=== PATIENT | female | born 1945 | race Caucasian/White ===

== ENCOUNTER 2024-01-05 13:30 | Outpatient (AMB) | payer MEDICARE, SELFPAY ==
--- NOTE | 2024-01-05 13:37 | MHC.PC.OV ---
Vital Signs 01/05/24 13:38 Height 5 ft 4 in Weight 158 lb BMI 27.1 BP 148/78 H Blood Pressure Location Lt brachial Position Sitting Pulse 78 Pulse Source Pulse Oximeter Pulse Oximetry (%) 97 Oxygen Delivery Method Room Air Intake Visit Reasons: [facility] - [facility] Allergies erythromycin base [ERYTHROMYCIN BASE] Allergy (Intermediate, Verified 01/05/24 13:44) HIVES flurbiprofen [From ANSAID] Allergy (Intermediate, Verified 01/05/24 13:44) HIVES azithromycin [AZITHROMYCIN] Allergy (Mild, Verified 01/05/24 13:44) RASHES NSAIDS (Non-Steroidal Anti-Inflamma [NSAIDS (NON-STEROIDAL ANTI-INFLAMMA] Allergy (Mild, Verified 01/05/24 13:44) RASHES ciprofloxacin [Cipro] Allergy (Unknown, Verified 01/05/24 13:44) Upset Stomach nitrofurantoin Allergy (Unknown, Verified 01/05/24 13:44) upset stomach Erythromycin Allergy (Unknown, Uncoded 01/05/24 13:44) Hives Sulfas Allergy (Unknown, Uncoded 01/05/24 13:44) Hives Medication List - Last Reconciled 01/05/24 by Jose Roberto Leggett MD acetaminophen (Tylenol) 975 mg PO Q6H PRN apixaban (Eliquis) 5 mg PO BID aspirin (Adult Aspirin Regimen) 81 mg PO DAILY atorvastatin 40 mg PO DAILY cholecalciferol (vitamin D3) 50 mcg PO DAILY dapagliflozin propanediol (Farxiga) 10 mg PO DAILY docusate sodium (Colace) 100 mg PO DAILY levothyroxine 100 mcg PO DAILY metoprolol tartrate 12.5 mg PO BID torsemide 20 mg PO DAILY valsartan 40 mg PO DAILY Tobacco use date assessed: 01/05/24 Fall risk assessment: No Falls in past year Last assessed Fall Risk: 01/05/24 Dental Screening Dental Screen Date: 01/05/24 Did you have a dental visit in the last 12 months?: No Did you have a dental problem in the last 6 months where you did not have access to dental care?: No Was dental information given to patient?: No HPI [facility] - [facility] HPI Details 78-year-old overweight female with a multiple medical problems. She has diabetes mellitus crest coronary artery disease , paroxysmal atrial fibrillation hypothyroidism hypercholesterolemia hypertension history of renal artery stenosis polymyositis with scleroderma coming in for the 1st time. Review of the notes has had coronary artery bypass graft in November 04 2023 was seen by the records management specialist in December 2023 having a sternal wound dehiscence with Pseudomonas growing. Wound care as well as IV antibiotics given was given Zosyn patient started on metoprolol 12.5 mg twice a day and follows up for wound VAC change. Prescribe nystatin for under breast. November [address] Medina from Cardiology [facility] Surgical History (Updated 01/05/24 @ 14:41 by Jose Roberto Leggett MD) Hx of tonsillectomy History of lumbar fusion History of appendectomy Hx of total knee arthroplasty Hx of CABG S/P JUDI-BSO (total abdominal hysterectomy and bilateral salpingo-oophorectomy) Family History (Updated 01/05/24 @ 13:52 by Katherin Lopez CMA) Mother Heart attack Father Heart attack Brother No problems noted. Son No problems noted. Son No problems noted. Social History (Updated 01/05/24 @ 14:42 by Jose Roberto Leggett MD) Housing: House Alcohol intake: never Patient Tobacco Use Status: Never used Tobacco Tobacco use type: Cigarette e-Cigarette/Vaping Use: Never Used Second Hand Smoke Exposure: No Current occupational status: retired Current occupational exposures/hazards: No Cognitive needs: No Hearing needs: Yes Vision needs: Yes Questionnaire PHQ-9 Over the last 2 weeks, how often have you been bothered by any of the following problems? 1. Little interest or pleasure in doing things: not at all 2. Feeling down, depressed, or hopeless: not at all 3. Trouble falling or staying asleep, or sleeping too much: not at all 4. Feeling tired or having little energy: not at all 5. Poor appetite or overeating: not at all 6. Feeling bad about yourself - or that you are a failure or have let yourself or your family down: not at all 7. Trouble concentrating on things, such as reading the newspaper or watching television: not at all 8. Moving or speaking so slowly that other people could have noticed. Or the opposite - being so fidgety or restless that you have been moving around a lot more than usual: not at all 9. Thoughts that you would be better off or of hurting yourself in some way: not at all Total score: 0 Depression Screening Interpretation: Negative Depression Screening Done: Yes Source: Developed by Drs. Yogi Martins, Migue Youssef and colleagues, with an educational yenny from [employer]. Thrive Questionnaire Date Thrive assessed: 01/05/24 I am a: Patient What is your living situation today?: I have a steady place to live Within the past 12 months, did the food you bought not last and you didn't have the money to get more?: Never true Within the past 12 months, did you worry whether your food would run out before you got money to buy more?: Never true Do you have trouble paying for medicines?: No Do you have trouble getting transportation to medical appointments?: No Do you have trouble paying your heating and electricity bill?: No Do you have trouble taking care of your child, family member or friend?: No Do you have trouble with day-to-day activities such as bathing, preparing meals, shopping, managing finances, etc.?: No Are you currently unemployed and looking for a job?: No Are you interested in more education?: No Currently or been in a relationship where the following occur: no concerns reported THRIVE Score: 0 AUDIT C Alcohol Use Questionnaire (AUDIT-C) 1. How often do you have a drink containing alcohol?: Never 3. How often do you have six or more drinks on one occasion?: Never Total Score: 0 HARRY-7 AMB Questionnaire HARRY-7 Date HARRY - 7 assessed: 01/05/24 Feeling nervous, anxious, or on edge: 1 = Several days Not being able to stop or control worryin = Several days Worrying too much about different things: 1 = Several days Trouble relaxin = Not at all Being so restless that it is hard to sit still: 0 = Not at all Becoming easily annoyed or irritable: 0 = Not at all Feeling afraid as if something awful might happen: 0 = Not at all Total HARRY-7 score (0-4 normal; 5-9 mild; 10-14 moderate; 15-21 severe): 3 Source: Developed by Sahra Orta Kurt Kroenke and colleagues, with an educational yenny from [employer]. Physical exam (Primary Care) Vital Signs: Last Vital Signs Pulse 78 01/05/24 13:38 BP 148/78 H 01/05/24 13:38 Pulse Ox 97 01/05/24 13:38 Oxygen Delivery Method Room Air 01/05/24 13:38 BMI result Body Mass Index 27.1 Tobacco/Smoking Status: Tobacco use Status Tobacco use date assessed 01/05/24 01/05/24 13:53 Patient Tobacco Use Status Never used Tobacco 01/05/24 13:53 Tobacco use type Cigarette 01/05/24 13:53 e-Cigarette/Vaping Use Never Used 01/05/24 13:53 PHQ-9: PHQ-9 Score PHQ-9: Total score 0 01/05/24 14:23 Depression Screening Interpretation: Negative Thrive Assessment: Date of Thrive Assessment Date Thrive assessed 01/05/24 01/05/24 13:53 Currently or been in a relationship where the following occur: no concerns reported Const General: alert; No acute distress Eyes Conjunctivae: conjunctivae normal Chest Chest/axillae images: 1. Wound VAC on wound dehiscence on the chest post CABG with slightly red bloody fluid coming out 2. 3. 4. Resp Auscultation: clear to auscultation bilaterally Cardio Rate: regular rate Rhythm: regular rhythm GI Inspection: Yes normal to inspection Extrem General: Yes normal to inspection and No edema Results AMB Hemoglobin A1c AMB Hemoglobin A1c 4.9 % Last Edit by Katherin Lopez CMA on 01/05/24 14:24 Results Reviewed Results Reviewed: Laboratory Last Values Hgb A1c (Clinic) 4.9 % (4.0-6.0) 01/05/24 13:53 Assessment and Plan Assessment & Plan (1) CAD (coronary artery disease): Comment: CABG x4 11/04/2023(Shabazz to LAD, SVG to PDA, SVG to OM, SVG to diag) Code(s): I25.10 - Atherosclerotic heart disease of [place] coronary artery without angina pectoris Plan: Control the cholesterol, weight, blood pressure, diabetes presently on anticoagulation for atrial fibrillation and aspirin (2) Superficial dehiscence of operation wound: Comment: December 2023 Code(s): T81.31XA - Disruption of external operation (surgical) wound, not elsewhere classified, initial encounter Plan: With a wound VAC and follows up with cardiac surgeon for wound VAC change (3) CREST (calcinosis, Raynaud's phenomenon, esophageal dysfunction, sclerodactyly, telangiectasia): Code(s): M34.1 - CR(E)ST syndrome Plan: Stable presently (4) Type 2 diabetes mellitus with hyperglycemia: Code(s): E11.65 - Type 2 diabetes mellitus with hyperglycemia Plan: Decrease the amount of carbohydrate intake, pasta, bread, rice and potatoes are all sugar and that is aside from all the sweet stuff, remember that fruits are good but they are Sweet also. Hemoglobin A1c goal of less than 7.0 presently on insulin Farxiga (5) Hypertension: Code(s): I10 - Essential (primary) hypertension Plan: Continue with blood pressure medication. Decrease salt intake and exercise presently on valsartan 40 mg once a day metoprolol 12.5 mg twice a day (6) Renal artery stenosis: Code(s): I70.1 - Atherosclerosis of renal artery Plan: Patient follows up with Nephrology continue to control blood pressure. Referral to Nephrology done (7) Paroxysmal atrial fibrillation: Code(s): I48.0 - Paroxysmal atrial fibrillation Plan: Continue with anticoagulation (8) Hypercholesterolemia: Code(s): E78.00 - Pure hypercholesterolemia, unspecified Plan: Avoid fried foods, chicken skin, eggs, butter margarine, pastries and meat. Be it pork or beef they have a lot of cholesterol LDL goal of less than 70 and triglyceride of less than 150. Patient on atorvastatin 40 mg once a day. Blood work requested (9) Hypothyroid: Code(s): E03.9 - Hypothyroidism, unspecified Plan: Continue with thyroid medication blood work requested. Orders: Orders AMB Hemoglobin A1c Today Z13.9 - Encounter for screening, unspecified Comprehensive Met. Panel Today E11.65 - Type 2 diabetes mellitus with hyperglycemia Lipid Panel Today E11.65 - Type 2 diabetes mellitus with hyperglycemia, E78.00 - Pure hypercholesterolemia, unspecified Microalbumin, Random (w Creat) Today E11.65 - Type 2 diabetes mellitus with hyperglycemia Creatinine Urine Today E11.65 - Type 2 diabetes mellitus with hyperglycemia Ferritin Today E11.65 - Type 2 diabetes mellitus with hyperglycemia Hemoglobin A1c Today E11.65 - Type 2 diabetes mellitus with hyperglycemia Erythrocyte Sedimentation Rate Today E11.65 - Type 2 diabetes mellitus with hyperglycemia Magnesium Today E11.65 - Type 2 diabetes mellitus with hyperglycemia Complete Blood Count Auto Diff Today E11.65 - Type 2 diabetes mellitus with hyperglycemia Free T4 (Free Thyroxine) Today E11.65 - Type 2 diabetes mellitus with hyperglycemia Thyroid Stimulating Hormone Today E11.65 - Type 2 diabetes mellitus with hyperglycemia Reticulocyte Count Today E11.65 - Type 2 diabetes mellitus with hyperglycemia IRON PROFILE Today E11.65 - Type 2 diabetes mellitus with hyperglycemia Vitamin B12 and Folate Today E11.65 - Type 2 diabetes mellitus with hyperglycemia Vitamin D 25-OH Total Today E11.65 - Type 2 diabetes mellitus with hyperglycemia C Reactive Protein Today E11.65 - Type 2 diabetes mellitus with hyperglycemia Phosphorus Today E11.65 - Type 2 diabetes mellitus with hyperglycemia Referrals Nephrology Referral I70.1 - Atherosclerosis of renal artery Coding Level of Care Code Est Pt Level 4 (93333) Diagnoses CAD (coronary artery disease) I25.10 Superficial dehiscence of operation wound T81.31XA CREST (calcinosis, Raynaud's phenomenon, esophageal dysfunction, sclerodactyly, telangiectasia) M34.1 Type 2 diabetes mellitus with hyperglycemia E11.65 Hypertension I10 Renal artery stenosis I70.1 Paroxysmal atrial fibrillation I48.0 Hypercholesterolemia E78.00 Hypothyroid E03.9
[2024-01-05 13:38] VITALS: BP 148/78; PULSE 78; O2SAT 97; BMI 27.1
== END 2024-01-05 15:00 | disposition home or self-care (01) ==
PROVIDERS: PCP Internal Medicine; Visit Provider Internal Medicine
DX: E11.65 Type 2 diabetes mellitus with hyperglycemia (principal); M34.1 CR(E)ST syndrome; I70.1 Atherosclerosis of renal artery; I48.0 Paroxysmal atrial fibrillation; I25.10 Atherosclerotic heart disease of native coronary artery without angina pectoris; T81.31XA Disruption of external operation (surgical) wound, not elsewhere classified, initial encounter; I10 Essential (primary) hypertension; E78.00 Pure hypercholesterolemia, unspecified; E03.9 Hypothyroidism, unspecified
CPT/HCPCS: 83036; 99214

== ENCOUNTER 2024-01-12 15:19 | Outpatient (AMB) | payer MEDICARE, SELFPAY ==
--- NOTE | 2024-01-12 15:29 | HO.NEPHOV ---
HPI HPI Comments History of Present Illness Details I would the privilege of seeing Perlita in consultation for her recent ARMAAN on a backdrop of CKD, hypertension and crest syndrome. She has long history of coronary artery disease needing PCI 15 years ago but recently she underwent coronary artery bypass grafting following which she had sternal wound issues and underwent further surgery. She was thought to have atherosclerotic renovascular disease causing CKD. She denies any shortness of breath, paroxysmal nocturnal dyspnea, orthopnea or worsening pedal edema. She has been tolerating angiotensin receptor marichuy. Her serum creatinine had been fluctuating between 1.3-1.4 at baseline. She does not have any hematuria, dysuria, frequency, orthostatic symptoms. [facility] Surgical History Hx of tonsillectomy History of lumbar fusion History of appendectomy Hx of total knee arthroplasty Hx of CABG S/P JUDI-BSO (total abdominal hysterectomy and bilateral salpingo-oophorectomy) Family History Mother Heart attack Father Heart attack Brother No problems noted. Son No problems noted. Son No problems noted. Social History Housing: House Alcohol intake: never Patient Tobacco Use Status: Never used Tobacco Tobacco use type: Cigarette e-Cigarette/Vaping Use: Never Used Second Hand Smoke Exposure: No Current occupational status: retired Current occupational exposures/hazards: No Cognitive needs: No Hearing needs: Yes Vision needs: Yes Vital Signs 01/12/24 15:31 Height 5 ft 4 in Weight 157 lb 2 oz BMI 27.0 BP 140/90 H Blood Pressure Location Rt brachial Position Sitting Pulse 103 H Pulse Source Pulse Oximeter Pulse Oximetry (%) 97 Oxygen Delivery Method Room Air Physical Exam Vital Signs: Last Vital Signs Pulse 103 H 01/12/24 15:31 BP 140/90 H 01/12/24 15:31 Pulse Ox 97 01/12/24 15:31 Oxygen Delivery Method Room Air 01/12/24 15:31 BMI result Body Mass Index 27.0 Const General: comfortable and no acute distress Orientation/consciousness: patient oriented x3 HEENT Head: Yes normocephalic Mouth: Normal oral and palatal mucosa present Eyes EOM: EOMs intact bilaterally Neck Neck: Yes supple Resp Auscultation: clear to auscultation bilaterally Cardio Jugular venous distension: no JVD Rate: regular rate GI Palpation (GI): Soft to palpation Auscultation: normal bowel sounds General: Yes no CVA tenderness Back/Spine/Pelvis Back: no CVA tenderness Skin General skin exam: no rashes or lesions noted Neuro General: patient oriented x3 and moves all extremities Extrem General: Yes no pedal edema Assessment & Plan Assessment & Plan (1) CKD (chronic kidney disease) stage 3, GFR 30-59 ml/min: Code(s): N18.30 - Chronic kidney disease, stage 3 unspecified Qualifiers: Chronic kidney disease stage 3 subtype: stage 3a (GFR 45-59) Qualified Code(s): N18.31 - Chronic kidney disease, stage 3a (2) Renal artery stenosis: Code(s): I70.1 - Atherosclerosis of renal artery (3) Hypertension: Code(s): I10 - Essential (primary) hypertension Qualifiers: Hypertension type: renovascular hypertension Qualified Code(s): I15.0 - Renovascular hypertension Plan Perlita has history of vascular disease including coronary artery disease needing CABG as well as renovascular disease. She is tolerating current dose of ARB and blood pressure has been at goal. She avoids nonsteroidal anti-inflammatories and her volume status is optimal. She has not known to have any significant proteinuria. She has not had a follow-up ultrasound of her renal artery which I plan to do it with time. She is on statins. Her renal functions are close to baseline now. She maintains good hydration. She is tolerating current dosage of diuretics. More than 50% of time spent discussing about renovascular disease, CKD, follow-up and management strategies. I answered all questions. Follow-up blood work ordered. Follow-up appointment given. Orders: Orders Creatinine 01/12/24 N18.30 - Chronic kidney disease, stage 3 unspecified Blood Urea Nitrogen 01/12/24 N18.30 - Chronic kidney disease, stage 3 unspecified Electrolytes 01/12/24 N18.30 - Chronic kidney disease, stage 3 unspecified Coding Level of Care Code New Pt Level 4 (29249) Diagnoses Stage 3a chronic kidney disease N18.31 Chronic kidney disease stage 3 subtype: stage 3a (GFR 45-59) Renal artery stenosis I70.1 Renovascular hypertension I15.0 Hypertension type: renovascular hypertension Results Reviewed Nephrology Results: Hgb 12.4 g/dL (12.0-16.0) 10/17/19 WBC 12.2 X10*3/uL (4.8-10.8) H 10/17/19 Plt Count 266 X10*3/uL (160-400) 10/17/19 Sodium 140 MMOL/L (135-145) 10/17/19 Potassium 4.2 MMOL/L (3.3-5.1) 10/17/19 Chloride 108 MMOL/L (96-108) 10/17/19 BUN 43 MG/DL (9-16) H 10/17/19 Creatinine 1.30 MG/DL (0.5-1.4) 10/17/19 Calcium 9.5 MG/DL (8.4-10.2) 10/17/19
[2024-01-12 15:31] VITALS: BP 140/90; PULSE 103; O2SAT 97; BMI 27.0
== END 2024-01-12 16:17 | disposition home or self-care (01) ==
PROVIDERS: PCP Internal Medicine; Visit Provider Internal Medicine Nephrology
DX: N18.31 Chronic kidney disease, stage 3a (principal); I70.1 Atherosclerosis of renal artery; I15.0 Renovascular hypertension
CPT/HCPCS: 99204

== ENCOUNTER → 2024-01-12 15:19 | Outpatient (BNVA) | payer MEDICARE, SELFPAY | PROVIDERS: PCP Internal Medicine; Visit Provider Internal Medicine Nephrology | DX: N18.31 Chronic kidney disease, stage 3a (principal); I70.1 Atherosclerosis of renal artery; I15.0 Renovascular hypertension | CPT/HCPCS: 99202 ==

== ENCOUNTER 2024-02-09 08:31 | Outpatient (AMB) | payer MEDICARE, SELFPAY ==
[2024-02-09 08:37] VITALS: BP 142/76; PULSE 85; O2SAT 98; BMI 26.6
--- NOTE | 2024-02-09 08:37 | MHC.PC.OV ---
Vital Signs 02/09/24 08:37 Height 5 ft 4 in Weight 70.307 kg BMI 26.6 BP 142/76 H Blood Pressure Location Lt brachial Position Sitting Pulse 85 Pulse Source Pulse Oximeter Pulse Oximetry (%) 98 Oxygen Delivery Method Room Air Intake Visit Reasons: [facility] [place] 01/18-01/21 Pediatrician Active Practice Required: No Early Head Start Director: Not Required per policy Accompanied by: Self / Same As Patient Allergies erythromycin base [ERYTHROMYCIN BASE] Allergy (Intermediate, Verified 02/09/24 08:37) HIVES flurbiprofen [From ANSAID] Allergy (Intermediate, Verified 02/09/24 08:37) HIVES azithromycin [AZITHROMYCIN] Allergy (Mild, Verified 02/09/24 08:37) RASHES NSAIDS (Non-Steroidal Anti-Inflamma [NSAIDS (NON-STEROIDAL ANTI-INFLAMMA] Allergy (Mild, Verified 02/09/24 08:37) RASHES ciprofloxacin [Cipro] Allergy (Unknown, Verified 02/09/24 08:37) Upset Stomach nitrofurantoin Allergy (Unknown, Verified 02/09/24 08:37) upset stomach Erythromycin Allergy (Unknown, Uncoded 02/09/24 08:37) Hives Sulfas Allergy (Unknown, Uncoded 02/09/24 08:37) Hives Medication List - Last Reconciled 02/13/24 by ANDRE Shannon acetaminophen (Tylenol) 975 mg PO Q6H PRN apixaban (Eliquis) 5 mg PO BID aspirin (Adult Aspirin Regimen) 81 mg PO DAILY atorvastatin 40 mg PO DAILY cholecalciferol (vitamin D3) 50 mcg PO DAILY docusate sodium (Colace) 100 mg PO DAILY furosemide 20 mg PO DAILY levothyroxine 100 mcg PO DAILY metoprolol tartrate 12.5 mg PO BID sacubitril-valsartan 24-26 mg (Entresto) 1 tab PO BID simvastatin 40 mg PO QPM Tobacco use date assessed: 01/05/24 Fall risk assessment: No Falls in past year Last assessed Fall Risk: 02/09/24 Dental Screening Dental Screen Date: 01/05/24 HPI HPI Comments History of Present Illness Details 7-year-old female with history of crest syndrome, chronic atrial fibrillation previously on Eliquis which is on hold due to delayed wound healing of the chest, coronary artery disease s/p PCI to the LAD and LCX in 2008 s/p CABG x4 on 11/04/2024, 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 Hospital discharge medications reviewed and reconciled. She was admitted to [facility] from 01/18-01/21 due to acute on chronic systolic congestive heart failure exacerbation. Chest x-ray while in the ED showed pulmonary edema and pleural effusion. ProBNP elevated at 13,851. Troponin 26. Renal function baseline, electrolyte levels normal. Hemoglobin A1c checked was 5.5%. She was diuresed with IV Lasix with good effect. Her valsartan was discontinued and she was initiated on Entresto. Her Lasix was increased to 20 mg orally. Reports the Eliquis remains on hold due to recent sternal wound infection with delayed healing but continues following with her surgeon, Dr. Interiano, with plans to resume Eliquis likely at the end of this month. She also continues to follow with Dr. Pike from at [facility]. Today she reports she is feeling well. Denies any lightheadedness, dyspnea on exertion, increased edema in the bilateral lower extremities, palpitations, or chest pain. She has VNA in the home 3 times per week for wound care. She continues to drain minimal yellow discharge which has not changed in quantity or quality. No foul-smelling discharge. No fevers or chills. She also tells me her diabetes has been very well controlled and insulin was discontinued while in the hospital. Hgb A1c 5.5% at [facility]. Reports fasting glucose around 110 PFSH Medical History CAD (coronary artery disease) CREST (calcinosis, Raynaud's phenomenon, esophageal dysfunction, sclerodactyly, telangiectasia) Inguinal hernia Type 2 diabetes mellitus with hyperglycemia Hypertension Polymyositis Renal artery stenosis Scleroderma Paroxysmal atrial fibrillation CKD (chronic kidney disease) stage 3, GFR 30-59 ml/min Hypothyroid Hypercholesterolemia Surgical History Hx of tonsillectomy History of lumbar fusion History of appendectomy Hx of total knee arthroplasty Hx of CABG S/P JUDI-BSO (total abdominal hysterectomy and bilateral salpingo-oophorectomy) Family History Mother Heart attack Father Heart attack Brother No problems noted. Son No problems noted. Son No problems noted. Social History Housing: House Alcohol intake: never Patient Tobacco Use Status: Never used Tobacco Tobacco use type: Cigarette e-Cigarette/Vaping Use: Never Used Second Hand Smoke Exposure: No Current occupational status: retired Current occupational exposures/hazards: No Cognitive needs: No Hearing needs: Yes Vision needs: Yes Questionnaire Thrive Questionnaire Date Thrive assessed: 01/05/24 HARRY-7 AMB Questionnaire HARRY-7 Date HARRY - 7 assessed: 01/05/24 Source: Developed by Drs. Yogi Martins, Sahra Howell, Migue Begum and colleagues, with an educational yenny from [employer]. Review of Systems Const All systems reviewed & are unremarkable except as noted in HPI and below Physical exam (Primary Care) Vital Signs: Last Vital Signs Pulse 85 02/09/24 08:37 BP 142/76 H 02/09/24 08:37 Pulse Ox 98 02/09/24 08:37 Oxygen Delivery Method Room Air 02/09/24 08:37 BMI result Body Mass Index 26.6 Tobacco/Smoking Status: Tobacco use Status Tobacco use date assessed 01/05/24 02/09/24 08:38 Patient Tobacco Use Status Never used Tobacco 02/09/24 08:38 Tobacco use type Cigarette 02/09/24 08:38 e-Cigarette/Vaping Use Never Used 02/09/24 08:38 Thrive Assessment: Date of Thrive Assessment Date Thrive assessed 01/05/24 02/09/24 08:38 Const Other: Constitutional - Awake and Alert, No apparent distress Eyes - PERRLA, EOMI Cardiovascular - S1S2, RRR, No edema Respiratory - Normal lung expansion, Normal respiratory effort, No respiratory distress, CTA bilaterally Extremities - no calf tenderness bilaterally, no swelling Skin - Warm/Dry. Sternal wound dehiscence, no open areas, with granulation tissues present. scant yellow drainage on dressing. NO evidence of significant purulence from wound. No surrounding erythema. No foul odor Neurological - Alert & oriented x3 Psychological - Appropriate affect Results Reviewed Results Reviewed: CBC, BMP, hemoglobin A1c, wound care note, discharge summary, echocardiogram Assessment and Plan Assessment & Plan (1) Chronic systolic heart failure: Code(s): I50.22 - Chronic systolic (congestive) heart failure Plan: Euvolemic on exam Echo 01/19 shows severely reduced LV systolic function EF 25-30% with global LV hypokinesis with regional variation as well as probable elevated LV filling pressures Continue increased dose of lasix : 20mg daily Continue entresto: 24/36mg daily Follow up with Dr. Medina ([facility]) as scheduled (2) Superficial dehiscence of operation wound: Comment: December 2023 Code(s): T81.31XA - Disruption of external operation (surgical) wound, not elsewhere classified, initial encounter Plan: Wound clean without evidence of acute infection Wound VAC has been discontinued. Continue with VNA RN in home for wound care Continue following with Dr. Interiano, surgeon, as scheduled Continue holding Eliquis. Resume as advised by surgeon (3) Type 2 diabetes mellitus with hyperglycemia: Code(s): E11.65 - Type 2 diabetes mellitus with hyperglycemia Plan: Controlled with hemoglobin A1c 5.5% Continue with diabetic diet. Insulin discontinued. Medications: New sacubitril-valsartan 24-26 mg (Entresto) 1 tab PO BID 180 tabs 0RF Coding Level of Care Code Est Pt Level 5 (36778) Diagnoses Chronic systolic heart failure I50.22 Superficial dehiscence of operation wound T81.31XA Type 2 diabetes mellitus with hyperglycemia E11.65 Time Spent (min) 45 Comment Time spent reviewing above, examination with patient, and documentation time
== END 2024-02-09 08:59 | disposition home or self-care (01) ==
PROVIDERS: PCP Internal Medicine; Visit Provider Physician Assistant
DX: I50.22 Chronic systolic (congestive) heart failure (principal); T81.31XA Disruption of external operation (surgical) wound, not elsewhere classified, initial encounter; E11.65 Type 2 diabetes mellitus with hyperglycemia
CPT/HCPCS: 99215

== ENCOUNTER 2024-02-18 10:28 | Outpatient (AMB) | payer MEDICARE, SELFPAY ==
[2024-02-18 10:32] VITALS: BP 110/54; PULSE 83; O2SAT 98; BMI 26.9
--- NOTE | 2024-02-18 10:32 | HO.NEPHOV_ITS ---
HPI HPI Comments History of Present Illness Details I would the privilege of seeing Perlita in consultation for her recent ARMAAN on a backdrop of CKD, hypertension and crest syndrome. She has long history of coronary artery disease needing PCI 15 years ago but recently she underwent coronary artery bypass grafting following which she had sternal wound issues and underwent further surgery. She was thought to have atherosclerotic renovascular disease causing CKD. She denies any shortness of breath, paroxysmal nocturnal dyspnea, orthopnea or worsening pedal edema. She has been tolerating angiotensin receptor marichuy. Her serum creatinine had been fluctuating between 1.3-1.4 at baseline. She does not have any hematuria, dysuria, frequency, orthostatic symptoms. She recently had a hospitalization with initiation of lasix and Entresto. [facility] Medical History CAD (coronary artery disease) CREST (calcinosis, Raynaud's phenomenon, esophageal dysfunction, sclerodactyly, telangiectasia) Inguinal hernia Type 2 diabetes mellitus with hyperglycemia Hypertension Polymyositis Renal artery stenosis Scleroderma Paroxysmal atrial fibrillation CKD (chronic kidney disease) stage 3, GFR 30-59 ml/min Hypothyroid Hypercholesterolemia Surgical History Hx of tonsillectomy History of lumbar fusion History of appendectomy Hx of total knee arthroplasty Hx of CABG S/P JUDI-BSO (total abdominal hysterectomy and bilateral salpingo-oophorectomy) Family History Mother Heart attack Father Heart attack Brother No problems noted. Son No problems noted. Son No problems noted. Social History Housing: House Alcohol intake: never Patient Tobacco Use Status: Never used Tobacco Tobacco use type: Cigarette e-Cigarette/Vaping Use: Never Used Second Hand Smoke Exposure: No Current occupational status: retired Current occupational exposures/hazards: No Cognitive needs: No Hearing needs: Yes Vision needs: Yes Vital Signs 02/18/24 10:32 Height 5 ft 4 in Weight 157 lb BMI 26.9 BP 110/54 L Blood Pressure Location Rt brachial Position Left Lateral Pulse 83 Pulse Source Pulse Oximeter Pulse Oximetry (%) 98 Oxygen Delivery Method Room Air Physical Exam Vital Signs: Last Vital Signs Pulse 83 02/18/24 10:32 BP 110/54 L 02/18/24 10:32 Pulse Ox 98 02/18/24 10:32 Oxygen Delivery Method Room Air 02/18/24 10:32 BMI result Body Mass Index 26.9 Const General: comfortable and no acute distress Orientation/consciousness: patient oriented x3 HEENT Head: Yes normocephalic Mouth: Normal oral and palatal mucosa present Eyes EOM: EOMs intact bilaterally Neck Neck: Yes supple Resp Auscultation: clear to auscultation bilaterally Cardio Jugular venous distension: no JVD Rate: regular rate GI Palpation (GI): Soft to palpation Auscultation: normal bowel sounds General: Yes no CVA tenderness Back/Spine/Pelvis Back: no CVA tenderness Skin General skin exam: no rashes or lesions noted Neuro General: patient oriented x3 and moves all extremities Extrem General: Yes no pedal edema Assessment & Plan Assessment & Plan (1) Renal artery stenosis: Code(s): I70.1 - Atherosclerosis of renal artery (2) CKD (chronic kidney disease) stage 3, GFR 30-59 ml/min: Code(s): N18.30 - Chronic kidney disease, stage 3 unspecified Qualifiers: Chronic kidney disease stage 3 subtype: stage 3a (GFR 45-59) Qualified Code(s): N18.31 - Chronic kidney disease, stage 3a Plan Perlita has history of vascular disease including coronary artery disease needing CABG as well as renovascular disease. She is tolerating current dose of Enteresto and her blood pressure has been at goal. She avoids nonsteroidal anti-inflammatories and her volume status is optimal. She has not known to have any significant proteinuria. She has not had a follow-up ultrasound of her renal artery which I plan to do it with time. She is on statins. Her renal functions are close to baseline now. She maintains good hydration. She is tolerating current dosage of diuretics. More than 50% of time spent discussing about renovascular disease, CKD, follow-up and management strategies. I answered all questions. Follow-up blood work ordered. Follow-up appointment given. Orders: Orders Electrolytes Today I70.1 - Atherosclerosis of renal artery, N18.31 - Chronic kidney disease, stage 3a Creatinine Today I70.1 - Atherosclerosis of renal artery, N18.31 - Chronic kidney disease, stage 3a Blood Urea Nitrogen Today I70.1 - Atherosclerosis of renal artery, N18.31 - Chronic kidney disease, stage 3a Medications: New furosemide 20 mg PO DAILY 90 tabs 4RF Changed From sacubitril-valsartan 24-26 mg (Entresto) 1 tab PO BID 180 tabs 0RF To sacubitril-valsartan 24-26 mg (Entresto) 1 tab PO BID 30 days 60 tabs 0RF Coding Level of Care Code Est Pt Level 4 (16585) Diagnoses Renal artery stenosis I70.1 Stage 3a chronic kidney disease N18.31 Chronic kidney disease stage 3 subtype: stage 3a (GFR 45-59) Results Reviewed Nephrology Results: Hgb 12.4 g/dL (12.0-16.0) 10/17/19 WBC 12.2 X10*3/uL (4.8-10.8) H 10/17/19 Plt Count 266 X10*3/uL (160-400) 10/17/19 Sodium 140 MMOL/L (135-145) 10/17/19 Potassium 4.2 MMOL/L (3.3-5.1) 10/17/19 Chloride 108 MMOL/L (96-108) 10/17/19 BUN 43 MG/DL (9-16) H 10/17/19 Creatinine 1.30 MG/DL (0.5-1.4) 10/17/19 Calcium 9.5 MG/DL (8.4-10.2) 10/17/19
== END 2024-02-18 11:23 | disposition home or self-care (01) ==
PROVIDERS: PCP Internal Medicine; Visit Provider Internal Medicine Nephrology
DX: I70.1 Atherosclerosis of renal artery (principal); N18.31 Chronic kidney disease, stage 3a
CPT/HCPCS: 99214

== ENCOUNTER → 2024-02-18 10:28 | Outpatient (BNVA) | payer MEDICARE, SELFPAY | PROVIDERS: PCP Internal Medicine; Visit Provider Internal Medicine Nephrology | DX: I70.1 Atherosclerosis of renal artery (principal); N18.31 Chronic kidney disease, stage 3a | CPT/HCPCS: 99212 ==

== ENCOUNTER 2024-03-14 14:47 | Outpatient (AMB) | payer MEDICARE, SELFPAY ==
--- NOTE | 2024-03-14 14:53 | MHC.PC.OV ---
Vital Signs 03/14/24 14:54 Height 5 ft 4 in Weight 157 lb BMI 26.9 BP 144/54 H Blood Pressure Location Lt brachial Position Sitting Pulse 85 Pulse Source Pulse Oximeter Pulse Oximetry (%) 95 Oxygen Delivery Method Room Air Intake Visit Reasons: Coronary artery disease Principal Technical Writer Required: No Drapery Head Former: Not Required per policy Accompanied by: Self / Same As Patient Allergies erythromycin base [ERYTHROMYCIN BASE] Allergy (Intermediate, Verified 03/14/24 14:54) HIVES flurbiprofen [From ANSAID] Allergy (Intermediate, Verified 03/14/24 14:54) HIVES azithromycin [AZITHROMYCIN] Allergy (Mild, Verified 03/14/24 14:54) RASHES NSAIDS (Non-Steroidal Anti-Inflamma [NSAIDS (NON-STEROIDAL ANTI-INFLAMMA] Allergy (Mild, Verified 03/14/24 14:54) RASHES ciprofloxacin [Cipro] Allergy (Unknown, Verified 03/14/24 14:54) Upset Stomach nitrofurantoin Allergy (Unknown, Verified 03/14/24 14:54) upset stomach Erythromycin Allergy (Unknown, Uncoded 03/14/24 14:54) Hives Sulfas Allergy (Unknown, Uncoded 03/14/24 14:54) Hives Medication List - Last Reconciled 03/14/24 by Jose Roberto Leggett MD acetaminophen (Tylenol) 975 mg PO Q6H PRN apixaban (Eliquis) 5 mg PO BID aspirin (Adult Aspirin Regimen) 81 mg PO DAILY atorvastatin 40 mg PO DAILY cholecalciferol (vitamin D3) 50 mcg PO DAILY docusate sodium (Colace) 100 mg PO DAILY furosemide 20 mg PO DAILY levothyroxine 100 mcg PO DAILY metoprolol tartrate 25 mg PO BID sacubitril-valsartan 24-26 mg (Entresto) 1 tab PO BID 30 days Tobacco use date assessed: 01/05/24 Fall risk assessment: No Falls in past year Last assessed Fall Risk: 03/14/24 Dental Screening Dental Screen Date: 01/05/24 HPI Coronary artery disease HPI Details 79-year-old female with controlled diabetes mellitus coronary artery disease with superficial dehiscence of the operated wound on the chest crest syndrome hypertension renal artery stenosis paroxysmal atrial fibrillation hypercholesterolemia and hypothyroidism last seen in December 2023. Review of the notes has been follow-up with cardiology with wound culture positive for Pseudomonas placed on Zosyn until December 25 wound VAC has been removed placed back and recently taken off January 23. Aquacel applied and being following up once a week. Patient has also followed up with the Nephrology recently ARMAAN on the backdrop of chronic kidney disease on Entresto blood work done February 2024 with glucose of 107 creatinine of 1.06 BUN 40 sodium potassium normal patient also has a nurse practitioner's note in February 08 admitted January 18- due to [place] [address] controlled hemoglobin A1c 5.5 valsartan discontinued echocardiogram done in January 19 shows severely reduced left ventricular function to 25-30% with global hypokinesis. wound is now 2cm PFSH Medical History CAD (coronary artery disease) CREST (calcinosis, Raynaud's phenomenon, esophageal dysfunction, sclerodactyly, telangiectasia) Inguinal hernia Type 2 diabetes mellitus with hyperglycemia Hypertension Polymyositis Renal artery stenosis Scleroderma Paroxysmal atrial fibrillation CKD (chronic kidney disease) stage 3, GFR 30-59 ml/min Hypothyroid Hypercholesterolemia Surgical History Hx of tonsillectomy History of lumbar fusion History of appendectomy Hx of total knee arthroplasty Hx of CABG S/P JUDI-BSO (total abdominal hysterectomy and bilateral salpingo-oophorectomy) Family History Mother Heart attack Father Heart attack Brother No problems noted. Son No problems noted. Son No problems noted. Social History Housing: House Alcohol intake: never Patient Tobacco Use Status: Never used Tobacco Tobacco use type: Cigarette e-Cigarette/Vaping Use: Never Used Second Hand Smoke Exposure: No Current occupational status: retired Current occupational exposures/hazards: No Cognitive needs: No Hearing needs: Yes Vision needs: Yes Questionnaire Thrive Questionnaire Date Thrive assessed: 01/05/24 HARRY-7 AMB Questionnaire HARRY-7 Date HARRY - 7 assessed: 01/05/24 Source: Developed by Drs. Yogi Martins, Sahra Howell, Migue Begum and colleagues, with an educational yenny from [employer]. Physical exam (Primary Care) Vital Signs: Last Vital Signs Pulse 85 03/14/24 14:54 BP 144/54 H 03/14/24 14:54 Pulse Ox 95 03/14/24 14:54 Oxygen Delivery Method Room Air 03/14/24 14:54 BMI result Body Mass Index 26.9 Tobacco/Smoking Status: Tobacco use Status Tobacco use date assessed 01/05/24 03/14/24 14:55 Patient Tobacco Use Status Never used Tobacco 03/14/24 14:55 Tobacco use type Cigarette 03/14/24 14:55 e-Cigarette/Vaping Use Never Used 03/14/24 14:55 Thrive Assessment: Date of Thrive Assessment Date Thrive assessed 01/05/24 03/14/24 14:55 Const General: alert; No acute distress Eyes Conjunctivae: conjunctivae normal Resp Auscultation: clear to auscultation bilaterally Cardio Rate: regular rate Rhythm: regular rhythm GI Inspection: Yes normal to inspection Extrem General: Yes normal to inspection and No edema Assessment and Plan Assessment & Plan (1) CAD (coronary artery disease): Comment: CABG x4 11/04/2023(Shabazz to LAD, SVG to PDA, SVG to OM, SVG to diag) Code(s): I25.10 - Atherosclerotic heart disease of [place] coronary artery without angina pectoris Plan: Control the cholesterol, weight, blood pressure, diabetes continue with aspirin and anticoagulation but anticoagulation with Eliquis was held due to wound days and (2) Chronic systolic heart failure: Comment: January 2024 EF of 25-30% Code(s): I50.22 - Chronic systolic (congestive) heart failure Plan: Continue with diuretics and placed on Entresto (3) Type 2 diabetes mellitus with hyperglycemia: Code(s): E11.65 - Type 2 diabetes mellitus with hyperglycemia Plan: Decrease the amount of carbohydrate intake, pasta, bread, rice and potatoes are all sugar and that is aside from all the sweet stuff, remember that fruits are good but they are Sweet also. Controlled diet (4) Hypertension: Code(s): I10 - Essential (primary) hypertension Qualifiers: Hypertension type: renovascular hypertension Qualified Code(s): I15.0 - Renovascular hypertension Plan: Continue with blood pressure medication. Decrease salt intake and exercise on Entresto, metoprolol 25 mg twice a day (5) Paroxysmal atrial fibrillation: Code(s): I48.0 - Paroxysmal atrial fibrillation Plan: Continue with anticoagulation but presently held due to wound dehiscence bleeding (6) CKD (chronic kidney disease) stage 3, GFR 30-59 ml/min: Code(s): N18.30 - Chronic kidney disease, stage 3 unspecified Qualifiers: Chronic kidney disease stage 3 subtype: stage 3a (GFR 45-59) Qualified Code(s): N18.31 - Chronic kidney disease, stage 3a Plan: Keep well hydrated, on diuretics avoid NSAIDs patient is followed up by Nephrology (7) Hypothyroid: Code(s): E03.9 - Hypothyroidism, unspecified Plan: Continue with thyroid medication (8) Hypercholesterolemia: Code(s): E78.00 - Pure hypercholesterolemia, unspecified Plan: Avoid fried foods, chicken skin, eggs, butter margarine, pastries and meat. Be it pork or beef they have a lot of cholesterol LDL goal of less than 70 on atorvastatin 40 mg once a day (9) Superficial dehiscence of operation wound: Comment: December 2023 Code(s): T81.31XA - Disruption of external operation (surgical) wound, not elsewhere classified, initial encounter Plan: Continue to be followed by cardiac surgeon weekly Orders: Orders Complete Blood Count Auto Diff 3 Months I25.10 - Atherosclerotic heart disease of [place] coronary artery without angina pectoris Comprehensive Met. Panel 3 Months I25.10 - Atherosclerotic heart disease of [place] coronary artery without angina pectoris B Type Natriuretic Peptide 3 Months I25.10 - Atherosclerotic heart disease of [place] coronary artery without angina pectoris Magnesium 3 Months I25.10 - Atherosclerotic heart disease of [place] coronary artery without angina pectoris Phosphorus 3 Months I25.10 - Atherosclerotic heart disease of [place] coronary artery without angina pectoris Medications: Refilled sacubitril-valsartan 24-26 mg (Entresto) 1 tab PO BID 60 tabs 0RF 30 days Coding Level of Care Code Est Pt Level 4 (52092) Diagnoses CAD (coronary artery disease) I25.10 Chronic systolic heart failure I50.22 Type 2 diabetes mellitus with hyperglycemia E11.65 Renovascular hypertension I15.0 Hypertension type: renovascular hypertension Paroxysmal atrial fibrillation I48.0 Stage 3a chronic kidney disease N18.31 Chronic kidney disease stage 3 subtype: stage 3a (GFR 45-59) Hypothyroid E03.9 Hypercholesterolemia E78.00 Superficial dehiscence of operation wound T81.31XA
[2024-03-14 14:54] VITALS: BP 144/54; PULSE 85; O2SAT 95; BMI 26.9
== END 2024-03-14 15:36 | disposition home or self-care (01) ==
PROVIDERS: PCP Internal Medicine; Visit Provider Internal Medicine
DX: I25.10 Atherosclerotic heart disease of native coronary artery without angina pectoris (principal); I50.22 Chronic systolic (congestive) heart failure; E11.65 Type 2 diabetes mellitus with hyperglycemia; I48.0 Paroxysmal atrial fibrillation; N18.31 Chronic kidney disease, stage 3a; I15.0 Renovascular hypertension; E03.9 Hypothyroidism, unspecified; E78.00 Pure hypercholesterolemia, unspecified; T81.31XA Disruption of external operation (surgical) wound, not elsewhere classified, initial encounter
CPT/HCPCS: 99214

== ENCOUNTER 2024-06-14 14:13 | Outpatient (REF) | payer MEDICARE, SELFPAY ==
[2024-06-14 14:47] LABS: MANUAL DIFF FLAG NO
[2024-06-14 15:14] LABS: Basophils Absolute Auto 0.1 X10*3/uL (0.0-0.2); Basophils Percent Auto 0.8 % (0-2); Eosinophils Absolute Auto 0.2 X10*3/uL (0.0-0.4); Hematocrit 37.1 % (37.0-47.0); Hemoglobin 12.3 g/dl (12.0-16.0); Imm Gran Abs Auto 0.03 X10*3/uL (0.00-0.03); Imm Gran Pct Auto 0.4 % (0.0-0.4); Lymphocytes Absolute Auto 2.8 X10*3/uL (1.2-4.9); Lymphocytes Percent Auto 33.1 % (20-40); Mean Corpuscular HGB Conc 33.2 g/dl (31.0-35.0); Mean Corpuscular Hemoglobin 31.8 pg (27.0-33.0); Mean Corpuscular Volume 95.9 fL (80.0-98.0); Mean Platelet Volume 11.1 fL (9.4-12.3); Monocytes Absolute Auto 0.9 X10*3/uL (0.1-1.2); Neutrophils Absolute Auto 4.5 x10*3/uL (2.0-8.3); Neutrophils Percent Auto 52.7 % (45-73); Platelet Count 326 X10*3/uL (160-400); Red Blood Count 3.87 X10*6/uL (4.20-5.50); Red Cell Distribution Width 14.2 % (11.0-16.0); White Blood Count 8.5 X10*3/uL (4.8-10.8)
[2024-06-14 15:45] LABS: Alanine Aminotransferase 25 U/L (0-31); Albumin Level 4.1 g/dL (3.5-5.0); Alkaline Phosphatase 72 U/L (39-117); Anion Gap 11 (12-20); Aspartate Amino Transferase 24 U/L (5-31); Bilirubin Total 0.4 mg/dL (0.0-1.0); Blood Urea Nitrogen 33 mg/dL (9-16); Calcium 10.1 mg/dL (8.4-10.2); Carbon Dioxide 27 mmol/L (22-29); Chloride 109 mmol/L (96-108); Estimated Glomerular Filt Rate 48; Glucose Random 82 mg/dL (60-115); Phosphorus 3.7 mg/dL (2.7-4.5); Potassium 4.3 mmol/L (3.3-5.1); Sodium 143 mmol/L (135-145); Total Protein 7.5 g/dL (6.5-8.0)
[2024-06-14 15:53] LABS: B Type Natriuretic Peptide 297 pg/mL (<100)
== END 2024-06-14 14:14 | disposition home or self-care (01) ==
LOC: HO.LAB 14:13
PROVIDERS: PCP Internal Medicine; Visit Provider Internal Medicine Nephrology
DX: I25.10 Atherosclerotic heart disease of native coronary artery without angina pectoris (principal)
CPT/HCPCS: 36415; 80053; 83735; 83880; 84100; 85025

== ENCOUNTER 2024-06-16 09:37 | Outpatient (AMB) | payer MEDICARE, SELFPAY ==
[2024-06-16 09:54] VITALS: BP 116/60; PULSE 65; O2SAT 97; BMI 27.9
--- NOTE | 2024-06-16 09:54 | HO.NEPHOV ---
Vital Signs 06/16/24 09:54 Height 5 ft 4 in Weight 162 lb 6 oz BMI 27.9 BP 116/60 Blood Pressure Location Rt brachial Position Sitting Pulse 65 Pulse Source Pulse Oximeter Pulse Oximetry (%) 97 Oxygen Delivery Method Room Air Intake Visit Reasons: CKD Manager Of Selection And Assessment Required: No Accompanied by: Self / Same As Patient Allergies erythromycin base [ERYTHROMYCIN BASE] Allergy (Intermediate, Verified 06/16/24 09:56) HIVES flurbiprofen [From ANSAID] Allergy (Intermediate, Verified 06/16/24 09:56) HIVES azithromycin [AZITHROMYCIN] Allergy (Mild, Verified 06/16/24 09:56) RASHES NSAIDS (Non-Steroidal Anti-Inflamma [NSAIDS (NON-STEROIDAL ANTI-INFLAMMA] Allergy (Mild, Verified 06/16/24 09:56) RASHES ciprofloxacin [Cipro] Allergy (Unknown, Verified 06/16/24 09:56) Upset Stomach nitrofurantoin Allergy (Unknown, Verified 06/16/24 09:56) upset stomach Erythromycin Allergy (Unknown, Uncoded 03/14/24 14:54) Hives Sulfas Allergy (Unknown, Uncoded 03/14/24 14:54) Hives HPI Comments Details: I would the privilege of seeing Perlita in follow up for her CKD, hypertension and crest syndrome. She has long history of coronary artery disease needing PCI 15 years ago but recently she underwent coronary artery bypass grafting following which she had sternal wound issues and underwent further surgery. She was thought to have atherosclerotic renovascular disease causing CKD. She denies any shortness of breath, paroxysmal nocturnal dyspnea, orthopnea or worsening pedal edema. She has been tolerating angiotensin receptor marichuy. Her serum creatinine had been fluctuating between 1.3-1.4 at baseline. She does not have any hematuria, dysuria, frequency, orthostatic symptoms. She is going to get a pacemaker soon. [facility] Medical History CAD (coronary artery disease) CREST (calcinosis, Raynaud's phenomenon, esophageal dysfunction, sclerodactyly, telangiectasia) Inguinal hernia Type 2 diabetes mellitus with hyperglycemia Hypertension Polymyositis Renal artery stenosis Scleroderma Paroxysmal atrial fibrillation CKD (chronic kidney disease) stage 3, GFR 30-59 ml/min Hypothyroid Hypercholesterolemia Surgical History Hx of tonsillectomy History of lumbar fusion History of appendectomy Hx of total knee arthroplasty Hx of CABG S/P JUDI-BSO (total abdominal hysterectomy and bilateral salpingo-oophorectomy) Family History Mother Heart attack Father Heart attack Brother No problems noted. Son No problems noted. Son No problems noted. Social History Housing: House Alcohol intake: never Patient Tobacco Use Status: Never used Tobacco Tobacco use type: Cigarette e-Cigarette/Vaping Use: Never Used Second Hand Smoke Exposure: No Current occupational status: retired Current occupational exposures/hazards: No Cognitive needs: No Hearing needs: Yes Vision needs: Yes Review of Systems Const All systems reviewed & are unremarkable except as noted in HPI and below Physical Exam Vital Signs: Last Vital Signs Pulse 65 06/16/24 09:54 BP 116/60 06/16/24 09:54 Pulse Ox 97 06/16/24 09:54 Oxygen Delivery Method Room Air 06/16/24 09:54 BMI result Body Mass Index 27.9 Const General: comfortable and no acute distress Orientation/consciousness: patient oriented x3 HEENT Head: Yes normocephalic Mouth: Normal oral and palatal mucosa present Eyes EOM: EOMs intact bilaterally Neck Neck: Yes supple Resp Auscultation: clear to auscultation bilaterally Cardio Jugular venous distension: no JVD Rate: regular rate GI Palpation (GI): Soft to palpation Auscultation: normal bowel sounds General: Yes no CVA tenderness Back/Spine/Pelvis Back: no CVA tenderness Skin General skin exam: no rashes or lesions noted Neuro General: patient oriented x3 and moves all extremities Extrem General: Yes no pedal edema Results Reviewed Nephrology Results: Hgb 12.3 g/dl (12.0-16.0) 06/14/24 WBC 8.5 X10*3/uL (4.8-10.8) 06/14/24 Plt Count 326 X10*3/uL (160-400) 06/14/24 Sodium 143 mmol/L (135-145) 06/14/24 Potassium 4.3 mmol/L (3.3-5.1) 06/14/24 Chloride 109 mmol/L (96-108) H 06/14/24 Carbon Dioxide 27 mmol/L (22-29) 06/14/24 BUN 33 mg/dL (9-16) H 06/14/24 Creatinine 1.10 mg/dL (0.5-1.4) 06/14/24 Calcium 10.1 mg/dL (8.4-10.2) 06/14/24 Phosphorus 3.7 mg/dL (2.7-4.5) 06/14/24 Assessment & Plan Assessment & Plan (1) Renal artery stenosis: Code(s): I70.1 - Atherosclerosis of renal artery Category: Medical (2) CKD (chronic kidney disease) stage 3, GFR 30-59 ml/min: Code(s): N18.30 - Chronic kidney disease, stage 3 unspecified Category: Medical Qualifiers: Chronic kidney disease stage 3 subtype: stage 3a (GFR 45-59) Qualified Code(s): N18.31 - Chronic kidney disease, stage 3a (3) Hypertension: Code(s): I10 - Essential (primary) hypertension Category: Medical Qualifiers: Hypertension type: renovascular hypertension Qualified Code(s): I15.0 - Renovascular hypertension Plan Perlita has history of vascular disease including coronary artery disease needing CABG as well as renovascular disease. She is tolerating current dose of Enteresto and her blood pressure has been at goal. She avoids nonsteroidal anti-inflammatories and her volume status is optimal. She has not known to have any significant proteinuria. She has not had a follow-up ultrasound of her renal artery which I plan to do it with time. She is on statins. Her renal functions are close to baseline now. She maintains good hydration. She is tolerating current dosage of diuretics. I answered all questions. Orders: Orders Blood Urea Nitrogen Today I15.0 - Renovascular hypertension, I70.1 - Atherosclerosis of renal artery, N18.31 - Chronic kidney disease, stage 3a Electrolytes Today I15.0 - Renovascular hypertension, I70.1 - Atherosclerosis of renal artery, N18.31 - Chronic kidney disease, stage 3a Creatinine Today I15.0 - Renovascular hypertension, I70.1 - Atherosclerosis of renal artery, N18.31 - Chronic kidney disease, stage 3a Coding Level of Care Code Est Pt Level 4 (88763) Diagnoses Renal artery stenosis I70.1 Stage 3a chronic kidney disease N18.31 Chronic kidney disease stage 3 subtype: stage 3a (GFR 45-59) Renovascular hypertension I15.0 Hypertension type: renovascular hypertension
== END 2024-06-16 10:24 | disposition home or self-care (01) ==
PROVIDERS: PCP Internal Medicine; Visit Provider Internal Medicine Nephrology
DX: I70.1 Atherosclerosis of renal artery (principal); I12.9 Hypertensive chronic kidney disease with stage 1 through stage 4 chronic kidney disease, or unspecified chronic kidney disease; N18.31 Chronic kidney disease, stage 3a
CPT/HCPCS: 99214

== ENCOUNTER → 2024-06-16 09:37 | Outpatient (BNVA) | payer MEDICARE, SELFPAY | PROVIDERS: PCP Internal Medicine; Visit Provider Internal Medicine Nephrology | DX: I15.0 Renovascular hypertension (principal); I25.10 Atherosclerotic heart disease of native coronary artery without angina pectoris; I70.1 Atherosclerosis of renal artery; N18.31 Chronic kidney disease, stage 3a; M34.1 CR(E)ST syndrome | CPT/HCPCS: 99212 ==

== ENCOUNTER 2024-08-04 09:33 | Outpatient (AMB) | payer MEDICARE, SELFPAY ==
--- NOTE | 2024-08-04 09:36 | A.OFFPC_ITS ---
Vital Signs 08/04/24 09:39 Height 5 ft 4 in Weight 166 lb 4 oz BMI 28.5 BP 130/70 Blood Pressure Location Lt brachial Position Sitting Pulse 47 L Pulse Source Pulse Oximeter Pulse Oximetry (%) 97 Oxygen Delivery Method Room Air Intake Visit Reasons: Coronary artery disease Intake Note: Patient is here to follow up on CAD. Power Operator Required: No Industrial Relations Commissioner: Not Required per policy Accompanied by: Self / Same As Patient Allergies erythromycin base [ERYTHROMYCIN BASE] Allergy (Intermediate, Verified 08/04/24 09:38) HIVES flurbiprofen [From ANSAID] Allergy (Intermediate, Verified 08/04/24 09:38) HIVES azithromycin [AZITHROMYCIN] Allergy (Mild, Verified 08/04/24 09:38) RASHES NSAIDS (Non-Steroidal Anti-Inflamma [NSAIDS (NON-STEROIDAL ANTI-INFLAMMA] Allergy (Mild, Verified 08/04/24 09:38) RASHES ciprofloxacin [Cipro] Allergy (Unknown, Verified 08/04/24 09:38) Upset Stomach nitrofurantoin Allergy (Unknown, Verified 08/04/24 09:38) upset stomach Erythromycin Allergy (Unknown, Uncoded 08/04/24 09:38) Hives Sulfas Allergy (Unknown, Uncoded 08/04/24 09:38) Hives Tobacco use date assessed: 08/04/24 Fall risk assessment: No Falls in past year Last assessed Fall Risk: 08/04/24 Dental Screening Dental Screen Date: 01/05/24 HPI Coronary artery disease HPI Details 79-year-old overweight female with coron sanchez artery disease(lad and circumflex angioplasty 2008) controlled diabetes mellitus congestive heart failure hypertension atrial fibrillation, crest syndrome chronic kidney disease hypothyroidism hypercholesterolemia coming in for follow-up. Last seen in March 2024. Patient had an open wound on the operation on the chest and has been followed by cardiac surgeon. [facility] discharge for catheter ablation on Eliquis. 10/27/2023 four-vessel CABG and had nonhealing sternal wound. Ejection fraction of 25-30% global hypokinesis severe dilatation of the right and left atrium. She also has carotid artery stenosis 99% left internal carotid left and the right side 70% dear see years echocardiogram EF of 20-25% grade 3 diastolic dysfunction 1+ aortic insufficiency. Patient also followed up with Nephrology for chronic kidney disease on Entresto avoid NSAIDs patient has not had any follow-up ultrasound for renal artery. Received already on echocardiogram 05/25/2024 showing dilated left atrium concentric hypertrophy severe global hypokinesis EF of 20% grade 3 diastolic dysfunction dilated right atrium moderate mitral insufficiency. cath done July 18 and then on ablation done. patiednt state HR has slow PFSH Medical History CAD (coronary artery disease) CREST (calcinosis, Raynaud's phenomenon, esophageal dysfunction, sclerodactyly, telangiectasia) Inguinal hernia Type 2 diabetes mellitus with hyperglycemia Hypertension Polymyositis Renal artery stenosis Scleroderma Paroxysmal atrial fibrillation CKD (chronic kidney disease) stage 3, GFR 30-59 ml/min Hypothyroid Hypercholesterolemia Surgical History Hx of tonsillectomy History of lumbar fusion History of appendectomy Hx of total knee arthroplasty Hx of CABG S/P JUDI-BSO (total abdominal hysterectomy and bilateral salpingo-oophorectomy) Family History Mother Heart attack Father Heart attack Brother No problems noted. Son No problems noted. Son No problems noted. Social History Housing: House Alcohol intake: never Patient Tobacco Use Status: Never used Tobacco Tobacco use type: Cigarette e-Cigarette/Vaping Use: Never Used Second Hand Smoke Exposure: No service: No Current occupational status: retired Current occupational exposures/hazards: No Cognitive needs: No Hearing needs: Yes Vision needs: Yes Questionnaire Thrive Questionnaire Date Thrive assessed: 01/05/24 Are you currently unemployed and looking for a job?: No HARRY-7 AMB Questionnaire HARRY-7 Date HARRY - 7 assessed: 01/05/24 Source: Developed by Drs. Yogi Martins, Sahra Howell, Migue Bgeum and colleagues, with an educational yenny from [employer] Physical exam (Primary Care) Vital Signs: Last Vital Signs Pulse 47 L 08/04/24 09:39 BP 130/70 08/04/24 09:39 Pulse Ox 97 08/04/24 09:39 Oxygen Delivery Method Room Air 08/04/24 09:39 BMI result Body Mass Index 28.5 Tobacco/Smoking Status: Tobacco use Status Tobacco use date assessed 08/04/24 08/04/24 09:42 Patient Tobacco Use Status Never used Tobacco 08/04/24 09:42 Tobacco use type Cigarette 08/04/24 09:42 e-Cigarette/Vaping Use Never Used 08/04/24 09:42 Thrive Assessment: Date of Thrive Assessment Date Thrive assessed 01/05/24 08/04/24 09:42 Const General: alert; No acute distress Eyes Conjunctivae: conjunctivae normal Resp Auscultation: clear to auscultation bilaterally Cardio Rate: regular rate Rhythm: regular rhythm GI Inspection: Yes normal to inspection Extrem General: Yes normal to inspection and No edema Assessment and Plan Assessment & Plan (1) Chronic systolic heart failure: Comment: January 2024 EF of 25-30% Code(s): I50.22 - Chronic systolic (congestive) heart failure Plan: Continue with Entresto and diuretic of furosemide 20 mg once a day (2) CAD (coronary artery disease): Comment: CABG x4 11/04/2023(Shabazz to LAD, SVG to PDA, SVG to OM, SVG to diag) Code(s): I25.10 - Atherosclerotic heart disease of [place] coronary artery without angina pectoris Plan: Control the cholesterol, weight, blood pressure, diabetes on anticoagulation and aspirin (3) CREST (calcinosis, Raynaud's phenomenon, esophageal dysfunction, sclerodactyly, telangiectasia): Code(s): M34.1 - CR(E)ST syndrome Plan: Stable (4) Type 2 diabetes mellitus with hyperglycemia: Code(s): E11.65 - Type 2 diabetes mellitus with hyperglycemia Plan: Decrease the amount of carbohydrate intake, pasta, bread, rice and potatoes are all sugar and that is aside from all the sweet stuff, remember that fruits are good but they are Sweet also. Hemoglobin A1c goal of less than 7.0 this is controlled diet (5) Hypertension: Code(s): I10 - Essential (primary) hypertension Qualifiers: Hypertension type: renovascular hypertension Qualified Code(s): I15.0 - Renovascular hypertension Plan: Continue with blood pressure medication. Decrease salt intake and exercise takes furosemide metoprolol and Entresto (6) Renal artery stenosis: Code(s): I70.1 - Atherosclerosis of renal artery Plan: Patient has seen Nephrology and planned renal artery ultrasound (7) Paroxysmal atrial fibrillation: Code(s): I48.0 - Paroxysmal atrial fibrillation Plan: Continue with anticoagulation and the ablation notes received (8) CKD (chronic kidney disease) stage 3, GFR 30-59 ml/min: Code(s): N18.30 - Chronic kidney disease, stage 3 unspecified Qualifiers: Chronic kidney disease stage 3 subtype: stage 3a (GFR 45-59) Qualified Code(s): N18.31 - Chronic kidney disease, stage 3a Plan: Keep well hydrated avoid NSAIDs continue to monitor (9) Hypothyroid: Code(s): E03.9 - Hypothyroidism, unspecified Plan: Continue with thyroid medication (10) Hypercholesterolemia: Code(s): E78.00 - Pure hypercholesterolemia, unspecified Plan: Avoid fried foods, chicken skin, eggs, butter margarine, pastries and meat. Be it pork or beef they have a lot of cholesterol on atorvastatin 40 mg once a day advised to retest. (11) Obesity: Code(s): E66.9 - Obesity, unspecified Plan: Diet and exercise (12) Bradycardia: Code(s): R00.1 - Bradycardia, unspecified Plan: advised to call but patient is not having any symptoms Orders: Orders Complete Blood Count Auto Diff Today E11.65 - Type 2 diabetes mellitus with hyperglycemia Comprehensive Met. Panel Today E11.65 - Type 2 diabetes mellitus with hyperglycemia Microalbumin, Random (w Creat) Today E11.65 - Type 2 diabetes mellitus with hyperglycemia Lipid Panel Today E11.65 - Type 2 diabetes mellitus with hyperglycemia, E78.00 - Pure hypercholesterolemia, unspecified Vitamin D 25-OH Total Today E11.65 - Type 2 diabetes mellitus with hyperglycemia Free T4 (Free Thyroxine) Today E11.65 - Type 2 diabetes mellitus with hyperglycemia Creatinine Urine Today E11.65 - Type 2 diabetes mellitus with hyperglycemia Thyroid Stimulating Hormone Today E11.65 - Type 2 diabetes mellitus with hyperglycemia Vitamin B12 and Folate Today E11.65 - Type 2 diabetes mellitus with hyperglycemia Hemoglobin A1c Today E11.65 - Type 2 diabetes mellitus with hyperglycemia Coding Level of Care Code Est Pt Level 4 (60081) Complex EM visit Add On G2211 Diagnoses Chronic systolic heart failure I50.22 CAD (coronary artery disease) I25.10 CREST (calcinosis, Raynaud's phenomenon, esophageal dysfunction, sclerodactyly, telangiectasia) M34.1 Type 2 diabetes mellitus with hyperglycemia E11.65 Renovascular hypertension I15.0 Hypertension type: renovascular hypertension Renal artery stenosis I70.1 Paroxysmal atrial fibrillation I48.0 Stage 3a chronic kidney disease N18.31 Chronic kidney disease stage 3 subtype: stage 3a (GFR 45-59) Hypothyroid E03.9 Hypercholesterolemia E78.00 Obesity E66.9 Bradycardia R00.1
[2024-08-04 09:39] VITALS: BP 130/70; PULSE 47; O2SAT 97; BMI 28.5
== END 2024-08-04 10:29 | disposition home or self-care (01) ==
PROVIDERS: PCP Internal Medicine; Visit Provider Internal Medicine
DX: I50.22 Chronic systolic (congestive) heart failure (principal); M34.1 CR(E)ST syndrome; E11.65 Type 2 diabetes mellitus with hyperglycemia; I70.1 Atherosclerosis of renal artery; I48.0 Paroxysmal atrial fibrillation; N18.31 Chronic kidney disease, stage 3a; I25.10 Atherosclerotic heart disease of native coronary artery without angina pectoris; E03.9 Hypothyroidism, unspecified; E78.00 Pure hypercholesterolemia, unspecified; E66.9 Obesity, unspecified; I15.0 Renovascular hypertension; R00.1 Bradycardia, unspecified

== ENCOUNTER → 2024-08-04 09:33 | Outpatient (BNVA) | payer MEDICARE, SELFPAY | PROVIDERS: PCP Internal Medicine; Visit Provider Internal Medicine | DX: I25.10 Atherosclerotic heart disease of native coronary artery without angina pectoris (principal); I15.0 Renovascular hypertension; I50.22 Chronic systolic (congestive) heart failure; E11.65 Type 2 diabetes mellitus with hyperglycemia; I70.1 Atherosclerosis of renal artery; I48.0 Paroxysmal atrial fibrillation; N18.31 Chronic kidney disease, stage 3a; E03.9 Hypothyroidism, unspecified; E78.00 Pure hypercholesterolemia, unspecified; E66.9 Obesity, unspecified; R00.1 Bradycardia, unspecified | CPT/HCPCS: 99212 ==

== ENCOUNTER 2024-08-23 12:16 | Outpatient (AMB) | payer MEDICARE, SELFPAY ==
--- NOTE | 2024-08-23 12:31 | A.OFFVIS_ITS ---
Intake Vital Signs 08/23/24 12:35 Height 5 ft 4 in Weight 165 lb BMI 28.3 BP 130/72 Blood Pressure Location Lt brachial Position Sitting Pulse 40 L Pulse Source Pulse Oximeter Pulse Oximetry (%) 99 Oxygen Delivery Method Room Air Intake Visit Reasons: AWV G0438 Allergies erythromycin base [ERYTHROMYCIN BASE] Allergy (Intermediate, Verified 08/23/24 12:49) HIVES flurbiprofen [From ANSAID] Allergy (Intermediate, Verified 08/23/24 12:49) HIVES azithromycin [AZITHROMYCIN] Allergy (Mild, Verified 08/23/24 12:49) RASHES NSAIDS (Non-Steroidal Anti-Inflamma [NSAIDS (NON-STEROIDAL ANTI-INFLAMMA] Allergy (Mild, Verified 08/23/24 12:49) RASHES ciprofloxacin [Cipro] Allergy (Unknown, Verified 08/23/24 12:49) Upset Stomach nitrofurantoin Allergy (Unknown, Verified 08/23/24 12:49) upset stomach Erythromycin Allergy (Unknown, Uncoded 08/23/24 12:49) Hives Sulfas Allergy (Unknown, Uncoded 08/23/24 12:49) Hives Medication List - Last Reconciled 08/23/24 by Jose Roberto Leggett MD acetaminophen (Tylenol) 975 mg PO Q6H PRN apixaban (Eliquis) 5 mg PO BID aspirin (Adult Aspirin Regimen) 81 mg PO DAILY atorvastatin 40 mg PO DAILY cholecalciferol (vitamin D3) 50 mcg PO DAILY docusate sodium (Colace) 100 mg PO DAILY furosemide 20 mg PO DAILY levothyroxine 100 mcg PO DAILY sacubitril-valsartan 24-26 mg (Entresto) 1 tab PO BID 30 days HPI AWV G0438 HPI Details 79-year-old overweight female with conge stive heart failure coronary artery disease crest diabetes mellitus hypertension renal artery stenosis atrial fibrillation chronic kidney disease hypothyroid hypercholesterolemia coming in for annual well visit. Last seen in 08/04/2024.Colon test no more for 79 years old mammogram 79 years old no more bone density Nephrology Dr. Perales cardiology [facility], vascular [facility] vascular, Podiatry [facility]. PAcemaker and ICD to be placed . sob on exertion [facility] Medical History CAD (coronary artery disease) CREST (calcinosis, Raynaud's phenomenon, esophageal dysfunction, sclerodactyly, telangiectasia) Inguinal hernia Type 2 diabetes mellitus with hyperglycemia Hypertension Polymyositis Renal artery stenosis Scleroderma Paroxysmal atrial fibrillation CKD (chronic kidney disease) stage 3, GFR 30-59 ml/min Hypothyroid Hypercholesterolemia Surgical History Hx of tonsillectomy History of lumbar fusion History of appendectomy Hx of total knee arthroplasty Hx of CABG S/P JUDI-BSO (total abdominal hysterectomy and bilateral salpingo-oophorectomy) Family History Mother Heart attack Father Heart attack Brother No problems noted. Son No problems noted. Son No problems noted. Social History Housing: House Alcohol intake: never Patient Tobacco Use Status: Never used Tobacco Tobacco use type: Cigarette e-Cigarette/Vaping Use: Never Used Second Hand Smoke Exposure: No service: No Current occupational status: retired Current occupational exposures/hazards: No Cognitive needs: No Hearing needs: Yes Vision needs: Yes Questionnaire Medicare Wellness Checkup What is your age?: 79 or older What gender do you identify with?: female During the past 4 weeks, how much have you been bothered by emotional problems such as feeling anxious, depressed, irritable, sad or downhearted, and blue?: not at all During the past 4 weeks, has your physical & emotional health limited your social activities with family, friends, neighbors, or groups?: not at all During the past 4 weeks, how much bodily pain have you generally had?: no pain During the past 4 weeks, was someone available to help you if you needed & wanted help?: yes, as much as I wanted During the past 4 weeks, what was the hardest physical activity you could do for at least 2 minutes?: moderate Can you get to places out of walking distance without help? (For eg., can you travel alone on buses, taxis or drive your car?): Yes Can you go shopping for groceries or clothes without someone's help?: Yes Can you prepare your own meals?: Yes Can you do your housework without help?: Yes Because of any health problems, do you need the help of another person with your personal care needs such as eating, bathing, dressing or getting around the house?: No Can you handle your own money without help?: No During the past 4 weeks, how would you rate your health in general?: good During the past 4 weeks how have things been going for you?: pretty well Are you having difficulties driving your car?: no Do you always fasten your seat belt when you are in a car?: yes, usually During past 4 weeks, have you been bothered by the following: never: Sexual problems?, Trouble eating well?, Teeth or denture problems? and Problems using the telephone? and seldom: Tiredness or fatigue? Have you fallen 2 or more times in the past year?: No Are you afraid of falling?: Yes Are you a smoker?: no During the past 4 weeks, how many drinks of wine, beer, or other alcoholic beverages did you have?: no alcohol at all Do you exercise for about 20 minutes 3 or more times a week?: yes, most of the time Have you been given information to help with the following?: yes: Keeping track of your medications? and no: Hazards in your house that might hurt you? How often do you have trouble taking medicines the way you have been told to take them?: I always take medicine as prescribed How confident are you that you can control & manage most of your health problems?: very confident What is your race?: White PHQ-9 Over the last 2 weeks, how often have you been bothered by any of the following problems? 1. Little interest or pleasure in doing things: not at all 2. Feeling down, depressed, or hopeless: not at all 3. Trouble falling or staying asleep, or sleeping too much: not at all 4. Feeling tired or having little energy: not at all 5. Poor appetite or overeating: not at all 6. Feeling bad about yourself - or that you are a failure or have let yourself or your family down: not at all 7. Trouble concentrating on things, such as reading the newspaper or watching television: not at all 8. Moving or speaking so slowly that other people could have noticed. Or the opposite - being so fidgety or restless that you have been moving around a lot more than usual: not at all 9. Thoughts that you would be better off or of hurting yourself in some way: not at all Total score: 0 Depression Screening Interpretation: Negative Depression Screening Done: Yes [id number] - PHQ-9 Billing: Yes Source: Developed by Drs. Yogi Martins, Sahra Howell, Migue Begum and colleagues, with an educational yenny from [employer]. Review of Systems Const Denies poor appetite and Denies weakness Eyes Denies no additional complaints ENT Reports Normal hearing present, Denies dizziness, Denies nasal congestion, Denies tinnitus and Denies sore throat Card Denies chest pain, Denies syncope, Denies rapid heart rate and Denies dyspnea Resp Denies cough and Denies dyspnea GI Denies change in stool character, Reports constipation, Denies diarrhea, Denies nausea and Denies vomiting Denies urinary frequency, Denies difficulty voiding and Denies dysuria Neuro Reports Normal hearing present, Denies confusion, Denies dizziness, Denies syncope and Denies weakness Psych Denies confusion Physical Exam Vital Signs: Last Vital Signs Pulse 40 L 08/23/24 12:35 BP 130/72 08/23/24 12:35 Pulse Ox 99 08/23/24 12:35 Oxygen Delivery Method Room Air 08/23/24 12:35 BMI result Body Mass Index 28.3 Const General: alert and awake; No confusion Orientation/consciousness: No confusion HEENT Head: Yes normocephalic Ears: external ears normal and TM's normal bilaterally Face and sinus: Yes normal facial exam Mouth: moist mucous membranes Throat: Yes tonsils normal Eyes Conjunctivae: conjunctivae normal Pupils: Equal, round and reactive pupils present and Pupil accommodation reflex normal Direct Ophthalmoscopy: normal light reflex Neck Neck: No lymphadenopathy Thyroid: Thyroid normal Chest Chest palpation & inspection: normal inspection of the chest Resp Effort & Inspection: normal respiratory effort and no audible wheezes Auscultation: clear to auscultation bilaterally, no crackles, no wheezes and lung sounds not diminished Cardio Rate: regular rate Rhythm: regular rhythm Peripheral pulses: radial pulses present and dorsalis pedis present GI Other: guaiac negative Palpation (GI): no masses Auscultation: normal bowel sounds and normoactive bowel sounds Rectal Exam - Female: deferred Skin General skin exam: no rashes or lesions noted Rashes: no rashes Neuro General: deep tendon reflexes 2+ bilaterally and No confusion Cranial nerves: Yes Equal, round and reactive pupils present, Yes Midline tongue present, Yes Normal hearing present and Yes Ability to bilaterally elevate shoulders present Cognition (Neuro): normal cognition Gait exam (Neuro): Normal gait present Motor exam (neuro): 5/5 motor strength present throughout Deep tendon reflexes (DTR's): Right brachioradialis reflex intensity grade: 2+, Left brachioradialis reflex intensity grade: 2+, Right patellar reflex intensity grade: 2+ and Left patellar reflex intensity grade: 2+ Extrem General: No edema Results AMB Hemoglobin A1c AMB Hemoglobin A1c 6.5 % Last Edit by CAMERON Baez on 08/23/24 12:49 Results Reviewed Results Reviewed: Laboratory Last Values Hgb A1c (Clinic) 6.5 % (4.0-6.0) H 08/23/24 11:46 Assessment & Plan Assessment & Plan (1) Medicare annual wellness visit, subsequent: Code(s): Z00.00 - Encounter for general adult medical examination without abnormal findings Plan: Patient is advised to eat healthy, keep well hydrated, keep active and have adequate sleep. (2) Chronic systolic heart failure: Comment: January 2024 EF of 25-30% Code(s): I50.22 - Chronic systolic (congestive) heart failure Plan: Weigh daily continue with furosemide and has been placed on Entresto metoprolol (3) CAD (coronary artery disease): Comment: CABG x4 11/04/2023(Shabazz to LAD, SVG to PDA, SVG to OM, SVG to diag) Code(s): I25.10 - Atherosclerotic heart disease of circle coronary artery without angina pectoris Qualifiers: Coronary Disease-Associated Artery/Lesion type: circle artery [place] vs. transplanted heart: circle heart Associated angina: without angina Qualified Code(s): I25.10 - Atherosclerotic heart disease of circle coronary artery without angina pectoris Plan: Control the cholesterol, weight, blood pressure, patient is on anticoagulation (4) CREST (calcinosis, Raynaud's phenomenon, esophageal dysfunction, sclerodactyly, telangiectasia): Code(s): M34.1 - CR(E)ST syndrome Plan: Continuing to monitor, follow-up with Rheumatology (5) Type 2 diabetes mellitus with hyperglycemia: Code(s): E11.65 - Type 2 diabetes mellitus with hyperglycemia Qualifiers: Diabetes mellitus ocean transportation intermediary insulin use: without ocean transportation intermediary use Qualified Code(s): E11.65 - Type 2 diabetes mellitus with hyperglycemia Plan: Decrease the amount of carbohydrate intake, pasta, bread, rice and potatoes are all sugar and that is aside from all the sweet stuff, remember that fruits are good but they are Sweet also. Hemoglobin A1c goal of less than 7.0. (6) Hypertension: Code(s): I10 - Essential (primary) hypertension Qualifiers: Hypertension type: renovascular hypertension Qualified Code(s): I15.0 - Renovascular hypertension Plan: Continue with blood pressure medication. Decrease salt intake and exercise on metoprolol and Entresto (7) Paroxysmal atrial fibrillation: Code(s): I48.0 - Paroxysmal atrial fibrillation Plan: Continue with anticoagulation 06/27/2024 last blood work for renal function. (8) CKD (chronic kidney disease) stage 3, GFR 30-59 ml/min: Code(s): N18.30 - Chronic kidney disease, stage 3 unspecified Qualifiers: Chronic kidney disease stage 3 subtype: stage 3a (GFR 45-59) Qualified Code(s): N18.31 - Chronic kidney disease, stage 3a Plan: Keep well hydrated, avoid NSAIDs. (9) Hypothyroid: Code(s): E03.9 - Hypothyroidism, unspecified Qualifiers: Hypothyroidism type: acquired Qualified Code(s): E03.9 - Hypothyroidism, unspecified Plan: Continue with thyroid medication 100 mcg once a day (10) Hypercholesterolemia: Code(s): E78.00 - Pure hypercholesterolemia, unspecified Plan: Avoid fried foods, chicken skin, eggs, butter margarine, pastries and meat. Be it pork or beef they have a lot of cholesterol LDL goal of less than 70 and triglyceride of less than 150 on atorvastatin 40 mg once a day (11) Osteopenia: Code(s): M85.80 - Other specified disorders of bone density and structure, unspecified site Qualifiers: Osteopenia location: unspecified Qualified Code(s): M85.80 - Other specified disorders of bone density and structure, unspecified site Plan: Bone density requested Orders: Orders AMB Hemoglobin A1c Today E11.65 - Type 2 diabetes mellitus with hyperglycemia XR DEXA axial skeleton Today M81.0 - Age-related osteoporosis without current pathological fracture, M85.80 - Other specified disorders of bone density and structure, unspecified site Quality Reporting (2019) Depression/Bipolar (159/160/161/177) PHQ-9: Total score: 0 Coding Level of Care Code Medicare Subsequent (G0439) Diagnoses Medicare annual wellness visit, subsequent Z00.00 Chronic systolic heart failure I50.22 Coronary artery disease involving circle coronary artery of circle heart without angina pectoris I25.10 Coronary Disease-Associated Artery/Lesion type: circle artery [place] vs. transplanted heart: circle heart Associated angina: without angina CREST (calcinosis, Raynaud's phenomenon, esophageal dysfunction, sclerodactyly, telangiectasia) M34.1 Type 2 diabetes mellitus with hyperglycemia, without long-term current use of insulin E11.65 Diabetes mellitus ocean transportation intermediary insulin use: without residential use Renovascular hypertension I15.0 Hypertension type: renovascular hypertension Paroxysmal atrial fibrillation I48.0 Stage 3a chronic kidney disease N18.31 Chronic kidney disease stage 3 subtype: stage 3a (GFR 45-59) Acquired hypothyroidism E03.9 Hypothyroidism type: acquired Hypercholesterolemia E78.00 Osteopenia, unspecified location M85.80 Osteopenia location: unspecified
[2024-08-23 12:35] VITALS: BP 130/72; PULSE 40; O2SAT 99; BMI 28.3
== END 2024-08-23 13:54 | disposition home or self-care (01) ==
PROVIDERS: PCP Internal Medicine; Visit Provider Internal Medicine
DX: Z00.00 Encounter for general adult medical examination without abnormal findings (principal); I50.22 Chronic systolic (congestive) heart failure; E11.65 Type 2 diabetes mellitus with hyperglycemia; M34.1 CR(E)ST syndrome; I48.0 Paroxysmal atrial fibrillation; N18.31 Chronic kidney disease, stage 3a; I25.10 Atherosclerotic heart disease of native coronary artery without angina pectoris; E03.9 Hypothyroidism, unspecified; E78.00 Pure hypercholesterolemia, unspecified; M85.80 Other specified disorders of bone density and structure, unspecified site; I15.0 Renovascular hypertension

== ENCOUNTER → 2024-08-23 12:16 | Outpatient (BNVA) | payer MEDICARE, SELFPAY | PROVIDERS: PCP Internal Medicine; Visit Provider Internal Medicine | DX: Z00.00 Encounter for general adult medical examination without abnormal findings (principal); E11.65 Type 2 diabetes mellitus with hyperglycemia; I13.0 Hypertensive heart and chronic kidney disease with heart failure and stage 1 through stage 4 chronic kidney disease, or unspecified chronic kidney disease; E11.22 Type 2 diabetes mellitus with diabetic chronic kidney disease; N18.31 Chronic kidney disease, stage 3a; I50.22 Chronic systolic (congestive) heart failure; I25.10 Atherosclerotic heart disease of native coronary artery without angina pectoris; M34.1 CR(E)ST syndrome; I48.0 Paroxysmal atrial fibrillation; E03.9 Hypothyroidism, unspecified; E78.00 Pure hypercholesterolemia, unspecified; M85.80 Other specified disorders of bone density and structure, unspecified site | CPT/HCPCS: 83036; 96127 ==

== ENCOUNTER 2024-09-06 08:55 | Outpatient (REF) | payer MEDICARE, SELFPAY ==
--- NOTE | ~2024-09-06 | MM_ITS ---
EXAMINATION: BONE DENSITOMETRY CLINICAL INDICATION: Age-related osteoporosis without current pathological fracture. COMPARISON: This is the patient's baseline examination. TECHNIQUE: Using a [employer] DXA System (software version: 13.1) manufactured by [employer], dual-energy x-ray absorptiometry was performed of the lumbar spine, left hip, and left forearm radius 33%. The images are of good technical quality. Summary results are attached. FINDINGS: LEFT FEMUR, NECK: BMD 0.687 g/cm2, Z-score -0.5, T-score -2.5, osteoporosis. LEFT FEMUR, TOTAL: BMD 0.687 g/cm2, Z-score -0.7, T-score -2.5, osteoporosis. AP SPINE L1-L4 (excluding L3): The data of L1-L4 has been changed to exclude the L3 vertebral body, because hardware at this level may cause overestimation of lumbar spine density. BMD 1.526 g/cm2, Z-score 4.5, T-score 3.0, normal. LEFT FOREARM RADIUS 33%: BMD 0.677 g/cm2, Z-score 0.5, T-score -2.3, osteopenia. IDENTIFIED RISK FACTORS: Menopause, hysterectomy, osteoporosis. HISTORY OF FRACTURE: None listed. MEDICATIONS: Calcium or multivitamin. Vitamin D. MM/XR DEXA axial skeleton IMPRESSION: 1. DIAGNOSIS: Osteoporosis based on the lowest T-score value of -2.5 in the femur neck and total femur applying World Health Organization criteria. 2. 10-YEAR FRACTURE RISK PREDICTION, FRAX: According to the guidelines, FRAX calculation should only be performed on patients in the osteopenia bone density category. Therefore, FRAX was not performed on this patient. 3. Treatment Recommendations: NOF guidelines recommend consideration for treatment in postmenopausal women and men age 50 and older presenting with the following: -A hip or vertebral (clinical or morphometric) fracture. -T-score less than or equal to -2.5 at the femoral neck or spine after appropriate evaluation to exclude secondary causes. -Low bone mass at the hip or spine and a 10-year fracture probability by FRAX of greater than or equal to 3% for hip fracture or greater than or equal to 20% for major osteoporotic fracture based on the [place] adapted WHO algorithm. 4. Other Recommendations: All treatment decisions require clinical judgment and consideration of individual patient factors, including patient preferences, comorbidities, previous drug use, risk factors not captured in the FRAX model (e.g. frailty, falls, vitamin D deficiency, increased bone turnover, interval significant decline in bone density) and possible under or overestimation of fracture risk by FRAX. Additional medical evaluation for secondary cause of low bone mineral density may be appropriate. FUTURE SCAN RECOMMENDATION: People with diagnosed cases of osteoporosis or at high risk for fracture should have regular bone mineral density tests. For patients eligible for Medicare, routine testing is allowed once every 2 years. The testing frequency can be increased to one year for patients who have rapidly progressing disease, those who are receiving or discontinuing medical therapy to restore bone mass, or have additional risk factors. Electronically signed by: Mireya Long MD 09/07/2024 09:02 AM EDT KRISTY
== END 2024-09-06 08:56 | disposition home or self-care (01) ==
LOC: HO.MAMMO 08:55
PROVIDERS: PCP Internal Medicine; Visit Provider Internal Medicine
DX: M81.0 Age-related osteoporosis without current pathological fracture (principal); M85.80 Other specified disorders of bone density and structure, unspecified site
CPT/HCPCS: 77080

== ENCOUNTER 2024-11-23 10:45 | Outpatient (AMB) | payer MEDICARE, SELFPAY ==
[2024-11-23 10:56] VITALS: BP 136/70; PULSE 76; O2SAT 96; BMI 29.7
--- NOTE | 2024-11-23 10:56 | A.OFFPC_ITS ---
Vital Signs 11/23/24 10:56 Height 5 ft 4 in Weight 173 lb BMI 29.7 BP 136/70 Blood Pressure Location Lt brachial Position Sitting Pulse 76 Pulse Source Pulse Oximeter Pulse Oximetry (%) 96 Oxygen Delivery Method Room Air Intake Visit Reasons: CAD, A fib Allergies erythromycin base [ERYTHROMYCIN BASE] Allergy (Intermediate, Verified 11/23/24 10:56) HIVES flurbiprofen [From ANSAID] Allergy (Intermediate, Verified 11/23/24 10:56) HIVES azithromycin [AZITHROMYCIN] Allergy (Mild, Verified 11/23/24 10:56) RASHES NSAIDS (Non-Steroidal Anti-Inflamma [NSAIDS (NON-STEROIDAL ANTI-INFLAMMA] Allergy (Mild, Verified 11/23/24 10:56) RASHES ciprofloxacin [Cipro] Allergy (Unknown, Verified 11/23/24 10:56) Upset Stomach nitrofurantoin Allergy (Unknown, Verified 11/23/24 10:56) upset stomach Erythromycin Allergy (Unknown, Uncoded 11/23/24 10:56) Hives Sulfas Allergy (Unknown, Uncoded 11/23/24 10:56) Hives Tobacco use date assessed: 11/23/24 Fall risk assessment: No Falls in past year Last assessed Fall Risk: 11/23/24 Dental Screening Dental Screen Date: 11/23/24 Did you have a dental visit in the last 12 months?: Yes Did you have a dental problem in the last 6 months where you did not have access to dental care?: No Was dental information given to patient?: Patient has dentist HPI CAD, A fib HPI Details The patient is an 79-year-old female presenting with issues related to her Implanted Cardioverter-Defibrillator (ICD), swelling in both legs, and osteoporosis management. The patient was previously found to have an ICD placed due to cardiac arrhythmia, but reports that the long wire isn't functioning, and no follow-up from cardiology has been received. Pacemaker placement has been previously completed without recent updates. Additionally, she experiences bilateral leg swelling that started approximately one month ago. Previous assessments did not yield a definitive cause. Potential contributors like heart, kidney, and liver issues were mentioned. She reports using support stockings though finds them difficult to wear. The patient has a known history of osteoporosis, confirmed via past bone density tests, showing significant weaknesses in both the spine and hip. She has had longstanding osteoporosis commonly managed with diet, vitamin D, and calcium intake. Past surgical history includes L4-L5 spinal fusion conducted in 2010, and significant dental issues with most teeth lost or absent. Her last blood glucose level was documented at 6.5%, indicating stable control. No recent changes or issues with her diabetes management were noted. [facility] Medical History CAD (coronary artery disease) CREST (calcinosis, Raynaud's phenomenon, esophageal dysfunction, sclerodactyly, telangiectasia) Inguinal hernia Type 2 diabetes mellitus with hyperglycemia Hypertension Polymyositis Renal artery stenosis Scleroderma Paroxysmal atrial fibrillation CKD (chronic kidney disease) stage 3, GFR 30-59 ml/min Hypothyroid Hypercholesterolemia Surgical History Hx of tonsillectomy History of lumbar fusion History of appendectomy Hx of total knee arthroplasty Hx of CABG S/P JUDI-BSO (total abdominal hysterectomy and bilateral salpingo-oophorectomy) Family History Mother Heart attack Father Heart attack Brother No problems noted. Son No problems noted. Son No problems noted. Social History Housing: House Alcohol intake: never Patient Tobacco Use Status: Never used Tobacco Tobacco use type: Cigarette e-Cigarette/Vaping Use: Never Used Second Hand Smoke Exposure: No service: No Current occupational status: retired Current occupational exposures/hazards: No Cognitive needs: No Hearing needs: Yes Vision needs: Yes Questionnaire PHQ-9 Over the last 2 weeks, how often have you been bothered by any of the following problems? 1. Little interest or pleasure in doing things: not at all 2. Feeling down, depressed, or hopeless: not at all 3. Trouble falling or staying asleep, or sleeping too much: not at all 4. Feeling tired or having little energy: not at all 5. Poor appetite or overeating: not at all 6. Feeling bad about yourself - or that you are a failure or have let yourself or your family down: not at all 7. Trouble concentrating on things, such as reading the newspaper or watching television: not at all 8. Moving or speaking so slowly that other people could have noticed. Or the opposite - being so fidgety or restless that you have been moving around a lot more than usual: not at all 9. Thoughts that you would be better off or of hurting yourself in some way: not at all Total score: 0 Depression Screening Interpretation: Negative Depression Screening Done: Yes 49221 - PHQ-9 Billing: Yes Source: Developed by Drs. Yogi Martins, Sahra Howell, Migue Begum and colleagues, with an educational yenny from [employer]. Thrive Questionnaire Date Thrive assessed: 11/23/24 I am a: Patient What is your living situation today?: I have a steady place to live Within the past 12 months, did the food you bought not last and you didn't have the money to get more?: Never true Within the past 12 months, did you worry whether your food would run out before you got money to buy more?: Never true Do you have trouble paying for medicines?: No Do you have trouble getting transportation to medical appointments?: No Do you have trouble paying your heating and electricity bill?: No Do you have trouble taking care of your child, family member or friend?: No Do you have trouble with day-to-day activities such as bathing, preparing meals, shopping, managing finances, etc.?: No Are you currently unemployed and looking for a job?: No Currently or been in a relationship where the following occur: No concerns reported THRIVE Score: 0 AUDIT C Alcohol Use Questionnaire (AUDIT-C) 1. How often do you have a drink containing alcohol?: Never 3. How often do you have six or more drinks on one occasion?: Never Total Score: 0 HARRY-7 AMB Questionnaire HARRY-7 Date HARRY - 7 assessed: 11/23/24 Feeling nervous, anxious, or on edge: 0 = Not at all Not being able to stop or control worryin = Not at all Worrying too much about different things: 0 = Not at all Trouble relaxin = Not at all Being so restless that it is hard to sit still: 0 = Not at all Becoming easily annoyed or irritable: 0 = Not at all Feeling afraid as if something awful might happen: 0 = Not at all Total HARRY-7 score (0-4 normal; 5-9 mild; 10-14 moderate; 15-21 severe): 0 Source: Developed by Drs. Yogi Martins, Sahra Howell, Migue Begum and colleagues, with an educational yenny from [employer]. Physical exam (Primary Care) Vital Signs: Last Vital Signs Pulse 76 11/23/24 10:56 BP 136/70 11/23/24 10:56 Pulse Ox 96 11/23/24 10:56 Oxygen Delivery Method Room Air 11/23/24 10:56 BMI result Body Mass Index 29.7 Tobacco/Smoking Status: Tobacco use Status Tobacco use date assessed 11/23/24 11/23/24 10:58 Patient Tobacco Use Status Never used Tobacco 11/23/24 10:58 Tobacco use type Cigarette 11/23/24 10:58 e-Cigarette/Vaping Use Never Used 11/23/24 10:58 PHQ-9: PHQ-9 Score PHQ-9: Total score 0 11/23/24 11:31 Depression Screening Interpretation: Negative Thrive Assessment: Date of Thrive Assessment Date Thrive assessed 11/23/24 11/23/24 10:58 Currently or been in a relationship where the following occur: No concerns reported Const General: alert; No acute distress Eyes Conjunctivae: conjunctivae normal Resp Auscultation: clear to auscultation bilaterally Cardio Rate: regular rate Rhythm: regular rhythm GI Inspection: Yes normal to inspection Extrem General: Yes normal to inspection and No edema Results AMB Hemoglobin A1c AMB Hemoglobin A1c 6.5 % Last Edit by Katherin Lopez CMA on 11/23/24 11 :31 Results Reviewed Results Reviewed: Laboratory Last Values Hgb A1c (Clinic) 6.5 % (4.0-6.0) H 11/23/24 10:58 Coding Level of Care Code Est Pt Level 4 (24792) Complex EM visit Add On G2211 Diagnoses ICD (implantable cardioverter-defibrillator) in place Z95.810 Chronic systolic heart failure I50.22 Coronary artery disease involving [place] coronary artery of [place] heart without angina pectoris I25.10 Associated angina: without angina Coronary Disease-Associated Artery/Lesion type: [place] artery [place] vs. transplanted heart: [place] heart Type 2 diabetes mellitus with hyperglycemia, without long-term current use of insulin E11.65 Diabetes mellitus long term care social worker insulin use: without [facility] use Renovascular hypertension I15.0 Hypertension type: renovascular hypertension Paroxysmal atrial fibrillation I48.0 Stage 3a chronic kidney disease N18.31 Chronic kidney disease stage 3 subtype: stage 3a (GFR 45-59) Acquired hypothyroidism E03.9 Hypothyroidism type: acquired Hypercholesterolemia E78.00 Obesity E66.9 Osteoporosis M81.0 Additional Codes PHQ-9 - 48509 - PHQ-9 Billing: Yes ([id number]) Assessment & Plan Assessment & Plan (1) ICD (implantable cardioverter-defibrillator) in place: Comment: Dual-chamber biventricular ICD implantation Dr. Mayers September 2024 Code(s): Z95.810 - Presence of automatic (implantable) cardiac defibrillator Category: Medical (2) Chronic systolic heart failure: Comment: January 2024 EF of 25-30% Code(s): I50.22 - Chronic systolic (congestive) heart failure Category: Medical (3) CAD (coronary artery disease): Comment: CABG x4 11/04/2023(Shabazz to LAD, SVG to PDA, SVG to OM, SVG to diag) Code(s): I25.10 - Atherosclerotic heart disease of [place] coronary artery without angina pectoris Category: Medical Qualifiers: Associated angina: without angina Coronary Disease-Associated Artery/Lesion type: [place] artery [place] vs. transplanted heart: [place] heart Qualified Code(s): I25.10 - Atherosclerotic heart disease of [place] coronary artery without angina pectoris (4) Type 2 diabetes mellitus with hyperglycemia: Code(s): E11.65 - Type 2 diabetes mellitus with hyperglycemia Category: Medical Qualifiers: Diabetes mellitus [facility] insulin use: without long term care social worker use Qualified Code(s): E11.65 - Type 2 diabetes mellitus with hyperglycemia (5) Hypertension: Code(s): I10 - Essential (primary) hypertension Category: Medical Qualifiers: Hypertension type: renovascular hypertension Qualified Code(s): I15.0 - Renovascular hypertension (6) Paroxysmal atrial fibrillation: Code(s): I48.0 - Paroxysmal atrial fibrillation Category: Medical (7) CKD (chronic kidney disease) stage 3, GFR 30-59 ml/min: Code(s): N18.30 - Chronic kidney disease, stage 3 unspecified Category: Medical Qualifiers: Chronic kidney disease stage 3 subtype: stage 3a (GFR 45-59) Qualified Code(s): N18.31 - Chronic kidney disease, stage 3a (8) Hypothyroid: Code(s): E03.9 - Hypothyroidism, unspecified Category: Medical Qualifiers: Hypothyroidism type: acquired Qualified Code(s): E03.9 - Hypothyroidism, unspecified (9) Hypercholesterolemia: Code(s): E78.00 - Pure hypercholesterolemia, unspecified Category: Medical (10) Obesity: Code(s): E66.9 - Obesity, unspecified Category: Medical (11) Osteoporosis: Comment: 08/2024 Code(s): M81.0 - Age-related osteoporosis without current pathological fracture Category: Medical Plan - Recommend consultation with cardiology to address the dysfunctional ICD wire and the need for ablation. - Plan to order laboratory tests, including CMP and CBC, to further investigate potential causes of leg swelling. - Advise continuation of support stockings and elevate legs during extended periods of sitting to manage peripheral edema. - Consider initiation of an antiresorptive medication to manage osteoporosis. - Encourage increased intake of calcium-rich foods and continuation of daily vitamin D supplementation during winter months. - No immediate changes recommended for diabetes management given current adequate control. - Encourage continued moderate physical activity to aid circulation and bone health, ensuring leg swelling does not recur. - Discuss potential procurement of dental consultation to address significant tooth loss and resulting complications. Orders: Orders AMB Hemoglobin A1c Today Z13.9 - Encounter for screening, unspecified B Type Natriuretic Peptide Today I50.22 - Chronic systolic (congestive) heart failure Medications: New alendronate 70 mg PO QWEEK 13 tabs 0RF 90 days M81.0 - Age-related osteoporosis without current pathological fracture
== END 2024-11-23 11:47 | disposition home or self-care (01) ==
PROVIDERS: PCP Internal Medicine; Visit Provider Internal Medicine
DX: E11.65 Type 2 diabetes mellitus with hyperglycemia (principal); I50.22 Chronic systolic (congestive) heart failure; I48.0 Paroxysmal atrial fibrillation; N18.31 Chronic kidney disease, stage 3a; E66.9 Obesity, unspecified; Z68.29 Body mass index [BMI] 29.0-29.9, adult; Z95.810 Presence of automatic (implantable) cardiac defibrillator; I25.10 Atherosclerotic heart disease of native coronary artery without angina pectoris; I15.0 Renovascular hypertension; E03.9 Hypothyroidism, unspecified; E78.00 Pure hypercholesterolemia, unspecified; M81.0 Age-related osteoporosis without current pathological fracture

== ENCOUNTER → 2024-11-23 10:45 | Outpatient (BNVA) | payer MEDICARE, SELFPAY | PROVIDERS: PCP Internal Medicine; Visit Provider Internal Medicine | DX: I25.10 Atherosclerotic heart disease of native coronary artery without angina pectoris (principal); E11.65 Type 2 diabetes mellitus with hyperglycemia; I48.0 Paroxysmal atrial fibrillation; E03.9 Hypothyroidism, unspecified; E78.00 Pure hypercholesterolemia, unspecified; M81.0 Age-related osteoporosis without current pathological fracture; E66.9 Obesity, unspecified; I15.0 Renovascular hypertension; E11.22 Type 2 diabetes mellitus with diabetic chronic kidney disease; N18.31 Chronic kidney disease, stage 3a | CPT/HCPCS: 83036; 96127; 99212 ==

== ENCOUNTER 2024-12-15 09:57 | Outpatient (AMB) | payer MEDICARE, SELFPAY ==
--- NOTE | 2024-12-15 10:22 | HO.NEPHOV_ITS ---
Vital Signs 12/15/24 10:23 Height 5 ft 4 in Weight 176 lb 6 oz BMI 30.3 BP 130/60 Blood Pressure Location Rt brachial Position Sitting Pulse 56 Pulse Source Pulse Oximeter Pulse Oximetry (%) 96 Oxygen Delivery Method Room Air Intake Visit Reasons: CKD-Conf Meter Engineer Required: No Accompanied by: Self / Same As Patient Allergies erythromycin base [ERYTHROMYCIN BASE] Allergy (Intermediate, Verified 12/15/24 10:23) HIVES flurbiprofen [From ANSAID] Allergy (Intermediate, Verified 12/15/24 10:23) HIVES azithromycin [AZITHROMYCIN] Allergy (Mild, Verified 12/15/24 10:23) RASHES NSAIDS (Non-Steroidal Anti-Inflamma [NSAIDS (NON-STEROIDAL ANTI-INFLAMMA] Allergy (Mild, Verified 12/15/24 10:23) RASHES ciprofloxacin [Cipro] Allergy (Unknown, Verified 12/15/24 10:23) Upset Stomach nitrofurantoin Allergy (Unknown, Verified 12/15/24 10:23) upset stomach Erythromycin Allergy (Unknown, Uncoded 11/23/24 10:56) Hives Sulfas Allergy (Unknown, Uncoded 11/23/24 10:56) Hives HPI Comments Details: Perlita was seen in follow up for her CKD, hypertension and crest syndrome. She has long history of coronary artery disease needing PCI 15 years ago but recently she underwent coronary artery bypass grafting following which she had sternal wound issues and underwent further surgery. She was thought to have atherosclerotic renovascular disease causing CKD. She denies any shortness of breath, paroxysmal nocturnal dyspnea, orthopnea or worsening pedal edema. She has been tolerating angiotensin receptor marichuy. Her serum creatinine had been fluctuating between 1.3-1.4 at baseline. She does not have any hematuria, dysuria, frequency, orthostatic symptoms. She had a pacemaker Sep 2024 [facility] Medical History CAD (coronary artery disease) CREST (calcinosis, Raynaud's phenomenon, esophageal dysfunction, sclerodactyly, telangiectasia) Inguinal hernia Type 2 diabetes mellitus with hyperglycemia Hypertension Polymyositis Renal artery stenosis Scleroderma Paroxysmal atrial fibrillation CKD (chronic kidney disease) stage 3, GFR 30-59 ml/min Hypothyroid Hypercholesterolemia Surgical History Hx of tonsillectomy History of lumbar fusion History of appendectomy Hx of total knee arthroplasty Hx of CABG S/P JUDI-BSO (total abdominal hysterectomy and bilateral salpingo-oophorectomy) Family History Mother Heart attack Father Heart attack Brother No problems noted. Son No problems noted. Son No problems noted. Social History Housing: House Alcohol intake: never Patient Tobacco Use Status: Never used Tobacco Tobacco use type: Cigarette e-Cigarette/Vaping Use: Never Used Second Hand Smoke Exposure: No service: No Current occupational status: retired Current occupational exposures/hazards: No Cognitive needs: No Hearing needs: Yes Vision needs: Yes Review of Systems Const All systems reviewed & are unremarkable except as noted in HPI and below Physical Exam Vital Signs: Last Vital Signs Pulse 56 12/15/24 10:23 BP 130/60 12/15/24 10:23 Pulse Ox 96 12/15/24 10:23 Oxygen Delivery Method Room Air 12/15/24 10:23 BMI result Body Mass Index 30.3 Const General: comfortable and no acute distress Orientation/consciousness: patient oriented x3 HEENT Head: Yes normocephalic Mouth: Normal oral and palatal mucosa present Eyes EOM: EOMs intact bilaterally Neck Neck: Yes supple Resp Auscultation: clear to auscultation bilaterally Cardio Jugular venous distension: no JVD Rate: regular rate GI Palpation (GI): Soft to palpation Auscultation: normal bowel sounds General: Yes no CVA tenderness Back/Spine/Pelvis Back: no CVA tenderness Skin General skin exam: no rashes or lesions noted Neuro General: patient oriented x3 and moves all extremities Extrem General: Yes no pedal edema Results Reviewed Nephrology Results: No Data to Display Assessment & Plan Assessment & Plan (1) CKD (chronic kidney disease) stage 3, GFR 30-59 ml/min: Code(s): N18.30 - Chronic kidney disease, stage 3 unspecified Category: Medical Qualifiers: Chronic kidney disease stage 3 subtype: stage 3a (GFR 45-59) Qualified Code(s): N18.31 - Chronic kidney disease, stage 3a (2) Renal artery stenosis: Code(s): I70.1 - Atherosclerosis of renal artery Category: Medical (3) Chronic systolic heart failure: Comment: January 2024 EF of 25-30% Code(s): I50.22 - Chronic systolic (congestive) heart failure Category: Medical Plan Perlita has history of vascular disease including coronary artery disease needing CABG as well as renovascular disease. She is tolerating current dose of Enteresto and her blood pressure has been at goal. She avoids nonsteroidal ant i-inflammatories and her volume status is optimal. She has not known to have any significant proteinuria. She has not had a follow-up ultrasound of her renal artery which I plan to do it with time. She is on statins. Her renal functions are close to baseline now. She maintains good hydration. She is tolerating current dosage of diuretics. I answered all questions. Orders: Orders Creatinine 6 Months I70.1 - Atherosclerosis of renal artery, N18.31 - Chronic kidney disease, stage 3a Blood Urea Nitrogen 6 Months I70.1 - Atherosclerosis of renal artery, N18.31 - Chronic kidney disease, stage 3a Electrolytes 6 Months I70.1 - Atherosclerosis of renal artery, N18.31 - Chronic kidney disease, stage 3a Protein Creatinine Ratio, Ur 6 Months I70.1 - Atherosclerosis of renal artery, N18.31 - Chronic kidney disease, stage 3a Coding Level of Care Code Est Pt Level 4 (63079) Diagnoses Stage 3a chronic kidney disease N18.31 Chronic kidney disease stage 3 subtype: stage 3a (GFR 45-59) Renal artery stenosis I70.1 Chronic systolic heart failure I50.22
[2024-12-15 10:23] VITALS: BP 130/60; PULSE 56; O2SAT 96; BMI 30.3
--- OUTSIDE RECORDS SUMMARY | 2024-12-15 10:39 | XMS_ITS | Encounter Summary ---
Author Organization [facility], Address [address] [place] [address] Phone Care Team Providers Care Slab Lifting Engineer Name Role Phone Mariana Whitten MD Primary Care Provider [phone] Encounter Details Date Type Department Care Team (Late st Contact Info) Description 03/01/2020 Orders Only [facility] - [address] [facility] [place] [id number] Montse Grace MD Chronic kidney disease stage 3 (HCC) Social History Tobacco Use Types Packs/Day Years Used Date Smoking Tobacco: Never Alcohol Use Standard Drinks/Week Comments No 0 (1 standard drink = 0.6 oz pur e alcohol) Comments Unknown Sex and Gender Information Value Date Recorded Sex Assigned at Not on file Legal Sex Female 4:30 PM EST Gender Identity Not on file Sexual Orientation Not on file documented as of this encounter Plan of Treatment Not on file documented as of this encounter Visit Diagnoses Diagnosis Chronic kidney disease stage 3 (HCC) documented in this encounter Care Teams Slab Lifting Engineer Relationship Specialty Start Date End Date Mariana Whitten MD [address] [place] [address] PCP - General Internal Medicine 12/11/19 documented as of this encounter
--- OUTSIDE RECORDS SUMMARY | 2024-12-15 10:39 | XMS_ITS | Clinical Summary ---
Author Organization [facility], Address [address] [place] [address] [place] [phone] Phone Care Team Providers Care Refuse Collector Name Role Phone Mariana Whitten MD Primary Care Provider [phone] Allergies Active Allergy Reactions Criticality Noted Date Comments Azithromycin Other (see comments) 12/06/2019 Other reaction(s): RASH Celecoxib Other (see comments) 12/06/2019 Other reaction(s): RASH Ciprofloxacin Other (see comments) 09/08/2017 Clarithromycin Other (see comments) 12/05/2021 Erythromycin Other (see comments) 09/08/2017 Other reaction(s): rash, itchy Levofloxacin Other (see comments) 12/05/2021 Nitrofurantoin Other (see comments) 01/04/2018 Nsaids Other (see comments) 09/08/2017 Oxycodone Other (see comments) 01/04/2018 Sulfa Antibiotics 09/08/2017 Sulfamethoxazole-Trimetho prim Other (see comments) 12/05/2021 Medications simvastatin (ZOCOR) 40 MG tablet Take 1 tablet by mouth at bed time Active levothyroxine (SYNTHROID, LEVOTHROID) 100 MCG tablet Take 1 tablet by mouth 1 (one) time each day 10/29/2017 Active chlorthalidone (HYGROTON) 50 MG tablet Take 1 tablet by mouth 1 (one) time each day 10/17/2017 Active apixaban (ELIQUIS) 5 MG tablet Take 1 tablet by mouth 2 (two) times a day Active cholecalciferol (VITAMIN D-3 SUPER STRENGTH) 50 MCG (2000 UT) tablet Take 2,000 Units by mouth daily Active aspirin 81 MG tablet Take 1 tablet by mouth 1 (one) time each day Active acetaminophen (TYLENOL) 325 MG tablet Take 2 tablets by mouth if needed Active hydrALAZINE 100 MG tablet TAKE 1 TABLET BY MOUTH IN THE MORNING, 1 IN THE EVENING, AND 1 RIGHT BEFORE BEDTIME 270 tablet 3 02/15/2023 Active olmesartan (BENICAR) 20 MG tablet TAKE 1 TABLET (20 MG TOTAL) BY MOUTH IN THE MORNING AND IN THE EVENING 180 tablet 3 09/27/2023 Active torsemide (DEMADEX) 10 MG tablet Take 1 tablet (10 mg total) by mouth in the morning and 1 tablet (10 mg total) in the evening. 180 tablet 3 12/03/2023 Active atorvastatin (LIPITOR) 40 MG tablet Take 40 mg by mouth 1 (one) time each day 06/08/2024 Active Active Problems Problem Noted Date Diagnosed Date Proteinuria 12/29/2022 Stage 3b chronic kidney disease 12/16/2020 Renovascular hypertension 12/06/2019 Renal artery stenosis 12/06/2019 Chronic kidney disease due to hypertension 12/06 Type 2 diabetes mellitus 08/02/2014 Hypertension 08/02/2014 Atherosclerosis of renal artery 10/06/2012 Resolved Problems Problem Noted Date Diagnosed Date Resolved Date Chronic kidney disease stage 3 12/06/2019 12/16/2020 Immunizations Name Administration Dates Next Due Influenza (IM) Preservative Free 021,09/08/2019,09/13/2018,2017,07/12/2017,10/09/2016 Influenza Split High Dose Preservative Free IM 07/13/2017 Influenza Vaccine, Quadrival ent, Adjuvanted 08/26/2020 Pfizer SARS-COV-2 10/07/2021,01/07/2021,12/17/19 21 Family History Medical History Relation Comments Heart disease Father ND Hypertension Father Brain cancer Father's Sister Hypertension Mother Relation Status Comments Father Father's Sister Mother Social History Tobacco Use Types Packs/Day Years Used Date Smoking Tobacco: Never Alcohol Use Standard Drinks/Week Comments No 0 (1 standard drink = 0.6 oz pur e alcohol) Comments Unknown Sex and Gender Information Value Date Recorded Sex Assigned at Not on file Legal Sex Female 4:30 PM EST Gender Identity Not on file Sexual Orientation Not on file Last Filed Vital Signs Vital Sign Reading Time Taken Comments Blood Pressure 142/68 06/22/2023 9:53 AM EDT Pulse 68 06/22/2023 9:53 AM EDT Temperature 36.7 ??C (98 ??F) 12/11/2019 1:15 PM EST Respiratory Rate 14 06/22/2023 9:53 AM EDT Oxygen Saturation - - Inhaled Oxygen Concentration - - Weight 73.5 kg (162 lb) 06/22/2023 9:53 AM EDT Height 162.6 cm (5' 4 ) 06/22/2023 9:53 AM EDT Body Mass Index 27.81 06/22/2023 9:53 AM EDT Plan of Treatment Health Maintenance Due Date Last Done Comments Pneumococcal Vaccine: 65+ Years (1 of 2 - PCV) 02/07/1951 Diabetes: Ophthalmology Exam 12/06/2019 Diabetes: Pedal Pulse Checked 12/06/2019 Diabetes: Sensory Foot Exam 12/06/2019 Diabetes: Visual Foot Exam 12/06/2019 Diabetes: Hemoglobin A1C 09/23/2022 06/23/2022 Influenza Vaccine (#1) 2024 , 08/26/2020, 09/08/2019, Additional history exists Hepatitis B Vaccine Aged Out No longe r eligible based on patient's age to complete this topic Procedures Procedure Name Priority Date/Time Associated Diagnosis Comments HEMOGLOBIN A1C Routine 06/23/2022 7:37 AM EDT from Last 3 Months or Most Recently Relevant to Health Maintenance Results * Hemoglobin A1c (06/23/2022 7:37 AM EDT) [facility] Signature Hemoglobin A1C 5.6 (4.0-5.6) % [facility] Comment: MONITORING: In known diabetic patients, hemoglobin A1c targets should be discussed with health care provider. DIAGNOSTIC USE: ??The [place] Diabetes Association (ADA) and the World Health Organization (WHO) recommend the use of HbA1c to diagnose diabetes using a threshold of 6.5%. Patients who have an HbA1c between 5.7% and 6.4% are considered at increased risk for developing diabetes in the future. CAUTION: Falsely low HbA1c results may be observed in patients with hemolytic anemia, homozygous forms of abnormal hemoglobin (e.g. SS, CC, SC), , recent blood loss or hemoglobin F greater than 7%. Fructosamine may be used as an alternate test in these cases. REFERENCE: ADA: Standards of Medical Care in Diabetes 2020, The Journal of Clinical and Applied Research and Education Volume 43, Supplement 1 Testing performed or reported by [facility], a Service of [facility], [address] [place] [address] Marcy Slaughter MD, Office Nurse [facility]# [id number] 06/23/2022 7:37 AM EDT 06/23/2022 8:21 AM EDT us Aps External Provider LAB BLOOD ORDERABLES Final Result [facility] from Last 3 Months or Most Recently Relevant to Health Maintenance Insurance MEDICARE [facility] Care Teams Refuse Collector Relationship Specialty Start Date End Date Mariana Whitten MD [address] [place] [address] PCP - General Internal Medicine 12/11/19
--- OUTSIDE RECORDS SUMMARY | 2024-12-15 10:40 | XMS_ITS ---
Author Organization [facility] Address [address] [place] [address] Care Team Providers Care Inside Sales Name Role Phone Jose Roberto Leggett Primary Care Provider Vannessa Dai [phone] REASON FOR VISIT RLE ultrasound 3pm 11/20/24 Encounters Encounter Location Date Provider Diagnosis [address] [phone] 11/17/2024 Vannessa Tim Plan Of Treatment Next Appt Details Provider Name:Vannessa benjamin, 02/09/2025 12:15:00 PM, [address] [place], [address], Progress Notes * HORACIO, Carol ADOB:12/1944 (79 yo F)Acc No.[id number]:11/17/2024 Patient:?Perlita LEONARD :1945???Age:79 Y???Sex:Female Address:[address] [place] [address], [phone] * true * Date:? Generated for Printi ng/Fasamig/eTransmitting on:?12/15/2024 10:40 AM EST
--- OUTSIDE RECORDS SUMMARY | 2024-12-15 10:40 | XMS_ITS | Continuity of Care Document ---
Author Organization [facility] Address [address] [place] [address]- Support Name Relationship Address Phone LEONILA, PEDRO Personal Relationship Unknown Unavailable LEONILA, PEDRO Personal Relationship Unknown Unavailable LEONILA, PEDRO Personal Relationship Unknown Unavailable LEONILA, PEDRO Personal Relationship Unknown Unavailable LEONILA, PEDRO Personal Relationship Unknown Unavailable LEONILA, PEDRO Personal Relationship Unknown Unavailable LEONILA, PEDRO Personal Relationship Unknown Unavailable MORRISETTE, PEDRO Personal Relationship Unknown Unavailable LEONILA, PEDRO Personal Relationship Unknown Unavailable MORRISSETT, PEDRO Personal Relationship Unknown Unavailable LEONILA, PEDRO Personal Relationship Unknown Unavailable LEONILA, PEDRO spouse Unknown Unavail able LEONILA, PEDRO Personal Relationship Unknown Unavailable LEONILA, PEDRO Personal Relationship Unknown Unavailable LEONILA, PEDRO Personal Relationship Unknown Unavailable LEONILA, PEDRO Personal Relationship Unknown Unavailable LEONILA, PEDRO Personal Relationship Unknown Unavailable LEONILA, PEDRO Personal Relationship Unknown Unavailable LEONILA, PEDRO Personal Relationship Unknown Unavailable LEONILA, PEDRO Personal Relationship Unknown Unavailable LEONILA, PEDRO Personal Relationship Unknown Unavailable LEONILA, PEDRO Personal Relationship Unknown Unavailable LEONILA, PEDRO Personal Relationship Unknown Unavailable LEONILA, PEDRO Personal Relationship Unknown Unavailable LEONILA, PEDRO Personal Relationship Unknown Unavailable LEONILA, PEDRO Personal Relationship Unknown Unavailable LEONILA, PEDRO Personal Relationship Unknown Unavailable LEONILA, PEDRO Personal Relationship Unknown Unavailable LEONILA, PEDRO Personal Relationship Unknown Unavailable LEONILA, PEDRO Personal Relationship Unknown Unavailable LEONILA, PEDRO Personal Relationship Unknown Unavailable LEONILA, PEDRO Personal Relationship Unknown Unavailable LEONILA, PEDRO Personal Relationship Unknown Unavailable LEONILA, PEDRO Personal Relationship Unknown Unavailable LEONILA, PEDRO Personal Relationship Unknown Unavailable LEONILA, PEDRO Personal Relationship Unknown Unavailable LEONILA, PEDRO Personal Relationship Unknown Unavailable LEONILA, PEDRO Personal Relationship Unknown Unavailable LEONILA, PEDRO Personal Relationship Unknown Unavailable LEONILA, PEDRO Personal Relationship Unknown Unavailable LEONILA, PEDRO Personal Relationship Unknown Unavailable LEONILA, PEDRO Personal Relationship Unknown Unavailable LEONILA, PEDRO Personal Relationship Unknown Unavailable Care Team Providers Care Communications Assistant Name Role Phone Po Jose Roberto BELL Primary Care Physician Encounter [facility] [id number] Date(s): 11/29/24 - 12/06/24 [facility] [address] [place], [place] [address] Attending Physician: Toño Eaton MD Admitting Physician: Toño Eaton MD Referring Physician: Toño Eaton MD Encounter Type: Office Visit Allergies, Adverse Reactions, Alerts Substance Criticality Severity Reaction Reaction Severity Status ciprofloxacin Low criticality Mild don't remember Active azithromycin Unknown Active nitrofurantoin Low criticality Mild nausea Active Zithromax Z-Luis Alberto RASH Acti ve erythromycin rash, itchy Activ e sulfa drugs Low criticality Mild rash Ac tive nonsteroidal anti-inflammatory agents RASH Active Celebrex RASH Active Immunizations Given and Recorded Vaccine Date Status Refusal Reason SARS-CoV-2 (COVID-19) mRNA BNT-162b2 vac 01/07/21 Given SARS-CoV-2 (COVID-19) mRNA BNT-162b2 vac 12/17/20 Given Medications apixaban 5 mg oral tablet 1 tablet = 5 mg, By Mouth, 2 times a day, # 60 tablet, 0 Refills, Maintenance, 07/18/24 11:18:00 AM EDT, Tablet, Partial fill upon patient request if the prescription is for a schedule II opioid drug. Start Date: 07/18/24 Status: Ordered Quantity: 60.0 Unit: tablet Repeat number: 1 aspirin 81 mg oral delayed release tablet 81 mg, 1, tablet, By Mouth, Daily, # 30 tablet, Refills 0, Maintenance, 07/18/24 11:16:00 AM EDT, Partial fill upon patient request if the prescription is for a schedule II opioid drug. Start Date: 07/18/24 Status: Ordered Quantity: 30.0 Unit: tablet Repeat number: 1 atorvastatin 40 mg oral tablet 1 tablet = 40 mg, By Mouth, Daily, # 30 tablet, 5 Refills, Maintenance, 07/18/24 11:17:00 AM EDT, Tablet, Partial fill upon patient request if the prescription is for a schedule II opioid drug. Start Date: 07/18/24 Status: Ordered Quantity: 30.0 Unit: tablet Repeat number: 1 Entresto 49 mg-51 mg oral tablet 1 tablet, By Mouth, 2 times a day, # 60 tablet, 0 Refills, Maintenance, 07/18/24 11:17:00 AM EDT, Tablet, Partial fill upon patient request if the prescription is for a schedule II opioid drug. Start Date: 07/18/24 Status: Ordered Quantity: 60.0 Unit: tablet Repeat number: 1 furosemide 20 mg oral tablet 20 mg, 1, tablet, By Mouth, Daily, # 30 tablet, Refills 0, Maintenance, 07/18/24 11:18:00 AM EDT, Partial fill upon patient request if the prescription is for a schedule II opioid drug. Start Date: 07/18/24 Status: Ordered Quantity: 30.0 Unit: tablet Repeat number: 1 levothyroxine 100 mcg (0.1 mg) oral capsule 1 capsule = 100 mcg, By Mouth, Daily, do not crush or chew, 0 Refills, Maintenance, 07/18/24 11:17:00 AM EDT, Capsule, Partial fill upon patient request if the prescription is for a schedule II opioiddrug. Start Date: 07/18/24 Status: Ordered Repeat number: 1 metoprolol 50 mg oral tablet, extended release 50 mg, 1, tablet, By Mouth, Daily, # 30 tablet, Refills 0, Maintenance, 07/18/24 11:17:00 AM EDT, Partial fill upon patient request if the prescription is for a schedule II opioid drug. Start Date: 07/18/24 Status: Ordered Quantity: 30.0 Unit: tablet Repeat number: 1 Problem List Condition Confirmation Course Effective Dates Status H ealth Status Informant Afib Confirmed Active CAD - Coronary artery disease Confirmed Active CREST syndrome Confirmed Active Diabetes mellitus type II Confirmed Active Dyspnea Confirmed 09/05/12 Active S/P CABG x 4 Confirmed Active History of placement of stent for coronary artery disease 1 Confirmed 2008 Active History of repair of inguinal hernia Confirmed Active History of total hysterectomy with bilateral salpingo-oophorectom y 2 Confirmed 2008 Active Hypertension Confirmed Active Sternal wound infection Confirmed Active Obesity Confirmed Active Encounter for management of wound VAC Confirmed Active Polymyositis Confirmed Active Renal artery stenosis Confirmed Active Scleroderma Confirmed Active Encounter for postoperative wound check Confirmed Active Wound infection Confirmed Active 1LAD and OM 2for endometrial cancer Vital Signs Most recent to oldest [Reference Range]: 1 Height 163 cm (11/29/24 9:03 AM) Weight 78.47 kg (11/29/24 9:03 AM) Oxygen Saturation [94-100 %] 99 % (11/29/24 9:03 AM) Pulse Rate [55-90 bpm] 73 bpm (11/29/24 9:03 AM) Body Mass Index [18.5-24.99 kg/m2] 29.53 kg/m2 *H* (11/29/24 9:03 AM) Blood Pressure [90-138/55-84 mm Hg] 139/ 72mm Hg *H* (11/29/24 9:03 AM) Respiratory Rate [16-30 br/min] 18 br/mi n (11/29/24 9:03 AM) Mode of Delivery (Oxygen) Room air (11/29/24 9:03 AM) Blood pressure sites Arm, right (11/29/24 9:03 AM) Weight Obtained Via Standing scale (11/29/24 9:03 AM) Social History Social History Type Response Smoking Status Never smoker; Tobacc o user in household: No entered on: 02/22/17 Sex Sex Representation Female (finding) Note * Bolivar Milian: PERFORM Event Display: Patient Education/Instruction Authored Date: Ambulatory [place] [address] Name: JAISON KEEN : 1945?? Visit: 11/29/2024 08:50?? Ambulatory Visit Instructions ?? Your Care Team Primary Care Provider Jose Roberto Leggett MD? This Visit Provider Toño Eaton MD Vitals Signs Pulse Rate: 73 bpm Height: 163 cm Respiratory Rate: 18 br/min Weight: 78.47 kg Systolic Blood Pressure:??139 mm Hg??High Body Mass Index:??29.53 kg/m2??High Diastolic Blood Pressure: 72 mm Hg Body surface area: 1.88 Oxygen Saturation: 99 % ?? Medications The list below reflects the information in our records and provided by you today along with any changes made during this visit. Please continue your medications until treatment is completed or stopped by your provider. If this is different from the information you have or there are other questions,please contact the prescribing provider. What How Much When Instructions Unchanged apixaban (apixaban 5 mg oral tablet) 1 tab(s) Oral Twice a day Unchanged Aspirin (aspirin 81 mg oral delayed release tablet) 1 tab(s) Oral Daily Unchanged Atorvastatin (atorvastatin 40 mg oral tablet) 1 tab(s) Oral Daily Unchanged Furosemide (furosemide 20 mg oral tablet) 1 tab(s) Oral Daily Unchanged Levothyroxine (levothyroxine 100 mcg (0.1 mg) oral capsule) 1 capsule Oral Daily do not crush or chew ?? Unchanged Metoprolol (metoprolol 50 mg oral tablet, extended release) 1 tab(s) Oral Daily Unchanged sacubitril-valsartan (Entresto 49 mg-51 mg oral tablet) 1 tab(s) Oral Twice a day Medications and Immunizations Administered Medications Given During Visit No medications given during this visit.?? Allergies (NKA means No Known Allergies) ciprofloxacin??(don't remember) nitrofurantoin??(nausea) sulfa drugs??(rash) Celebrex??(RASH) Zithromax Z-Luis Alberto??(RASH) azithromycin??(Unknown) erythromycin??(rash, itchy) nonsteroidal anti-inflammatory agents??(RASH) Common Emergency Awareness Tips IS IT A STROKE? Act FAST and Check for these signs: FACE Does the face look uneven? ARM Does one arm drift down? SPEECH Does their speech sound strange? TIME Call at any sign of stroke ?? Heart Attack Signs Chest discomfort: Most heart attacks involve discomfort in the center of the chest and lasts more than a few minutes, or goes away and comes back. It can feel like uncomfortable pressure, squeezing, fullness or pain. Discomfort in upper body: Symptoms can include pain or discomfort in one or both arms, back, neck, jaw or stomach. Shortness of breath: With or without discomfort. Other signs: Breaking out in a cold sweat, nausea, or lightheaded. Remember, MINUTES DO MATTER. If you experience any of these heart attack warning signs, call to get immediate medical attention! ?? Smoking can increase your chances of developing chronic health problems and can cause harmful effects to other family members in your house. If you smoke, you are strongly encouraged to quit. Please call [employer] at [phone] or [phone]-[phone] ([phone]) or log in to [email or web address] for referrals to smoking cessation programs. ?? The National Suicide Prevention Hotline is available 31/05 if you or someone you know needs to find a reason to keep living. By calling 0-431-241-Plan A Drink (5682) you'll be connected to a skilled, trained counselor at a crisis center in your area. [facility] [employer] Portal You can view and manage your care through the patient portal or by using a health care mayte of your choosing. [employer] is a website that allows you to securely view your medical information including your hospital discharge summary, office visit summaries, medications and follow-up visits. You can also request appointments, renew medications, and request access to your medical information using a health care mayte of your choosing, or just ask a question. You can enroll at [email or web address] or register during your next office visit. [facility], in keeping with [facility] guidance, no longer requires face masks for staff, patientsor visitors in most situations. Similiar to time spent indoors at other locations, there is the chance that you were exposed to repiratory viruses during your time with us (such as flu or COVID-19). If you develop symptoms concerning for a viral respiratory infection, please seek testing (and treatment if indicated) from your medical provider or home test kit. ?? Disclaimer: The information provided is of a general nature and is intended to be used in conjunction with the recommendations and advice of your health care practitioner. Every effort has been made to ensure that the information provided is accurate and complete at the time it is provided to you however, as your needs change, or, as new information becomes available, different or additional instructions may be required. ?? If you have questions, please consult with your primary care provider or pharmacist, as appropriate. This information is not intended to serve as substitution for assessment and evaluation by a qualified health care provider. If you do not have a primary care provider, you may find a [facility] by calling [facility] at [phone]. Patient Care team information Care Team Personnel Name: Maryann Xiao RN Position: [facility] RN Supv Member Role: Primary Care Nurse Name: Stephanie Hammonds RN Position: [facility] RN Member Role: Primary Care Nurse Name: Neida Saavedra RN Position: [facility] RN Member Role: Primary Care Nurse Name: Michelle Gonzalez RN Position: [facility] RN Member Role: Primary Care Nurse Name: Ghislaine Ash NP Position: [facility] Associate Professional Member Role: [employer] Provider Address: [address] [facility] [place] [place] [address]- [place] [employer]: Name: Dalila Peters [place] Position: [facility] JORDY [place] Member Role: [employer] Physician Name: Diaz Rosa DO Position: [facility] Renal MD Member Role: Lifetime Consulting Physician Address: [address] [facility] [place] [address]- [place] [employer]: Name: Carolyne Conn RN Position: [facility] RN Member Role: Primary Care Nurse Name: Valerie Schaefer RN Position: [facility] ED RN W/OE and Tasks Member Role: Primary Care Nurse Name: Alberto Garcia MD Position: [facility] Outreach Member Role: [employer] Consulting Physician Address: [address] [facility] [place] [place] [address]- [place] [employer]: Name: Tere Weiss RN Position: [facility] RN Member Role: Primary Care Nurse Name: Jose Roberto Leggett MD Position: Reference Physician Member Role: PCP Address: [address] [place] [address]- [place] [employer]: Name: Ida Garcia NP Position: [facility] Outreach Member Role: [employer] Consulting Physician Address: [address] [place] [address]- [place] [employer]: Care Team Related Persons Name: PEDRO KEEN Insurance Providers [facility]: 1 Payer: MEDICARE PART B OUTPT Member Number: [id number] Policy Number: NA Group Number: RAGINI Health Plan Information #: 2 Payer: MEDEX Member Number: [id number] Policy Number: RAGINI Group Number: [id number]
--- OUTSIDE RECORDS SUMMARY | 2024-12-15 10:40 | XMS_ITS | Encounter Summary ---
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, unspecified whether dry creek or transplanted heart Procedures Transthoracic echocardiogram (TTE) complete with PRN contrast, bubble, strain, and 3D order panel MT TTE W 2D IMAGE COMPLETE W DOPPLER ECHO & COLOR FLOW DOPPLER ECHO MT CONSUELO 2D COMPLETE W/CONTRAST OR W & WO CONTRAST WITH DOPPLER Derick Medina MD [address] [place] [address] [address] [place] [address] [facility] Referral ID Status Reason Start Date Expiration Date V isits Requested Visits Authorized [id number] Authorized 11/24/2024 11/24/2025 1 1 Reason for Visit * Reason Comments Follow-up Encounter Details Date Type Department Care Team (Late st Contact Info) Description 11/24/2024 9:20 AM EST Office Visit [facility] - [address] [place] [address] Derick Medina MD [address] [place] [address] [address] [place], [place] [id number] 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, unspecified whether dry creek or transplanted heart (Primary Dx); Localized edema; Ischemic cardiomyopathy; Paroxysmal atrial fibrillation (CMS/HCC) Social History Tobacco Use Types Packs/Day Years Used Date Smoking Tobacco: Never Smokeless Tobacco: Never Alcohol Use Standard Drinks/Week Comments No 0 (1 standard drink = 0.6 oz pur e alcohol) Sex and Gender Information Value Date Recorded Sex Assigned at Female 09/22/2024 8:46 AM EST Gender Identity Female 09/22/2024 8:46 AM EST Sexual Orientation Straight 09/22/2024 8: 46 AM EST Job Start Date Occupation Industry Not on file Not on file Not on file documented as of this encounter Last Filed Vital Signs Vital Sign Reading Time Taken Comments Blood Pressure - - Pulse 73 11/24/2024 9:08 AM EST Temperature - - Respiratory Rate - - Oxygen Saturation 99% 11/24/2024 9:08 AM EST Inhaled Oxygen Concentration - - Weight 78.8 kg (173 lb 11.2 oz) 11/24/2024 9:08 AM EST Height 162.6 cm (5' 4 ) 11/24/2024 9:08 AM EST Body Mass Index 29.82 11/24/2024 9:08 AM EST documented in this encounter Functional Status Functional Status Response Date of Assess ment Are you deaf or do you have serious difficulty h earing? No 09/23/2024 Are you blind or do you have serious difficulty seeing, even when wearing glasses? No 09/23/2024 Do you have serious difficul ty walking or climbing stairs? No 09/23/2024 Do you have serious difficulty dressing or bathi ng? No 09/23/2024 Because of a physical, menta l, or emotional condition, do you have serious difficulty doing errands alone such as visiting the doctor? No 09/23/2024 Cognitive Status Response Date of Assessm ent Because of a physical, menta l, or emotional condition, do you have serious difficulty concentrating, remembering, or making decisions? (5 years old or older) No 09/23/2024 documented as of this encounter Ordered Prescriptions Prescription Sig Dispensed Refills Start Date End Da te apixaban (Eliquis) 5 mg tablet Take 1 tablet (5 mg total) by mouth 2 (two) times a day. 60 each 2 11/24/2024 11/24/2025 documented in this encounter Progress Notes * Derick Medina MD - 11/24/2024 9:20 AM ESTAssociated Problem(s): Localized edema Patient has localized edema to the right leg. This most likely is due to venous insufficiency or loss of plumbing due to bypasses. Patient is quite worried about it is minimal she has support sockshave recommended that she buy a pair with a little plaster molder elastic in them to try to get him on easier and even support nylons would be helpful * Derick Medina MD - 11/24/2024 9:20 AM ESTAssociated Problem(s): Ischemic cardiomyopathy Patient has a history of ischemic cardiomyopathy she is on guideline directed therapy with some improvement in overall left ventricular ejection fraction.There is some concern that her left bundle branch block may be contributing somewhat to her left ventricular ejection fraction decreased. So BiV pacer was placed. Unfortunately the coronary sinus lead migrated and she is only BiV pacing about 40% of the time. I am planning an echocardiogram to see if that has helped improve her overall EF.. Ifit has not then we may need to consider removing that coronary sinus lead. * Derick Medina MD - 11/24/2024 9:20 AM ESTAssociated Problem(s): Paroxysmal atrial fibrillation (CMS/HCC) . He should had drug refractory A-fib symptomatic and affecting EF. Patient status post ablation remains anticoagulated for elevated CHADS2 score The above note was prepared with the help of voice recognition software. 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 [facility] CONSULT REQUESTED BY: DR LANGE PCP: Jose Roberto Lange MD HPI: Perlita Leonard is a 79 y.o. old female with 79-year-old female with a complex cardiac history that includes coronary disease for which she had bypass surgery last year. She has ischemic cardiomyopathy with an LVEF that is now 20 to 25% by echocardiogram from last month. This is lower than before her bypass surgery. She has developed paroxysmal atrial arrhythmias and a previous Holter monitorsuggested that he is having paroxysmal atrial fibrillation but I do believe the entire rhythm was atrial flutter with variable conduction from the low 30s in the learning development specialist hours to low 100s when is conducting more rapidly, i.e. 2:1. She does have a left bundle branch block with a QRS width of ap proximately 140 ms. When in sinus rhythm she has a first-degree AV block. She is not aware of palpitations but has experienced excessive dyspnea on exertion. She is on Lasix and that maintains any peripheral edema reasonably. She has peripheral vascular disease with bilateral carotid disease. She is anticoagulated with Eliquis. [id number] score is obviously elevated based on her advanced age coronary disease and heart failure. She is on Entresto and metoprolol for heart failure and was taken off of Jardiance due to intolerance I believe. Patient was hospitalized at [facility] in July for an ablation of atrial flutter. For drug refractory persistent A-fib flutter. Because of the very persistently reduced left ventricular ejection fraction she was scheduled for an ICD placement. The patient underwent implantation of an Sheth biventricular ICD. Near card association class II heart failure following the placement of her coronary sinus lead moved so that its effectiveness and biventricular pacing is decreased she developed lower extremity edema was sent for ultrasound that showed no thrombus her last echocardiogram in May showed an EF of 20 to 25% her right ventricle was normal in size but had a globally reduced systolic function her tricuspid valve had 1+ insufficiencywith no evidence of pulmonary hypertension Her cardiac catheterization in July showed mild diffuse disease of the left main less than 30%. The LAD had a previous stent in the midportion in the distal portion. She had a 50% mid LAD lesion. A 70% distal first diagonal lesion. 60% mid first diagonal lesion. And a second 50% mid LAD lesion. Circumflex artery had a previous stent in the first obtuse marginal. There is a 50% stenosis in the proximal circumflex proper. The RCA had a 50% stenosis in the right PDA was 100% occluded The GATES to the LAD was patent. The vein graft to the PDA was patent vein graft to first obtuse marginal was occluded the vein graft to the first diagonal was occluded this was done because of the worsening LV systolic function that we had noted. The patient's only pacing 40% of the time. Patient is quite concerned about some mild right leg edema. This is her vein harvest site. She has had a recent duplex scan done that showed no DVT. I suspect this is just venous insufficiency due toloss of plumbing ACTIVE MEDICATIONS: Outpatient Medications Marked as Taking for the 11/24/24 encounter (Office Visit) with Derick Medina MD Medication Sig Dispense Refill apixaban (Eliquis) 5 mg tablet Take 5 mg by mouth 2 times daily. aspirin 81 mg EC tablet Take 81 mg by mouth daily. atorvastatin (LIPITOR) 40 mg tablet Take 1 tablet (40 mg total) by mouth 1 (one) time each day. calcium carbonate-vitamin D3 600 mg-5 mcg (200 unit) capsule Take 1 capsule by mouth 1 (one) time each day. cholecalciferol (VITAMIN D-3) 50 mcg (2,000 unit) tablet Take 1 tablet (2,000 Units total) by mouth1 (one) time each day. docusate sodium (COLACE) 100 mg tablet Take 1 tablet (100 mg total) by mouth 1 (one) time each day. furosemide (LASIX) 20 mg tablet Take 1 tablet (20 mg total) by mouth 1 (one) time each day. levothyroxine (SYNTHROID, LEVOTHROID) 100 mcg tablet Take 100 mcg by mouth daily. sacubitriL-valsartan (Entresto) 49-51 mg per tablet Take 1 tablet by mouth 2 (two) times a day. 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 Diastolic heart failure (CMS/HCC) HFrEF (heart failure with reduced ejection fraction) (CMS/HCC) Hyperlipidemia Hypertension Night sweats Paroxysmal atrial fibrillation (CMS/HCC) Premature ventricular beats Renal artery stenosis (CMS/HCC) Urinary tract infection ALLERGIES: Allergies Allergen Reactions Azithromycin Rash Celecoxib Rash Ciprofloxacin-Hydrocortisone Rash Erythromycin Nitrofurantoin Nsaids (Non-Steroidal Anti-Inflammatory Drug) Nausea And Vomiting Oxycodone Nausea And Vomiting Other reaction(s): GI Upset Sulfa (Sulfonamide Antibiotics) Rash FAMILY HISTORY: Family History Problem Relation Name Age of Onset Heart attack Father Coronary artery disease Father Hypertension Mother Coronary artery disease Son Rohan Heart attack Son Rohan Hypertension Son Rohan Angioplasty Son Rohan Hyperlipidemia Son Rohan SOCIAL HISTORY: Social History Tobacco Use Smoking status: Never Smokeless tobacco: Never Substance Use Topics Alcohol use: No REVIEW OF SYSTEMS: Review of Systems Constitutional: Negative. HENT: Negative. Eyes: Negative. Cardiovascular: Negative. Respiratory: Negative. Endocrine: Negative. Hematologic/Lymphatic: Negative. Skin: Negative. Musculoskeletal: Negative. Gastrointestinal: Negative. Genitourinary: Negative. Neurological: Negative. Psychiatric/Behavioral: Negative. Allergic/Immunologic: Negative. All other systems reviewed and are negative. PHYSICAL EXAM: Vitals: 11/24/24 0908 Pulse: 73 SpO2: 99% Weight: 78.8 kg (173 lb 11.2 oz) Height: 1.626 m (64 ) Physical Exam Constitutional: Appearance: Normal appearance. HENT: Head: Normocephalic and atraumatic. Nose: Nose normal. Eyes: Extraocular Movements: Extraocular movements intact. Pupils: Pupils are equal, round, and reactive to light. Cardiovascular: Rate and Rhythm: Regular rhythm. Pulmonary: Breath sounds: Normal breath sounds. Abdominal: General: Abdomen is flat. Bowel sounds are normal. Palpations: Abdomen is soft. Musculoskeletal: General: Normal range of motion. Cervical back: Normal range of motion and neck supple. Right lower leg: Edema present. Skin: General: Skin is warm and dry. Neurological: General: No focal deficit present. Mental Status: She is alert. Psychiatric: Mood and Affect: Mood normal. EKG: Encounter Date: 09/23/24 ECG 12 lead Result Value Ventricular Rate ECG 73 Atrial Rate 227 P-R Interval 180 QRS Duration 138 Q-T Interval 462 QTc 508 R Glasgow -17 T Glasgow -49 ECG Interpretation AV dual-paced rhythm Biventricular pacemaker detected When compared with ECG of 21-JUL-2024 13:19, Prior EKG with complete heart block Vent. rate has increased BY 37 BPM Confirmed by DOLORES BALES ([id number]) on 09/23/2024 10:41:41 PM *Note: Due to a large number of results and/or encounters for the requested time period, some results have not been displayed. A complete set of results can be found in Results Review. 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 This most likely is due to venous insufficiency or loss of plumbing due to bypasses. Patient is quite worried about it is minimal she has support sockshave recommended that she buy a pair with a little plaster molder elastic in them to try to get him on easier and even support nylons would be helpful Ischemic cardiomyopathy Patient has a history of ischemic cardiomyopathy she is on guideline directed therapy with some improvement in overall left ventricular ejection fraction.There is some concern that her left bundle branch block may be contributing somewhat to her left ventricular ejection fraction decreased. So BiV pacer was placed. Unfortunately the coronary sinus lead migrated and she is only BiV pacing about 40% of the time. I am planning an echocardiogram to see if that has helped improve her overall EF.. Ifit has not then we may need to consider removing that coronary sinus lead. Paroxysmal atrial fibrillation (CMS/HCC) . He should had drug refractory A-fib symptomatic and affecting EF. Patient status post ablation remains anticoagulated for elevated CHADS2 score The above note was prepared with the help of voice recognition software. Please excuse any grammatical or spelling errors that may have occurred The [facility] team will continue to co-manage this patient following the plan of care as established by my initial visit and as per AHA guidelines for ongoing management and surveillance of Coronary ArteryDisease, Atrial Fibrillation, and Heart Failure This will include medication titration, initiation of appropriate medications and further titration, and diagnostic studies to manage this disease process. documented in this encounter Plan of Treatment Upcoming Encounters Date Type Department Care Team (Late st Contact Info) Description 04/05/2025 11:20 AM EDT Office Visit [facility] [address] [place] [id number] Derick Medina MD [address] [place] [address] [address] [place], [place] [id number] 04/24/2025 10:00 AM EDT Ancillary Procedure [facility] [address] [place] [id number] documented as of this encounter Results * (ABNORMAL) TRANSTHORACIC ECHOCARDIOGRAM (TTE) COMPLETE W/ CONTRAST (12/11/2024 2:35 PM EST) LV EDV (A2C) 121 mL CV PACS LV EDV (A4C) 113 mL CV PACS LV Diastolic Volume (BP) 118(A) 46 - 106 mL CV PACS LV ESV (A2C) 76 mL CV PACS LV ESV (A4C) 75 mL CV PACS LV Systolic Volume (BP) 76(A) 14 - 42 mL CV PACS IVSD 1.1(A) 0.6 - 0.9 cm CV PACS LVIDD 5.1 3.8 - 5.2 cm CV PACS LVIDS 4.4(A) 2.2 - 3.5 cm CV PACS LVOT Diameter 2.0 cm CV PACS LVOT Mean Kilo 0.6 m/s CV PACS LVOT Mean Grad 2 mmHg CV PACS LVOT Peak VTI 19.5 cm CV PACS LVOT Peak Kilo 1.0 m/s CV PACS LVOT Peak Gradient 4 mmHg CV PACS LVPWD 1.1(A) 0.6 - 0.9 cm CV PACS MV E' Tissue Velocity Lateral 7 cm/s CV PACS MV E' Tissue Velocity Septal 4 cm/s CV PACS Ejection Fraction (A2C) 37 % CV PACS Ejection Fraction (A4C) 34 % CV PACS Ejection Fraction (BP) 35 % CV PACS LVOT Area 3.1 cm2 CV PACS LVOT Stroke Volume 61 mL CV PACS Left Atrium Minor Glasgow 6.6 cm CV PACS Left Atrium Major Glasgow 6.5 cm CV PACS LA Area Sys (A2C) 24 cm2 CV PACS LA Area Sys (A4C) 25 cm2 CV PACS LA Volume (BP) 75 mL CV PACS LA Size 5.2 cm CV PACS RA Area 17.6 cm2 CV PACS RA 2D Volume 48 mL CV PACS AV Regurgitation PHT 526 ms CV PACS AR Max Velocity 4.2 m/s CV PACS AV Peak Kilo 1.4 m/s CV PACS AV Peak Gradient 7 mmHg CV PACS AV Mean Gradient 4 mmHg CV PACS Ao VTI 25.7 cm CV PACS AV Area Continuity Equation 2.4 cm2 CV PACS AV Area Peak Velocity 2.2 cm2 CV PACS Aortic Sinus Valsalva 3.2 cm CV PACS Ascending Aorta 3.2 cm CV PACS IVC Proximal 1.6 cm CV PACS MV Deceleration [place] 3.3 m/s2 CV PACS E Wave Deceleration Time 189 119 - 242 ms CV PACS MV PHT 56 ms CV PACS MV Peak A Kilo 0.78 m/s CV PACS MV Peak E Kilo 0.68 m/s CV PACS MV Mean Gradient 2 mmHg CV PACS MV VTI 35.9 cm CV PACS Mitral Valve Max Velocity 1.0 m/s CV PACS MV Peak Gradient 4 mmHg CV PACS MV Area PHT 3.9 cm2 CV PACS MV Area Continuity Equation 1.7 cm2 CV PACS PV Acceleration Time 120 ms CV PACS PV Mean Gradient 1 mmHg CV PACS PV VTI 11.5 cm CV PACS PV Peak Velocity 0.7 m/s CV PACS PV Peak Gradient 2 mmHg CV PACS RV Diastolic Basal Dimension 3.9 2.5 - 4.1 cm CV PACS RV S' 7 cm/s CV PACS TAPSE 13 mm CV PACS TR Peak Velocity 2.19 m/s CV PACS TR Peak Gradient 19 mmHg CV PACS E/E' Ratio Septal 17 CV PACS E/E' Ratio Averaged 13 CV PACS Relative Wall Thickness ratio 0.43 CV PACS LVOT:AV VTI Index 0.76 CV PACS FS 14 % CV PACS LV Mass 2D 214 g CV PACS MV VTI:LVOT VTI ratio 1.8 CV PACS LVOT flow 188 mL/s CV PACS AV Velocity Ratio 0.71 CV PACS E/A Ratio 0.9 CV PACS E/E' Ratio Lateral 10 CV PACS BSA 1.9 m2 CV PACS LV Diastolic Volume Index (BP) 64(A) 29 - 61 mL/m2 CV PACS LV Systolic Volume Index (BP) 41(A) 8 - 24 mL/m2 CV PACS LV EDV Index (A4C) 61 mL/m2 CV PACS LV ESV Index (A4C) 41 mL/m2 CV PACS LV EDV Index (A2C) 65 mL/m2 CV PACS LV ESV Index (A2C) 41 mL/m2 CV PACS LA Volume Index (BP) 41 mL/m2 CV PACS LVIDD Index 2.76 cm/m2 CV PACS LVIDS Index 2.38 cm/m2 CV PACS LV Mass Index 2D 116(A) 44 - 88 g/m2 CV PACS LVOT Stroke Index 33 mL/m2 CV PACS LA Dimension Index 2D 2.8 cm/m2 CV PACS RA 2D Volume Index 26 15 - 27 mL/m2 CV PACS EMILY Index (VTI) 1.29 cm2/m2 CV PACS EMILY Index (Pk Kilo) 1.19 cm2/m2 CV PACS Ascending Aorta Index 1.73 cm/m2 CV PACS Anatomical Region Laterality Modality Ultrasound Narrative 12/11/2024 3:21 PM EST ?Left ventricle cavity is mildly dilated. Left ventricular systolic function is moderately decreased with an ejection fraction of 30-35%. ?Moderate LV global hypokinesis is present. ?Left ventricle mild concentric hypertrophy. ?Abnormal left ventricular septal motion consistent with right ventricular pacing. ?Right ventricle cavity is normal. ?Aortic valve leaflets are mildly thickened. ?This represents a slight increase in left ventricular ejection fraction compared to May 2024 when the EF was estimated 20 to 25% Left Ventricle Left ventricle cavity is mildly dilated. There is mild concentric hypertrophy. Systolic function is moderately decreased with an ejection fraction of 30-35%. Moderate global LV hypokinesis is present. There is abnormal septal motion consistent with right ventricular pacing. Right Ventricle Right ventricle cavity appears normal. A pacer wire is present in the right ventricle. Left Atrium Left atrium cavity is mildly dilated. Right Atrium Right atrium cavity is normal. IVC/SVC Inferior vena cava structure is normal. RA pressures is estimated to be 3 mmHg (IVC diameter <21 mm and decreases >50% during inspiration). Mitral Valve The leaflets are mildly thickened. There is mild annular calcification. There is mild regurgitation with a centrally directed jet. There is no evidence of mitral valve stenosis. Tricuspid Valve Tricuspid valve structure is normal. There is trace regurgitation. The right ventricular systolic pressure is normal. Aortic Valve The aortic valve is trileaflet. The leaflets are mildly thickened. There is mild regurgitation with a centrally directed jet. There is no evidence of aortic valve stenosis. Pulmonic Valve There is trace pulmonic valve regurgitation. Ascending Aorta The aorta appears normal in size. Pericardium Pericardium appears normal. There is no pericardial effusion. Study Details Overall the study quality was adequate. Definity contrast was given to enhance imaging. Study was difficult due to: poor endocardial visualization. 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 Reorder 04/25/2024 11/24/2024 documented as of this encounter Care Teams Agricultural Education Professor Relationship Specialty Start Date End Date Jose Roberto Lange MD [address] [place] [address] [address] [facility] [place] [address] PCP - General 11/25/23 documented as of this encounter
--- OUTSIDE RECORDS SUMMARY | 2024-12-15 10:40 | XMS_ITS | Encounter Summary ---
Author Organization [facility] Address [address] [place] [address] Care Team Providers Care Skip Tracer Name Role Phone Jose Roberto Leggett MD Primary Care Provider [phone] Reason for Referral * Imaging (Routine) - Closed Specialty Diagnoses / Procedures Referred By Patricia reddy Referred To Contact Diagnoses Swelling Localized edema Procedures Vascular US duplex lower extremity venous right Vannessa Tim DPM [address] [place] [address] [facility] Referral ID Status Reason Start Date Expiration Date Visits Re quested Visits Authorized [id number] Closed 11/17/2024 11/17/2025 1 1 Reason for Visit * Imaging (Routine) - Closed Specialty Diagnoses / Procedures Referred By Patricia reddy Referred To Contact Diagnoses Swelling Localized edema Procedures Vascular US duplex lower extremity venous right Vannessa Tim DPM [address] [place] [address] [facility] Referral ID Status Reason Start Date Expiration Date Visits Re quested Visits Authorized [id number] Closed 11/17/2024 11/17/2025 1 1 Encounter Details Date Type Department Care Team (Latest Contact Info) Description 11/20/2024 2:46 PM EST - 11/20/2024 11:59 PM EST Hospital Encounter [facility] Ultrasound [address] [place] [address] Swelling; Localized edema Discharge Disposition: Home or Self Care Social History Tobacco Use Types Packs/Day Years [...] on file documented as of this encounter Functional Status Functional Status Response [...] No 09/23/2024 documented as of this encounter Medications at Time of Discharge Medication Sig Dispensed Refills Start Date End Date aspirin 81 mg EC tablet Take 81 mg by mouth daily. calcium carbonate-vitamin D3 600 mg-5 mcg (200 unit) capsule Take 1 capsule by mouth 1 (one) time each day. cholecalciferol (VITAMIN D-3) 50 mcg (2,000 unit) tablet Take 1 tablet (2,000 Units total) by mouth 1 (one) time each day. docusate sodium (COLACE) 100 mg tablet Take 1 tablet (100 mg total) by mouth 1 (one) time each day. furosemide (LASIX) 20 mg tablet Take 1 tablet (20 mg total) by mouth 1 (one) time each day. levothyroxine (SYNTHROID, LEVOTHROID) 100 mcg tablet Take 100 mcg by mouth daily. 05/17/2013 metoprolol tartrate (LOPRESSOR) 25 mg tablet Take 1 tablet (25 mg total) by mouth 2 (two) times a day. sacubitriL-valsartan (Entresto) 49-51 mg per tablet Take 1 tablet by mouth 2 (two) times a day. 08/24/2024 apixaban (Eliquis) 5 mg tablet Take 5 mg by mouth 2 times daily. 04/25/2024 11/24/2024 atorvastatin (LIPITOR) 40 mg tablet Take 1 tablet (40 mg total) by mouth 1 (one) time each day. 11/25/2023 12/06/2024 documented as of this encounter Discharge Disposition Disposition Code Departure Means Destination Home or Self Care documented in this encounter Plan of Treatment Upcoming Encounters Date Type Department Care Team (Late st Contact Info) Description 04/05/2025 11:20 AM EDT Office Visit [facility] Cardiology [facility] [address] [place] [address] Dr [address] [place] [address] Derick Medina MD [address] [place] [address] [address]IVE [address] [place] [address] 04/24/2025 10:00 AM EDT Ancillary Procedure [facility] [address] [facility] [address] [place] [phone] documented as of this encounter Procedures Procedure Name Priority Date/Time Associated Diagnosis Comments VAS US DUPLEX LOWER EXT VENOUS RIGHT Routine 11/20/2024 3:08 PM EST Swelling Localized edema documented in this encounter Results * Vascular US duplex lower extremity venous right (11/20/2024 3:08 PM EST) Anatomical Region Laterality Modality Vascular, Abdomen Ultrasound 11/20/2024 3:12 PM EST Impressions 11/20/2024 3:29 PM EST No evidence of a deep venous thrombosis involving the right lower extremity. -------- FINAL REPORT -------- Dictated By: Stephen Rosario Dictated Date: 11/20/2024 15:12 ET Assigned Physician: Stephen Rosario Reviewed and Electronically Signed By: Stephen Rosario Signed Date: 11/20/2024 15:29 ET Workstation ID: [id number] Transcribed By: Self Edit Transcribed Date: 11/20/2024 15:12 ET Narrative 11/20/2024 3:29 PM EST Right lower extremity deep vein thrombosis study, 11/20/2024. HISTORY: edema. COMPARISON: None. TECHNIQUE: Grayscale, color Doppler, and spectral Doppler ultrasound evaluation of the deep venous structures of the right lower extremity. FINDINGS: The deep venous structures of the right lower extremity demonstrate normal compressibility with normal color and spectral Doppler flow and a normal response to augmentation maneuvers. Procedure Note Stephen Rosario MD - 11/20/2024 Right lower extremity deep vein thrombosis study, 11/20/2024. HISTORY: edema. COMPARISON: None. TECHNIQUE: Grayscale, color Doppler, and spectral Doppler ultrasoundevaluation of the deep venous structures of the right lower extremity. FINDINGS: The deep venous structures of the right lower extremity demonstrate normalcompressibility with normal color and spectral Doppler flow and a normalresponse to augmentation maneuvers. IMPRESSION: No evidence of a deep venous thrombosis involving the right lowerextremity. -------- FINAL REPORT -------- Dictated By: Stephen Rosario Dictated Date: 11/20/2024 15:12 ET Assigned Physician: Stephen Rosario Reviewed and Electronically Signed By: Stephen Rosario Signed Date: 11/20/2024 15:29 ET Workstation ID: [id number] Transcribed By: Self Edit Transcribed Date: 11/20/2024 15:12 ET Vannessa Tim DPM CV VASCULAR PROCEDUR ES documented in this encounter Visit Diagnoses Diagnosis Swelling Localized superficial swelling, mass, or lump Localized edema Edema documented in this encounter Care Teams Skip Tracer Relationship Specialty Start Date End Date Jose Roberto Leggett MD [address] [place] [address] [address] [facility] [place] [address] PCP - General 11/25/23 documented as of this encounter
--- OUTSIDE RECORDS SUMMARY | 2024-12-15 10:40 | XMS_ITS | Encounter Summary ---
Author Organization [facility] [place] [address] Care Team Providers Care Manager Multicultural Name Role Phone Jose Roberto Leggett MD Primary Care Provider [phone] Reason for Visit * Reason Onset Date Comments Weight Gain 11/02/2024 Foot Swelling 11/02/2024 Encounter Details Date Type Department Care Team (Late st Contact Info) Description 11/02/2024 Telephone [facility] Cardiology [address] [place] [phone] Derick Medina MD [address] [place] [address] [address]IVE [address] [place] [address] Weight Gain; Foot Swelling Social History Tobacco Use Types Packs/Day Years [...] No 09/23/2024 documented as of this encounter Progress Notes * Tia Zamudio RN - 11/02/2024 2:45 PM EST Spoke with Perlita. I informed her of Jsoe Kumar's recommendations below. She is aware to take an extra Lasix 20 mg this afternoon and for the next 2-3 days. If swelling is present on Wednesday, she will take the additional 20 mg in the afternoon as well. If no swelling on Wednesday, she will go back to her baseline dose of Lasix 20 mg daily. Pt educated on when to seek emergent care as outlined below. BMP ordered and pt agreeable to have drawn on Wednesday. * Steven Duncan RN - 11/02/2024 2:40 PM EST Pt unable to navigate remote transmission. Agrees to come in for quick device check- possible reprogramming if warranted. Will remind her of plan per Tia/Vannessa Henderson. * Vannessa Kumar NP - 11/02/2024 2:23 PM EST She can take an additional dose of her furosemide in the afternoon today and for the next 2-3 days (take Wednesday if still has swelling present aor return to regular daily dosing if it is resolved by then) for the increased swelling/weight gain. Please order BMP to her preferred lab for Wednesday. Agree with other recs- have her call if weight does not return to baseline in the next several days. Go to ED if she experiences redness/pain to RLE to eval for cellulitis. Go to ED for an increase in weight or other symptoms such as FUENTES despite the increased diuretic. Thank you * Tia Zamudio RN - 11/02/2024 1:12 PM EST I spoke to Perlita for 13 minutes. She noticed edema this morning from her right foot to her knee. She checks her weight daily in the AM before eating and drinking. Her weight on 10/30/24 was 165 lbs. Her weight this morning was either 174 lbs or 175 lbs. She does not keep a dairy of her daily weights, but she was advised to going forward. Pt reported her right leg feels a little stiff whenshe straightens the extremity. She denies sharp pain or discoloration of RLE. She denies LLE edema,chest pain, shortness of breath, abdominal bloating, and recent illness. Pt reports compliance withher cardiac medications as outlined in the med module and compliant with a low sodium diet. Yesterday, she had a small piece of ham (about 2 inches) and vegetables. I advised pt to elevate her RLE todecrease swelling and to go to the ER if she develops RLE pain, discoloration, SOB, or chest pain. Perlita is seeking additional recommendations at this time. Device, pt mentioned her Applewatch is showing HR of 39 bpm in the morning. Have there been any alerts from her device? * Veronica Sena - 11/02/2024 11:08 AM EST Patient calling, she states she noticed she has gained about 10 pounds. She states her right foot is a bit swollen. She states she weighs her self usually daily, but she weighed herself Wednesday and she was at 165. Today,she was at 174/175 documented in this encounter Plan of Treatment Upcoming Encounters Date Type Department Care Team (Late st Contact Info) Description 04/05/2025 11:20 AM EDT Office Visit [facility] [address] [place] [phone] Derick Medina MD [address] [place] [address] [address]IVE [address] [place] [address] 04/24/2025 10:00 AM EDT Ancillary Procedure [facility] [address] [place] [phone] documented as of this encounter Procedures Procedure Name Priority Date/Time Associated Diagnosis Comments BASIC METABOLIC PANEL Routine 11/06/2024 8:34 AM EST HFrEF (heart failure with reduced ejection fraction) ([facility]) documented in this encounter Results * (ABNORMAL) Basic metabolic panel (11/06/2024 8:34 AM EST) Glucose 102(H) 70 - 99 mg/dL [facility] 1 Blood Urea Nitrogen (BUN) 36(H) 8 - 27 mg/dL [facility] 1 Creatinine 1.20(H) 0.57 - 1.00 mg/dL [facility] 1 eGFR 46(L) >59 mL/min/1.7 3 [facility] 1 BUN/Creatinine Ratio 30(H) 12 - 28 [facility] 1 Sodium 145(H) 134 - 144 mmol/L [facility] 1 Potassium 5.0 3.5 - 5.2 mmol/L [facility] 1 Chloride 108(H) 96 - 106 mmol/L [facility] 1 Carbon Dioxide 20 20 - 29 mmol/L [facility] 1 Calcium 9.8 8.7 - 10.3 mg/dL [facility] 1 Blood Venous blood specimen / Unknown 11/06/2024 8:34 AM EST 11/06/2024 Narrative [facility] 1 - 11/07/2024 1:05 AM EST Performed at: ??01 - [facility] [address] ??[id number] Heating Unit Installer: Shahnaz Story MD, Phone: ??[phone] Derick Medina MD LAB BLOOD ORDERABLES [facility] 1 documented in this encounter Visit Diagnoses Diagnosis HFrEF (heart failure with reduced ejection fraction) (CMS/HCC)- Primary documented in this encounter Care Teams Manager Multicultural Relationship Specialty Start Date End Date Jose Roberto Leggett MD [address] [place] [address] Dr [address] [facility] [place] [address] PCP - General 11/25/23 documented as of this encounter
--- OUTSIDE RECORDS SUMMARY | 2024-12-15 10:40 | XMS_ITS | Encounter Summary ---
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, unspecified whether platinum or transplanted heart Procedures Transthoracic echocardiogram (TTE) complete with PRN contrast, bubble, strain, and 3D order panel KS TTE W 2D IMAGE COMPLETE W DOPPLER ECHO & COLOR FLOW DOPPLER ECHO KS CONSUELO 2D COMPLETE W/CONTRAST OR W & WO CONTRAST WITH DOPPLER Derick Medina MD [address] [place] [address] [address]IVE [address] [place] [address] [facility] Referral ID Status Reason Start Date Expiration Date V isits Requested Visits Authorized [id number] Authorized 11/24/2024 11/24/2025 1 1 Encounter Details Date Type Department Care Team (Latest Contact Info) Description 12/11/2024 2:00 PM EST Ancillary Procedure [facility] - [address] [place] [address] 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, unspecified whether platinum or transplanted heart Social History Tobacco Use Types Packs/Day Years [...] Sign Reading Time Taken Comments Blood Pressure 177/74 12/11/2024 2:35 PM EST Pulse - - Temperature - - Respiratory Rate - - Oxygen Saturation - - Inhaled Oxygen Concentration - - Weight 79.8 kg (176 lb) 12/11/2024 2:35 PM EST Height 162.6 cm (5' 4 ) 12/11/2024 2:35 PM EST Body Mass Index 30.21 12/11/2024 2:35 PM EST documented in this encounter Functional Status [...] No 09/23/2024 documented as of this encounter Plan of Treatment Upcoming Encounters Date Type Department Care Team (Late st Contact Info) Description 04/05/2025 11:20 AM EDT Office Visit [facility] Cardiology [facility] [address] [place] [address] Dr [address] [place] [address] Derick Medina MD [address] [place] [address] [address]IVE [address] [place] [address] 04/24/2025 10:00 AM EDT Ancillary Procedure [facility] [address] [facility] [address] [place] [address] documented as of this encounter Procedures Procedure Name Priority Date/Time Associated Diagnosis Comments TRANSTHORACIC ECHOCARDIOGRAM (TTE) COMPLETE W/ CONTRAST Routine 12/11/2024 2:35 PM EST 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, unspecified whether platinum or transplanted heart documented in this encounter Results * (ABNORMAL) TRANSTHORACIC ECHOCARDIOGRAM [...] 61 mL CV PACS Left [facility] [place] 6.6 cm CV PACS Left [facility] [place] 6.5 cm CV PACS [place] Area Sys [...] Proximal 1.6 cm CV PACS MV Deceleration [place] 3.3 m/s2 CV PACS E Wave Deceleration [...] Visit Diagnoses Diagnosis 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, unspecified whether platinum or transplanted heart documented in this encounter Administered Medications Inactive Administered Medications - up to 3 most recent administrations Medication Order MAR Action Action Date Dose Rate Site perflutren lipid microsphere (DEFINITY) 1.3 mL in sodium chloride 0.9% 8.7 mL injection 10 mL, intravenous, Administer over 10 Minutes, Once in imaging, Starting on Wed12/11/24 at 1436, For 1 dose Given 12/11/2024 2:36 PM EST 3 mL documented in this encounter Orders Medications Ordered That Vitor ht Not Have Been Administered Count Last Ordered Date First Ordered Date perflutren lipid microsphere (DEFINITY) 1.3 mL in sodium chloride 0.9% 8.7 mL injection 1 12/11/2024 documented in this encounter Care Teams Special Warfare Combatant Crewman Relationship Specialty Start Date End Date Po, MD Jose Roberto [address] [place] [address] [address] [facility] [place] [address] PCP - General 11/25/23 documented as of this encounter
--- OUTSIDE RECORDS SUMMARY | 2024-12-15 10:41 | XMS_ITS ---
[facility] Organization 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 Name Role Phone Jose Roberto Leggett Primary Care Provider Vannessa Dai Unavailable [phone] Dawn Roland Unavailable [phone] Allergies Allergen (clinical drug ingredient) Drug/Non Drug Allergy documented on EMR Reaction Allergy Type Onset Date Status sulfamethoxazole / trimethoprim Bactrim Unknown Drug Allergy Active Biaxin Unknown Drug Allergy Active ciprofloxacin Cipro Unknown Drug Allergy Act thomas erythromycin Erythromycin Unknown Drug Allergy A ctive Levaquin Unknown Drug Allergy Active nitrofurantoin Nitrofurantoin vomiting Drug Allergy Active azithromycin Zithromax Unknown Drug Allergy Acti ve Non-steroidal anti-inflammatory agent (FN) NSAIDs Unknown Drug Allergy Active REASON FOR VISIT At Risk Footcare, Painful Nail(s) aggravated by shoes and causing difficulty standing/walking, Toe Irritation, Toe Irritation Medications Medication SIG (Take, Route, Frequency, Duration) Notes Start Date End Date Status Olmesartan Medoxomil 20 MG (Prior Auth: Rx Ref#:[id number]) Oral for 15 Not-Taking hydrALAZINE HCl 100 MG Orally Three time s a day Not-Taking Nystatin 650516 UNIT/GM USE 1 APPLICATIO N TOPICALLY 2 TIMES A DAY,X10 DAYS External for 10 Days Not-Taking Chlorthalidone 50 MG 1 tablet in the mor candace Orally Once a day Not-Taking Farxiga 10 MG TAKE 1 TABLET BY JERRI TH EVERY DAY Oral for 30 Days Not-Taking Atorvastatin Calcium 40 MG TAKE 1 TABLET BY MOUTH EVERY DAY Oral for 90 Days Active OneTouch Ultra - USE 1 STRIP DAILY OR DIRECTED TO CHECK BLOOD SUGAR E11.9 In Vitro for 50 Days Active Extra Depth Orthopedic Shoes (1 Pair) with Customized Heat Molded Multidensity Innersoles (3 Pair) as directed Dx: NIDDM/Polyneuropathy (E11.42), Hammertoe Foot Deformity (M20.41,M20.42), Preulcerative Skin Lesion(s) (L85.1 04/14/2024 Active Torsemide 10 MG TAKE 1 TABLET (10 MG TOTAL) BY MOUTH IN THE MORNING AND IN THE EVENING Oral for 90 Days Not-Taking Simvastatin 40 MG 1 tablet in the even ing Orally Once a day Not-Taking Custom Orthotics as directed 08/02/2018 Active Extra Depth Orthopedic Shoes (1 Pair) with Customized Heat Molded Multidensity Innersoles (3 Pair) as directed Dx: NIDDM/Polyneuropathy (E11.42), Hammertoe Foot Deformity (M20.41,M20.42), Preulcerative Skin Lesion(s) (L85.1 03/16/2017 Active Extra Depth Orthopedic Shoes (1 Pair) with Customized Heat Molded Multidensity Innersoles (3 Pair) as directed Dx: NIDDM/Polyneuropathy (E11.42), Hammertoe Foot Deformity (M20.41,M20.42), Preulcerative Skin Lesion(s) (L85.1 12/30/2022 Active Levothyroxine Sodium 100 MCG 1 tablet Orally Once a day Active Eliquis Active Entresto Active Metoprolol Succinate Not-Taking Aspirin 81 MG 1 tablet Orally Once a day Active Cephalexin 500 MG 1 tablet Orally Twic e a day for 7 days Not-Taking Vitamin D Active Losartan Potassium 50 MG Orally twice a day Not-Taking Coumadin 09/08/2019 Not-Takin g metFORMIN HCl 1000 MG 1 tablet with meal s Orally Twice a day Not-Taking Irbesartan 150 MG 1 tablet Orally Once a day Not-Taking Labetalol HCl Not-Ta molly Extra Depth Orthopedic Shoes (1 Pair) with Customized Heat Molded Multidensity Innersoles (3 Pair) as directed Dx: NIDDM/Polyneuropathy (E11.42), Hammertoe Foot Deformity (M20.41,M20.42), Preulcerative Skin Lesion(s) (L85.1 12/05/2021 Not-Taking Social History Tobacco Use: Social History Observation Description Date Details (start date - stop date) Never Smoker NA - NA Tobacco Use/Smoking Question Answer Notes Are you a: nonsmoker Additional Findings: Tobacco Non-User Current no n-smoker Tobacco use other than smoking: Question Answer Notes Are you an other tobacco user? No Vital Signs Height 5 ft 4 in in 08/18/2024 Weight 164 lbs 08/18/2024 BMI 28.15 kg/m2 08/18/2024 Blood pressure systolic 140 mm Hg 08/18/20 24 Blood pressure diastolic 75 mm Hg 024 Encounters Encounter Location Date Provider Diagnosis [facility] [address] [address] 08/18/2024 Dawn Roland Type 2 diabetes mellitus with diabetic polyneuropathy E11.42 ; Tinea unguium B35.1 ; Other hammer toe(s) (acquired), right foot M20.41 and Other hammer toe(s) (acquired), left foot M20.42 Assessments Encounter Date Diagnosis (ICD Code) Assessment Notes Treatment Notes Treatment Clinical Notes Section Notes 08/18/2024 Type 2 diabetes mellitus with diabetic polyneuropathy (ICD-10 - E11.42) 08/18/2024 Tinea unguium (ICD-10 - B35.1) 08/18/2024 Other hammer toe(s) (acquired), right foot (ICD-10 - M20.41) Response to treatment,Impro vement 08/18/2024 Other hammer toe(s) (acquired), left foot (ICD-10 - M20.42) Response to treatment,Impro vement 08/18/2024 Other Plan Of Treatment Next Appt Details Follow Up: 3 Months, Reason: Provider Name:Vannessa benjamin, 02/09/2025 12:15:00 PM, [address] [place] [address], [phone], Procedure Notes * Category Sub-Category Detail Notes Debride Nail 6-10 Nail debridement Nail debridem ent performed extensively to reduce/remove overall nail length and girth, subungual debris, and necrotic tissue, by manual and electrical means with use of a nail nipper and/or musa, to more viable healthy nail plate or bed tissue 6-10. Silver nitrate used for any petechial bleeding as necessary. Patient chooses, no pharmaceutical tx ([id number]) Keratoma Treatment Parring or Cutting o f Benign Hyperkeratotic Lesion(s) 70588 ( >4 Lesions) - The Benign hyperkeratotic lesions, as described above were pared, and/or cut utilizing a sterile #15 blade, tissue nippers, and/or dremel Progress Notes * HORACIOPerlita WALSH ADOB:12/1944 (79 yo F)Acc No.[id number]:08/18/2024 Progress Note Patient:?Perlita Leonard Provider:?Dawn Roland DPM :1945???Age:79 Y???Sex:Female D ate:08/18/2024 Address:[address] [place], [place] [id number] Pcp:Jose Roberto Leggett Subjective: * Chief Complaints: * ???At Risk FootcarePainful N ail(s) aggravated by shoes and causing difficulty standing/walkingToe IrritationToe Irritation * HPI: ???At Risk footcare:?Pt States Last PCP Visit:?Date?07/25/2024 ???Toe pain:?Treatments:?Rx shoes .? * ROS:?General/Constitutional:?Nausea?denies.?Vomiting?denies.?Hunger Thirst?denies.?Loss appetite?denies.?Chills?denies.?Fatigue?denies.?Fever?denies.?Night Sweats?denies.?Unexplained weight loss?denies.?Ophthalmologic:?Blurred vision?denies.?Red eye?denies.?HEENTM:?Dentures?admits.?Dizziness?denies.?Glasses/contacts?admits.?Retinopathy?de nies.?Blurred/double vision?denies.?TMJ?denies.?Discharge/drainage?denies.?Implants?admits.?Hard of hearing admits.?Difficulty chewing/swallowing/speaking?denies.?Nose bleeds?denies.?Sore mouth?denies.?Swollen glands?denies.?Respiratory:?On Oxygen?denies.?Pneumonia/pleurisy?denies.?Bronchitis?denies.?Emphysema?denies.?C oughing?denies.?Cough blood?denies.?Shortness of breath?admits.?Wheezing?denies.?Cardiovascular:?Pacemaker?denies.?MVP?denies.?WPW?denies.?CHF?denies.?Heart attack?denies.?Septal defect?denies.?Rapid beat?denies.?Chest pain ?denies.?Atrial Fib.?denies.?Murmur/Palpitations?denies.?Gastrointestinal:?Hemorrhoids?denies.?Stomach/Abdominal pain?denies.?Dark blood stool?denies.?Irritable bowel ?denies.?Constipation?denies.?Diarrhea?denies.?Vomiting?denies.?Hematology:?Swelling?denies.?Bruising?denies.?Bleeding problem?denies.?Genitourinary:?Blood urine?denies.?Frequent/Painfu/urination/bladder control?denies.?Kidney stones?denies.?Infection (UTI)?denies.?Nephropathy?denies.?Musculoskeletal:?Hammertoes?admits.?Bunions?admits.?Scoliosis/kyphosis?denies.?Muscle cramps / walking?denies.?Generalized aches and pains?denies.?Weakness?denies.?Integ.:?Thomas?denies.?Scars?denies.?Corns/calluses?admits.?Ingrown nails?denies.?Painful nails?denies.?Rashes?denies.?Neurologic:?Difficulty sleeping?denies.?Bipolar?denies.?Brain disorder?denies.?Balance trouble?denies.?Confusion?denies.?Fainting/blackouts?denies.?Headache?denies.?Tr emors?denies.? * Medical History:? * Surgical History:?BACK 2KNEE REPLACEMENT 06/2014hysterectomy 02/13/1999stent inserted cataract surgery left (12-24) and right ( ) 12-26-2015 & 01-30-2016L shoulder replacement 08/26/2017R shoulder surgery 01/2018[place] 01/25/2018Quadrupal bypass surgery 11/04/23 * Hospitalization/Major Diagno stic Procedure:?[facility] [place] High blood pressure Left Kidney necrotic [place] [place] [place] problems/htn/afib [place] [place] in the morning pt didnt know where she was and she was dizzy- Doctors thought its TIA 02/26/[place] [place] 08/07/24 * Family History:?Mother: dece ased, diagnosed with Unspecified essential hypertension.?Father: , heart attack, diagnosed with Unspecified essential hypertension.?Daughter(s): diagnosed with Unspecified essential hypertension.?Paternal aunt: diagnosed with Other malignant neoplasm of unspecified site.? * Social History:?Tobacco Use:?Tobacco Use/Smoking?Are you a:?nonsmoker ?Additional Findings: Tobacco Non-User?Current non-smoker ?Tobacco use other than smoking?Are you an other tobacco user??No ???Miscellaneous:?Caffeine: yes, frequency: Decaf - 1-2 cups per day. ?Children: yes, 3. ?Exercise: yes, walking. ?Marital status: . 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 * Medications:?TakingEntresto Vitamin D Aspirin 81 MG Tablet 1 tablet Orally Once a dayEliquis Levothyroxine Sodium 100 MCG Tablet 1 tablet Orally Once a dayExtra Depth Orthopedic Shoes (1 Pair) with Customized Heat Molded Multidensity Innersoles (3 Pair) as directed Dx: NIDDM/Polyneuropathy (E11.42), Hammertoe Foot Deformity (M20.41,M20.42), Preulcerative Skin Lesion(s) (L85.1Custom Orthotics as directed Extra Depth Orthopedic Shoes (1 Pair) with Customized Heat Molded Multidensity Innersoles (3 Pair) as directed Dx: NIDDM/Polyneuropathy (E11.42), Hammertoe Foot Deformity (M20.41,M20.42), Preulcerative Skin Lesion(s) (L85.1Atorvastatin Calcium 40 MG Tablet TAKE 1 TABLET BY MOUTH EVERY DAY Oral OneTouch Ultra - Strip USE 1 STRIP DAILY OR DIRECTED TO CHECK BLOOD SUGAR E11.9 In Vitro Extra Depth Orthopedic Shoes (1 Pair) with Customized Heat Molded Multidensity Innersoles (3 Pair) as directed Dx: NIDDM/Polyneuropathy (E11.42), Hammertoe Foot Deformity (M20.41,M20.42), Preulcerative Skin Lesion(s) (L85.1Taking Entresto Taking Vitamin D Taking Aspirin 81 MG Tablet 1 tablet Orally Once a dayTaking Eliquis Taking Levothyroxine Sodium 100 MCG Tablet 1 tablet Orally Once a dayTaking Extra Depth Orthopedic Shoes (1 Pair) with Customized Heat Molded Multidensity Innersoles (3 Pair) as directed Dx: NIDDM/Polyneuropathy (E11.42), Hammertoe Foot Deformity (M20.41,M20.42), Preulcerative Skin Lesion(s) (L85.1Taking Custom Orthotics as directed Taking Extra Depth Orthopedic Shoes (1 Pair) with Customized Heat Molded Multidensity Innersoles (3 Pair) as directed Dx: NIDDM/Polyneuropathy (E11.42), Hammertoe Foot Deformity (M20.41,M20.42), Preulcerative Skin Lesion(s) (L85.1Taking Atorvastatin Calcium 40 MG Tablet TAKE 1 TABLET BY MOUTH EVERY DAY Oral Taking OneTouch Ultra - Strip USE 1 STRIP DAILY OR DIRECTED TO CHECK BLOOD SUGAR E11.9 In Vitro Taking Extra Depth Orthopedic Shoes (1 Pair) with Customized Heat Molded Multidensity Innersoles (3 Pair) as directed Dx: NIDDM/Polyneuropathy (E11.42), Hammertoe Foot Deformity (M20.41,M20.42), Preulcerative Skin Lesion(s) (L85.1Not-Taking/PRNMetoprolol Succinate Torsemide 10 MG Tablet TAKE 1 TABLET (10 MG TOTAL) BY MOUTH IN THE MORNING AND IN THE EVENING Oral Simvastatin 40 MG Tablet 1 tablet in the evening Orally Once a dayNystatin 807476 UNIT/GM Powder USE 1 APPLICATION TOPICALLY 2 TIMES A DAY,X10 DAYS External Farxiga 10 MG Tablet TAKE 1 TABLET BY MOUTH EVERY DAY Oral Chlorthalidone 50 MG Tablet 1 tablet in the morning Orally Once a dayhydrALAZINE HCl 100 MG Tablet Orally Three times a dayOlmesartan Medoxomil 20 MG Tablet (Prior Auth: Rx Ref#:[id number]) Oral Extra Depth Orthopedic Shoes (1 Pair) with Customized Heat Molded Multidensity Innersoles (3 Pair) as directed Dx: NIDDM/Polyneuropathy (E11.42), Hammertoe Foot Deformity (M20.41,M20.42), Preulcerative Skin Lesion(s) (L85.1Coumadin Losartan Potassium 50 MG Tablet Orally twice a dayIrbesartan 150 MG Tablet 1 tablet Orally Once a daymetFORMIN HCl 1000 MG Tablet 1 tablet with meals Orally Twice a dayLabetalol HCl Cephalexin 500 MG Tablet 1 tablet Orally Twice a dayMedication List reviewed and reconciled with the patientNot-Taking/PRN Metoprolol Succinate Not-Taking/PRN Torsemide 10 MG Tablet TAKE 1 TABLET (10 MG TOTAL) BY MOUTH IN THE MORNING AND IN THE EVENING Oral Not-Taking/PRN Simvastatin 40 MG Tablet 1 tablet in the evening Orally Once a dayNot-Taking/PRN Nystatin 787656 UNIT/GM Powder USE 1 APPLICATION TOPICALLY 2 TIMES A DAY,X10 DAYS External Not-Taking/PRN Farxiga 10 MG Tablet TAKE 1 TABLET BY MOUTH EVERY DAY Oral Not-Taking/PRN Chlorthalidone 50 MG Tablet 1 tablet in the morning Orally Once a dayNot-Taking/PRN hydrALAZINE HCl 100 MG Tablet Orally Three times a dayNot-Taking/PRN Olmesartan Medoxomil 20 MG Tablet (Prior Auth: Rx Ref#:[id number]) Oral Not-Taking/PRN Extra Depth Orthopedic Shoes (1 Pair) with Customized Heat Molded Multidensity Innersoles (3 Pair) as directed Dx: NIDDM/Polyneuropathy (E11.42), Hammertoe Foot Deformity (M20.41,M20.42), Preulcerative Skin Lesion(s) (L85.1Not-Taking/PRN Coumadin Not-Taking/PRN Losartan Potassium 50 MG Tablet Orally twice a dayNot-Taking/PRN Irbesartan 150 MG Tablet 1 tablet Orally Once a dayNot-Taking/PRN metFORMIN HCl 1000 MG Tablet 1 tablet with meals Orally Twice a dayNot-Taking/PRN Labetalol HCl Not-Taking/PRN Cephalexin 500 MG Tablet 1 tablet Orally Twice a dayMedication List reviewed and reconciled with the patient * Allergies:?ErythromycinBiaxi nCiproNitrofurantoin: vomiting - AllergyBactrimNSAIDsLevaquinZithromaxyes[Allergies Verified] Objective: * Vitals:?Ht: 5 ft 4 in, Wt: 1 64, BMI: 28.15, Shoe size: 8.5, BP: 140/75 mm Hg, BS: 116, Wt-k.39 kg. * ???Past Orders: ???Lab:HEMOGLOBIN A1C (GLYCO HEMOGLOBIN) (Order Date - 11/08/2023) (Collection Date - 11/08/2023) ? Value Reference Range ?HEMOGLOBIN A1C % (HH) 5.5 * Examination: ???Neurological: ?SENSORY:?Neurological exam demonstrates reduced light touch sensation reduced sharp/dull pin prick discrimination reduced vibration sensation reduced proprioception sensation in a stocking fashion plantar aspects 5.07 monofilament test performed at plantar aspects of 5 varied sites per foot shows sensation reduced at Forefoot at Midfoot B/L.?Nails: ?NAILS are:?Elongated, overgrown, dystrophic, greater than 3mm thick, discolored and friable with crumbly malodorous subungual debris, with dull to no pain on palpation due to neuropathy, 1-5 B/L.?Dermatologic: ?SKIN FINDINGS:?Skin exam reveals Keratotic lesion(s) located at, Medial plantar, TA, T5, Heel(s), B/L , SUB MTH (s), 4, Right .?Orthopedic: ?FOOTWEAR:?good condition, exhibit proper fit and accommodation for pedal deformities. OT were inspected and noted to be worn, but in good condition giving proper support at the present time.? Assessment: * Assessment: 1.?Tinea unguium - B35.1?2.? Type 2 diabetes mellitus with diabetic polyneuropathy - E11.42?3.?Other hammer toe(s) (acquired), right foot - M20.41, Chronic problem, Stable (1=3,2=4), Response to treatment,Improvement?4.?Other hammer toe(s) (acquired), left foot - M20.42, Chronic problem, Stable (1=3,2=4), Response to treatment,Improvement? Plan: * Treatment: * Procedures:?Debride Nail 6-10:?Nail debridement?Nail debridement performed extensively to reduce/remove overall nail length and girth, subungual debris, and necrotic tissue, by manual and electrical means with use of a nail nipper and/or dremel, to more viable healthy nail plate or bed tissue 6-10. Silver nitrate used for any petechial bleeding as necessary. Patient chooses, no pharmaceutical tx ([id number]).?Keratoma Treatment:?Parring or Cutting of Benign Hyperkeratotic Lesion(s)?38692 ( >4 Lesions) - The Benign hyperkeratotic lesions, as described above were pared, and/or cut utilizing a sterile #15 blade, tissue nippers, and/or dremel.? * Procedure Codes:?84108 DEBRI DE NAIL, 6 OR MORE, Modifiers: XS 14739 TRIM SKIN LESIONS, OVER 4, Modifiers: XS * Preventive Medicine:? ??Counseling:?Discussion:?-13: Office or other outpatient visit for the evaluation and management of an established patient, which required a medically appropriate history and/or examination and LOW level of DECISION MAKING for: 1 STABLE ACUTE UNCOMPLICATED PROBLEM, 2 OR MORE MINOR PROBLEMS, OR 1 STABLE CHRONIC PROBLEM, THAT POSE(S) A LOW RISK FOR MORBIDITY/MORTALITY. The visit on the day of the encounter encompassed interpreting the data and educating the patient as to the nature of their condition, treatment options available according to their individual PMH, meds, allergies, and overall health/living conditions, as well as any potential risks or complications that may occur from a failure to adhere to, and participate in, the recommended course of therapy. The discussion included a complete verbal, and/or written explanation of the examination results, any x-rays taken, the proposed diagnosis, and outline of the treatment plan. A schedule for future care needs was also explained. The patient verbalized an understanding of the instructions at this time and agreed to be an active participant in their treatment. If the patient should think of any questions or concerns after the visit, I have encouraged the patient to call the office.?Shoe Gear Counseling:?A thorough inspection of the patients Rxed shoegear and inserts was performed and findings communicated. We reviewed the many important medical advantages for adhering to regularly wearing these shoe and insert accomidative devices daily as well as reviewed the fact that a failure in accepting these recommedations may be deleterious, unable to prevent, and disadvantagely result in, many pedal complications such as skin irritation, skin ulceration, infection, and even loss of toe/foot/leg/or even their life. Time was also spent reviewing the proper footcare techniques including daily skin moisturization, daily foot inspection for any interruption in skin integrity, open lesions, or sign of infection such as redness/malodor/drainage/swelling as well as daily shoe inspection for the presence of internal foreign bodies and shoe as well as insert wear. Patient questions re: shoes, inserts, and self foot inspections were answered to their satisfaction as the patient verbally confirmed a full understanding of the above information.? * Follow Up:?3 Months * Images: * Sign off status: Completed true * Provider:?Dawn Roland DPM Date:?1 Generated for Mihai pitts/Eric/eTransmitting on:?12/15/2024 10:40 AM EST History and Physical Notes * HPI (History of Present Illness) Category Sub-Category Detail Notes Category Not es Toe pain Treatments: Rx shoes At Risk footcare Pt States Last PCP Visit: Date: 4 Examination Category Sub-Category Detail Notes Category Not es Neurological SENSORY: Neurological exa m demonstrates reduced light touch sensation reduced sharp/dull pin prick discrimination reduced vibration sensation reduced proprioception sensation in a stocking fashion plantar aspects 5.07 monofilament test performed at plantar aspects of 5 varied sites per foot shows sensation reduced at Forefoot at Midfoot B/L Dermatologic SKIN FINDINGS: Skin exam reveal s Keratotic lesion(s) located at, Medial plantar, TA, T5, Heel(s), B/L , SUB MTH (s), 4, Right Orthopedic FOOTWEAR: good condition, exhibit proper fit and accommodation for pedal deformities. OT were inspected and noted to be worn, but in good condition giving proper support at the present time Nails NAILS are: Elongated, overg rown, dystrophic, greater than 3mm thick, discolored and friable with crumbly malodorous subungual debris, with dull to no pain on palpation due to neuropathy, 1-5 B/L
--- OUTSIDE RECORDS SUMMARY | 2024-12-15 10:41 | XMS_ITS | Clinical Summary ---
Author Organization [facility] Address [address] [place] [address] Phone Care Team Providers Care Manager Stone Name Role Phone Jose Roberto Leggett MD Primary Care Provider [phone] Allergies Active Allergy Reactions Criticality Noted Date Comments Azithromycin Rash 05/07/2022 Celecoxib Rash 05/07/2022 Ciprofloxacin-Hydrocortis one Rash 10/10/2020 Erythromycin 10/10/2020 Nitrofurantoin 10/10/2020 Nsaids (Non-Steroidal Anti-Inflammatory Drug) Nausea And Vomiting 10/10/2020 Oxycodone Nausea And Vomiting 01/04/2018 Other reaction(s): GI Upset Sulfa (Sulfonamide Antibiotics) Rash 10/10/2020 Medications Medication Sig Dispensed Refills Start Date End Date Status aspirin 81 mg EC tablet Take 81 mg by mouth daily. Active cholecalciferol (VITAMIN D-3) 50 mcg (2,000 unit) tablet Take 1 tablet (2,000 Units total) by mouth 1 (one) time each day. Active calcium carbonate-vitamin D3 600 mg-5 mcg (200 unit) capsule Take 1 capsule by mouth 1 (one) time each day. Active docusate sodium (COLACE) 100 mg tablet Take 1 tablet (100 mg total) by mouth 1 (one) time each day. Active furosemide (LASIX) 20 mg tablet Take 1 tablet (20 mg total) by mouth 1 (one) time each day. Active levothyroxine (SYNTHROID, LEVOTHROID) 100 mcg tablet Take 100 mcg by mouth daily. 05/17/2013 Active sacubitriL-valsar murillo (Entresto) 49-51 mg per tablet Take 1 tablet by mouth 2 (two) times a day. 08/24/2024 Active metoprolol tartrate (LOPRESSOR) 25 mg tablet Take 1 tablet (25 mg total) by mouth 2 (two) times a day. Active apixaban (Eliquis) 5 mg tablet Take 1 tablet (5 mg total) by mouth 2 (two) times a day. 60 each 2 11/24/2024 6 Active atorvastatin (LIPITOR) 40 mg tabletIndications :Coronary artery disease involving [place] coronary artery without angina pectoris, unspecified whether [place] or transplanted heart TAKE 1 TABLET BY MOUTH EVERY DAY 90 tablet 1 12/06/2024 Active apixaban (Eliquis) 5 mg tablet Take 5 mg by mouth 2 times daily. 04/25/2024 5 Discontinued(Reor joni) atorvastatin (LIPITOR) 40 mg tablet Take 1 tablet (40 mg total) by mouth 1 (one) time each day. 11/25/2023 5 Discontinued Hospital, Clinic, or Other Facility Administered Medication Ordered Dose Route Frequency Start Date End Date Status perflutren lipid microsphere (DEFINITY) 1.3 mL in sodium chloride 0.9% 8.7 mL injection 10 mL IV Once in imaging 12/11/2024 12/11/2024 End ed Active Problems Problem Noted Date Diagnosed Date Localized edema 11/24/2024 Assessment & Plan (11/24/2024 2:28 PM EST): Patient has localized edema to the right leg. This most likely is due to venous insufficiency or loss of plumbing due to bypasses. Patient is quite worried about it is minimal she has support socks have recommended that she buy a pair with a little deicer inspector electric elastic in them to try to get him on easier and even support nylons would be helpful SSS (sick sinus syndrome) 09/15/2024 Ischemic cardiomyopathy 09/15/2024 Assessment & Plan (11/24/2024 2:28 PM EST): Patient has a history of ischemic cardiomyopathy [...] that has helped improve her overall EF.. If it has not then we may need to consider removing that coronary sinus lead. Atrial flutter 07/06/2024 Overview (09/19/2024): Last Assessment & Plan: This 79-year-old female who has coronary disease and had bypass surgery, has a left bundle branch block and a worsening left ventricular ejection fraction on echo looks like he went into persistent atrial flutter at some point in the near past. She very much needs to be given an attempt at sinus rhythm as multiple studies have shown marked improvements in patient outcome of when atrial arrhythmias are treated. I cannot exclude that she would have a risk of atrial fibrillation but given this looks like atrial flutter I do think would be reasonable to plan for an atrial flutter ablation and then close monitoring for evidence of atrial fibrillation prior to determining whether anticoagulation is needed long-term. I reviewed this procedure with her along with the potential risks and benefits. It is possible she could convert to a marked sinus bradycardia or heart block that might require pacemaker. There is a small risk of venous access complications. This could be a left atrial flutter which may require a slightly more complicated procedure and we will only know after performing mapping of the arrhythmia. She is in agreement to proceed I will try and expedite this given her symptoms and worsening LV function. Premature ventricular beats 04/07/2024 Overview (09/19/2024): Last Assessment & Plan: Patient with premature ventricular beats. This is why her Apple Watch is reading slow heart rates I believe she is a Holter monitor on we will see what is going on with. Night sweats 12/25/2022 Overview (09/19/2024): Last Assessment & Plan: Patient complains of this 1 episode of sweating at night and not feeling well. It is possible that this could have been a bradycardic episode that woke her up she does have resting heart rates that are fairly low she says in the hospital they were talking opening a pacemaker in and I reviewed the hospital records and there is no mention of it whatsoever. Sent her for a Holter monitor to see if there is any periods of bradycardia especially during sleep that could prompt an episode of this type of discomfort. She has no palpable lymphadenopathy or any indication of any lymphoma Bradycardia on ECG 05/07/2022 Overview (09/19/2024): Last Assessment & Plan: Patient since her about bradycardia. I think is probably due to PVCs we will do another Holter monitor HFrEF (heart failure with reduced ejection fract ion) 05/07/2022 Overview (09/19/2024): Last Assessment & Plan: HFrEF with worsening LV function despite coronary revascularization. There is little to suggest an ischemic trigger and her hypokinesis is mostly global which would lead me to suspect that the atrial flutter may be contributing to the worsening LV function. I think it is imperative we restore sinus rhythm and I will set her up for catheter ablation. She may be a candidate for spironolactone from a heart failure standpoint and certainly cardiac resynchronization therapy may be helpful but I would convert to sinus rhythm and reassess the LV function prior to moving ahead with a SUPERVISOR DEHYDROGENATION device. Her QRS width is just under 150 ms and so the improvement in heart failure is certainly not guaranteed at that level. If her LVEF stays below 30 to 35% she certainly would benefit from the reduction in risk of sudden cardiac . I reviewed that with her and she is very comfortable with following up after the ablation in regards to whether she needs a SUPERVISOR DEHYDROGENATION-D.She will continue with Eliquis. I do think would be reasonable to consider discontinuation of aspirin although she does have peripheral vascular disease as well as coronary disease. Urinary tract infection 05/07/2022 Coronary artery disease invo lving [place] coronary artery without angina pectoris 10/10/2020 Overview (09/19/2024): 2009- PCI w/ DEBBIE to mid LAD, distal LAD and distal OM1 Last Assessment & Plan: Patient has history of coronary artery disease status post DEBBIE to the LAD x 2 and left circumflex years ago. She also had a coronary angiogram in 2022 which showed severe three-vessel coronary artery disease and subsequently she underwent three-vessel CABG 11/04/2023. She did develop a wound infection and required wound VAC treatment for some time. Her wound is now just about healed and she is feeling well. She is attending cardiac rehab. She denies any exertional chest pain or dyspnea. She continues on cardioprotective medical therapy with aspirin, beta- marichuy and statin. I have reviewed with the patient the importance of a heart healthy lifestyle which includes eating a low-fat low-salt diet, getting regular exercise, maintaining a healthy weight, not smoking, and following up with routine medical care. Assessment & Plan (11/24/2024 2:28 PM EST): Orders: Transthoracic echocardiogram (TTE) complete with PRN contrast, bubble, strain, and 3D order panel; Future perflutren lipid microsphere (DEFINITY) 1.3 mL in sodium chloride 0.9% 8.7 mL injection Diastolic heart failure 10/10/2020 Overview (09/19/2024): Last Assessment & Plan: Patient is euvolemic on examination and denies any clinical symptoms of heart failure. No changes to medical regimen today. I've asked the patient to call if they develop worsening symptoms of heart failure such as increased shortness of breath, new or worsening cough, increased swelling in the legs or ankles, or weight gain of more than 2 pounds in one day or 4 pounds in one week. Hyperlipidemia 10/10/2020 Overview (09/19/2024): Last Assessment & Plan: Patient's last lipid profile includes an LDL cholesterol of 60. This is at goal. Continue with statin as prescribed. Hypertension 10/10/2020 Overview (09/19/2024): Last Assessment & Plan: Patient's blood pressure still poorly controlled have asked her to increase her hydralazine to 100 mg 3 times daily patient is renal insufficiency and is a poor candidate for EWA and ARB she is on a small dose of Benicar right now but given her renal issues have not increasing it Paroxysmal atrial fibrillation 10/10/2020 Overview (09/19/2024): W/ slow rate in 40 Last Assessment & Plan: Patient with a history of paroxysmal atrial fibrillation. Rate controlled she remains chronically anticoagulated Assessment & Plan (11/24/2024 2:28 PM EST): . He should had drug refractory A-fib symptomatic and affecting EF. Patient status post ablation remains anticoagulated for elevated CHADS2 score The above note was prepared with the help of voice recognition software. Please excuse any grammatical or spelling errors that may have occurred Renal artery stenosis 10/10/2020 Overview (09/19/2024): Last Assessment & Plan: I believe the patient has moderate unilateral renal artery stenosis followed by nephrology Encounters Date Type Department Care Team Description 12/11/2024 2:00 PM EST Ancillary Procedure [facility] [address] [place] [phone] Coronary artery disease involving [place] coronary artery without angina pectoris, unspecified whether [place] or transplanted heart 11/24/2024 9:20 AM EST Office Visit [facility] [address] [place] [phone] Derick Medina MD Coronary artery disease involving [place] coronary artery without angina pectoris, unspecified whether [place] or transplanted heart (Primary Dx); Localized edema; Ischemic cardiomyopathy; Paroxysmal atrial fibrillation (CMS/HCC) 11/20/2024 2:46 PM EST - 11/20/2024 11:59 PM EST Hospital Encounter [facility] Ultrasound [address] [place] [phone] Swelling; Localized edema Discharge Disposition: Home or Self Care 11/02/2024 3:00 PM EST Ancillary Procedure [facility] [address] [place] [phone] Encounter for adjustment or management of cardiac device 11/02/2024 Telephone [facility] [address] [place] [phone] Derick Medina MD Weight Gain; Foot Swelling 10/20/2024 Telephone [facility] [address] [place] [phone] Delmi Stein NP 10/19/2024 10:36 AM EST - 10/19/2024 11:59 PM EST Hospital Encounter [facility] Xray [address] [place] [address] Dislodgement of coronary sinus electrode lead of implantable cardioverter-defibrill ator (ICD) Discharge Disposition: Home or Self Care 10/19/2024 8:00 AM EST Ancillary Procedure [facility] [address] [place] [address] Encounter for adjustment or management of cardiac device 09/26/2024 2:30 PM EST Clinical Support [facility] [address] [place] [address] 09/23/2024 8:14 AM EST - 09/23/2024 1:24 PM EST Emergency [facility] Emergency [address] [place] [address] Surgical wound dehiscence, initial encounter (Primary Dx) Discharge Disposition: Home or Self Care 09/22/2024 10:00 AM EST - 09/22/2024 11:00 AM EST Surgery [facility] Cardiac [facility] Chemist [address] [place] [address] Zack Mayers MD Insert ICD biventricular 09/22/2024 8:49 AM EST - 09/22/2024 11:59 PM EST Hospital Encounter [facility] [address] [place] [address] Zack Mayers MD HFrEF (heart failure with reduced ejection fraction) (CMS/HCC) (Primary Dx); SSS (sick sinus syndrome) (CMS/HCC); Ischemic cardiomyopathy Discharge Disposition: Home or Self Care 09/15/2024 Telephone [facility] [address] [place] [address] Zack Mayers MD Hospital Procedure (Primary Biv ICD 09.22.24) 09/15/2024 Telephone [facility] [address] [place] [address] Derick Medina MD ICD from Last 3 Months Immunizations Name Administration Dates Next Due Pfizer SARS-CoV-2 COVID-19, mRNA, LNP-S, preservative free 01/07/2021,12/17/2020 Surgical History Surgery Date Site/Laterality Comments ANGIOPLASTY PROCEDURE: HISTORICAL ANGIOPLASTY W/STENT CARDIAC CATHETERIZATION PROCEDURE: HISTORICAL CARDIAC CATH OTHER SURGICAL HISTORY 2009 PROCEDURE: HISTORY OTHER; COMMENT: DEBBIE LAD, LCX OTHER SURGICAL HISTORY PROCEDURE: TN PATIENT HAS A CORONARY ARTERY STENT HYSTERECTOMY PROCEDURE: HISTORICAL TOTAL HYSTERECTOMY WITH BSO Medical History Medical History Date Comments Chronic ischemic heart disease D X:Chronic ischemic heart disease Hyperlipidemia DX:Hyperlipidemi a Essential hypertension DX:Essent ial hypertension Family history of cardiovasc ular disease DX:Family history of cardiov ascular disease Chest pain DX:Chest pain Epigastric pain DX:Epigastric pa in CAD (coronary artery disease) DX :CAD (coronary artery disease) 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 DX:ANALILIA T syndrome (HCC) Hypothyroidism DX:Hypothyroidis m Diabetes mellitus, type II (CMS/HCC) DX:Diabetes mellitus, type II (HCC) Dyspnea DX:Dyspnea Obesity DX:Obesity Polymyositis (CMS/HCC) DX:Polymy ositis (HCC) Renal artery stenosis (CMS/HCC) DX:Renal artery stenosis (HCC) Scleroderma (CMS/HCC) DX:Sclerod janice (HCC) Wound infection DX:Wound infecti on Family History Medical History Relation Name Comments Coronary artery disease Father Heart attack Father Hypertension Mother Angioplasty Son 1 Chloe Coronary artery disease Son 1 Chloe Heart attack Son 1 Chloe Hyperlipidemia Son 1 Chloe Hypertension Son 1 Chloe Relation Name Status Comments Brother Jimmy Alive Father Mother Son 1 Chloe Alive Son 2 Diaz Alive Social History Tobacco Use Types Packs/Day Years [...] file Not on file Not on file Obstetrics History Last Filed Vital Signs Vital Sign Reading Time Taken Comments Blood Pressure 177/74 12/11/2024 2:35 PM EST Pulse 73 11/24/2024 9:08 AM EST Temperature 36.6 ??C (97.9 ??F) 09/23/2024 11:[address] Respiratory Rate 20 09/23/2024 12:16 PM EST Oxygen Saturation 99% 11/24/2024 9:08 AM EST Inhaled Oxygen Concentration - - Weight 79.8 kg (176 lb) 12/11/2024 2:35 PM EST Height 162.6 cm (5' 4 ) 12/11/2024 2:35 PM EST Body Mass Index 30.21 12/11/2024 2:35 PM EST Plan of Treatment Upcoming Encounters Date Type Department Care Team (Late st Contact Info) Description 04/05/2025 11:20 AM EDT Office Visit [facility] - [address] [place] [phone] Derick Medina MD [address] [place] [address] [address] [place] [address] 04/24/2025 10:00 AM EDT Ancillary Procedure [facility] [address] [facility] [address] [place] [phone] Health Maintenance Due Date Last Done Comments Diabetes: Annual Foot Exam 02/07/1955 Diabetes: Annual Retina Eye Exam 02/07/1955 DTaP,Tdap,and Td Vaccines (1 - Tdap) 02/07/1963 Zoster Vaccines (1 of 2) 02/07/1994 RSV Immunization Patients 60+ Years Old (1 - 1-dose 75+ series) 02/07/2019 Cholesterol Screening (Lipid Panel) 10/17/2022 Depression Screening 10/17/2022 Falls Risk Assessment 10/17/2022 Osteoporosis Screening (Bone Density Screening) 10/17/2022 Social Influencers of Health Screening 10/17/2022 Medicare Annual Wellness Visit 07/09/2023 07/09/2022 COVID-19 Vaccine ( season) 2024 10/07/2021, 09/02/2021, 01/07/2021, Additional history exists Diabetes: Annual Urine Albumin-Creatinine Ratio (uACR) 09/22/2024 Diabetes: Blood Sugar Control Test (HGBA1C) 09/22/2024 06/23/2022 Diabetes: Annual GFR (Glomerular Filtration Rate) 11/06/2025 11/06/2024, 09/23/2024 Hypertension/CHF/CAD Annual BMP Blood Test 11/06/2025 11/06/2024, 09/23/2024 Pneumococcal Vaccine: 65+ Years Completed 04/10/2021, 01/15/2020 Influenza Vaccine Completed 08/25/2024, , 08/22/2022, Additional history exists HIB Vaccines Aged Out No longer eligi ble based on patient's age to complete this topic HPV Vaccines Aged Out No longer eligi ble based on patient's age to complete this topic Hepatitis A Vaccines Aged Out No long er eligible based on patient's age to complete this topic Hepatitis B Vaccines Aged Out No long er eligible based on patient's age to complete this topic IPV Vaccines Aged Out No longer eligi ble based on patient's age to complete this topic MMR Vaccines Aged Out No longer eligi ble based on patient's age to complete this topic Meningococcal ACWY Vaccine Aged Out N o longer eligible based on patient's age to complete this topic RSV Immunization Patients Under 20 months Aged Out No longer eligible based on patient's age to complete this topic Varicella Vaccines Aged Out No longer eligible based on patient's age to complete this topic Medical Devices Implanted Type Area Physician Coding Specialist Device Identifier Shelf Expiration Date Model / Serial / Lot Defib Icd Bi Vent [place] [employer] Coordinator D - [id number] - [id number] Implanted:Qty: 1 on 09/22/2024 by Zack Mayers MD at [facility] Cardiac SUPERVISOR DEHYDROGENATION-D ICD Left: Heart [facility] [id number] 01/05/2026 [id number] / [id number] / Abbt-Stju [place] Hf [id number] Implanted:09/08 (Quantity not on file) Cardiac SUPERVISOR DEHYDROGENATION-D ICD Left: Chest [facility] [employer] GALLANT HF [id number] / [id number] / Lead Tachy Durat 58cm 7122q/58 Sj4 - [id number] - [id number] Implanted:Qty: 1 on 09/22/2024 by Zack Mayers MD at [facility] Cardiac Lead N/A: Heart [facility] [id number] 02/05/2027 7122Q/58 / [id number] / Lead Pcmk Tendril Sts [id number] - [id number] - [id number] Implanted:Qty: 1 on 09/22/2024 by Zack Mayers MD at [facility] Cardiac Lead Left: Heart [facility] [employer] [id number] 05/07/2027 2088TC/52 / [id number] / Lead Pcmkr Lv Quartet 75cm Quadripolar - [id number] - [id number] Implanted:Qty: 1 on 09/22/2024 by Zack Mayers MD at [facility] Cardiac Lead Left: Heart [facility] [employer] [id number] 03/07/2027 1458Q/75 / [id number] / Procedures Procedure Name Priority Date/Time Associated Diagnosis Comments TRANSTHORACIC ECHOCARDIOGRAM (TTE) COMPLETE W/ CONTRAST Routine 12/11/2024 2:35 PM EST Coronary artery disease involving [place] coronary artery without angina pectoris, unspecified whether [place] or transplanted heart VAS US DUPLEX LOWER EXT VENOUS RIGHT Routine 11/20/2024 3:08 PM EST Swelling Localized edema BASIC METABOLIC PANEL Routine 11/06/2024 8:34 AM EST HFrEF (heart failure with reduced ejection fraction) (CMS/HCC) CARDIAC DEVICE CHECK- IN CLINIC- [facility] Routine 11/02/2024 4:19 PM EST Encounter for adjustment or management of cardiac device XR CHEST 2 VIEWS Routine 10/19/2024 10:4 5 AM EST Dislodgement of coronary sinus electrode lead of implantable cardioverter-defibri llator (ICD) CARDIAC DEVICE CHECK- IN CLINIC- [facility] Routine 10/19/2024 8:35 AM EST Encounter for adjustment or management of cardiac device CBC WITH AUTO DIFFERENTIAL STAT 09/23/2024 9:07 AM EST B-TYPE NATRIURETIC PEPTIDE STAT 09/23/2024 9:07 AM EST MAGNESIUM STAT 09/23/2024 9:07 AM EST LIPASE STAT 09/23/2024 9:07 AM EST COMPREHENSIVE METABOLIC PANEL STAT 09/23/2024 9:07 AM EST CBC AND DIFFERENTIAL STAT 09/23/2024 9:07 AM EST TROPONIN I HIGH SENSITIVITY STAT 09/23/2024 9:07 AM EST ECG 12-LEAD STAT 09/23/2024 8:24 AM EST ECG ANNOTATED 09/23/2024 XR CHEST 1 VIEW STAT 09/22/2024 2:36 PM EST ELECTROPHYSIOLOGY PROCEDURE Routine 09/22/2024 1:43 PM EST SSS (sick sinus syndrome) (CMS/HCC) Ischemic cardiomyopathy from Last 3 Months Results * (ABNORMAL) TRANSTHORACIC ECHOCARDIOGRAM (TTE) COMPLETE [...] 61 mL CV PACS Left [facility] [place] 6.6 cm CV PACS Left [facility] [place] 6.5 cm CV PACS LA Area Sys [...] Proximal 1.6 cm CV PACS MV Deceleration [place] 3.3 m/s2 CV PACS E Wave Deceleration [...] visualization. Derick Medina MD CV ECHO PROCEDURES * Vascular US duplex lower extremity venous [...] Signed Date: 11/20/2024 15:29 ET Workstation ID: [id number] Transcribed By: Self Edit Transcribed Date: 11/20/2024 [...] Signed Date: 11/20/2024 15:29 ET Workstation ID: [id number] Transcribed By: Self Edit Transcribed Date: 11/20/2024 15:12 ET Vannessa Tim DPM CV VASCULAR PROCEDUR ES * (ABNORMAL) Basic metabolic panel (11/06/2024 8:34 [...] AM EST Performed at: ??01 - [facility] [address] ??[id number] Process Analyst: Shahnaz Story MD, Phone: ??[phone] Derick Medina MD LAB BLOOD ORDERABLES [facility] 1 * CARDIAC DEVICE CHECK- [place] [facility]11/02/2024 4:19 PM EST) Only the most recent of2 resultswithin the time period is included. Date Time Interrogation Session [id number] CV DEVICE CHECK Implantable Pulse Generator Physician Coding Specialist [facility] CV DEVICE CHECK Implantable Pulse Generator Type SUPERVISOR DEHYDROGENATION-D CV DEVICE CHECK Implantable Pulse Generator Model [place] HF [id number] CV DEVICE CHECK Implantable Pulse Generator Serial Number [id number] CV DEVICE CHECK Implantable Pulse Generator Implant Date 20240922 CV DEVICE CHECK Battery Status Beginning of Service CV DEVICE CHECK [place] Statistic RA Percent Paced 0.00 CV DEVICE CHECK SUPERVISOR DEHYDROGENATION Statistic SUPERVISOR DEHYDROGENATION Percent Paced 40.00 CV DEVICE CHECK Lead Channel Sensing Intrinsic Amplitude 1.600 CV DEVICE CHECK Lead Channel Impedance Value 390 CV DEVICE CHECK Lead Channel Pacing Threshold Amplitude 0.750 CV DEVICE CHECK Lead Channel Pacing Threshold Pulse Width 0.5 CV DEVICE CHECK Lead Channel RA Pacing Threshold Date 2024-11-02 CV DEVICE CHECK Lead Channel Setting Pacing Amplitude 2.000 CV DEVICE CHECK Lead Channel Setting Pacing Pulse Width 0.5 CV DEVICE CHECK Lead Channel Sensing Intrinsic Amplitude 4.500 CV DEVICE CHECK Lead Channel Setting Sensing Sensitivity 0.30 CV DEVICE CHECK Lead Channel Impedance Value 440 CV DEVICE CHECK Lead Channel Pacing Threshold Amplitude 0.750 CV DEVICE CHECK Lead Channel Pacing Threshold Pulse Width 0.5 CV DEVICE CHECK Lead Channel RV Pacing Threshold Date 2024-11-02 CV DEVICE CHECK Lead Channel Setting Pacing Amplitude 1.750 CV DEVICE CHECK Lead Channel Setting Pacing Pulse Width 0.5 CV DEVICE CHECK Lead Channel Impedance Value 380 CV DEVICE CHECK Lead Channel Pacing Threshold Amplitude 2.500 CV DEVICE CHECK Lead Channel Pacing Threshold Pulse Width 1.0 CV DEVICE CHECK Lead Channel Pacing Threshold Date 2024-11-02 CV DEVICE CHECK Lead Channel Setting Pacing Amplitude 3.500 CV DEVICE CHECK Lead Channel Setting Pacing Pulse Width 1.0 CV DEVICE CHECK [place] Setting Mode (NBG Code) DDDR CV DEVICE CHECK Ventricular chambers paced during SUPERVISOR DEHYDROGENATION pacing. LV+RV (Sim CV DEVICE CHECK [place] Setting Lower Rate Limit 70 CV DEVICE CHECK Francisco Setting AT Mode Switch Rate 180 CV DEVICE CHECK Francisco Setting Maximum Tracking Rate 120 CV DEVICE CHECK Francisco Setting Maximum Sensor Rate 100 CV DEVICE CHECK Francisco Setting PAV Delay 180 CV DEVICE CHECK Francisco Setting FLO Delay 150 CV DEVICE CHECK Therapy Statistic Recent Shocks Delivered 0 CV DEVICE CHECK Therapy Statistic Recent Shocks Aborted 0 CV DEVICE CHECK Zone Setting Type Category VF CV DEVICE CHECK Rate 214 CV DEVICE CHECK Therapies ATP While Charging, 36J, 40J, 40J CV DEVICE CHECK Zone Setting Status On CV DEVICE CHECK Zone ID 1 CV DEVICE CHECK Zone Setting Type Category VT-1 CV DEVICE CHECK Rate 150 CV DEVICE CHECK Zone Setting Status On CV DEVICE CHECK Zone ID 2 CV DEVICE CHECK Date of Service 2025-04-24 CV DEVICE CHECK Anatomical Region Laterality Modality Device Interroga tion 11/02/2024 Impressions 11/07/2024 8:06 AM EST Normal In-Office: No Events * Normal Device Function * Alerts or events: None * Battery: JUSTINE, 7.50 yrs * Sensing, impedance and thresholds reviewed and tested * Presenting Rhythm: VS/BP 40 - 52 bpm * Underlying Rhythm: VS 30 - 50's * Heart Rate Histograms reviewed * Pacing and Detection Parameters were evaluated Heart Failure Diagnostic: Elevated * Heart failure diagnostics assessed through the device * Status: Elevated * Pt c/o edema in R foot- diuretic adjusted today per LS- see TC in EPIC. Narrative Procedure Note Zack Mayers MD - 11/07/2024 IMPRESSION: Normal In-Office: No Events * Normal Device Function * Alerts or events: None * Battery: JUSTINE, 7.50 yrs * Sensing, impedance and thresholds reviewed and tested * Presenting Rhythm: VS/BP 40 - 52 bpm * Underlying Rhythm: VS 30 - 50's * Heart Rate Histograms reviewed * Pacing and Detection Parameters were evaluated Heart Failure Diagnostic: Elevated * Heart failure diagnostics assessed through the device * Status: Elevated * Pt c/o edema in R foot- diuretic adjusted today per LS- see TC inEPIC. Order Referral Cardiovascular CV IMPLANT ABLE CARDIAC DEVICE PROCEDURES * XR Chest 2 Views (10/19/2024 10:45 AM EST) Anatomical Region Laterality Modality Body Radiographic Valeria ging 10/19/2024 10:5 4 AM EST Impressions 10/19/2024 11:05 AM EST A dual-chamber cardiac pacemaker is present with its leads appearing intact and in good position, stable in position as compared to the immediate postplacement radiograph performed 09/22/2024. Cardiomegaly is stable. The patient is again seen to have undergone previous CABG. Findings as above consistent with COPD. Code 12178 -------- FINAL REPORT -------- Dictated By: Hubert Quinonez Dictated Date: 10/19/2024 10:54 ET Assigned Physician: Hubert Quinonez Reviewed and Electronically Signed By: Hubert Quinonez Signed Date: 10/19/2024 11:05 ET Workstation ID: [id number] Transcribed By: Self Edit Transcribed Date: 10/19/2024 11:04 ET Narrative 10/19/2024 11:05 AM EST HISTORY: The patient is an 79-year-old female who underwent placement a cardiac pacemaker on 09/22/2024, now presenting with question of electrode displacement. FINDINGS: PA and lateral radiographs of the chest again demonstrate that the patient has undergone previous bilateral total reverse shoulder replacement surgery, as also seen on the prior study performed 09/22/2024. The patient is again seen to have undergone sternotomy and coronary artery bypass surgery. A dual-chamber cardiac pacemaker is again seen with the generator overlying the left mid lung and its leads appearing well-positioned and intact with their tips in the right atrium, near the right ventricular apex, and in the coronary sinus, stable since the prior study. The cardiac silhouette remains borderline enlarged. The aortic knob is calcified. The lungs are again seen to be hyperinflated with flattening of the diaphragm consistent with chronic obstructive pulmonary disease. ??There is no consolidation, mass, pulmonary vascular congestion, or pleural effusion. Procedure Note Hubert Quinonez MD - 10/19/2024 HISTORY: The patient is an 79-year-old female who underwent placement acardiac pacemaker on 09/22/2024, now presenting with question of electrodedisplacement. FINDINGS: PA and lateral radiographs of the chest again demonstrate thatthe patient has undergone previous bilateral total reverse shoulderreplacement surgery, as also seen on the prior study performed 09/22/2024.The patient is again seen to have undergone sternotomy and coronary arterybypass surgery. A dual-chamber cardiac pacemaker is again seen with thegenerator overlying the left mid lung and its leads appearingwell-positioned and intact with their tips in the right atrium, near theright ventricular apex, and in the coronary sinus, stable since the priorstudy. The cardiac silhouette remains borderline enlarged. The aortic knobis calcified. The lungs are again seen to be hyperinflated with flatteningof the diaphragm consistent with chronic obstructive pulmonary disease.There is no consolidation, mass, pulmonary vascular congestion, or pleuraleffusion. IMPRESSION: A dual-chamber cardiac pacemaker is present with its leads appearingintact and in good position, stable in position as compared to theimmediate postplacement radiograph performed 09/22/2024. Cardiomegaly isstable. The patient is again seen to have undergone previous CABG.Findings as above consistent with COPD. Code 24287 -------- FINAL REPORT -------- Dictated By: Hubert Quinonez Dictated Date: 10/19/2024 10:54 ET Assigned Physician: Hubert Quinonez Reviewed and Electronically Signed By: Hubert Quinonez Signed Date: 10/19/2024 11:05 ET Workstation ID: [id number] Transcribed By: Self Edit Transcribed Date: 10/19/2024 11:04 ET Delmi Stein VC++ DEVELOPER IMG XR PROCEDURES * (ABNORMAL) Troponin I high sensitivity (09/23/2024 9:07 AM EST) [facility] High Sensitivity Troponin I 68(H) <=54 ng/L LAB CHEMISTRY METHOD 09/23/2024 9:38 AM EST [facility] Blood Venous blood specimen / Unknown Venipuncture / Unknown 09/23/2024 9:07 AM EST 09/23/2024 9:11 AM EST Narrative [facility] - 09/23/2024 9:38 AM EST High levels of biotin in samples may falsely decrease hsTroponin values. ??Use caution when interpreting hsTroponin results in patients taking biotin who exhibit renal impairment (eGFR <60) or in patients taking more than 20 mg/day of biotin. Toño Duarte DO LAB BLOOD ORDERABLE S [facility] [address] [place] [address], * CBC auto differential (09/23/2024 9:07 AM EST) [facility] WBC 7.0 4.8 - 10.8 K/mcL LAB HEMETOLOGY METHOD 09/23/2024 9:20 AM [facility] RBC 3.90 3.80 - 4.80 M/mcL LAB HEMETOLOGY METHOD 09/23/2024 9:20 AM [facility] Hemoglobin 12.2 11.5 - 16.0 g/dL LAB HEMETOLOGY METHOD 09/23/2024 9:20 AM [facility] Hematocrit 38.1 35.0 - 47.0 % LAB HEMETOLOGY METHOD 09/23/2024 9:20 AM [facility] MCV 97.9 79.0 - 98.0 FL LAB HEMETOLOGY METHOD 09/23/2024 9:20 AM [facility] MCH 31.4 27.0 - 32.0 pcg LAB HEMETOLOGY METHOD 09/23/2024 9:20 AM [facility] MCHC 32.0 32.0 - 37.0 g/dL LAB HEMETOLOGY METHOD 09/23/2024 9:20 AM [facility] RDW 13.2 11.0 - 15.0 % LAB HEMETOLOGY METHOD 09/23/2024 9:20 AM [facility] Platelets 238 130 - 400 K/mcL LAB HEMETOLOGY METHOD 09/23/2024 9:20 AM [facility] MPV 11.0 7.0 - 11.0 FL LAB HEMETOLOGY METHOD 09/23/2024 9:20 AM [facility] NRBC 0.0 <1.0 % LAB HEMETOLOGY METHOD 09/23/2024 9:20 AM [facility] NRBC Absolute 0.00 <0.10 K/mcL LAB HEMETOLOGY METHOD 09/23/2024 9:20 AM [facility] Neutrophils Relative 64.7 % LAB HEMETOLOGY METHOD 09/23/2024 9:20 AM [facility] Lymphocytes Relative 19.2 % LAB HEMETOLOGY METHOD 09/23/2024 9:20 AM [facility] Monocytes Relative 12.2 % LAB HEMETOLOGY METHOD 09/23/2024 9:20 AM [facility] Eosinophils Relative 3.1 % LAB HEMETOLOGY METHOD 09/23/2024 9:20 AM [facility] Basophils Relative 0.7 % LAB HEMETOLOGY METHOD 09/23/2024 9:20 AM [facility] Immature Granulocytes Relative 0.1 % LAB HEMETOLOGY METHOD 09/23/2024 9:20 AM [facility] Neutrophils Absolute 4.54 1.50 - 7.00 K/mcL LAB HEMETOLOGY METHOD 09/23/2024 9:20 AM EST [facility] Lymphocytes Absolute 1.35 1.00 - 5.00 K/mcL LAB HEMETOLOGY METHOD 09/23/2024 9:20 AM EST [facility] Monocytes Absolute 0.86 0.20 - 1.00 K/[facility] LAB HEMETOLOGY METHOD 09/23/2024 9:20 AM EST [facility] Eosinophils Absolute 0.22 0.00 - 0.50 K/[facility] LAB HEMETOLOGY METHOD 09/23/2024 9:20 AM EST [facility] Basophils Absolute 0.05 0.00 - 0.20 K/[facility] LAB HEMETOLOGY METHOD 09/23/2024 9:20 AM EST [facility] Immature Granulocytes Absolute 0.01 0.00 - 0.03 K/[facility] LAB HEMETOLOGY METHOD 09/23/2024 9:20 AM EST [facility] Blood Venous blood specimen / Unknown Venipuncture / Unknown 09/23/2024 9:07 AM EST 09/23/2024 9:11 AM EST Toño Duarte DO LAB BLOOD ORDERABLE S Performing Organization Address City/[facility]/ZIP Co de Phone Number [facility] [address] [place] [address], * (ABNORMAL) B-type natriuretic peptide (09/23/2024 9:07 AM EST) BNP 446(H) <=100 pcg/mL LAB CHEMISTRY METHOD 09/23/2024 9:45 AM EST [facility] Blood Venous blood specimen / Unknown Venipuncture / Unknown 09/23/2024 9:07 AM EST 09/23/2024 9:11 AM EST Toño Duarte DO LAB BLOOD ORDERABLE S [facility] [address] [place] [address], * Magnesium (09/23/2024 9:07 AM EST) [facility] Magnesium 2.1 1.9 - 2.6 mg/dL LAB CHEMISTRY METHOD 09/23/2024 9:38 AM EST [facility] Blood Venous blood specimen / Unknown Venipuncture / Unknown 09/23/2024 9:07 AM EST 09/23/2024 9:11 AM EST Toño Duarte DO LAB BLOOD ORDERABLE S Performing Organization Address City/[facility]/ZIP Co de Phone Number [facility] [address] [place] [address], * Lipase (09/23/2024 9:07 AM EST) [facility] Lipase 33 13 - 75 unit/L LAB CHEMISTRY METHOD 09/23/2024 9:38 AM EST [facility] Blood Venous blood specimen / Unknown Venipuncture / Unknown 09/23/2024 9:07 AM EST 09/23/2024 9:11 AM EST Toño Duarte DO LAB BLOOD ORDERABLE S [facility] [address] [place] [address], * (ABNORMAL) Comprehensive metabolic panel (09/23/2024 9:07 AM EST) [facility] Sodium 142 133 - 145 mmol/L LAB CHEMISTRY METHOD 09/23/2024 9:38 AM EST [facility] Potassium 4.3 3.5 - 5.5 mmol/L LAB CHEMISTRY METHOD 09/23/2024 9:38 AM EST [facility] Chloride 114(H) 96 - 110 mmol/L LAB CHEMISTRY METHOD 09/23/2024 9:38 AM [facility] CO2 21 21 - 32 mmol/L LAB CHEMISTRY METHOD 09/23/2024 9:38 AM [facility] Anion Gap 7 3 - 11 LAB CHEMISTRY METHOD 09/23/2024 9:38 AM [facility] Glucose 98 70 - 100 mg/dL LAB CHEMISTRY METHOD 09/23/2024 9:38 AM [facility] BUN 37(H) 5 - 25 mg/dL LAB CHEMISTRY METHOD 09/23/2024 9:38 AM [facility] Creatinine 1.29(H) 0.50 - 1.10 mg/dL LAB CHEMISTRY METHOD 09/23/2024 9:38 AM [facility] eGFR 42(L) >=60 mL/min/1. 73m2 LAB CHEMISTRY METHOD 09/23/2024 9:38 AM [facility] Comment:Calculation based on the??Chronic Kidney Disease Epidemiology Collaboration (CKD-EPI) equation refit??without adjustment for race. BUN/Creatinine Ratio 28.7 LAB CHEMISTRY METHOD 09/23/2024 9:38 AM [facility] Calcium 9.4 8.5 - 10.5 mg/dL LAB CHEMISTRY METHOD 09/23/2024 9:38 AM [facility] AST (SGOT) 27 10 - 42 unit/L LAB CHEMISTRY METHOD 09/23/2024 9:38 AM [facility] ALT (SGPT) 32 10 - 60 unit/L LAB CHEMISTRY METHOD 09/23/2024 9:38 AM [facility] Alkaline Phosphatase 80 42 - 121 unit/L LAB CHEMISTRY METHOD 09/23/2024 9:38 AM [facility] Total Protein 6.5 6.0 - 8.0 g/dL LAB CHEMISTRY METHOD 09/23/2024 9:38 AM [facility] Albumin 3.3 3.2 - 5.0 g/dL LAB CHEMISTRY METHOD 09/23/2024 9:38 AM EST [facility] Total Bilirubin 0.5 0.0 - 1.4 mg/dL LAB CHEMISTRY METHOD 09/23/2024 9:38 AM EST [facility] Blood Venous blood specimen / Unknown Venipuncture / Unknown 09/23/2024 9:07 AM EST 09/23/2024 9:11 AM EST Toño Duarte DO LAB BLOOD ORDERABLE S Performing Organization Address City/[facility]/ZIP Co de Phone Number [facility] [address] [place] [address], * ECG 12 lead (09/23/2024 8:24 AM EST) Ventricular Rate ECG 73 BPM GEMUSE Atrial Rate 227 BPM GEMUSE P-R Interval 180 ms GEMUSE QRS Duration 138 ms GEMUSE Q-T Interval 462 ms GEMUSE QTc 508 ms GEMUSE R [place] -17 degrees GEMUSE T [place] -49 degrees GEMUSE ECG Interpretation AV dual-paced rhythm Biventricula r pacemaker detected When compared with ECG of 21-JUL-2024 13:19, Prior EKG with complete heart block Vent. rate has increased BY ??37 BPM Confirmed by DOLORES BALES ([id number]) on 09/23/2024 10:41:41 PM GEMUSE 09/23/2024 8:24 AM EST 09/23/2024 10:41 PM EST Toño Duarte DO ECG ORDERABLES GEMUSE * ECG-Annotated (09/23/2024) Provider Onbase ECG ORDERABLES * XR Chest 1 View (09/22/2024 2:36 PM EST) Anatomical Region Laterality Modality Body Radiographic Valeria ging 09/22/2024 2:43 PM EST Impressions 09/22/2024 2:44 PM EST Automatic implantable cardiac defibrillator in the left chest. ??No pneumothorax or effusion. ??Mediastinum appears within normal limits. -------- FINAL REPORT -------- Dictated By: Alex Douglas Dictated Date: 09/22/2024 14:43 ET Assigned Physician: Alex Douglas Reviewed and Electronically Signed By: Alex Douglas Signed Date: 09/22/2024 14:44 ET Workstation ID: [id number] Transcribed By: Self Edit Transcribed Date: 09/22/2024 14:43 ET Narrative 09/22/2024 2:44 PM EST Frontal view of the chest COMPARISON: None INDICATION: Postpacer placement. Procedure Note Alex Douglas MD - 09/22/2024 Frontal view of the chest COMPARISON: None INDICATION: Postpacer placement. IMPRESSION: Automatic implantable cardiac defibrillator in the left chest. Nopneumothorax or effusion. Mediastinum appears within normal limits. -------- FINAL REPORT -------- Dictated By: Alex Douglas Dictated Date: 09/22/2024 14:43 ET Assigned Physician: Alex Douglas Reviewed and Electronically Signed By: Alex Douglas Signed Date: 09/22/2024 14:44 ET Workstation ID: [id number] Transcribed By: Self Edit Transcribed Date: 09/22/2024 14:43 ET Zack Mayers MD IMG XR PROCEDURES * INSERT ICD BIV MULTI (09/22/2024 1:43 PM EST) Anatomical Region Laterality Modality X-Ray Angiograph y Narrative 09/25/2024 2:17 PM EST ?Successful dual-chamber biventricular ICD implantation ICD lead: [employer] model 7122Q serial number [id number], capture threshold 0.5 V 0.5 ms, impedance 560 ohms, R wave 9.8 mV. Right atrial lead: [employer] model #2088 TC/52 serial number [id number], capture threshold 0.25 V 0.4 ms, impedance 430 ohms, P wave 0.8 mV. Left ventricular lead: [employer] model #1450 8Q/75 serial number [id number], capture threshold 2.25 V at 0.5 ms, impedance 430 ohms, configuration LV 4-RV coil the best. Procedure Details Procedure: Implantation of a dual-chamber biventricular implantable cardioverter defibrillator under moderate sedation and fluoroscopic guidance with use of venography. Indication: This is an 79-year-old female with an ischemic cardiomyopathy with LVEF 25%, left bundle branch block with QRS with greater than 150 ms and chronic systolic left ventricular dysfunction with class III congestive heart failure symptoms. This is primary prevention [employer] Time Sales Supervisor: Zack Mayers MD Procedure detail: After attainment informed consent the patient was brought to the EP laboratory in the fasting state and was moderately sedated by nursing staff using small doses of Versed and fentanyl. After the usual sterile prep and local anesthesia with 1% lidocaine I made a 3 cm incision over the left chest. I used blunt and cautery dissection to access the pectoralis muscle and form a pocket for the device implant. I accessed the axillary vein 3 times with the guidewire being placed. Over the first guidewire I advanced a 6 Algerian sheath through which I advanced the pacing lead down to the right atrial appendage. I then actively fixed that lead into place. I placed a 7 Algerian sheath through which I advanced the pacing lead down to the right ventricular apical septum where it was actively fixed into place. I then accessed the coronary sinus using a curved electrode catheter placed through mixed digiSchooltronic extended hook access sheath using a curved catheter to access the coronary sinus and then a venogram was performed showing a mid lateral branch with a fairly torturous entrance of that vessel. I was able to advance a guidewire and a quadripolar lead into the distal aspect of that vessel. The distal poles did create via diaphragmatic stimulation but the more proximal poles did not. I slit the sheath and then secured all 3 leads to the pectoralis muscle with 1.0 Nurolon suture. I attached with release of the device generator which was placed into a pocket made bluntly inferior to the incision. I irrigated the pocket with vancomycin solution and then closed the incision with 2.0 v-loc suture and surgical glue. There were no immediate complications and the patient was returned to recovery in stable condition. Zack Mayers MD CV ELECTROPHYSIOLOGY PROCEDURES from Last 3 Months Advance Directives * Full Code - Default (Latest Code Status on File) Date Activated Date Inactivated Comments 09/22/2024 9:59 AM 09/23/2024 4:50 AM This is or joni is used when code status has not been discussed with the patient, or code status is otherwise unknown/unconfirmed To update the patient's code status, place a code status order. Do not modify or discontinue any currently active code status orders. Care Teams Manager Stone Relationship Specialty Start Date End Date Oleksandr, MD Jose Roberto [address] [place] [address] [address] [facility] [place] [address] PCP - General 11/25/23
--- OUTSIDE RECORDS SUMMARY | 2024-12-15 10:41 | XMS_ITS | Encounter Summary ---
Author Organization [facility], Address [address] [place] [address] Phone Care Team Providers Care Mechanical Lead Name Role Phone Mariana Whitten MD Primary Care Provider [phone] Encounter Details Date Type Department Care Team (Late st Contact Info) Description 01/22/2023 Documentation Only [facility], - [address] [facility] [address] [place] [id number] Mariana Whitten MD [address] [place] [address] Social History Tobacco Use Types Packs/Day Years Used Date Smoking Tobacco: Never Alcohol Use Standard Drinks/Week Comments No 0 (1 standard drink = 0.6 oz pur e alcohol) Comments Unknown Sex and Gender Information Value Date Recorded Sex Assigned at Not on file Legal Sex Female 4:30 PM EST Gender Identity Not on file Sexual Orientation Not on file COVID-19 Exposure Response Date Recorded In the last 10 days, have yo u been in contact with someone who was confirmed or suspected to have Coronavirus/COVID-19? No / Unsure 12/29/2022 8:33 AM EST documented as of this encounter Plan of Treatment Not on file documented as of this encounter Visit Diagnoses Not on filedocumented in this encounter Care Teams Mechanical Lead Relationship Specialty Start Date End Date Mariana Whitten MD [address] [place] [address] PCP - General Internal Medicine 12/11/19 documented as of this encounter
--- OUTSIDE RECORDS SUMMARY | 2024-12-15 10:41 | XMS_ITS | Patient Health Record ---
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 Name Role Phone Jose Roberto Leggett Primary Care Provider Vannessa Dai Unavailable [phone] Dawn Roland Unavailable [phone] Allergies Allergen (clinical drug ingredient) Drug/Non Drug [...] agent (FN) NSAIDs Unknown Drug Allergy Active Results Component Value Reference Range Notes HEMOGLOBIN A1C (GLYCOHEMOGLO BIN) Reviewed date:11/17/2024 12:18:43 PM Interpretation: Performing Lab: Notes/Report: HEMOGLOBIN A1C % (HH) 6.5 Reason For Referral No Information Medications Medication SIG (Take, Route, Frequency, Duration) Notes Start Date End Date Status Extra Depth Orthopedic Shoes (1 Pair) with Customized Heat Molded Multidensity Innersoles (3 Pair) as directed Dx: NIDDM/Polyneuropathy (E11.42), Hammertoe Foot Deformity (M20.41,M20.42), Preulcerative Skin Lesion(s) (L85.1 12/30/2022 Active Custom Orthotics as directed 08/02/2018 Active Extra Depth Orthopedic Shoes (1 Pair) with Customized Heat Molded Multidensity Innersoles (3 Pair) as directed Dx: NIDDM/Polyneuropathy (E11.42), Hammertoe Foot Deformity (M20.41,M20.42), Preulcerative Skin Lesion(s) (L85.1 03/16/2017 Active Levothyroxine Sodium 100 MCG 1 tablet Orally Once a day Active Eliquis Active Aspirin 81 MG 1 tablet Orally Once a day Active Cephalexin 500 MG 1 tablet Orally Twic e a day for 7 days Not-Taking Vitamin D Active Labetalol HCl Not-Ta molly Entresto Active metFORMIN HCl 1000 MG 1 tablet with meal s Orally Twice a day Not-Taking Metoprolol Succinate Not-Taking Irbesartan 150 MG 1 tablet Orally Once a day Not-Taking Losartan Potassium 50 MG Orally twice a day Not-Taking Coumadin 09/08/2019 Not-Takin g Extra Depth Orthopedic Shoes (1 Pair) with Customized Heat Molded Multidensity Innersoles (3 Pair) as directed Dx: NIDDM/Polyneuropathy (E11.42), Hammertoe Foot Deformity (M20.41,M20.42), Preulcerative Skin Lesion(s) (L85.1 12/05/2021 Not-Taking Olmesartan Medoxomil 20 MG (Prior Auth: Rx Ref#:[id number]) Oral for 15 Not-Taking hydrALAZINE HCl 100 MG Orally Three time s a day Not-Taking Chlorthalidone 50 MG 1 tablet in the mor candace Orally Once a day Not-Taking Farxiga 10 MG TAKE 1 TABLET BY JERRI EVERY DAY Oral for 30 Days Not-Taking Nystatin 926830 UNIT/GM USE 1 APPLICATIO N TOPICALLY 2 TIMES A DAY,X10 DAYS External for 10 Days Not-Taking Simvastatin 40 MG 1 tablet in the even ing Orally Once a day Not-Taking Extra Depth Orthopedic Shoes (1 Pair) with Customized Heat Molded Multidensity Innersoles (3 Pair) as directed Dx: NIDDM/Polyneuropathy (E11.42), Hammertoe Foot Deformity (M20.41,M20.42), Preulcerative Skin Lesion(s) (L85.1 04/14/2024 Active Torsemide 10 MG TAKE 1 TABLET (10 MG TOTAL) BY MOUTH IN THE MORNING AND IN THE EVENING Oral for 90 Days Not-Taking OneTouch Ultra - USE 1 STRIP DAILY OR DIRECTED TO CHECK BLOOD SUGAR E11.9 In Vitro for 50 Days Active Atorvastatin Calcium 40 MG TAKE 1 TABLET BY MOUTH EVERY DAY Oral for 90 Days Active Immunizations Vaccine Route Administration Date Status Commkerline nts COVID-19 Pfizer BioNTech Vaccine Unknown 10/07/2021 Administered 1st:12/17/2020 2nd dose: 01/07/21 Influenza Unknown 10/09/2016 Administered Influenza Unknown 07/12/2017 Administered Influenza Unknown 09/08/2018 Administered Influenza Unknown 09/13/2018 Administered Influenza Unknown 09/13/2018 Refused Influenza Unknown 09/08/2019 Administered Influenza Unknown 08/15/2021 Administered Influenza Unknown 09/08/2022 Administered Influenza Unknown 09/08/2023 Administered Social History Tobacco Use: Social History Observation Description Date Details (start date - stop date) Never Smoker NA - NA Tobacco use other than smoking: Question Answer Notes Are you an other tobacco user? No Tobacco Control (Standard) Question Answer Notes Tobacco use: Nonsmoker Additional Findings: Tobacco non-user Current no nsmoker AUDIT-C (Standard) Question Answer Notes Did you have a drink containing alcohol in the p ast year? No Points 0 Interpretation Negative Problems Problem Type SNOMED Code ICD Code Onset Dates Problem Status W/U Status Risk Notes Problem Acquired hammer toe of right foot (4906855076915358 ) Other hammer toe(s) (acquired), right foot (M20.41) Active confirmed Response to treatment, Improvemen t Problem Acquired hammer toe of left foot (8921296523265031 ) Other hammer toe(s) (acquired), left foot (M20.42) Active confirmed Response to treatment, Improvemen t Problem Polyneuropathy due to type 2 diabetes mellitus (507906899) Type 2 diabetes mellitus with diabetic polyneuropathy (E11.42) Active confirmed Problem 172139200 Hammer toe of right foot (M20.41) Active confirmed Problem 854339096 Hammer toe of left foot (M20.42) Active confirmed Problem 60887722 Osteoarthritis of right ankle and foot (M19.071) Active confirmed Vital Signs Blood pressure diastolic 80 mm Hg 11/17/2024 Height 5 ft 4 in in 11/17/2024 Blood pressure systolic 120 mm Hg 11/17/2024 Weight 164 lbs 11/17/2024 BMI 28.15 kg/m2 11/17/2024 Encounters Encounter Location Date Provider Diagnosis [address] [address] 01/07/2024 Vannessa Tim Type 2 diabetes mellitus with diabetic polyneuropathy E11.42 and Tinea unguium B35.[address] [address] 04/14/2024 Vannessa Tim Type 2 diabetes mellitus with diabetic polyneuropathy E11.42 ; Other hammer toe(s) (acquired), right foot M20.41 ; Tinea unguium B35.1 and Other hammer toe(s) (acquired), left foot M20.[address] [address] 08/18/2024 Dawn Roland Type 2 diabetes mellitus with diabetic polyneuropathy E11.42 ; Tinea unguium B35.1 ; Other hammer toe(s) (acquired), right foot M20.41 and Other hammer toe(s) (acquired), left foot M20.[address] [address] 11/17/2024 Vannessa Tim Type 2 diabetes mellitus with diabetic polyneuropathy E11.42 ; Acute deep vein thrombosis (DVT) of right lower extremity, unspecified vein I82.401 ; Tinea unguium B35.1 ; Other hammer toe(s) (acquired), right foot M20.41 and Other hammer toe(s) (acquired), left foot M20.[address] [address] 07/19/2024 Vannessa Tim [address] [address] 11/17/2024 Vannessa Tim Assessments Encounter Date Diagnosis (ICD Code) Assessment Notes Treatment Notes Treatment Clinical Notes Section Notes 01/07/2024 Type 2 diabetes mellitus with diabetic polyneuropathy (ICD-10 - E11.42) 04/14/2024 Other hammer toe(s) (acquired), right foot (ICD-10 - M20.41) Patient Educated with: DIABETIC FOOT CARE INSTRUCTIONS. pdf (DIABETIC FOOT CARE INSTRUCTIONS. pdf) 04/14/2024 Type 2 diabetes mellitus with diabetic polyneuropathy (ICD-10 - E11.42) 08/18/2024 Tinea unguium (ICD-10 - B35.1) 08/18/2024 Type 2 diabetes mellitus with diabetic polyneuropathy (ICD-10 - E11.42) 11/17/2024 Type 2 diabetes mellitus with diabetic polyneuropathy (ICD-10 - E11.42) 11/17/2024 Acute deep vein thrombosis (DVT) of right lower extremity, unspecified vein (ICD-10 - I82.401) 11/17/2024 Tinea unguium (ICD-10 - B35.1) 08/18/2024 Other hammer toe(s) (acquired), right foot (ICD-10 - M20.41) Response to treatment,Impro vement 04/14/2024 Tinea unguium (ICD-10 - B35.1) 01/07/2024 Tinea unguium (ICD-10 - B35.1) 04/14/2024 Other hammer toe(s) (acquired), left foot (ICD-10 - M20.42) 08/18/2024 Other hammer toe(s) (acquired), left foot (ICD-10 - M20.42) Response to treatment,Impro vement 11/17/2024 Other hammer toe(s) (acquired), right foot (ICD-10 - M20.41) Response to treatment,Impro vement 11/17/2024 Other hammer toe(s) (acquired), left foot (ICD-10 - M20.42) Response to treatment,Impro vement 08/18/2024 Other Plan Of Treatment Pending Test Test Name Order Date X ray : Foot, left 3V 04/13/2017 X ray : Foot, left 3V 04/12/2018 X ray : Foot, left 3V 08/02/2018 X ray : Foot, left 3V 10/24/2019 X ray : Foot, right 3V 09/13/2018 X ray : Foot, right 3V 10/24/2019 X ray : Foot, right 3V 04/12/2018 15559-AELEDCJ NAIL, 6 OR MORE 04/12/2018 24577-BWIIZUI NAIL, 6 OR MORE 03/16/2017 77704-XHDBFNT NAIL, 6 OR MORE 08/28/2015 62365-SQCNZUJ NAIL, 6 OR MORE 11/28/2015 96326-EHXKNIP NAIL, 6 OR MORE 04/07/2016 72218-FHNVECF NAIL, 6 OR MORE 08/11/2016 85562-LJVENBY NAIL, 6 OR MORE 11/04/2016 34212-HWZJRBU NAIL, 6 OR MORE 09/24/2017 65236-MSOVZON NAIL, 6 OR MORE 07/05/2018 31584-RBZIUSH NAIL, 6 OR MORE 09/13/2018 24584-Orcrnuuk Plate 03/31/2017 60120-IGAO SKIN LESIONS, OVER 4 09/24/20 17 42060-ORZT SKIN LESIONS, OVER 4 07/05/20 18 74120-HCLT SKIN LESIONS, OVER 4 04/12/20 18 25906-AENU SKIN LESIONS, OVER 4 11/04/20 16 91200-WMZC SKIN LESIONS, OVER 4 03/16/20 17 61616-DYDI SKIN LESIONS, OVER 4 11/28/19 16 35246-QRSS SKIN LESIONS, OVER 4 08/28/20 15 52169-MRQH SKIN LESIONS, OVER 4 09/13/20 18 10589-JWDF SKIN LESIONS, 2 TO 4 08/11/20 16 HEMOGLOBIN A1C (GLYCOHEMOGLOBIN) 018 Next Appt Details Provider Name:Vannessa benjamin, 02/09/2025 12:15:00 PM, [address] [facility], [place], [address], Insurance Providers Payer Name Payer Address Payer Phone Subscriber Number Group Number Insured Name Patient Relationship to Insured Coverage Start Date Coverage End Date Medicare National [employer] [address] [facility] [place] [address] [id number] Perlita Angulo Self - patient is the insured 2 [employer] [facility] [address] [place] [address] [id number] Perlita Angulo Self - patient is the insured Medical (General) History Medical History History ICD Code Arthritis asthma Back,Hip,and Knee pain Cholesterol Cancer Cataracts Diabetic Heart disease High blood pressure Osteoporosis Raynauds syndrome Thyroid disorder 1 Kidney Heart attack Surgical History Surgery Date(Month/Year) BACK 05/2012 KNEE REPLACEMENT 06/2014 hysterectomy 02/13/1999 stent inserted cataract surgery left (12-24) and right ( ) 12-26-2015 & 01-30-2016 L shoulder replacement 08/26/2017 R shoulder surgery 01/2018 Hernia 01/25/2018 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
--- OUTSIDE RECORDS SUMMARY | 2024-12-15 10:42 | XMS_ITS ---
[facility] Address [address] [place] [address] Care Team Providers Care Rate Setter Name Role Phone Jose Roberto Leggett Primary Care Provider Vannessa Dai Unavailable [phone] Allergies Allergen (clinical drug ingredient) Drug/Non Drug [...] shoes and causing difficulty standing/walking, Toe Irritation, Swelling Medications Medication SIG (Take, Route, Frequency, Duration) Notes Start Date End Date Status Cephalexin 500 MG 1 tablet Orally Twic e a day for 7 days Not-Taking Labetalol HCl Not-Ta molly metFORMIN HCl 1000 MG 1 tablet with meal s Orally Twice a day Not-Taking Irbesartan 150 MG 1 tablet Orally Once a day Not-Taking Losartan Potassium 50 MG Orally twice a day Not-Taking Olmesartan Medoxomil 20 MG (Prior Auth: Rx Ref#:[id number]) Oral for 15 Not-Taking hydrALAZINE HCl 100 MG Orally Three time s a day Not-Taking Chlorthalidone 50 MG 1 tablet in the mor candace Orally Once a day Not-Taking Coumadin 09/08/2019 Not-Takin g Extra Depth Orthopedic Shoes (1 Pair) with Customized Heat Molded Multidensity Innersoles (3 Pair) as directed Dx: NIDDM/Polyneuropathy (E11.42), Hammertoe Foot Deformity (M20.41,M20.42), Preulcerative Skin Lesion(s) (L85.1 12/05/2021 Not-Taking Farxiga 10 MG TAKE 1 TABLET BY JERRI TH EVERY DAY Oral for 30 Days Not-Taking Nystatin 804323 UNIT/GM USE 1 APPLICATIO N TOPICALLY 2 [...] THE EVENING Oral for 90 Days Not-Taking Extra Depth Orthopedic Shoes (1 Pair) [...] (M20.41,M20.42), Preulcerative Skin Lesion(s) (L85.1 03/16/2017 Active OneTouch Ultra - USE 1 STRIP DAILY OR DIRECTED TO CHECK BLOOD SUGAR E11.9 In Vitro for 50 Days Active Atorvastatin Calcium 40 MG TAKE 1 TABLET BY MOUTH EVERY DAY Oral for 90 Days Active Levothyroxine Sodium 100 MCG 1 tablet Orally Once a day Active Eliquis Active Aspirin 81 MG 1 tablet Orally Once a day Active Vitamin D Active Entresto Active Metoprolol Succinate Not-Taking Social History Tobacco Use: Social History [...] ast year? No Points 0 Interpretation Negative Vital Signs Height 5 ft 4 in in 11/17/2024 Weight 164 lbs 11/17/2024 BMI 28.15 kg/m2 11/17/2024 Blood pressure systolic 120 mm Hg 11/17/19 25 Blood pressure diastolic 80 mm Hg 025 Encounters Encounter Location Date Provider Diagnosis [facility] [address] [address] 11/17/2024 Vannessa Tim Type 2 diabetes mellitus with diabetic polyneuropathy E11.42 ; Acute deep vein thrombosis (DVT) of right lower extremity, unspecified vein I82.401 ; Tinea unguium B35.1 ; Other hammer toe(s) (acquired), right foot M20.41 and Other hammer toe(s) (acquired), left foot M20.42 Assessments Encounter Date Diagnosis (ICD Code) Assessment Notes Treatment Notes Treatment Clinical Notes Section Notes 11/17/2024 Type 2 diabetes mellitus with diabetic polyneuropathy (ICD-10 - E11.42) 11/17/2024 Acute deep vein thrombosis (DVT) of right lower extremity, unspecified vein (ICD-10 - I82.401) 11/17/2024 Tinea unguium (ICD-10 - B35.1) 11/17/2024 Other hammer toe(s) (acquired), right foot (ICD-10 - M20.41) Response to treatment,Impro vement 11/17/2024 Other hammer toe(s) (acquired), left foot (ICD-10 - M20.42) Response to treatment,Impro vement Plan Of Treatment Next Appt Details Follow Up: 3 Months, Reason: Provider Name:Vannessa benjamin, 02/09/2025 12:15:00 PM, [address] [place] [address], [phone], Procedure Notes * Category Sub-Category Detail Notes Debride Nail 6-10 Nail debridement Due to the cl inical pathology outlined in the exam findings, performance of this nail treatment is medically necessary as its management by an unskilled/untrained nonprofessional would put this patients foot and overall health at risk. Therefore, debridement to affected nail(s), as described in exam (TA, T1, T2, T3, T4, T5, T6, T7, T8, T9, ), was performed exclusively by the physician of record to reduce/remove overall nail length, girth, thickness, subungual debris, and necrotic tissue, by manual and/or electrical means through the use of a nail nipper and/or dremel-type grinder set up operator internal, to a more viable healthy nail plate or bed tissue 6-10 nails in total. Silver nitrate was used for any petechial bleeding as necessary. Definitive antifungal treatment options, both pharmaceutical and surgical, have been reviewed and discussed with the patient. The patient solely prefers the use of intermittent/as needed professional debridement services for their nail condition and understands the need for additional periodic treatments to maintain effectiveness in symptomatic relief - 03732 Keratoma Treatment Parring or Cutting o f Benign Hyperkeratotic Lesion(s) (-57) More than 4 Lesions - Due to the at risk nature of the patients medical condition as documented in the exam findings, performance of this keratoderma treatment is medically necessary as its management by an unskilled/untrained nonprofessional would put this patients foot and overall health at risk. Therefore, the benign hyperkeratotic lesions, ( 5 ) in total, locations as stated and described in the exam ( TA, T5, Heel(s), B/L , SUB MTH (s), 4, Right ), were pared, and/or cut utilizing a sterile 15 blade, tissue nippers, and/or power dremel instrumentation by the physician of record - [id number] Progress Notes * Perlita LEONARD ADOB:12/1944 (79 yo F)Acc No.[id number]:11/17/2024 Progress Note Patient:?Perlita LEONARD Provider:?Vannessa Tim DPM :1945???Age:79 Y???Sex:Female D ate:11/17/2024 Address:[address] [place] [id number] Pcp:Jose Roberto Leggett Subjective: * Chief Complaints: * ???At Risk FootcarePainful N ail(s) aggravated by shoes and causing difficulty standing/walkingToe IrritationSwelling * HPI: ???At Risk footcare:?Pt States Last PCP Visit:?Date?10/09/2024 ???Swelling:?Nature:?tightness, swelling, redness.?Location:?Right foot/leg.?Duration:?2 weeks.?Onset:?sudden, no hx of trauma, unknown.?Course:?unresolved.? * ROS:?General/Constitutional:?Nausea?denies, denies.?Vomiting?denies, denies.?Hunger Thirst?denies, denies.?Loss appetite?denies, denies.?Chills?denies, denies.?Fatigue?denies, denies.?Fever?denies, denies.?Night Sweats denies, denies.?Unexplained weight loss?denies, denies.?Ophthalmologic:?Blurred vision?denies, denies.?Red eye?denies, denies.?HEENTM:?Dentures?admits, admits.?Dizziness?denies, denies.?Glasses/contacts?admits, admits.?Retinopathy?denies, denies.?Blurred/double vision?denies, denies.?TMJ?denies, denies.?Discharge/drainage?denies, denies.?Implants?admits, admits.?Hard of hearing ?admits, admits.?Difficulty chewing/swallowing/speaking?denies, denies.?Nose bleeds?denies, denies.?Sore mouth?denies, denies.?Swollen glands?denies, denies.?Respiratory:?On Oxygen?denies, denies.?Pneumonia/pleurisy?denies, denies.?Bronchitis?denies, denies.?Emphysema?denies, denies.?Coughing?denies, denies.?Cough blood?denies, denies.?Shortness of breath?admits, admits.?Wheezing?denies, denies.?Cardiovascular:?Pacemaker?denies, denies.?MVP?denies, denies.?WPW?denies, denies.?CHF?denies, denies.?Heart attack?denies, denies.?Septal defect?denies, denies.?Rapid beat?denies, denies.?Chest pain ?denies, denies.?Atrial Fib.?denies, denies.?Murmur/Palpitations?denies, denies.?Gastrointestinal:?Hemorrhoids?denies, denies.?Stomach/Abdominal pain?denies, denies.?Dark blood stool?denies, denies.?Irritable bowel ?denies, denies.?Constipation?denies, denies.?Diarrhea?denies, denies.?Vomiting?denies, denies.?Hematology:?Swelling?denies, denies.?Bruising?denies, denies.?Bleeding problem?denies, denies.?Genitourinary:?Blood urine?denies, denies.?Frequent/Painfu/urination/bladder control?denies, denies.?Kidney stones?denies, denies.?Infection (UTI)?denies, denies.?Nephropathy?denies, denies.?Musculoskeletal:?Hammertoes?admits, admits.?Bunions?admits, admits.?Scoliosis/kyphosis?denies, denies.?Muscle cramps / walking?denies, denies.?Generalized aches and pains?denies, denies.?Weakness?denies, denies.?Integ.:?Thomas?denies, denies.?Scars?denies, denies.?Corns/calluses?admits, admits.?Ingrown nails?denies, denies.?Painful nails?denies, denies.?Rashes?denies, denies.?Neurologic:?Difficulty sleeping?denies, denies.?Bipolar?denies, denies.?Brain disorder?denies, denies.?Balance trouble?denies, denies.?Confusion?denies, denies.?Fainting/blackouts?denies, denies.?Headache?denies, denies.?Tremors?denies, denies.? * Medical History:? * Surgical History:?BACK 2KNEE REPLACEMENT 06/2014hysterectomy 02/13/1999stent inserted cataract surgery left (12-24) and right ( ) 12-26-2015 & 01-30-2016L shoulder replacement 08/26/2017R shoulder surgery 01/2018Hernia 01/25/2018Quadrupal bypass surgery 11/04/23 * Hospitalization/Major Diagno stic Procedure:[place] [place] Left Kidney necrotic 02/2018[facility] [place] - Heart problems 01/2019[facility] [place] - heart problems/htn/afib 07/2019[facility] [place]- Woke up in the morning pt didnt know where she was and she was dizzy- Doctors thought its TIA 02/26/2020[facility] [place]- Heart issues 08/07/24 * Family History:?Mother: dece ased, diagnosed with Unspecified essential hypertension.?Father: , heart attack, diagnosed with Unspecified essential hypertension.?Daughter(s): diagnosed with Unspecified essential hypertension.?Paternal aunt: diagnosed with Other malignant neoplasm of unspecified site.? * Social History:?Tobacco Use:?Tobacco use other than smoking?Are you an other tobacco user??No ?Tobacco Control (Standard)?Tobacco use:?Nonsmoker ?Additional Findings: Tobacco non-user?Current nonsmoker ???Drugs/Alcohol:?Drugs?Have you used drugs other than those for medical reasons in the past 12 months??No ???Miscellaneous:?Caffeine: yes, frequency: Decaf - 1-2 cups per day. ?Children: yes, 3. ?Exercise: yes, walking. ?Marital status: . 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 ???Drug/Alcohol:?AUDIT-C (Standard)?Did you have a drink containing alcohol in the past year??No ?Points?0 ?Interpretation?Negative * Medications:?TakingEntresto Vitamin D Aspirin 81 MG Tablet 1 tablet Orally Once a day Eliquis Levothyroxine Sodium 100 MCG Tablet 1 tablet Orally Once a day Extra Depth Orthopedic Shoes (1 Pair) with Customized Heat Molded Multidensity Innersoles (3 Pair) as directed Dx: NIDDM/Polyneuropathy (E11.42), Hammertoe Foot Deformity (M20.41,M20.42), Preulcerative Skin Lesion(s) (L85.1 Custom Orthotics as directed Extra Depth Orthopedic Shoes (1 Pair) with Customized Heat Molded Multidensity Innersoles (3 Pair) as directed Dx: NIDDM/Polyneuropathy (E11.42), Hammertoe Foot Deformity (M20.41,M20.42), Preulcerative Skin Lesion(s) (L85.1 Atorvastatin Calcium 40 MG Tablet TAKE 1 TABLET BY MOUTH EVERY DAY Oral OneTouch Ultra - Strip USE 1 STRIP DAILY OR DIRECTED TO CHECK BLOOD SUGAR E11.9 In Vitro Extra Depth Orthopedic Shoes (1 Pair) with Customized Heat Molded Multidensity Innersoles (3 Pair) as directed Dx: NIDDM/Polyneuropathy (E11.42), Hammertoe Foot Deformity (M20.41,M20.42), Preulcerative Skin Lesion(s) (L85.1 Taking Entresto Taking Vitamin D Taking Aspirin 81 MG Tablet 1 tablet Orally Once a day Taking Eliquis Taking Levothyroxine Sodium 100 MCG Tablet 1 tablet Orally Once a day Taking Extra Depth Orthopedic Shoes (1 Pair) with Customized Heat Molded Multidensity Innersoles (3 Pair) as directed Dx: NIDDM/Polyneuropathy (E11.42), Hammertoe Foot Deformity (M20.41,M20.42), Preulcerative Skin Lesion(s) (L85.1 Taking Custom Orthotics as directed Taking Extra Depth Orthopedic Shoes (1 Pair) with Customized Heat Molded Multidensity Innersoles (3 Pair) as directed Dx: NIDDM/Polyneuropathy (E11.42), Hammertoe Foot Deformity (M20.41,M20.42), Preulcerative Skin Lesion(s) (L85.1 Taking Atorvastatin Calcium 40 MG Tablet TAKE 1 TABLET BY MOUTH EVERY DAY Oral Taking OneTouch Ultra - Strip USE 1 STRIP DAILY OR DIRECTED TO CHECK BLOOD SUGAR E11.9 In Vitro Taking Extra Depth Orthopedic Shoes (1 Pair) with Customized Heat Molded Multidensity Innersoles (3 Pair) as directed Dx: NIDDM/Polyneuropathy (E11.42), Hammertoe Foot Deformity (M20.41,M20.42), Preulcerative Skin Lesion(s) (L85.1 Not-Taking/PRNMetoprolol Succinate Torsemide 10 MG Tablet TAKE 1 TABLET (10 MG TOTAL) BY MOUTH IN THE MORNING AND IN THE EVENING Oral Simvastatin 40 MG Tablet 1 tablet in the evening Orally Once a day Nystatin 448691 UNIT/GM Powder USE 1 APPLICATION TOPICALLY 2 TIMES A DAY,X10 DAYS External Farxiga 10 MG Tablet TAKE 1 TABLET BY MOUTH EVERY DAY Oral Chlorthalidone 50 MG Tablet 1 tablet in the morning Orally Once a day hydrALAZINE HCl 100 MG Tablet Orally Three times a day Olmesartan Medoxomil 20 MG Tablet (Prior Auth: Rx Ref#:[id number]) Oral Extra Depth Orthopedic Shoes (1 Pair) with Customized Heat Molded Multidensity Innersoles (3 Pair) as directed Dx: NIDDM/Polyneuropathy (E11.42), Hammertoe Foot Deformity (M20.41,M20.42), Preulcerative Skin Lesion(s) (L85.1 Coumadin Losartan Potassium 50 MG Tablet Orally twice a day Irbesartan 150 MG Tablet 1 tablet Orally Once a day metFORMIN HCl 1000 MG Tablet 1 tablet with meals Orally Twice a day Labetalol HCl Cephalexin 500 MG Tablet 1 tablet Orally Twice a day Not-Taking/PRN Metoprolol Succinate Not-Taking/PRN Torsemide 10 MG Tablet TAKE 1 TABLET (10 MG TOTAL) BY MOUTH IN THE MORNING AND IN THE EVENING Oral Not- Taking/PRN Simvastatin 40 MG Tablet 1 tablet in the evening Orally Once a day Not- Taking/PRN Nystatin 670290 UNIT/GM Powder USE 1 APPLICATION TOPICALLY 2 TIMES A DAY,X10 DAYS External Not-Taking/PRN Farxiga 10 MG Tablet TAKE 1 TABLET BY MOUTH EVERY DAY Oral Not-Taking/PRN Chlorthalidone 50 MG Tablet 1 tablet in the morning Orally Once a day Not-Taking/PRN hydrALAZINE HCl 100 MG Tablet Orally Three times a day Not- Taking/PRN Olmesartan Medoxomil 20 MG Tablet (Prior Auth: Rx Ref#:[id number]) Oral Not- Taking/PRN Extra Depth Orthopedic Shoes (1 Pair) with Customized Heat Molded Multidensity Innersoles (3 Pair) as directed Dx: NIDDM/Polyneuropathy (E11.42), Hammertoe Foot Deformity (M20.41,M20.42), Preulcerative Skin Lesion(s) (L85.1 Not-Taking/PRN Coumadin Not-Taking/PRN Losartan Potassium 50 MG Tablet Orally twice a day Not-Taking/PRN Irbesartan 150 MG Tablet 1 tablet Orally Once a day Not- Taking/PRN metFORMIN HCl 1000 MG Tablet 1 tablet with meals Orally Twice a day Not- Taking/PRN Labetalol HCl Not-Taking/PRN Cephalexin 500 MG Tablet 1 tablet Orally Twice a day * Allergies:?ErythromycinBiaxi nCiproNitrofurantoin: vomiting - AllergyBactrimNSAIDsLevaquinZithromaxyes[Allergies Verified] Objective: * Vitals:?Ht: 5 ft 4 in, Wt: 1 64, BMI: 28.15, Shoe size: 8.5, BP: 120/80 mm Hg, BS: 111, Wt-k.39 kg. * ???Past Orders: ???Lab:HEMOGLOBIN A1C (GLYCO HEMOGLOBIN) (Order Date - 11/17/2024) (Collection Date & Time - 10/09/2024 12:18 PM) ? Value Reference Range ?HEMOGLOBIN A1C % (HH) 6.5 * Examination: ???Ophthalmology Referral: ?DIABETES EYE EXAM?Neurological: ?SENSORY:?Neurological exam demonstrates reduced light touch sensation [...] no pain on palpation due to neuropathy, TA, T1, T2, T3, T4, T5, T6, T7, T8, T9.?Dermatologic: ?SKIN FINDINGS:?Skin exam reveals Keratotic lesion(s) located at, Medial plantar, TA, T5, Heel(s), B/L , SUB MTH (s), 4, Right .?Orthopedic: ?MUSCLE STRENGTH:?5/5 all groups in a symmetrical fashion, B/L.?DIGITAL DEFORMITIES:?Digital contracture, PIPJ, 2-5 B/L, incompl-reducible with WB, or to push-up test, no over, nor underlapping.?FOOTWEAR:?good condition, exhibit proper fit and accommodation for pedal deformities. OT were inspected and noted to be worn, but in good condition giving proper support at the present time.?Vascular: ?DP PULSES (B):?2/4, B/L.?PT PULSES (B):?2/4, B/L.?CAPILLARY FILL TIME:?immediate, all digits, B/L.?TROPHIC CONDITION-TEXTURE/ELASTICITY/TURGOR/HAIR GROWTH (B):?decreased, with sparse to absent hair growth.?TEMPERTURE GRADIENT (C):?normal, warm to cool, proximal to distal, B/L.?EDEMA (C):?2/4, without aching pain, Foot, Ankle(s), Leg(s), Right, pain with compression.? Assessment: * Assessment: 1.?Type 2 diabetes mellitus with diabetic polyneuropathy - E11.42???2.?Acute deep vein thrombosis (DVT) of right lower extremity, unspecified vein - I82.401 (Primary)???3.?Tinea unguium - B35.1???4.?Other hammer toe(s) (acquired), right foot - M20.41???Specify :Chronic problem, Stable (1=3,2=4)???Notes :Response to treatment,Improvement???5.?Other hammer toe(s) (acquired), left foot - M20.42???Specify :Chronic problem, Stable (1=3,2=4)???Notes :Response to treatment,Improvement??? Plan: * Treatment: * Procedures:?Debride Nail 6-10:?Nail debridement?Due to the clinical pathology outlined in the exam findings, performance of this nail treatment is medically necessary as its management by an unskilled/untrained nonprofessional would put this patients foot and overall health at risk. Therefore, debridement to affected nail(s), as described in exam (TA, T1, T2, T3, T4, T5, T6, T7, T8, T9, ), was performed exclusively by the physician of record to reduce/remove overall nail length, girth, thickness, subungual debris, and necrotic tissue, by manual and/or electrical means through the use of a nail nipper and/or dremel-type grinder set up operator internal, to a more viable healthy nail plate or bed tissue 6- 10 nails in total. Silver nitrate was used for any petechial bleeding as necessary. Definitive antifungal treatment options, both pharmaceutical and surgical, have been reviewed and discussed with the patient. The patient solely prefers the use of intermittent/as needed professional debridement services for their nail condition and understands the need for additional periodic treatments to maintain effectiveness in symptomatic relief - 76723.?Keratoma Treatment:?Parring or Cutting of Benign Hyperkeratotic Lesion(s)?(-57) More than 4 Lesions - Due to the at risk nature of the patients medical condition as documented in the exam findings, performance of this keratoderma treatment is medically necessary as its management by an unskilled/untrained nonprofessional would put this patients foot and overall health at risk. Therefore, the benign hyperkeratotic lesions, ( 5 ) in total, locations as stated and described in the exam (?TA,?T5,?Heel(s),?B/L?,?SUB MTH (s),?4,?Right?), were pared, and/or cut utilizing a sterile 15 blade, tissue nippers, and/or power dremel instrumentation by the physician of record - 64927.? * Procedure Codes:?03678 DEBRI DE NAIL, 6 OR MORE, Modifiers: XS 06684 TRIM SKIN LESIONS, OVER 4, Modifiers: XS * Preventive Medicine:? ??Counseling:?Discussion:?-14: Office or other outpatient visit for the evaluation and management of an established patient, which required a medically appropriate history and/or examination and MODERATE level of DECISION MAKING for: 1 OR MORE CHRONIC PROBLEM(S) THATS WORSENING, 2 STABLE CHRONIC PROBLEMS, A NEWLY DIAGNOSED PROBLEM WITH UNCERTAIN PROGNOSIS, AN ACUTE COMPLICATED INJURY WITH MULTIPLE TREATMENT OPTIONS, OR AN ACUTE PROBLEM WITH ACCOMPANYING SYSTEMIC SYMPTOMS, THAT POSE(S) A MODERATE RISK OF MORBIDITY. THIS CONDITION MAY ALSO INCLUDE RX DRUG MANAGEMENT, OR A DECISON FOR MINOR SURGERY. The visit on the day of the [...] have encouraged the patient to call the office.?Consult:?The patient was counseled on the diagnosis, treatment options, and the need for a, Ultrasound to rule out a DVT, pt is unsure if she had an ultrasound, pt states she has had a lot of appts for her heart.?Podiatric Counseling:?I explained the etiology of the patients podiatric pathology and the usual treatment plan. The patient was made aware of the adverse risks and sequelae associated with their medical condition(s) and the treatment necessary to avoid those complications.? * Follow Up:?3 Months * Images: * Sign off status: Completed true * Provider:?Vannessa Tim DPM Date:?08/2025 Generated for Mihai pitts/Eric/Radha on:?12/15/2024 10:41 AM EST History and Physical Notes * HPI (History of Present Illness) Category Sub-Category Detail Notes Category Not es At Risk footcare Pt States Last PCP Visit: Date: 4 Swelling Nature: tightness, swell ing, redness Location: Right foot/leg Duration: 2 weeks Onset: sudden, no hx of tra jc, unknown Course: unresolved Examination Category Sub-Category Detail Notes Category Not [...] giving proper support at the present time DIGITAL DEFORMITIES: Digital contracture , PIPJ, 2-5 B/L, incompl-reducible with WB, or to push-up test, no over, nor underlapping MUSCLE STRENGTH: 5/5 all groups in a symmetrical fashion, B/L Ophthalmology Referral DIABETES EYE EXAM Procedure Perform ed:: Yes ?Date of Exam Performed: 05/17/2024 Findings of Diabetic Eye Exam:: no retin opathy Vascular DP PULSES (B): 2/4, B/L PT PULSES (B): 2/4, B/L CAPILLARY FILL TIME: immediate, all digi ts, B/L TEMPERTURE GRADIENT (C): normal, warm to cool, proximal to distal, B/L TROPHIC CONDITION-TEXTURE/ELASTICITY/TURGOR/HAIR GROWTH (B): decreased, with sparse to absent hair gr owth EDEMA (C): 2/4, without aching pain, Foot, Ankle(s), Leg(s), Right, pain with compression Nails NAILS are: Elongated, overg rown, dystrophic, greater than 3mm thick, discolored and friable with crumbly malodorous subungual debris, with dull to no pain on palpation due to neuropathy, TA, T1, T2, T3, T4, T5, T6, T7, T8, T9
--- OUTSIDE RECORDS SUMMARY | 2024-12-15 10:42 | XMS_ITS | Encounter Summary ---
Author Organization [facility], Address [address] [place] [address] Phone Care Team Providers Care Cardiothoracic Surgeon Name Role Phone Mariana Whitten MD Primary Care Provider [phone] Encounter Details Date Type Department Care Team (Late st Contact Info) Description 12/13/2020 Orders Only [facility] [address] [facility] [place] [address] Montse Grace MD Chronic kidney disease stage 3 Social History Tobacco Use Types Packs/Day Years [...] on file documented as of this encounter Procedures Procedure Name Priority Date/Time Associated Diagnosis Comments CBC Routine 06/30/2021 8:58 AM EDT Chronic kidney disease stage 3 RENAL FUNCTION PANEL Routine 06/30/2021 8:58 AM EDT Chronic kidney disease stage 3 documented in this encounter Results * (ABNORMAL) CBC (06/30/2021 8:58 AM EDT) White Blood Cells 8.7 (4.0-11.0) K/MM3 [facility] RBC 3.78(L) (4.20-5.40 ) M/MM3 [facility] Hgb 12.0 (11.7-15.5 ) GM/DL [facility] Hematocrit 37.3 (35.7-45.8 ) % [facility] MCV 98.7 (80.0-100. 0) FL [facility] MCH 31.7 (27.0-34.0 ) PG [facility] MCHC 32.2(L) (33.0-37.0 ) g/dL [facility] Platelets 281 (150-460) K/MM3 [facility] RDW-SD 46.4 (<47.0) FL [facility] MPV 12.8(H) (9.4-12.4) FL [facility] nRBC Count 0.0 #/100 WBC'S [facility] NRBC Absolute 0.0 K/MM3 [facility] Comment: Testing performed or reported by [facility], a Service of [facility], [address] [place] [address] Marcy Slaughter MD, Bioinformatics Technician [facility]# [id number] Blood 06/30/2021 8:58 AM EDT 06/30/2021 9:02 AM EDT us Montse Grace MD LAB BLOOD ORDERABLES Final Resu lt [facility] * (ABNORMAL) Renal function panel (06/30/2021 8:58 AM EDT) Glucose 104(H) (70-99) MG/DL [facility] BUN 48(H) (8-23) MG/DL [facility] Creatinine 1.4(H) (0.5-1.0) MG/DL [facility] Sodium 141 (133-145) MMOL/L [facility] Potassium 4.8 (3.6-5.2) MMOL/L [facility] Chloride 109(H) (98-107) MMOL/L [facility] Bicarbonate (CO2) 20(L) (22-29) MMOL/L [facility] Anion Gap 12 (4-17) [facility] Albumin 4.1 (3.4-4.8) GM/DL [facility] Calcium 9.4 (8.6-10.5) MG/DL [facility] Phosphorus, Serum 3.6 (2.5-4.5) MG/DL [facility] Est GFR Non 37 ML/MIN/1.7 3 M2 [facility] Comment: Creatinine based estimated glomerular filtration rate (eGFR) is calculated using the Chronic Kidney Disease Epidemiology Collaboration (CKD-EPI). The CKD-EPI creatinine equation has not been validated in children (<18 years), women or in some racial or ethnic subgroups other than Caucasians and Americans. EST GFR 43 ML/MIN/1.7 3 M2 [facility] Comment: Creatinine based estimated glomerular filtration rate (eGFR) is calculated using the Chronic Kidney Disease Epidemiology Collaboration (CKD-EPI). The CKD-EPI creatinine equation has not been validated in children (<18 years), women or in some racial or ethnic subgroups other than Caucasians and Americans. Testing performed or reported by [facility], a Service of [facility], [address] [place] [address] Marcy Slaughter MD, Bioinformatics Technician [facility]# [id number] Blood 06/30/2021 8:58 AM EDT 06/30/2021 9:02 AM EDT us Montse Grace MD LAB BLOOD ORDERABLES Final Resu lt [facility] documented in this encounter Visit Diagnoses Diagnosis Chronic kidney disease stage 3 (HCC) documented in this encounter Care Teams Cardiothoracic Surgeon Relationship Specialty Start Date End Date Mariana Whitten MD [address] [place] [address] PCP - General Internal Medicine 12/11/19 documented as of this encounter
== END 2024-12-15 10:47 | disposition home or self-care (01) ==
PROVIDERS: PCP Internal Medicine; Visit Provider Internal Medicine Nephrology
DX: N18.31 Chronic kidney disease, stage 3a (principal); I70.1 Atherosclerosis of renal artery; I50.22 Chronic systolic (congestive) heart failure
CPT/HCPCS: 99214

== ENCOUNTER → 2024-12-15 09:57 | Outpatient (BNVA) | payer MEDICARE, SELFPAY | PROVIDERS: PCP Internal Medicine; Visit Provider Internal Medicine Nephrology | DX: I13.0 Hypertensive heart and chronic kidney disease with heart failure and stage 1 through stage 4 chronic kidney disease, or unspecified chronic kidney disease (principal); M34.1 CR(E)ST syndrome; I25.10 Atherosclerotic heart disease of native coronary artery without angina pectoris; N18.31 Chronic kidney disease, stage 3a; I50.22 Chronic systolic (congestive) heart failure; I70.1 Atherosclerosis of renal artery | CPT/HCPCS: 99212 ==

== ENCOUNTER 2025-01-19 09:16 | Outpatient (AMB) | payer MEDICARE, SELFPAY ==
[2025-01-19 09:23] VITALS: BP 136/70; PULSE 74; O2SAT 97; BMI 30.2
--- NOTE | 2025-01-19 09:23 | MHC.PC.OV ---
Vital Signs 01/19/25 09:23 Height 5 ft 4 in Weight 176 lb BMI 30.2 BP 136/70 Blood Pressure Location Lt brachial Position Sitting Pulse 74 Pulse Source Pulse Oximeter Pulse Oximetry (%) 97 Oxygen Delivery Method Room Air Intake Visit Reasons: CAD, CKD Atrial fibrillation Allergies erythromycin base [ERYTHROMYCIN BASE] Allergy (Intermediate, Verified 01/19/25 09:24) HIVES flurbiprofen [From ANSAID] Allergy (Intermediate, Verified 01/19/25 09:24) HIVES azithromycin [AZITHROMYCIN] Allergy (Mild, Verified 01/19/25 09:24) RASHES NSAIDS (Non-Steroidal Anti-Inflamma [NSAIDS (NON-STEROIDAL ANTI-INFLAMMA] Allergy (Mild, Verified 01/19/25 09:24) RASHES ciprofloxacin [Cipro] Allergy (Unknown, Verified 01/19/25 09:24) Upset Stomach nitrofurantoin Allergy (Unknown, Verified 01/19/25 09:24) upset stomach Erythromycin Allergy (Unknown, Uncoded 01/19/25 09:24) Hives Sulfas Allergy (Unknown, Uncoded 01/19/25 09:24) Hives Medication List - Last Reconciled 01/19/25 by Jose Roberto Leggett MD acetaminophen (Tylenol) 975 mg PO Q6H PRN alendronate 70 mg PO QWEEK 90 days apixaban (Eliquis) 5 mg PO BID aspirin (Adult Aspirin Regimen) 81 mg PO DAILY atorvastatin 40 mg PO DAILY cholecalciferol (vitamin D3) 50 mcg PO DAILY docusate sodium (Colace) 100 mg PO DAILY furosemide 20 mg PO DAILY levothyroxine 100 mcg PO DAILY sacubitril-valsartan 24-26 mg (Entresto) 1 tab PO BID 30 days Tobacco use date assessed: 11/23/24 Fall risk assessment: No Falls in past year Last assessed Fall Risk: 01/19/25 Dental Screening Dental Screen Date: 11/23/24 Did you have a dental visit in the last 12 months?: No Did you have a dental problem in the last 6 months where you did not have access to dental care?: No Was dental information given to patient?: No [facility] Medical History CAD (coronary artery disease) CREST (calcinosis, Raynaud's phenomenon, esophageal dysfunction, sclerodactyly, telangiectasia) Inguinal hernia Type 2 diabetes mellitus with hyperglycemia Hypertension Polymyositis Renal artery stenosis Scleroderma Paroxysmal atrial fibrillation CKD (chronic kidney disease) stage 3, GFR 30-59 ml/min Hypothyroid Hypercholesterolemia Surgical History Hx of tonsillectomy History of lumbar fusion History of appendectomy Hx of total knee arthroplasty Hx of CABG S/P JUDI-BSO (total abdominal hysterectomy and bilateral salpingo-oophorectomy) Family History Mother Heart attack Father Heart attack Brother No problems noted. Son No problems noted. Son No problems noted. Social History Housing: House Alcohol intake: never Patient Tobacco Use Status: Never used Tobacco Tobacco use type: Cigarette e-Cigarette/Vaping Use: Never Used Second Hand Smoke Exposure: No service: No Current occupational status: retired Current occupational exposures/hazards: No Cognitive needs: No Hearing needs: Yes Vision needs: Yes Questionnaire PHQ-9 Over the last 2 weeks, how often have you been bothered by any of the following problems? 1. Little interest or pleasure in doing things: not at all 2. Feeling down, depressed, or hopeless: not at all 3. Trouble falling or staying asleep, or sleeping too much: not at all 4. Feeling tired or having little energy: not at all 5. Poor appetite or overeating: not at all 6. Feeling bad about yourself - or that you are a failure or have let yourself or your family down: not at all 7. Trouble concentrating on things, such as reading the newspaper or watching television: not at all 8. Moving or speaking so slowly that other people could have noticed. Or the opposite - being so fidgety or restless that you have been moving around a lot more than usual: not at all 9. Thoughts that you would be better off or of hurting yourself in some way: not at all Total score: 0 Depression Screening Interpretation: Negative Depression Screening Done: Yes 99459 - PHQ-9 Billing: Yes Source: Developed by Drs. Yogi LSahra Ramos Kurt Kroenke and colleagues, with an educational yenny from [employer]. Thrive Questionnaire Date Thrive assessed: 11/23/24 AUDIT C Alcohol Use Questionnaire (AUDIT-C) 1. How often do you have a drink containing alcohol?: Never 3. How often do you have six or more drinks on one occasion?: Never Total Score: 0 HARRY-7 AMB Questionnaire HARRY-7 Date HARRY - 7 assessed: 11/23/24 Source: Developed by Sahra Orta Kurt Kroenke and colleagues, with an educational yenny from [employer]. Physical exam (Primary Care) Vital Signs: Last Vital Signs Pulse 74 01/19/25 09:23 BP 136/70 01/19/25 09:23 Pulse Ox 97 01/19/25 09:23 Oxygen Delivery Method Room Air 01/19/25 09:23 BMI result Body Mass Index 30.2 Tobacco/Smoking Status: Tobacco use Status Tobacco use date assessed 11/23/24 01/19/25 09:24 Patient Tobacco Use Status Never used Tobacco 01/19/25 09:24 Tobacco use type Cigarette 01/19/25 09:24 e-Cigarette/Vaping Use Never Used 01/19/25 09:24 PHQ-9: PHQ-9 Score PHQ-9: Total score 0 01/19/25 09:53 Depression Screening Interpretation: Negative Thrive Assessment: Date of Thrive Assessment Date Thrive assessed 11/23/24 01/19/25 09:24 Const General: alert; No acute distress Eyes Conjunctivae: conjunctivae normal Resp Auscultation: clear to auscultation bilaterally Cardio Rate: regular rate Rhythm: regular rhythm GI Inspection: Yes normal to inspection Extrem General: Yes normal to inspection and No edema Coding Level of Care Code Tele Est Pt Level 4 (96169) Complex EM visit Add On G2211 Diagnoses Ischemic cardiomyopathy with implantable cardioverter-defibrillator (ICD) I25.5; Z95.810 Coronary artery disease involving [place] coronary artery of [place] heart without angina pectoris I25.10 Associated angina: without angina Coronary Disease-Associated Artery/Lesion type: [place] artery [place] vs. transplanted heart: [place] heart CREST (calcinosis, Raynaud's phenomenon, esophageal dysfunction, sclerodactyly, telangiectasia) M34.1 Type 2 diabetes mellitus with hyperglycemia, without long-term current use of insulin E11.65 Diabetes mellitus retirement insulin use: without retirement use Renovascular hypertension I15.0 Hypertension type: renovascular hypertension Renal artery stenosis I70.1 Paroxysmal atrial fibrillation I48.0 Stage 3a chronic kidney disease N18.31 Chronic kidney disease stage 3 subtype: stage 3a (GFR 45-59) Hypercholesterolemia E78.00 Acquired hypothyroidism E03.9 Hypothyroidism type: acquired Obesity E66.9 Additional Codes PHQ-9 - 18259 - PHQ-9 Billing: Yes ([id number]) Assessment & Plan Assessment & Plan (1) Ischemic cardiomyopathy with implantable cardioverter-defibrillator (ICD): Code(s): I25.5 - Ischemic cardiomyopathy; Z95.810 - Presence of automatic (implantable) cardiac defibrillator Category: Medical Plan: Patient continues to follow-up with cardiology and has improved even with the lead misplaced. (2) CAD (coronary artery disease): Comment: CABG x4 11/04/2023(Shabazz to LAD, SVG to PDA, SVG to OM, SVG to diag) Code(s): I25.10 - Atherosclerotic heart disease of [place] coronary artery without angina pectoris Category: Medical Qualifiers: Associated angina: without angina Coronary Disease-Associated Artery/Lesion type: [place] artery [place] vs. transplanted heart: [place] heart Qualified Code(s): I25.10 - Atherosclerotic heart disease of [place] coronary artery without angina pectoris Plan: Control the cholesterol, weight, blood pressure, diabetes continuing with aspirin and apixaban (3) CREST (calcinosis, Raynaud's phenomenon, esophageal dysfunction, sclerodactyly, telangiectasia): Code(s): M34.1 - CR(E)ST syndrome Category: Medical Plan: Stable (4) Type 2 diabetes mellitus with hyperglycemia: Code(s): E11.65 - Type 2 diabetes mellitus with hyperglycemia Category: Medical Qualifiers: Diabetes mellitus long[place] foreman insulin use: without retirement use Qualified Code(s): E11.65 - Type 2 diabetes mellitus with hyperglycemia Plan: Decrease the amount of carbohydrate intake, pasta, bread, rice and potatoes are all sugar and that is aside from all the sweet stuff, remember that fruits are good but they are Sweet also. Hemoglobin A1c goal of less than 7.0 patient is diet control (5) Hypertension: Code(s): I10 - Essential (primary) hypertension Category: Medical Qualifiers: Hypertension type: renovascular hypertension Qualified Code(s): I15.0 - Renovascular hypertension Plan: Continue with blood pressure medication. Decrease salt intake and exercise patient on 2nd and Entresto (6) Renal artery stenosis: Code(s): I70.1 - Atherosclerosis of renal artery Category: Medical Plan: Continue to be monitored by Nephrology. (7) Paroxysmal atrial fibrillation: Code(s): I48.0 - Paroxysmal atrial fibrillation Category: Medical Plan: Continue with anticoagulation. (8) CKD (chronic kidney disease) stage 3, GFR 30-59 ml/min: Code(s): N18.30 - Chronic kidney disease, stage 3 unspecified Category: Medical Qualifiers: Chronic kidney disease stage 3 subtype: stage 3a (GFR 45-59) Qualified Code(s): N18.31 - Chronic kidney disease, stage 3a Plan: Continuing to monitor follows up with Nephrology (9) Hypercholesterolemia: Code(s): E78.00 - Pure hypercholesterolemia, unspecified Category: Medical Plan: Avoid fried foods, chicken skin, eggs, butter margarine, pastries and meat. Be it pork or beef they have a lot of cholesterol on atorvastatin 40 mg once a day (10) Hypothyroid: Code(s): E03.9 - Hypothyroidism, unspecified Category: Medical Qualifiers: Hypothyroidism type: acquired Qualified Code(s): E03.9 - Hypothyroidism, unspecified Plan: Continue with thyroid medication (11) Obesity: Code(s): E66.9 - Obesity, unspecified Category: Medical Plan: Diet and exercise Plan History of Present Illness The patient is an 79-year-old female presenting for follow-up of her chronic medical conditions including obesity, cardiovascular disease, chronic kidney disease, and hypothyroidism. She has been experiencing a significant improvement in her cardiac function with an ejection fraction increase noted in a recent echocardiogram. Her ischemic cardiomyopathy has shown improvement despite complications with her coronary sinus lead. Her stage 3 chronic kidney disease is being monitored, with stable creatinine and GFR levels. The patient's diabetic condition is diet controlled with a favorable A1c level. She uses Entresto for heart failure management and continues on Atorvastatin and Levothyroxine for her existing conditions. Her carotid stenosis presents a notable risk, being managed with aspirin and Eliquis to prevent thrombotic events. Monitoring strategies centered on her cardiac and renal conditions have been emphasized, ensuring participation with cardiology and nephrology. Health Maintenance - Blood glucose control with an A1c goal of <7.0%; last level was 6.5. - Hypercholesterolemia controlled with atorvastatin. - Continue monitoring of renal function with routine blood tests. - Supportive dietary interventions for obesity and diabetes management. - Anticoagulation therapy with aspirin and Eliquis for carotid artery disease. Social History - Family obligations impacting health management as patient's is unwell. - Patient maintains awareness and engagement with her own healthcare needs, despite personal challenges. Review of Systems - Cardiovascular: Reports symptoms of cough intermittently. - Endocrine: Denies any issues related to thyroid medication compliance. Physical Exam - Cardiovascular- Noted ejection fraction improvement to 30-35% on recent echocardiogram. - Vascular- Bilateral carotid stenosis noted at high-grade levels (70-99% obstruction). Results - Echocardiogram from December indicating EF 30-35%, improved from May. - Blood work from October showing blood glucose of 102, BUN 36, creatinine 1.2, GFR of 46, sodium 145 mmol/L. Plan 1. 0. Continue atorvastatin for cholesterol management. Monitor bilateral carotid artery stenosis with regular follow-ups, maintaining anticoagulation therapy with aspirin and Eliquis. Evaluate pacing and lead placements as needed. Encourage adherence to medication regimens and maintaining specialist appointments.: Patient was informed and verbally consented to the use of an ambient scribe for clinic note documentation during this visit. Discussion Notes Patient Instructions - Continue all prescribed medications as directed. - Follow a low-fat, high-fiber diet to manage diabetes and cholesterol. - Attend regular cardiology and nephrology follow-ups. - Monitor blood pressure regularly and adhere to medication regimen. - Watch for any new or worsening symptoms and report them promptly. - Keep future appointments with specialists to closely monitor health conditions. Medications: Refilled levothyroxine 100 mcg PO DAILY 90 tabs 3RF
--- OUTSIDE RECORDS SUMMARY | 2025-01-19 10:03 | XMS_ITS ---
Author Organization [facility] Address [address] [place] [address] Care Team Providers Care Vice President Biostatistics Name Role Phone Jose Roberto Leggett Primary Care Provider Vannessa Dai [phone] REASON FOR VISIT RLE ultrasound 3pm 11/20/24 Encounters Encounter Location Date Provider Diagnosis [address] [address] 11/17/2024 Vannessa Tim Plan Of Treatment Next Appt Details Provider Name:Vannessa benjamin, 02/09/2025 12:15:00 PM, [address] [place], [address], Progress Notes * HORACIO, Perlita ADOB:12/1944 (79 yo F)Acc No.[id number]:11/17/2024 Patient:?Perlita LEONARD :1945???Age:79 Y???Sex:Female Address:[address] [place] [address], [id number] * true * Date:? Generated for Printi ng/Faxing/eTransmitting on:?01/19/2025 10:03 AM EDT
--- OUTSIDE RECORDS SUMMARY | 2025-01-19 10:03 | XMS_ITS | Encounter Summary ---
Author Organization [facility], Address [address] [place] [address] Phone Care Team Providers Care Assembler Musical Instruments Name Role Phone Mariana Whitten MD Primary Care Provider [phone] Encounter Details Date Type Department Care Team (Late st Contact Info) Description 03/01/2020 Orders Only [facility] - [address] [facility] [address] [place] [address] Montse Grace MD Chronic kidney disease stage [...] (HCC) documented in this encounter Care Teams Assembler Musical Instruments Relationship Specialty Start Date End Date Mariana Whitten MD [address] [place] [address] PCP - General Internal Medicine 12/11/19 documented as of this encounter
--- OUTSIDE RECORDS SUMMARY | 2025-01-19 10:03 | XMS_ITS | Clinical Summary ---
Author Organization [facility], Address [address] [place] [address] [place] [phone] Phone Care Team Providers Care Sealer Dry Cell Name Role Phone Mariana Whitten MD Primary Care Provider [phone] Allergies Active Allergy Reactions Criticality Noted Date [...] Medical History Relation Comments Heart disease Father [place] Hypertension Father Brain cancer Father's Sister Hypertension [...] * Hemoglobin A1c (06/23/2022 7:37 AM EDT) [facility] Signature Hemoglobin A1C 5.6 (4.0-5.6) % [facility] Comment: MONITORING: In known diabetic patients, hemoglobin A1c targets should be discussed with health care provider. DIAGNOSTIC USE: ??The [place] Diabetes Association (ADA) and the World Health [...] Supplement 1 Testing performed or reported by [facility], a Service of [facility], [address] [place] [address] Marcy Slaughter MD, Jar Filler [facility]# [id number] 06/23/2022 7:37 AM EDT 06/23/2022 8:21 AM EDT us Aps External Provider LAB BLOOD ORDERABLES Final Result [facility] from Last 3 Months or Most Recently Relevant to Health Maintenance Insurance MEDICARE [facility] Care Teams Sealer Dry Cell Relationship Specialty Start Date End Date Mariana Whitten MD [address] [place] [address] PCP - General Internal Medicine 12/11/19
--- OUTSIDE RECORDS SUMMARY | 2025-01-19 10:03 | XMS_ITS | Patient Health Record ---
Author Organization [facility] Address [address] [place] [address] Care Team Providers Care Final Operations Technician Name Role Phone Jose Roberto Leggett Primary Care Provider Vannessa Dai Unavailable [phone] Dawn Roland Unavailable [phone] Allergies Allergen (clinical drug ingredient) Drug/Non Drug Allergy documented on EMR Reaction Allergy Type Onset Date Status Bactrim Unknown Drug Allergy Active Biaxin Unknown [...] Olmesartan Medoxomil 20 MG (Prior Auth: Rx Ref#:[id number]) Oral for 15 Not-Taking hydrALAZINE HCl 100 MG Orally Three time s a day Not-Taking Chlorthalidone 50 MG 1 tablet in the mor candace Orally Once a day Not-Taking Farxiga 10 MG TAKE 1 TABLET BY JERRI TH EVERY DAY Oral for 30 Days Not-Taking Nystatin 760125 UNIT/GM USE 1 APPLICATIO N TOPICALLY 2 [...] Problem Acquired hammer toe of right foot (5491120391658871 ) Other hammer toe(s) (acquired), right foot (M20.41) Active confirmed Response to treatment, Improvemen t Problem Acquired hammer toe of left foot (3751551872825730 ) Other hammer toe(s) (acquired), left foot (M20.42) Active confirmed Response to treatment, Improvemen t Problem Polyneuropathy due to type 2 diabetes mellitus (422827179) Type 2 diabetes mellitus with diabetic polyneuropathy (E11.42) Active confirmed Problem 389724872 Hammer toe of right foot (M20.41) Active confirmed Problem 174332642 Hammer toe of left foot (M20.42) Active confirmed Problem 57700779 Osteoarthritis of right ankle and foot (M19.071) Active confirmed Vital Signs Blood pressure diastolic 80 mm Hg 11/17/2024 Height 5 ft 4 in in 11/17/2024 Blood pressure systolic 120 mm Hg 11/17/2024 Weight 164 lbs 11/17/2024 BMI 28.15 kg/m2 11/17/2024 Encounters Encounter Location Date Provider Diagnosis [address] [address] 04/14/2024 Vannessa Tim Type 2 diabetes mellitus with diabetic polyneuropathy E11.42 ; Other hammer toe(s) (acquired), right foot M20.41 ; Tinea unguium B35.1 and Other hammer toe(s) (acquired), left foot M20.[address] [address] 08/18/2024 Dawn Roland Type 2 diabetes mellitus with diabetic polyneuropathy E11.42 ; Tinea unguium B35.1 ; Other hammer toe(s) (acquired), right foot M20.41 and Other hammer toe(s) (acquired), left foot M20.[address] [address] 11/17/2024 Vannessa Tim Type 2 diabetes mellitus with diabetic polyneuropathy E11.42 ; Acute deep vein thrombosis (DVT) of right lower extremity, unspecified vein I82.401 ; Tinea unguium B35.1 ; Other hammer toe(s) (acquired), right foot M20.41 and Other hammer toe(s) (acquired), left foot M20.[address] [address] 07/19/2024 Vannessa Tim [address] [address] 11/17/2024 Vannessa Tim Assessments Encounter Date Diagnosis (ICD Code) Assessment Notes Treatment Notes Treatment Clinical Notes Section Notes 04/14/2024 Other hammer toe(s) (acquired), right foot [...] vement 04/14/2024 Tinea unguium (ICD-10 - B35.1) 04/14/2024 Other [...] X ray : Foot, right 3V 04/12/2018 10530-NPSEQCD NAIL, 6 OR MORE 04/12/2018 88514-HTADQYD NAIL, 6 OR MORE 03/16/2017 29119-ZGFXUFF NAIL, 6 OR MORE 08/28/2015 77005-ANTNTLJ NAIL, 6 OR MORE 11/28/2015 70933-BFJEMZG NAIL, 6 OR MORE 04/07/2016 92463-IKWFTWQ NAIL, 6 OR MORE 08/11/2016 60251-MNOYBSU NAIL, 6 OR MORE 11/04/2016 78932-FPKHEBL NAIL, 6 OR MORE 09/24/2017 77181-DPSAAEK NAIL, 6 OR MORE 07/05/2018 21369-SLXXCFC NAIL, 6 OR MORE 09/13/2018 73035-Yzqcbaei Plate 03/31/2017 36819-DEKI SKIN LESIONS, OVER 4 09/24/20 17 25633-OMXB SKIN LESIONS, OVER 4 07/05/20 18 01167-TDLR SKIN LESIONS, OVER 4 04/12/20 18 41963-IOBY SKIN LESIONS, OVER 4 11/04/20 16 22035-IWBB SKIN LESIONS, OVER 4 03/16/20 17 96427-PLVE SKIN LESIONS, OVER 4 11/28/19 16 24177-WYLN SKIN LESIONS, OVER 4 08/28/20 15 00835-UMUA SKIN LESIONS, OVER 4 09/13/20 18 56461-QAOS SKIN LESIONS, 2 TO 4 08/11/20 16 HEMOGLOBIN A1C (GLYCOHEMOGLOBIN) 018 Next Appt Details Provider Name:Vannessa benjamin, 02/09/2025 12:15:00 PM, [address] [place] [address], [phone], Insurance Providers Payer Name Payer Address Payer Phone Subscriber Number Group Number Insured Name Patient Relationship to Insured Coverage Start Date Coverage End Date Medicare National [employer]t [employer] [address] [facility] [place] [address] [id number] Jon Perlita shaikh Self - patient is the insured 2 [employer] [address] [place] [address] [id number] Jonse flynnkerline Perlita Self - patient is the insured Medical [...]
--- OUTSIDE RECORDS SUMMARY | 2025-01-19 10:03 | XMS_ITS | Encounter Summary ---
Author Organization [facility], Address [address] [place] [address] Phone Care Team Providers Care Finishing Manager Name Role Phone Mariana Whitten MD Primary Care Provider [phone] Encounter Details Date Type Department Care Team (Late st Contact Info) Description 01/22/2023 Documentation Only [facility], - [address] [facility] [address] [place] [id number] Mariana Whitten MD [address] [place] [address] Social History Tobacco Use Types Packs/Day Years [...] on filedocumented in this encounter Care Teams Finishing Manager Relationship Specialty Start Date End Date Mariana Whitten MD [address] [place] [address] PCP - General Internal Medicine 12/11/19 documented as of this encounter
--- OUTSIDE RECORDS SUMMARY | 2025-01-19 10:04 | XMS_ITS ---
Author Organization [facility] Address [address] [place] [address] Care Team Providers Care Motor Vehicle Salesperson Name Role Phone Jose Roberto Leggett Primary Care Provider Vannessa Dai Unavailable [phone] Allergies Allergen (clinical drug ingredient) Drug/Non Drug [...] Olmesartan Medoxomil 20 MG (Prior Auth: Rx Ref#:[id number]) Oral for 15 Not-Taking hydrALAZINE HCl 100 [...] DAY Oral for 30 Days Not-Taking Nystatin 560886 UNIT/GM USE 1 APPLICATIO N TOPICALLY 2 [...] 025 Encounters Encounter Location Date Provider Diagnosis [facility] [address] [address] 11/17/2024 Vannessa Tim Type 2 diabetes mellitus [...] Reason: Provider Name:Vannessa benjamin, 02/09/2025 12:15:00 PM, [address] [place], [address], Procedure Notes * Category Sub-Category Detail Notes [...] to maintain effectiveness in symptomatic relief - 41120 Keratoma Treatment Parring or Cutting o f [...] instrumentation by the physician of record - 82788 Progress Notes * Perlita LEONARD ADOB:12/1944 (79 yo F)Acc No.[id number]:11/17/2024 Progress Note Patient:?Perlita LEONARD Provider:?Vannessa Tim DPM :1945???Age:79 Y???Sex:Female D ate:11/17/2024 Address:[address] [place] [phone] Pcp:Jose Roberto Leggett Subjective: * Chief Complaints: [...] bypass surgery 11/04/23 * Hospitalization/Major Diagno stic Procedure:?[facility] [place] High blood pressure Left Kidney necrotic 02[place]2018[facility] [place] Heart problems 01/2019[facility] [place] heart problems/htn/afib 07/2019[facility] [place] Woke up in the morning pt didnt know where she was and she was dizzy- Doctors thought its TIA 02/26/2020[facility] [place] Heart issues 08/07/24 * Family History:?Mother: dece [...] yes, walking. ?Marital status: . 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 ???Drug/Alcohol:?AUDIT-C (Standard)?Did you have a drink [...] the evening Orally Once a day Nystatin 997700 UNIT/GM Powder USE 1 APPLICATION TOPICALLY 2 TIMES A DAY,X10 DAYS External Farxiga 10 MG Tablet TAKE 1 TABLET BY MOUTH EVERY DAY Oral Chlorthalidone 50 MG Tablet 1 tablet in the morning Orally Once a day hydrALAZINE HCl 100 MG Tablet Orally Three times a day Olmesartan Medoxomil 20 MG Tablet (Prior Auth: Rx Ref#:[id number]) Oral Extra Depth Orthopedic Shoes (1 Pair) [...] Orally Once a day Not- Taking/PRN Nystatin 414714 UNIT/GM Powder USE 1 APPLICATION TOPICALLY 2 TIMES A DAY,X10 DAYS External Not-Taking/PRN Farxiga 10 MG Tablet TAKE 1 TABLET BY MOUTH EVERY DAY Oral Not-Taking/PRN Chlorthalidone 50 MG Tablet 1 tablet in the morning Orally Once a day Not-Taking/PRN hydrALAZINE HCl 100 MG Tablet Orally Three times a day Not- Taking/PRN Olmesartan Medoxomil 20 MG Tablet (Prior Auth: Rx Ref#:[id number]) Oral Not- Taking/PRN Extra Depth Orthopedic Shoes [...] 6.5 * Examination: ???Ophthalmology Referral: ?DIABETES EYE EXAM?Procedure Performed:?Yes ?Date of Exam Performed?05/17/2024 ?Findings of Diabetic Eye Exam:?no retinopathy?Neurological: ?SENSORY:?Neurological exam demonstrates reduced light touch sensation [...] to maintain effectiveness in symptomatic relief - 66809.?Keratoma Treatment:?Parring or Cutting of Benign Hyperkeratotic Lesion(s)?(-57) [...] instrumentation by the physician of record - 62009.? * Procedure Codes:?94414 DEBRI DE NAIL, 6 OR MORE, Modifiers: XS 22740 TRIM SKIN LESIONS, OVER 4, Modifiers: XS [...] Provider:?Vannessa Tim DPM Date:?08/2025 Generated for Mihai pitts/Eric/Amrititting on:?01/19/2025 10:04 AM EDT History and Physical Notes * HPI (History [...]
--- OUTSIDE RECORDS SUMMARY | 2025-01-19 10:04 | XMS_ITS | Encounter Summary ---
Author Organization [facility], Address [address] [place] [address] Phone Care Team Providers Care Quality Control Supervisor Name Role Phone Mariana Whitten MD Primary Care Provider [phone] Encounter Details Date Type Department Care Team (Late st Contact Info) Description 12/13/2020 Orders Only [facility] [address] [facility] [address] [place] [address] Montse Grace MD Chronic kidney disease stage [...] M/MM3 [facility] Hgb 12.0 (11.7-15.5 ) GM/DL [facility] Hematocrit 37.3 (35.7-45.8 ) % [facility] MCV 98.7 (80.0-100. 0) [place] [facility] MCH 31.7 (27.0-34.0 ) PG [facility] MCHC 32.2(L) (33.0-37.0 ) g/dL [facility] Platelets 281 (150-460) K/MM3 [facility] RDW-SD 46.4 (<47.0) FL [facility] MPV 12.8(H) (9.4-12.4) [place] [facility] nRBC Count 0.0 #/100 WBC'S [facility] NRBC Absolute 0.0 K/MM3 [facility] Comment: Testing performed or reported by [facility], a Service of [facility], [address] [place] [address] Marcy Slaughter MD, Glass Robot Operator [facility]# [id number] Blood 06/30/2021 8:58 AM EDT 06/30/2021 9:02 AM EDT us Montse Grace MD LAB BLOOD ORDERABLES Final Resu lt [facility] * (ABNORMAL) Renal function panel (06/30/2021 8:58 AM EDT) Glucose 104(H) (70-99) MG/DL [facility] BUN 48(H) (8-23) MG/DL [facility] Creatinine 1.4(H) (0.5-1.0) MG/DL [facility] Sodium 141 (133-145) MMOL/L [facility] Potassium 4.8 (3.6-5.2) MMOL/L [facility] Chloride 109(H) (98-107) MMOL/L [facility] Bicarbonate (CO2) 20(L) (22-29) MMOL/L [facility] Anion Gap 12 (4-17) [facility] Albumin 4.1 (3.4-4.8) GM/DL [facility] Calcium 9.4 (8.6-10.5) MG/DL [facility] Phosphorus, Serum 3.6 (2.5-4.5) MG/DL [facility] Est GFR Non 37 ML/MIN/1.7 3 M2 [facility] Comment: Creatinine based estimated glomerular filtration rate (eGFR) is calculated using the Chronic Kidney Disease Epidemiology Collaboration (CKD-EPI). The CKD-EPI creatinine equation has not been validated in children (<18 years), women or in some racial or ethnic subgroups other than Caucasians and Americans. EST GFR 43 ML/MIN/1.7 3 M2 [facility] Comment: Creatinine based estimated glomerular filtration rate (eGFR) is calculated using the Chronic Kidney Disease Epidemiology Collaboration (CKD-EPI). The CKD-EPI creatinine equation has not been validated in children (<18 years), women or in some racial or ethnic subgroups other than Caucasians and Americans. Testing performed or reported by [facility], a Service of [facility], [address] [place] [address] Marcy Slaughter MD, Glass Robot Operator [facility]# [id number] Blood 06/30/2021 8:58 AM EDT 06/30/2021 9:02 AM EDT us Montse Grace MD LAB BLOOD ORDERABLES Final Resu lt [facility] documented in this encounter Visit Diagnoses Diagnosis Chronic kidney disease stage 3 (HCC) documented in this encounter Care Teams Quality Control Supervisor Relationship Specialty Start Date End Date Mariana Whitten MD [address] [place] [address] PCP - General Internal Medicine 12/11/19 documented as of this encounter
--- OUTSIDE RECORDS SUMMARY | 2025-01-19 10:04 | XMS_ITS | Clinical Summary ---
Author Organization [facility] Address [address] [place] [address] Phone Care Team Providers Care Rivet Hammer Machine Operator Name Role Phone Jose Roberto Leggett MD Primary Care Provider [phone] Allergies Active Allergy Reactions Criticality Noted Date Comments Azithromycin Rash 05/07/2022 Celecoxib Rash 05/07/2022 Ciprofloxacin-Hydrocortis one Rash 10/10/2020 Erythromycin 10/10/2020 Nitrofurantoin 10/10/2020 Nsaids (Non-Steroidal Anti-Inflammatory Drug) Nausea And Vomiting 10/10/2020 Oxycodone Nausea And Vomiting 01/04/2018 Other reaction(s): GI Upset Sulfa (Sulfonamide Antibiotics) Rash 10/10/2020 Medications aspirin 81 mg EC tablet Take 81 [...] tablet Take 100 mcg by mouth daily. 3 Active metoprolol tartrate (LOPRESSOR) 25 mg tablet Take 1 tablet (25 mg total) by mouth 2 (two) times a day. Active apixaban (Eliquis) 5 mg tablet Take 1 tablet (5 mg total) by mouth 2 (two) times a day. 60 each 2 5 11/24/19 26 Active atorvastatin (LIPITOR) 40 mg tabletIndications :Coronary artery disease involving chefornak coronary artery without angina pectoris, unspecified whether chefornak or transplanted heart TAKE 1 TABLET BY MOUTH EVERY DAY 90 tablet 1 5 Active Entresto 49-51 mg per tablet Take 1 tablet by mouth 2 (two) times a day. 180 tablet 3 5 Active sacubitriL-valsar murillo (Entresto) 49-51 mg per tablet Take 1 tablet by mouth 2 (two) times a day. 4 12/22/19 25 Discontinu ed(Formula ry change) Active Problems Problem Noted Date Diagnosed Date Localized edema 11/24/2024 Assessment & Plan (11/24/2024 2:28 PM EST): Patient has localized edema to the right leg. This most likely is due to venous insufficiency or loss of plumbing due to bypasses. Patient is quite worried about it is minimal she has support socks have recommended that she buy a pair with a little oil burner elastic in them to try to get [...] function prior to moving ahead with a CINETECHNICIAN device. Her QRS width is just under [...] in regards to whether she needs a CINETECHNICIAN-D.She will continue with Eliquis. I do think would be reasonable to consider discontinuation of aspirin although she does have peripheral vascular disease as well as coronary disease. Urinary tract infection 05/07/2022 Coronary artery disease invo lving chefornak coronary artery without angina pectoris 10/10/2020 Overview [...] Encounters Date Type Department Care Team Description 12/27/2024 5:20 PM EST Ancillary Procedure [facility] [address] [place] [phone] 12/22/2024 Telephone [facility] [address] [place] [address] Derick Medina MD Prior Auth (Sacubitril-Valsartan 49-51MG tablets) 12/11/2024 2:00 PM EST Ancillary Procedure [facility] [address] [place] [address] Coronary artery disease involving chefornak coronary artery without angina pectoris, unspecified whether chefornak or transplanted heart 11/24/2024 9:20 AM EST Office Visit [facility] [address] [place] [address] Derick Medina MD Coronary artery disease involving chefornak coronary artery without angina pectoris, unspecified whether chefornak or transplanted heart (Primary Dx); Localized edema; Ischemic cardiomyopathy; Paroxysmal atrial fibrillation ([facility]/HCC) 11/20/2024 2:46 PM EST - 11/20/2024 11:59 PM EST Hospital Encounter [facility] Ultrasound [address] [place] [phone] Swelling; Localized edema Discharge Disposition: Home or Self Care 11/02/2024 3:00 PM EST Ancillary Procedure [facility] - [address] [place] [phone] Encounter for adjustment or management of cardiac device 11/02/[address] [facility] [address] [place] [address] Derick Medina MD Weight Gain; Foot Swelling from Last 3 Months Immunizations Name Administration Dates Next Due Pfizer SARS-CoV-2 COVID-19, mRNA, LNP-S, preservative free 01/07/2021,12/17/2020 Surgical History Surgery Date Site/Laterality Comments ANGIOPLASTY PROCEDURE: HISTORICAL ANGIOPLASTY W/STENT CARDIAC CATHETERIZATION PROCEDURE: HISTORICAL CARDIAC CATH OTHER SURGICAL HISTORY 2009 PROCEDURE: HISTORY OTHER; COMMENT: DEBBIE LAD, LCX OTHER SURGICAL HISTORY PROCEDURE: UT PATIENT HAS A CORONARY ARTERY STENT HYSTERECTOMY [...] Assigned at Female 09/22/2024 8:46 AM EST Legal Sex Female 1:08 AM EST Gender Identity Female 09/22/2024 8:46 AM EST Sexual Orientation Straight 09/22/2024 8: 46 AM EST Obstetrics History Last Filed Vital Signs Vital [...] Description 04/05/2025 11:20 AM EDT Office Visit [facility] [address] [place] [address] [address] [place] [phone] Derick Medina MD [address] [place] [address] [address] [place] [address] 04/24/2025 10:00 AM EDT Ancillary Procedure [facility] [address] [facility] [address] [place] [address] Health Maintenance Due Date Last Done Comments [...] Blood Test 11/06/2025 11/06/2024, 09/23/2024 Pneumococcal Vaccine: 50+ Years Completed 04/10/2021, 01/15/2020 Influenza Vaccine Completed [...] patient's age to complete this topic Meningococcal B Vacine Aged Out No lo nger eligible based on patient's age to complete this topic RSV Immunization Patients Under 20 months Aged Out No longer eligible based on patient's age to complete this topic Varicella Vaccines Aged Out No longer eligible based on patient's age to complete this topic Medical Devices Implanted Type Area Steam Drier Tender Device Identifier Shelf Expiration Date Model / Serial / Lot Defib Icd Bi Vent [place] Hr Copier Operator D - [id number] - [id number] Implanted:Qty: 1 on 09/22/2024 by Zack Mayers MD at [facility] Cardiac CINETECHNICIAN-D ICD Left: Heart [facility] [id number] 01/05/2026 [id number] / [id number] / Abbt-Stju [place] Hf [id number] Implanted:09/08 (Quantity not on file) Cardiac CINETECHNICIAN-D ICD Left: Chest [facility] GALLANT HF [id number] / [id number] / Abbt-Stju [id number] [place](Tm) Hf [id number] Implanted:09/08 (Quantity not on file) Cardiac CINETECHNICIAN-D ICD [facility] [id number] GALLANT(T M) HF / [id number] / Lead Tachy Durat 58cm 7122q/58 Sj4 - [id number] - [id number] Implanted:Qty: 1 on 09/22/2024 by Zack Mayers MD at [facility] Cardiac Lead N/A: Heart [facility] [id number] 02/05/2027 7122Q/58 / [id number] / Lead Pcmk Tendril Sts 3gix46yt - [id number] - [id number] Implanted:Qty: 1 on 09/22/2024 by Zack Mayers MD at [facility] Cardiac Lead Left: Heart [facility] [id number] 05/07/2027 2088TC/52 / [id number] / Lead Pcmkr Lv Quartet 75cm Quadripolar - [id number] - [id number] Implanted:Qty: 1 on 09/22/2024 by Zack Mayers MD at [facility] Cardiac Lead Left: Heart [facility] [id number] 03/07/2027 1458Q/75 / [id number] / Procedures Procedure Name Priority Date/Time Associated Diagnosis Comments [facility] Rout[facility] 12/27/2024 5:17 PM EST TRANSTHORACIC ECHOCARDIOGRAM (TTE) COMPLETE W/ CONTRAST Routine 12/11/2024 2:35 PM EST Coronary artery disease involving chefornak coronary artery without angina pectoris, unspecified whether chefornak or transplanted heart VAS US DUPLEX LOWER EXT VENOUS RIGHT Routine 11/20/2024 3:08 PM EST Swelling Localized edema BASIC METABOLIC PANEL Routine 11/06/2024 8:34 AM EST HFrEF (heart failure with reduced ejection fraction) (CMS/HCC) CARDIAC DEVICE CHECK- IN CLINIC- [facility] Routine 11/02/2024 4:19 PM EST Encounter for adjustment or management of cardiac device from Last 3 Months Results * Cardiac device check - Remote- [facility] (12/27/2024 5:17 PM EST) Date Time Interrogation Session [id number] CV DEVICE CHECK Type Interrogation Session Remote Device Initiated CV DEVICE CHECK Implantable Pulse Generator Steam Drier Tender [employer] CV DEVICE CHECK Implantable Pulse Generator Type CINETECHNICIAN-D CV DEVICE CHECK Implantable Pulse Generator Model [id number] [place](TM) HF CV DEVICE CHECK Implantable Pulse Generator Serial Number [id number] CV DEVICE CHECK Implantable Pulse Generator Implant Date 20240922 CV DEVICE CHECK Battery Remaining Percentage 91.00 CV DEVICE CHECK Battery Remaining Longevity 52.0 CV DEVICE CHECK Battery Voltage 2.960 CV D EVICE CHECK Battery AUTO BODY DETAILER Trigger 2.620 CV DEVICE CHECK Battery Status Middle of Service CV DEVICE CHECK Capacitor Charge Time 9.800 CV DEVICE CHECK Francisco Statistic RA Percent Paced 87.00 CV DEVICE CHECK Francisco Statistic RV Percent Paced 93.00 CV DEVICE CHECK CINETECHNICIAN Statistic CINETECHNICIAN Percent Paced 93.00 CV DEVICE CHECK Atrial Tachy Statistic AT/AF [place] Percent 0.00 CV DEVICE CHECK Lead Channel Sensing Intrinsic Amplitude 1.200 CV DEVICE CHECK Lead Channel Setting Sensing Sensitivity 0.30 CV DEVICE CHECK Lead Channel Impedance Value 430 CV DEVICE CHECK Lead Channel Setting Pacing Amplitude 2.000 CV DEVICE CHECK Lead Channel Setting Pacing Pulse Width 0.5 CV DEVICE CHECK Lead Channel Sensing Intrinsic Amplitude 12.000 CV DEVICE CHECK Lead Channel Setting Sensing Sensitivity 0.30 CV DEVICE CHECK Lead Channel Impedance Value 440 CV DEVICE CHECK Lead Channel Pacing Threshold Amplitude 1.000 CV DEVICE CHECK Lead Channel Pacing Threshold Pulse Width 0.5 CV DEVICE CHECK Lead Channel RV Pacing Threshold Date 2024-12-18 CV DEVICE CHECK Lead Channel Setting Pacing Amplitude 2.000 CV DEVICE CHECK Lead Channel Setting Pacing Pulse Width 0.5 CV DEVICE CHECK Lead Channel Impedance Value 450 CV DEVICE CHECK Lead Channel Setting Pacing Amplitude 3.500 CV DEVICE CHECK Lead Channel Setting Pacing Pulse Width 1.0 CV DEVICE CHECK Francisco Setting Mode (NBG Code) DDDR CV DEVICE CHECK Ventricular chambers paced during CINETECHNICIAN pacing. BiV CV DEVICE CHECK Francisco Setting Lower Rate Limit 70 CV DEVICE CHECK Francisco Setting AT Mode Switch Rate 180 CV DEVICE CHECK Francisco Setting Maximum Tracking Rate 120 CV DEVICE CHECK Francisco Setting Maximum Sensor Rate 100 CV DEVICE CHECK Francisco Setting PAV Delay 180 CV DEVICE CHECK Francisco Setting FLO Delay 150 CV DEVICE CHECK CINETECHNICIAN LV-RV Delay 0 CV D EVICE CHECK Therapy Statistic Recent Shocks Delivered 0 CV DEVICE CHECK Therapy Statistic Recent Shocks Aborted 0 CV DEVICE CHECK Therapy Statistic Recent ATP Delivered 0 CV DEVICE CHECK Shock Measured Impedance 87 CV DEVICE CHECK Zone Setting Type Category VT CV DEVICE CHECK Rate 150 CV DEVICE CHECK Zone Setting Status On CV DEVICE CHECK Zone ID 1 CV DEVICE CHECK Zone Setting Type Category VT CV DEVICE CHECK Zone Setting Status Inactive CV DEVICE CHECK Zone ID 2 CV DEVICE CHECK Zone Setting Type Category VF CV DEVICE CHECK Rate 214 CV DEVICE CHECK Therapies 36.0J,40.0J,40.0J x 4 CV DEVICE CHECK Zone Setting Status On CV DEVICE CHECK Zone ID 3 CV DEVICE CHECK Date of Service 2025-01-05 CV DEVICE CHECK Anatomical Region Laterality Modality Device Interroga tion 12/18/2024 2:01 AM EST Impressions 12/27/2024 1:44 PM EST Normal Remote: No Events * Normal Device Function * Alerts or events: None * Battery: Battery is at 91%, 4.33 yrs * Sensing, impedance and thresholds reviewed * Programmed parameters reviewed * Presenting rhythm reviewed * Heart Rate Histograms reviewed * No significant changes noted Heart Failure Diagnostic: Stable * Heart failure diagnostics assessed through the device * Status: Stable * No overt HF present Narrative Procedure Note Zack Mayers MD - 12/27/2024 IMPRESSION: Normal Remote: No Events * Normal Device Function * Alerts or events: None * Battery: Battery is at 91%, 4.33 yrs * Sensing, impedance and thresholds reviewed * Programmed parameters reviewed * Presenting rhythm reviewed * Heart Rate Histograms reviewed * No significant changes noted Heart Failure Diagnostic: Stable * Heart failure diagnostics assessed through the device * Status: Stable * No overt HF present Zack Mayers MD CV IMPLANTABLE CARDIAC DEVICE PROCEDURES Final Result * (ABNORMAL) TRANSTHORACIC ECHOCARDIOGRAM (TTE) COMPLETE W/ [...] 61 mL CV PACS Left Atrium Minor [place] 6.6 cm CV PACS Left Atrium Major [place] 6.5 cm CV PACS LA Area Sys [...] Proximal 1.6 cm CV PACS MV Deceleration [place] 3.3 m/s2 CV PACS E Wave Deceleration [...] was difficult due to: poor endocardial visualization. us Derick Medina MD CV ECHO PROCEDURES Final Resul t * Vascular US duplex lower extremity venous [...] Signed Date: 11/20/2024 15:29 ET Workstation ID: [id number] Transcribed By: Self Edit Transcribed Date: 11/20/2024 [...] Signed Date: 11/20/2024 15:29 ET Workstation ID: [id number] Transcribed By: Self Edit Transcribed Date: 11/20/2024 15:12 ET Vannessa Perica DPM CV VASCULAR PROCEDURES Final R esult * (ABNORMAL) Basic metabolic panel (11/06/2024 8:34 [...] AM EST Performed at: ??01 - [facility] [address] ??[id number] Crime Scene Examiner: Shahnaz Story MD, Phone: ??[phone] us Derick Medina MD LAB BLOOD ORDERABLES Final Res ult [facility] * CARDIAC DEVICE CHECK- IN CLINIC- [facility] (11/02/2024 4:19 PM EST) Date Time Interrogation Session [id number] CV DEVICE CHECK Implantable Pulse Generator Steam Drier Tender [place] CV DEVICE CHECK Implantable Pulse Generator Type CINETECHNICIAN-D CV DEVICE CHECK Implantable Pulse Generator Model [place] HF [id number] CV DEVICE CHECK Implantable Pulse Generator Serial Number [id number] CV DEVICE CHECK Implantable Pulse Generator Implant Date 20240922 CV DEVICE CHECK Battery Status Beginning of Service CV DEVICE CHECK Francisco Statistic RA Percent Paced 0.00 CV DEVICE CHECK CINETECHNICIAN Statistic CINETECHNICIAN Percent Paced 40.00 CV DEVICE CHECK Lead [...] CV DEVICE CHECK Ventricular chambers paced during CINETECHNICIAN pacing. LV+RV (Sim CV DEVICE CHECK Francisco [...] adjusted today per LS- see TC inEPIC. us Order Referral Cardiovascular CV IMPLANTABLE CAR DIAC DEVICE PROCEDURES Final Result from Last 3 Months Insurance MEDICARE [facility] Advance Directives * Full Code - Default [...] currently active code status orders. Care Teams Rivet Hammer Machine Operator Relationship Specialty Start Date End Date Oleksandr, MD Jose Roberto [address] [place] [address] Dr [address] [facility] [place] [address] PCP - General 11/25/23
--- OUTSIDE RECORDS SUMMARY | 2025-01-19 10:04 | XMS_ITS | Encounter Summary ---
Author Organization [facility] [place] [address] Care Team Providers Care Mangle Press Catcher Name Role Phone Jose Roberto Leggett MD Primary Care Provider [phone] Encounter Details Date Type Department Care Team (Late st Contact Info) Description 12/27/2024 5:20 PM EST Ancillary Procedure [facility] [address] [facility] [address] [place] [address] Social History Tobacco Use Types Packs/Day Years [...] Orientation Straight 09/22/2024 8: 46 AM EST documented as of this encounter Functional Status * Are you deaf or do you have serious difficulty hearing? Answer Date of Assessment Author No 09/23/2024 8:22 AM EST Fer Mackay RN * Are you blind or do you have serious difficulty seeing, even when wearing glasses? Answer Date of Assessment Author No 09/23/2024 8:22 AM EST Fer Mackay RN * Do you have serious difficulty walking or climbing stairs? Answer Date of Assessment Author No 09/23/2024 8:22 AM EST Fer Mackay RN * Do you have serious difficulty dressing or bathing? Answer Date of Assessment Author No 09/23/2024 8:22 AM Fer Roblero RN * Because of a physical, mental, or emotional condition, do you have serious difficulty doing errandsalone such as visiting the doctor? Answer Date of Assessment Author No 09/23/2024 8:22 AM Fer Roblero RN documented as of this encounter Mental Status * Because of a physical, mental, or emotional condition, do you have serious difficulty concentrating, remembering, or making decisions? (5 years old or older) Answer Entry Date Author No 09/23/2024 8:22 AM Fer Roblero RN documented in this encounter Plan of Treatment Upcoming Encounters Date Type Department Care Team (Late st Contact Info) Description 04/05/2025 11:20 AM EDT Office Visit [facility] Cardiology [address] [place] [address] Derick Medina MD [address] [place] [address] [address] [place] [address] 04/24/2025 10:00 AM EDT Ancillary Procedure [facility] [address] [place] [phone] documented as of this encounter Procedures Procedure Name Priority Date/Time Associated Diagnosis Comments CARDIAC DEVICE CHECK- REMOTE- [facility] Routine 12/27/2024 5:17 PM EST documented in this encounter Results * Cardiac device check - Remote- [facility] (12/27/2024 5:17 PM EST) Date Time Interrogation Session [id number] CV DEVICE CHECK Type Interrogation Session Remote Device Initiated CV DEVICE CHECK Implantable Pulse Generator Patient Ambassador [employer] CV DEVICE CHECK Implantable Pulse Generator Type TOLL BRIDGE OPERATOR-D CV DEVICE CHECK Implantable Pulse Generator Model [id number] [place](TM) HF CV DEVICE CHECK Implantable Pulse Generator Serial Number [id number] CV DEVICE CHECK Implantable Pulse Generator Implant Date 20240922 CV DEVICE CHECK Battery Remaining Percentage 91.00 CV DEVICE CHECK Battery Remaining Longevity 52.0 CV DEVICE CHECK Battery Voltage 2.960 CV D EVICE CHECK Battery RESTAURANT AND BAR MANAGER Trigger 2.620 CV DEVICE CHECK Battery Status Middle of Service CV DEVICE CHECK Capacitor Charge Time 9.800 CV DEVICE CHECK Francisco Statistic RA Percent Paced 87.00 CV DEVICE CHECK Francisco Statistic RV Percent Paced 93.00 CV DEVICE CHECK TOLL BRIDGE OPERATOR Statistic TOLL BRIDGE OPERATOR Percent Paced 93.00 CV DEVICE CHECK Atrial Tachy Statistic AT/AF [place] Percent 0.00 CV DEVICE CHECK Lead Channel [...] CV DEVICE CHECK Ventricular chambers paced during TOLL BRIDGE OPERATOR pacing. BiV CV DEVICE CHECK Francisco Setting Lower Rate Limit 70 CV DEVICE CHECK Francisco Setting AT Mode Switch Rate 180 CV DEVICE CHECK Francisco Setting Maximum Tracking Rate 120 CV DEVICE CHECK Francisco Setting Maximum Sensor Rate 100 CV DEVICE CHECK Francisco Setting PAV Delay 180 CV DEVICE CHECK Francisco Setting FLO Delay 150 CV DEVICE CHECK TOLL BRIDGE OPERATOR LV-RV Delay 0 CV D EVICE CHECK [...] CV IMPLANTABLE CARDIAC DEVICE PROCEDURES Final Result documented in this encounter Visit Diagnoses Not on filedocumented in this encounter Care Teams Mangle Press Catcher Relationship Specialty Start Date End Date Jose Roberto Leggett MD [address] [place] [address] [address] [facility] [place] [address] PCP - General 11/25/23 documented as of this encounter
--- OUTSIDE RECORDS SUMMARY | 2025-01-19 10:04 | XMS_ITS | Encounter Summary ---
Author Organization [facility] Address [address] [place] [address] Care Team Providers Care Petroleum Refinery Operator Name Role Phone Jose Roberto Leggett MD Primary Care Provider [phone] Reason for Visit * Reason Onset Date Comments Prior Auth 12/22/2024 Sacubitril-Valsa rtan 49-51MG tablets Encounter Details Date Type Department Care Team ([facility] Contact Info) Description 12/22/2024 Telephone [facility] Cardiology [address] [place] [phone] Derick Medina MD [address] [place] [address] [address] [place], [place] [id number] Prior Auth (Sacubitril-Valsartan 49-51MG tablets) Social History Tobacco Use Types Packs/Day Years [...] 09/23/2024 8:22 AM Fer Roblero RN * Do you have serious difficulty walking or climbing stairs? Answer Date of Assessment Author No 09/23/2024 8:22 AM Fer Roblero RN * Do you have serious difficulty [...] Fer Roblero RN documented in this encounter Ordered Prescriptions Prescription Sig Dispense Quantity Refills Last Filled Start Date End Date Entresto 49-51 mg per tablet Take 1 tablet by mouth 2 (two) times a day. 180 tablet 3 12/22/2024 documented in this encounter Progress Notes * Safia Dorsey MA - 12/22/2024 12:58 PM EST Rx for Entresto 49/51 mg twice daily was faxed to [facility]. * Susie Lemons - 12/22/2024 10:20 AM EST Images from the original note were not included. Good Morning, I tried to submit a prior auth for Sacubitril-Valsartan 49-51MG tablets but this medication is not on the patients formulary. You will need to send over a new script for Entresto and check off the dispense as written option. documented in this encounter Plan of Treatment Upcoming Encounters Date Type Department Care Team (Late st Contact Info) Description 04/05/2025 11:20 AM EDT Office Visit [facility] [address] [place] [address] Dr [address] [place] [address] Derick Medina MD [address] [place] [address] [address] [place] [address] 04/24/2025 10:00 AM EDT Ancillary Procedure [facility] Card[facility] [address] [place] [address] documented as of this encounter Visit Diagnoses Not on filedocumented in this encounter Discontinued Medications Medication Sig Discontinue Reason Start Date End Da te sacubitriL-valsartan (Entresto) 49-51 mg per tablet Take 1 tablet by mouth 2 (two) times a day. Formulary change 08/24/2024 12/22/2024 documented as of this encounter Care Teams Petroleum Refinery Operator Relationship Specialty Start Date End Date Oleksandr, MD Jose Roberto [address] [place] [address] Dr [address] [facility] [place] [address] PCP - General 11/25/23 documented as of this encounter
--- OUTSIDE RECORDS SUMMARY | 2025-01-19 10:04 | XMS_ITS | Continuity of Care Document ---
[facility] Address [address] [place] [address]- Support Name Relationship Address Phone LEONILA, PEDRO Personal Relationship Unknown Unavailable LEONILA, PEDRO Personal Relationship Unknown Unavailable LEONILA, PEDRO Personal Relationship Unknown Unavailable LEONILA, PDERO Personal Relationship Unknown Unavailable LEONILA, PEDRO Personal [...] Relationship Unknown Unavailable Care Team Providers Care Abatement Worker Name Role Phone Po Jose Roberto BELL Primary Care Physician Encounter [facility] [id number] Date(s): 11/29/24 - 12/29/24 [facility] [address] [id number] Attending Physician: Keyon Lopez Admitting Physician: AdmtrKeyon Referring Physician: AdmtrKeyon Encounter Type: Triage Allergies, Adverse Reactions, Alerts Substance Criticality Severity Reaction Reaction Severity Status ciprofloxacin Low criticality Mild don't remember Active erythromycin rash, itchy Activ e nitrofurantoin Low criticality Mild nausea Active nonsteroidal anti-inflammatory agents RASH Active Celebrex RASH Active Zithromax Z-Luis Alberto RASH Acti ve sulfa drugs Low criticality Mild rash Ac tive azithromycin Unknown Active Immunizations Given and Recorded Vaccine Date [...] Active 1LAD and OM 2for endometrial cancer Social History Social History Type Response Smoking Status Never smoker; Tobacc o user in household: No entered on: 02/22/17 Sex Sex Representation Female (finding) Patient Care team information Care Team Personnel Name: Maryann Xiao RN Position: [facility] RN Supv Member Role: Primary Care Nurse Name: Stephanie Hammonds RN Position: [facility] SN RN Member Role: Primary Care Nurse Name: Neida Saavedra RN Position: [facility] RN Member Role: Primary Care Nurse Name: Michelle Gonzalez RN Position: [facility] RN Member Role: Primary Care Nurse Name: Ghislaine Ash NP Position: [facility] Associate Professional Member Role: Lifetime Consulting Provider Address: [address] [facility] [address] [facility] [place], [place] [address] Telecom: Name: Dalila Peters [place] Position: [facility] AMB [place] Member Role: Lifetime Consulting Physician Name: Diaz Rosa DO Position: [facility] Renal MD Member Role: Lifetime Consulting Physician Address: [address] [place] [address] [address] [facility] [place] [address]- [place] Telecom: Name: Carolyne Conn RN Position: [facility] RN Member Role: Primary Care Nurse Name: Valerie Schaefer RN Position: [facility] ED RN W/OE and Tasks Member Role: Primary Care Nurse Name: Alberto Garcia MD Position: [facility] Outreach Member Role: Lifetime Consulting Physician Address: [address] [facility] [address] [facility] [place], [place] - [place] Telecom: Name: Tere Weiss RN Position: [facility] RN Member Role: Primary Care Nurse Name: Jose Roberto Leggett MD Position: Reference Physician Member Role: PCP Address: [address] [place] [address]- [place] Telecom: Name: Ida Garcia NP Position: [facility] Outreach Member Role: Lifetime Consulting Physician Address: [address] [place], [place] - Telecom: Care Team Related Persons Name: PEDRO KEEN Insurance Providers Guarantor name: JAISON LEONILA [employer] [facility] Information #: 1 Payer: MEDICARE PART B OUTPT Member Number: NA Policy Number: NA Group Number: NA Health Plan Information #: 2 Payer: MEDEX Member Number: NA Policy Number: NA Group Number: NA
--- OUTSIDE RECORDS SUMMARY | 2025-01-19 10:04 | XMS_ITS ---
[facility] Address [address] [place] [address] Care Team Providers Care Mergers And Acquisitions Attorney Name Role Phone Jose Roberto Leggett Primary Care Provider Vannessa Dai Unavailable [phone] Dawn Roland Unavailable [phone] Allergies Allergen (clinical drug ingredient) Drug/Non Drug [...] Olmesartan Medoxomil 20 MG (Prior Auth: Rx Ref#:[id number]) Oral for 15 Not-Taking hydrALAZINE HCl 100 MG Orally Three time s a day Not-Taking Nystatin 003565 UNIT/GM USE 1 APPLICATIO N TOPICALLY 2 TIMES A DAY,X10 DAYS External for 10 Days Not-Taking Chlorthalidone 50 MG 1 tablet in the mor candace Orally Once a day Not-Taking Farxiga 10 MG TAKE 1 TABLET BY EVERY DAY Oral for 30 Days Not-Taking [...] 024 Encounters Encounter Location Date Provider Diagnosis [facility] [address] [place] [address] 08/18/2024 Dawn Roland Type 2 diabetes mellitus [...] Provider Name:Vannessa benjamin, 02/09/2025 12:15:00 PM, [address] [place], [address], Procedure Notes * Category Sub-Category Detail Notes [...] as necessary. Patient chooses, no pharmaceutical tx (73677) Keratoma Treatment Parring or Cutting o f Benign Hyperkeratotic Lesion(s) 16380 ( >4 Lesions) - The Benign hyperkeratotic lesions, as described above were pared, and/or cut utilizing a sterile #15 blade, tissue nippers, and/or dremel Progress Notes * HORACIO, Carol ADOB:12/1944 (79 yo F)Acc No.[id number]:08/18/2024 Progress Note Patient:?Perlita Leonard Provider:?Dawn Roland DPM :1945???Age:79 Y???Sex:Female D ate:08/18/2024 Address:[address] [place], [place] [id number] Pcp:Jose Roberto Leggett Subjective: * Chief Complaints: [...] bypass surgery 11/04/23 * Hospitalization/Major Diagno stic Procedure:?C High blood pressure Left Kidney necrotic [place] [place] [place]/htn/afib [place] [place] Woke up in the morning pt didnt know where she was and she was dizzy- Doctors thought its TIA 02/26[place] [place] Heart issues 08/07/24 * Family History:?Mother: dece [...] yes, walking. ?Marital status: . 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 * Medications:?TakingEntresto Vitamin D Aspirin 81 MG [...] in the evening Orally Once a dayNystatin 988771 UNIT/GM Powder USE 1 APPLICATION TOPICALLY 2 TIMES A DAY,X10 DAYS External Farxiga 10 MG Tablet TAKE 1 TABLET BY MOUTH EVERY DAY Oral Chlorthalidone 50 MG Tablet 1 tablet in the morning Orally Once a dayhydrALAZINE HCl 100 MG Tablet Orally Three times a dayOlmesartan Medoxomil 20 MG Tablet (Prior Auth: Rx Ref#:[id number]) Oral Extra Depth Orthopedic Shoes (1 Pair) [...] the evening Orally Once a dayNot-Taking/PRN Nystatin 913158 UNIT/GM Powder USE 1 APPLICATION TOPICALLY 2 TIMES A DAY,X10 DAYS External Not-Taking/PRN Farxiga 10 MG Tablet TAKE 1 TABLET BY MOUTH EVERY DAY Oral Not-Taking/PRN Chlorthalidone 50 MG Tablet 1 tablet in the morning Orally Once a dayNot-Taking/PRN hydrALAZINE HCl 100 MG Tablet Orally Three times a dayNot-Taking/PRN Olmesartan Medoxomil 20 MG Tablet (Prior Auth: Rx Ref#:[id number]) Oral Not-Taking/PRN Extra Depth Orthopedic Shoes (1 [...] as necessary. Patient chooses, no pharmaceutical tx ([id number]).?Keratoma Treatment:?Parring or Cutting of Benign Hyperkeratotic Lesion(s)?62788 ( >4 Lesions) - The Benign hyperkeratotic lesions, as described above were pared, and/or cut utilizing a sterile #15 blade, tissue nippers, and/or dremel.? * Procedure Codes:?27976 DEBRI DE NAIL, 6 OR MORE, Modifiers: XS 08126 TRIM SKIN LESIONS, OVER 4, Modifiers: XS [...] Roland DPM Date:?1 Generated for Mihai pitts/Eric/eTransmitting on:?01/19/2025 10:03 AM EDT History and Physical Notes * [...]
== END 2025-01-19 10:08 | disposition home or self-care (01) ==
LOC: HO.HMCH 09:17
PROVIDERS: PCP Internal Medicine; Visit Provider Internal Medicine
DX: I12.9 Hypertensive chronic kidney disease with stage 1 through stage 4 chronic kidney disease, or unspecified chronic kidney disease (principal); E11.65 Type 2 diabetes mellitus with hyperglycemia; M34.1 CR(E)ST syndrome; I70.1 Atherosclerosis of renal artery; I48.0 Paroxysmal atrial fibrillation; N18.31 Chronic kidney disease, stage 3a; I25.5 Ischemic cardiomyopathy; Z95.810 Presence of automatic (implantable) cardiac defibrillator; I25.10 Atherosclerotic heart disease of native coronary artery without angina pectoris; E78.00 Pure hypercholesterolemia, unspecified; E03.9 Hypothyroidism, unspecified; E66.9 Obesity, unspecified

== ENCOUNTER → 2025-01-19 09:16 | Outpatient (BNVA) | payer MEDICARE, SELFPAY | PROVIDERS: PCP Internal Medicine; Visit Provider Internal Medicine | DX: I25.10 Atherosclerotic heart disease of native coronary artery without angina pectoris (principal); I25.5 Ischemic cardiomyopathy; M34.1 CR(E)ST syndrome; E11.65 Type 2 diabetes mellitus with hyperglycemia; I15.0 Renovascular hypertension; I70.1 Atherosclerosis of renal artery; I48.0 Paroxysmal atrial fibrillation; N18.31 Chronic kidney disease, stage 3a; E78.00 Pure hypercholesterolemia, unspecified; E03.9 Hypothyroidism, unspecified; E66.9 Obesity, unspecified; Z68.30 Body mass index [BMI] 30.0-30.9, adult; Z95.810 Presence of automatic (implantable) cardiac defibrillator; Z71.3 Dietary counseling and surveillance | CPT/HCPCS: 96127; 99212 ==

== ENCOUNTER 2025-03-30 15:51 | Outpatient (AMB) | payer MEDICARE, SELFPAY ==
--- NOTE | 2025-03-30 16:30 | MHC.PC.OV ---
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: No Accompanied by: Self / Same As Patient Allergies erythromycin base [ERYTHROMYCIN BASE] Allergy (Intermediate, Verified 03/30/25 16:35) HIVES flurbiprofen [From ANSAID] Allergy (Intermediate, Verified 03/30/25 16:35) HIVES azithromycin [AZITHROMYCIN] Allergy (Mild, Verified 03/30/25 16:35) RASHES NSAIDS (Non-Steroidal Anti-Inflamma [NSAIDS (NON-STEROIDAL ANTI-INFLAMMA] Allergy (Mild, Verified 03/30/25 16:35) RASHES ciprofloxacin [Cipro] Allergy (Unknown, Verified 03/30/25 16:35) Upset Stomach nitrofurantoin Allergy (Unknown, Verified 03/30/25 16:35) upset stomach Erythromycin Allergy (Unknown, Uncoded 03/30/25 16:35) Hives Sulfas Allergy (Unknown, Uncoded 03/30/25 16:35) Hives Medication List - Last Reconciled 03/30/25 by Jose Roberto Leggett MD acetaminophen (Tylenol) 975 mg PO Q6H PRN alendronate 70 mg PO QWEEK 90 days apixaban (Eliquis) 5 mg PO BID aspirin (Adult Aspirin Regimen) 81 mg PO DAILY atorvastatin 40 mg PO DAILY cholecalciferol (vitamin D3) 50 mcg PO DAILY docusate sodium (Colace) 100 mg PO DAILY furosemide 20 mg PO DAILY levothyroxine 100 mcg PO DAILY sacubitril-valsartan 24-26 mg (Entresto) 1 tab PO BID 30 days Tobacco use date assessed: 11/23/24 Fall risk assessment: No Falls in past year Last assessed Fall Risk: 03/30/25 Dental Screening Dental Screen Date: 11/23/24 [facility] Medical History CAD (coronary artery disease) CREST (calcinosis, Raynaud's phenomenon, esophageal dysfunction, sclerodactyly, telangiectasia) Inguinal hernia Type 2 diabetes mellitus with hyperglycemia Hypertension Polymyositis Renal artery stenosis Scleroderma Paroxysmal atrial fibrillation CKD (chronic kidney disease) stage 3, GFR 30-59 ml/min Hypothyroid Hypercholesterolemia Surgical History Hx of tonsillectomy History of lumbar fusion History of appendectomy Hx of total knee arthroplasty Hx of CABG S/P JUDI-BSO (total abdominal hysterectomy and bilateral salpingo-oophorectomy) Family History Mother Heart attack Father Heart attack Brother No problems noted. Son No problems noted. Son No problems noted. Social History Housing: House Alcohol intake: never Patient Tobacco Use Status: Never used Tobacco Tobacco use type: Cigarette e-Cigarette/Vaping Use: Never Used Second Hand Smoke Exposure: No service: No Current occupational status: retired Current occupational exposures/hazards: No Cognitive needs: No Hearing needs: Yes Vision needs: Yes Questionnaire Thrive Questionnaire Date Thrive assessed: 11/23/24 HARRY-7 AMB Questionnaire HARRY-7 Date HARRY - 7 assessed: 11/23/24 Source: Developed by Drs. Yogi Martisn, Sahra Howell, Migue Begum and colleagues, with an educational yenny from [employer]. Physical exam (Primary Care) Vital Signs: Last Vital Signs Temp 97.1 F 03/30/25 16:31 Pulse 88 03/30/25 16:31 BP 152/60 H 03/30/25 16:31 Pulse Ox 97 03/30/25 16:31 Oxygen Delivery Method Room Air 03/30/25 16:31 BMI result Body Mass Index 31.1 Tobacco/Smoking Status: Tobacco use Status Tobacco use date assessed 11/23/24 03/30/25 16:32 Patient Tobacco Use Status Never used Tobacco 03/30/25 16:32 Tobacco use type Cigarette 03/30/25 16:32 e-Cigarette/Vaping Use Never Used 03/30/25 16:32 Thrive Assessment: Date of Thrive Assessment Date Thrive assessed 11/23/24 03/30/25 16:32 Const General: alert; No acute distress Eyes Conjunctivae: conjunctivae normal Resp Auscultation: clear to auscultation bilaterally Cardio Rate: regular rate Rhythm: regular rhythm GI Inspection: Yes normal to inspection Extrem General: Yes normal to inspection and No edema Results AMB Hemoglobin A1c AMB Hemoglobin A1c 7.2 % Last Edit by RAMOS Díaz on 03/30/25 16:55 Coding Level of Care Code Est Pt Level 4 (00753) Complex EM visit Add On G2211 Diagnoses Ischemic cardiomyopathy with implantable cardioverter-defibrillator (ICD) I25.5; Z95.810 Chronic systolic heart failure I50.22 Coronary artery disease involving [place] coronary artery of [place] heart without angina pectoris I25.10 Associated angina: without angina Coronary Disease-Associated Artery/Lesion type: [place] artery [place] vs. transplanted heart: [place] heart Type 2 diabetes mellitus with hyperglycemia, without long-term current use of insulin E11.65 Diabetes mellitus skilled nursing insulin use: without skilled nursing use Renovascular hypertension I15.0 Hypertension type: renovascular hypertension Paroxysmal atrial fibrillation I48.0 Stage 3a chronic kidney disease N18.31 Chronic kidney disease stage 3 subtype: stage 3a (GFR 45-59) Acquired hypothyroidism E03.9 Hypothyroidism type: acquired Hypercholesterolemia E78.00 Obesity E66.9 Depression F32.A Hip pain, right M25.551 Assessment & Plan Assessment & Plan (1) Ischemic cardiomyopathy with implantable cardioverter-defibrillator (ICD): Code(s): I25.5 - Ischemic cardiomyopathy; Z95.810 - Presence of automatic (implantable) cardiac defibrillator Category: Medical Plan: Continue follow-up with cardiology continue with control of blood pressure (2) Chronic systolic heart failure: Comment: January 2024 EF of 25-30% Code(s): I50.22 - Chronic systolic (congestive) heart failure Category: Medical Plan: Weigh daily and continue with furosemide. with the weight increase - advised increase the furosemid to 40 mg alternating with 20 mg (3) CAD (coronary artery disease): Comment: CABG x4 11/04/2023(Shabazz to LAD, SVG to PDA, SVG to OM, SVG to diag) Code(s): I25.10 - Atherosclerotic heart disease of [place] coronary artery without angina pectoris Category: Medical Qualifiers: Associated angina: without angina Coronary Disease-Associated Artery/Lesion type: [place] artery [place] vs. transplanted heart: [place] heart Qualified Code(s): I25.10 - Atherosclerotic heart disease of [place] coronary artery without angina pectoris Plan: Control the cholesterol, weight, blood pressure, diabetes on blood thinner Eliquis (4) Type 2 diabetes mellitus with hyperglycemia: Code(s): E11.65 - Type 2 diabetes mellitus with hyperglycemia Category: Medical Qualifiers: Diabetes mellitus [place] insulin use: without skilled nursing use Qualified Code(s): E11.65 - Type 2 diabetes mellitus with hyperglycemia Plan: Decrease the amount of carbohydrate intake, pasta, bread, rice and potatoes are all sugar and that is aside from all the sweet stuff, remember that fruits are good but they are Sweet also. (5) Hypertension: Code(s): I10 - Essential (primary) hypertension Category: Medical Qualifiers: Hypertension type: renovascular hypertension Qualified Code(s): I15.0 - Renovascular hypertension Plan: Continue with blood pressure medication. Decrease salt intake and exercise on Entresto (6) Paroxysmal atrial fibrillation: Code(s): I48.0 - Paroxysmal atrial fibrillation Category: Medical Plan: Continue with anticoagulation with Eliquis (7) CKD (chronic kidney disease) stage 3, GFR 30-59 ml/min: Code(s): N18.30 - Chronic kidney disease, stage 3 unspecified Category: Medical Qualifiers: Chronic kidney disease stage 3 subtype: stage 3a (GFR 45-59) Qualified Code(s): N18.31 - Chronic kidney disease, stage 3a Plan: Keep well hydrated patient needs blood work (8) Hypothyroid: Code(s): E03.9 - Hypothyroidism, unspecified Category: Medical Qualifiers: Hypothyroidism type: acquired Qualified Code(s): E03.9 - Hypothyroidism, unspecified Plan: Continue with thyroid medication patient needs blood (9) Hypercholesterolemia: Code(s): E78.00 - Pure hypercholesterolemia, unspecified Category: Medical Plan: Avoid fried foods, chicken skin, eggs, butter margarine, pastries and meat. Be it pork or beef they have a lot of cholesterol patient needs to have blood work done on atorvastatin (10) Obesity: Code(s): E66.9 - Obesity, unspecified Category: Medical Plan: Diet and exercise (11) Depression: Code(s): F32.A - Depression, unspecified Category: Medical (12) Hip pain, right: Code(s): M25.551 - Pain in right hip Category: Medical Plan History of Present Illness The patient is an 80-year-old female presenting for follow-up for multiple chronic medical conditions, including diabetes mellitus, hypertension, and atrial fibrillation. Her medical history includes a variety of conditions such as atrial fibrillation, scleroderma, renal artery stenosis, polymyositis, hypothyroidism, hypercholesterolemia, CREST syndrome, coronary artery disease, diabetes mellitus, a history of cardiomyopathy, and having an ICD implanted. Despite being compliant with her management plan, including regular blood work and bone density tests, she has concerns regarding recent weight gain of approximately 8 pounds and instances of elevated blood pressure, which she regularly monitors. Although the hemoglobin A1c was satisfactory at 6.5, the current blood sugar was noted to be 7.2 with acknowledgment of dietary indiscretion contributing as she has been snacking on M&M's at night. She expresses anxiety around her health and continued monitoring is planned, emphasizing the necessity of sustaining stable control over her blood pressure with adjustments to her furosemide intake discussed. She expects to see her forest fire prevention specialist soon and is due for additional blood work and monitoring of her ICD in the coming weeks. Health Maintenance - Blood pressure monitoring: Patient to check regularly, current readings borderline elevated. - Diabetes management: Regular blood glucose monitoring with recent A1c at 6.5; blood sugar noted at 7.2. - Lipid management with atorvastatin. - Fluid retention management with furosemide; recent increase in dosage planned. - Anticoagulation management on Eliquis; regular INR monitoring necessary. - Follow-up cardiac care scheduled with dividend clerk and ICD assessment. - Bone health: Bone density testing up-to-date as of August 2024. - Dietary recommendations: Reducing high-sugar snacks, regular meals including recommended egg intake. - Regular exercise and weight monitoring advised. Social History - Family status: Care responsibilities for . - Exercise: Limited physical activity reported due to caregiving responsibilities and weight gain concerns. - Nutrition: Recent snacking on sweets, awareness of dietary triggers affecting blood glucose. - Functional status: Reports swimming occasionally, but overall reduced physical activity. - Weight management: Reports ongoing difficulty with weight control despite monitoring dietary intake. Review of Systems - Cardiovascular: Reports high blood pressure; denies chest pain. - Respiratory: Denies persistent cough; occasional episodes noted. - Endocrine: Reports weight gain. - Nervous System: Denies sleep disturbances impacting her energy; denies significant dizziness. - Eyes: Reports redness in the right eye; denies vision changes. - Musculoskeletal: Denies new joint pain; aware of potential arthritis. - General: Reports gaining weight despite perceived limited intake; denies feeling overly fatigued. Physical Exam Results - Labs: Hemoglobin A1c in November 2024 was 6.5; blood sugar currently at 7.2. Plan The patient will continue on her blood pressure management plan with a temporary increase in furosemide dosage to address recent weight gain and elevated pressure readings. Dietary modifications, particularly reducing sugar intake, are crucial to improve her diabetes management and overall health. We will maintain her anticoagulation management with Eliquis while ensuring consistent INR levels. Regular follow-ups with her dividend clerk and ICD specialist will support her cardiovascular health, alongside monitoring her lipid levels with atorvastatin. Ongoing blood work will help manage her renal function and overall medication impacts. Encouragement towards regular physical activity and weight monitoring will support her overall care plan and improve her physical health status. All plans focus on achieving better control of existing chronic conditions and reducing complications through steady health maintenance efforts. Patient was informed and verbally consented to the use of an ambient scribe for clinic note documentation during this visit. Discussion Notes During our visit, I discussed the ongoing management of the patient's multiple chronic conditions, including hypertension, diabetes, atrial fibrillation, and her history of cardiomyopathy with an ICD. We reviewed the importance of regular blood work and monitoring given her medication regimen, particularly adjustments to her diuretic therapy with furosemide to manage fluid retention. I emphasized the role of dietary changes, specifically reducing snack foods high in sugar, in better controlling her diabetes. I counseled her on regular blood pressure checks, and she was aware of reviewing her results during her next cardiology appointment. I discussed the implications of her current medications, including atorvastatin for hypercholesterolemia and Eliquis for maintaining anticoagulation. Follow-up with her dividend clerk and ICD specialist remains critical for her ongoing cardiac health. The benefits of light exercise to support weight management and cardiovascular health were highlighted. I reassured her of the proactive approach towards her health concerns with consistent medical support and encouraged routine health maintenance activities. Patient Instructions - Increase furosemide dose as instructed to manage fluid retention. - Monitor blood pressure daily and record readings. - Reduce sugar intake, especially snacks like candies. - Follow up with dividend clerk and ICD specialist as scheduled. - Ensure to get regular blood work as planned. - Engage in regular light exercise to aid weight management. - Maintain current medications as previously prescribed. - Return to our office if new symptoms develop or existing ones worsen. Orders: Orders AMB Hemoglobin A1c Today E11.65 - Type 2 diabetes mellitus with hyperglycemia XR hip RT min 2V Today M25.551 - Pain in right hip Medications: New tramadol 50 mg PO BEDTIME 7 tabs 0RF M25.551 - Pain in right hip
[2025-03-30 16:31] VITALS: BP 152/60; PULSE 88; TEMP 36.2; O2SAT 97; BMI 31.1
== END 2025-03-30 17:20 | disposition home or self-care (01) ==
LOC: HO.HMCH 15:51
PROVIDERS: PCP Internal Medicine; Visit Provider Internal Medicine
DX: E11.65 Type 2 diabetes mellitus with hyperglycemia (principal); I50.22 Chronic systolic (congestive) heart failure; I48.0 Paroxysmal atrial fibrillation; N18.31 Chronic kidney disease, stage 3a; I25.5 Ischemic cardiomyopathy; Z95.810 Presence of automatic (implantable) cardiac defibrillator; I25.10 Atherosclerotic heart disease of native coronary artery without angina pectoris; E03.9 Hypothyroidism, unspecified; E78.00 Pure hypercholesterolemia, unspecified; E66.9 Obesity, unspecified; F32.A Depression, unspecified; M25.551 Pain in right hip

== ENCOUNTER → 2025-03-30 15:51 | Outpatient (BNVA) | payer MEDICARE, SELFPAY | PROVIDERS: PCP Internal Medicine; Visit Provider Internal Medicine | DX: I25.5 Ischemic cardiomyopathy (principal); Z95.810 Presence of automatic (implantable) cardiac defibrillator; I25.10 Atherosclerotic heart disease of native coronary artery without angina pectoris; E11.65 Type 2 diabetes mellitus with hyperglycemia; I48.0 Paroxysmal atrial fibrillation; I13.0 Hypertensive heart and chronic kidney disease with heart failure and stage 1 through stage 4 chronic kidney disease, or unspecified chronic kidney disease; E11.22 Type 2 diabetes mellitus with diabetic chronic kidney disease; N18.31 Chronic kidney disease, stage 3a; I50.22 Chronic systolic (congestive) heart failure; E03.9 Hypothyroidism, unspecified; E78.00 Pure hypercholesterolemia, unspecified; F32.A Depression, unspecified; E66.9 Obesity, unspecified; Z68.31 Body mass index [BMI] 31.0-31.9, adult; M25.551 Pain in right hip; Z71.3 Dietary counseling and surveillance | CPT/HCPCS: 83036; 99212 ==

== ENCOUNTER 2025-03-31 07:33 | Outpatient (REF) | payer MEDICARE, SELFPAY ==
--- NOTE | ~2025-03-31 | XR_ITS ---
EXAMINATION: XR HIP 2 OR MORE VIEWS RIGHT HISTORY: M25.551 - Pain in right hip COMPARISON: There are no prior studies for comparison. FINDINGS: Two views of the right hip are submitted. The bones are osteopenic. There is no fracture or dislocation. The joint space is maintained. There are multiple surgical clips about the hip. The patient is status post lower lumbar fusion. XR/XR hip RT min 2V IMPRESSION: Osteopenia. No evidence of fracture or significant joint space narrowing. Electronically signed by: Yogi Way MD 04/03/2025 07:21 AM EDT
[2025-03-31 08:06] LABS: MANUAL DIFF FLAG NO
[2025-03-31 08:30] LABS: Basophils Absolute Auto 0.1 X10*3/uL (0.0-0.2); Basophils Percent Auto 0.9 % (0-2); Eosinophils Absolute Auto 0.1 X10*3/uL (0.0-0.4); Eosinophils Percent Auto 1.6 % (0-4); Hematocrit 40.7 % (37.0-47.0); Hemoglobin 13.6 g/dl (12.0-16.0); Imm Gran Abs Auto 0.04 X10*3/uL (0.00-0.03); Imm Gran Pct Auto 0.5 % (0.0-0.4); Immature Retic Fraction 12.4 % (3.0-15.9); Lymphocytes Absolute Auto 2.4 X10*3/uL (1.2-4.9); Lymphocytes Percent Auto 29.7 % (20-40); Mean Corpuscular HGB Conc 33.4 g/dl (31.0-35.0); Mean Corpuscular Hemoglobin 31.8 pg (27.0-33.0); Mean Corpuscular Volume 95.1 fL (80.0-98.0); Mean Platelet Volume 11.3 fL (9.4-12.3); Monocytes Absolute Auto 0.6 X10*3/uL (0.1-1.2); Monocytes Percent Auto 7.6 % (2-11); Neutrophils Absolute Auto 4.9 x10*3/uL (2.0-8.3); Neutrophils Percent Auto 59.7 % (45-73); Platelet Count 242 X10*3/uL (160-400); Red Blood Count 4.28 X10*6/uL (4.20-5.50); Red Cell Distribution Width 13.6 % (11.0-16.0); Retic HGB Equivalent 35.7 pg (30.0-35.0); Reticulocytes Absolute 0.086 X10*6/uL (0.026-0.095); White Blood Count 8.2 X10*3/uL (4.8-10.8)
[2025-03-31 08:47] LABS: Estimated Average Glucose 166 mg/dL; Hemoglobin A1c % 7.4 % (<6.0)
[2025-03-31 08:59] LABS: B Type Natriuretic Peptide 249 pg/mL (<100)
[2025-03-31 09:15] LABS: Alanine Aminotransferase 42 U/L (0-31); Albumin Level 4.1 g/dL (3.5-5.0); Alkaline Phosphatase 64 U/L (39-117); Anion Gap 13 (12-20); Aspartate Amino Transferase 39 U/L (5-31); Bilirubin Total 0.6 mg/dL (0.0-1.0); Blood Urea Nitrogen 27 mg/dL (9-16); Calcium 9.1 mg/dL (8.4-10.2); Carbon Dioxide 24 mmol/L (22-29); Chloride 110 mmol/L (96-108); Cholesterol 145 mg/dL (<200); Estimated Glomerular Filt Rate 47; Glucose Random 127 mg/dL (60-115); HDL Cholesterol 41 mg/dL (>40); Iron 144 mcg/dL (30-160); LDL Cholesterol Calculated 81 mg/dL (<100); Magnesium 2.2 mg/dL (1.6-2.6); Percent Iron Saturation 48 % (15-50); Phosphorus 2.7 mg/dL (2.7-4.5); Sodium 143 mmol/L (135-145); Total Iron Binding Capacity 299 mcg/dL (228-428); Total Protein 7.1 g/dL (6.5-8.0); Triglycerides 117 mg/dL (<150); Unsaturated Iron Binding 155 ug/dL
[2025-03-31 09:16] LABS: Erythrocyte Sedimentation Rate 20 MM/HR (0-20)
[2025-03-31 09:33] LABS: Ferritin 244 ng/mL (10-250); Free T4 (Free Thyroxine) 0.88 ng/dL (0.71-1.85); Vitamin D 25-OH Total 41.4 ng/mL (>30)
[2025-03-31 09:35] LABS: Folate 9.9 ng/mL (> or = 4.0); Vitamin B12 387 pg/mL (200-900)
[2025-03-31 09:37] LABS: Creatinine Urine 132.51 mg/dL; Microalbum/Creatinine Ratio Ur 113.1 ug/mg cr (<30)
== END 2025-03-31 07:34 | disposition home or self-care (01) ==
LOC: HO.LAB 07:33
PROVIDERS: PCP Internal Medicine; Visit Provider Internal Medicine
DX: E11.65 Type 2 diabetes mellitus with hyperglycemia (principal); E78.00 Pure hypercholesterolemia, unspecified; I50.22 Chronic systolic (congestive) heart failure; M25.551 Pain in right hip
CPT/HCPCS: 36415; 73502; 80053; 80061; 82043; 82306; 82570; 82607; 82728; 82746; 83036; 83540; 83735; 83880; 84100; 84439; 84443; 85025; 85045; 85652

== ENCOUNTER → 2025-03-31 08:07 | Outpatient (BNV) | payer MEDICARE, SELFPAY | PROVIDERS: PCP Internal Medicine; Visit Provider Radiology Diagnostic Radiology | DX: M85.88 Other specified disorders of bone density and structure, other site (principal) | CPT/HCPCS: 73502 ==

== ENCOUNTER 2025-04-25 09:48 | Outpatient (AMB) | payer MEDICARE, SELFPAY ==
[2025-04-25 09:50] VITALS: BP 142/74; PULSE 74; O2SAT 98; BMI 30.9
--- NOTE | 2025-04-25 09:50 | MHC.PC.OV ---
Vital Signs 04/25/25 09:50 Height 5 ft 4 in Weight 180 lb 4 oz BMI 30.9 BP 142/74 H Blood Pressure Location Lt brachial Position Sitting Pulse 74 Pulse Source Pulse Oximeter Pulse Oximetry (%) 98 Oxygen Delivery Method Room Air Intake Visit Reasons: Ischemic cardiomyopathy Plate Former Required: No Accompanied by: Self / Same As Patient Allergies erythromycin base (ERYTHROMYCIN BASE) Allergy (Intermediate, Verified 04/25/25 09:51) HIVES flurbiprofen (From ANSAID) Allergy (Intermediate, Verified 04/25/25 09:51) HIVES azithromycin (AZITHROMYCIN) Allergy (Mild, Verified 04/25/25 09:51) RASHES NSAIDS (Non-Steroidal Anti-Inflamma (NSAIDS (NON-STEROIDAL ANTI-INFLAMMA) Allergy (Mild, Verified 04/25/25 09:51) RASHES ciprofloxacin (Cipro) Allergy (Unknown, Verified 04/25/25 09:51) Upset Stomach nitrofurantoin Allergy (Unknown, Verified 04/25/25 09:51) upset stomach Erythromycin Allergy (Unknown, Uncoded 04/25/25 09:51) Hives Sulfas Allergy (Unknown, Uncoded 04/25/25 09:51) Hives Medication List - Last Reconciled 04/25/25 by Jose Roberto Leggett MD acetaminophen (Tylenol) 975 mg PO Q6H PRN alendronate 70 mg PO QWEEK 90 days apixaban (Eliquis) 5 mg PO BID aspirin (Adult Aspirin Regimen) 81 mg PO DAILY atorvastatin 40 mg PO DAILY cholecalciferol (vitamin D3) 50 mcg PO DAILY docusate sodium (Colace) 100 mg PO DAILY furosemide 20 mg PO DAILY levothyroxine 100 mcg PO DAILY metformin 500 mg PO BIDWMEAL metoprolol succinate ER 25 mg PO DAILY sacubitril-valsartan 24-26 mg (Entresto) 1 tab PO BID 30 days tramadol 50 mg PO BEDTIME Tobacco use date assessed: 04/25/25 Fall risk assessment: No Falls in past year Last assessed Fall Risk: 04/25/25 Dental Screening Dental Screen Date: 04/25/25 Did you have a dental visit in the last 12 months?: No Did you have a dental problem in the last 6 months where you did not have access to dental care?: No Was dental information given to patient?: No [facility] Medical History CAD (coronary artery disease) CREST (calcinosis, Raynaud's phenomenon, esophageal dysfunction, sclerodactyly, telangiectasia) Inguinal hernia Type 2 diabetes mellitus with hyperglycemia Hypertension Polymyositis Renal artery stenosis Scleroderma Paroxysmal atrial fibrillation CKD (chronic kidney disease) stage 3, GFR 30-59 ml/min Hypothyroid Hypercholesterolemia Surgical History Hx of tonsillectomy History of lumbar fusion History of appendectomy Hx of total knee arthroplasty Hx of CABG S/P JUDI-BSO (total abdominal hysterectomy and bilateral salpingo-oophorectomy) Family History Mother Heart attack Father Heart attack Brother No problems noted. Son No problems noted. Son No problems noted. Social History Housing: House Alcohol intake: never Patient Tobacco Use Status: Never used Tobacco Tobacco use type: Cigarette e-Cigarette/Vaping Use: Never Used Second Hand Smoke Exposure: No service: No Current occupational status: retired Current occupational exposures/hazards: No Cognitive needs: No Hearing needs: Yes Vision needs: Yes Questionnaire PHQ-9 Over the last 2 weeks, how often have you been bothered by any of the following problems? 1. Little interest or pleasure in doing things: not at all 2. Feeling down, depressed, or hopeless: not at all 3. Trouble falling or staying asleep, or sleeping too much: not at all 4. Feeling tired or having little energy: not at all 5. Poor appetite or overeating: not at all 6. Feeling bad about yourself - or that you are a failure or have let yourself or your family down: not at all 7. Trouble concentrating on things, such as reading the newspaper or watching television: not at all 8. Moving or speaking so slowly that other people could have noticed. Or the opposite - being so fidgety or restless that you have been moving around a lot more than usual: not at all 9. Thoughts that you would be better off or of hurting yourself in some way: not at all Total score: 0 Depression Screening Interpretation: Negative Depression Screening Done: Yes 04612 - PHQ-9 Billing: Yes Source: Developed by Drs. Yogi Martins, Sahra Howell, Migue Begum and colleagues, with an educational yenny from [employer]. Thrive Questionnaire Date Thrive assessed: 04/25/25 I am a: Patient What is your living situation today?: I have a steady place to live Within the past 12 months, did the food you bought not last and you didn't have the money to get more?: Never true Within the past 12 months, did you worry whether your food would run out before you got money to buy more?: Never true Do you have trouble paying for medicines?: No Do you have trouble getting transportation to medical appointments?: No Do you have trouble paying your heating and electricity bill?: No Do you have trouble taking care of your child, family member or friend?: No Do you have trouble with day-to-day activities such as bathing, preparing meals, shopping, managing finances, etc.?: No Are you currently unemployed and looking for a job?: No Are you interested in more education?: No Please select the resources that you would like help with: None Currently or been in a relationship where the following occur: No concerns reported THRIVE Score: 0 AUDIT C Alcohol Use Questionnaire (AUDIT-C) 1. How often do you have a drink containing alcohol?: Never 3. How often do you have six or more drinks on one occasion?: Never Total Score: 0 HARRY-7 AMB Questionnaire HARRY-7 Date HARRY - 7 assessed: 04/25/25 Feeling nervous, anxious, or on edge: 0 = Not at all Not being able to stop or control worryin = Not at all Worrying too much about different things: 0 = Not at all Trouble relaxin = Not at all Being so restless that it is hard to sit still: 0 = Not at all Becoming easily annoyed or irritable: 0 = Not at all Feeling afraid as if something awful might happen: 0 = Not at all Total HARRY-7 score (0-4 normal; 5-9 mild; 10-14 moderate; 15-21 severe): 0 Source: Developed by Sahra Orta B.W. Dante, Migue Begum and colleagues, with an educational yenny from [employer]. Physical exam (Primary Care) Vital Signs: Last Vital Signs Pulse 74 04/25/25 09:50 BP 142/74 H 04/25/25 09:50 Pulse Ox 98 04/25/25 09:50 Oxygen Delivery Method Room Air 04/25/25 09:50 BMI result Body Mass Index 30.9 Tobacco/Smoking Status: Tobacco use Status Tobacco use date assessed 04/25/25 04/25/25 09:52 Patient Tobacco Use Status Never used Tobacco 04/25/25 09:52 Tobacco use type Cigarette 04/25/25 09:52 e-Cigarette/Vaping Use Never Used 04/25/25 09:52 PHQ-9: PHQ-9 Score PHQ-9: Total score 0 04/25/25 10:09 Depression Screening Interpretation: Negative Thrive Assessment: Date of Thrive Assessment Date Thrive assessed 04/25/25 04/25/25 09:52 Currently or been in a relationship where the following occur: No concerns reported Const General: alert; No acute distress Eyes Conjunctivae: conjunctivae normal Resp Auscultation: clear to auscultation bilaterally Cardio Rate: regular rate Rhythm: regular rhythm GI Inspection: Yes normal to inspection Extrem General: Yes normal to inspection and No edema Coding Level of Care Code Est Pt Level 4 (58434) Complex EM visit Add On G2211 Diagnoses Ischemic cardiomyopathy with implantable cardioverter-defibrillator (ICD) I25.5; Z95.810 Coronary artery disease involving torres martinez coronary artery of torres martinez heart without angina pectoris I25.10 Associated angina: without angina Coronary Disease-Associated Artery/Lesion type: torres martinez artery [place] vs. transplanted heart: torres martinez heart Paroxysmal atrial fibrillation I48.0 Hypercholesterolemia E78.00 Type 2 diabetes mellitus with hyperglycemia, without long-term current use of insulin E11.65 Diabetes mellitus senior care insulin use: without senior care use Acquired hypothyroidism E03.9 Hypothyroidism type: acquired Stage 3a chronic kidney disease N18.31 Chronic kidney disease stage 3 subtype: stage 3a (GFR 45-59) Renovascular hypertension I15.0 Hypertension type: renovascular hypertension Chronic systolic heart failure I50.22 Additional Codes PHQ-9 - 19804 - PHQ-9 Billing: Yes ([id number]) Assessment & Plan Assessment & Plan (1) Ischemic cardiomyopathy with implantable cardioverter-defibrillator (ICD): Code(s): I25.5 - Ischemic cardiomyopathy; Z95.810 - Presence of automatic (implantable) cardiac defibrillator Category: Medical Plan: Patient continues to be followed up by Cardiology, patient on Entresto (2) CAD (coronary artery disease): Comment: CABG x4 11/04/2023(Shabazz to LAD, SVG to PDA, SVG to OM, SVG to diag) Code(s): I25.10 - Atherosclerotic heart disease of torres martinez coronary artery without angina pectoris Category: Medical Qualifiers: Associated angina: without angina Coronary Disease-Associated Artery/Lesion type: torres martinez artery [place] vs. transplanted heart: torres martinez heart Qualified Code(s): I25.10 - Atherosclerotic heart disease of torres martinez coronary artery without angina pectoris Plan: Control the cholesterol, weight, blood pressure, diabetes on anticoagulation with Eliquis (3) Paroxysmal atrial fibrillation: Code(s): I48.0 - Paroxysmal atrial fibrillation Category: Medical Plan: Continue with anticoagulation (4) Hypercholesterolemia: Code(s): E78.00 - Pure hypercholesterolemia, unspecified Category: Medical Plan: Avoid fried foods, chicken skin, eggs, butter margarine, pastries and meat. Be it pork or beef they have a lot of cholesterol LDL goal of less than 70 and triglyceride of less than 150 on atorvastatin 40 mg once a day (5) Type 2 diabetes mellitus with hyperglycemia: Code(s): E11.65 - Type 2 diabetes mellitus with hyperglycemia Category: Medical Qualifiers: Diabetes mellitus senior care insulin use: without emblem maker use Qualified Code(s): E11.65 - Type 2 diabetes mellitus with hyperglycemia Plan: Decrease the amount of carbohydrate intake, pasta, bread, rice and potatoes are all sugar and that is aside from all the sweet stuff, remember that fruits are good but they are Sweet also. Hemoglobin A1c goal of less than 7.0 on metformin 500 mg twice a day (6) Hypothyroid: Code(s): E03.9 - Hypothyroidism, unspecified Category: Medical Qualifiers: Hypothyroidism type: acquired Qualified Code(s): E03.9 - Hypothyroidism, unspecified Plan: Continue with thyroid medication (7) CKD (chronic kidney disease) stage 3, GFR 30-59 ml/min: Code(s): N18.30 - Chronic kidney disease, stage 3 unspecified Category: Medical Qualifiers: Chronic kidney disease stage 3 subtype: stage 3a (GFR 45-59) Qualified Code(s): N18.31 - Chronic kidney disease, stage 3a Plan: Keep well hydrated and avoid NSAIDs (8) Hypertension: Code(s): I10 - Essential (primary) hypertension Category: Medical Qualifiers: Hypertension type: renovascular hypertension Qualified Code(s): I15.0 - Renovascular hypertension Plan: Continue with blood pressure medication. Decrease salt intake and exercise on Entresto (9) Chronic systolic heart failure: Comment: January 2024 EF of 25-30% Code(s): I50.22 - Chronic systolic (congestive) heart failure Category: Medical Plan: Continue with furosemide, on Entresto. Plan History of Present Illness The patient is an 80-year-old female presenting for a follow-up visit. She has a history of atrial fibrillation, chronic kidney disease, hypothyroidism, hypercholesterolemia, scleroderma, renal artery stenosis, diabetes mellitus, CREST syndrome with Raynaud's phenomenon, coronary artery disease with congestive heart failure, ischemic cardiomyopathy, depression, osteopenia, chronic diastolic heart failure, and arthritis. The patient has been experiencing chronic diastolic heart failure and is on a regimen that includes Toprol 25 mg once a day. She underwent a diagnostic cardiac catheterization which showed patent grafts with no significant progression of ischemic disease, and her latest echocardiogram revealed an ejection fraction of 30 to 35%. She is also on anticoagulation therapy with Eliquis and Entresto for heart failure management. The patient has chronic kidney disease with a stable renal function, indicated by a creatinine level of 4.12 and a glomerular filtration rate of 47. Her blood work showed normal electrolytes, a normal blood count with no anemia, and mildly elevated liver function tests. She is advised to keep hydrated and avoid NSAIDs to manage her kidney condition. The patient has diabetes mellitus with a hemoglobin A1c of 7.4, and she is on metformin 500 mg twice a day. Her cholesterol management includes atorvastatin 40 mg once a day, with a goal to reduce LDL cholesterol to less than 70 mg/dL. The plan is to increase atorvastatin to 80 mg to achieve better cholesterol control. The patient reports arthritis pain, particularly in the hip area, which is managed with tramadol as needed. A recent hip x-ray showed osteopenia but no fractures or significant joint space narrowing. Health Maintenance - Blood work including electrolytes, renal function, and liver function tests were conducted on March 31. - Hip x-ray on March 31 showed osteopenia with no fractures. - Cholesterol management with atorvastatin, aiming for LDL cholesterol less than 70 mg/dL. - Diabetes management with metformin, aiming for hemoglobin A1c less than 7.0%. Social History Review of Systems - Musculoskeletal: Reports arthritis pain in the hip area. Physical Exam Results - Labs: Normal blood count, normal electrolytes, creatinine 4.12, hemoglobin A1c 7.4, mildly elevated liver function tests. - Imaging: Hip x-ray showed osteopenia with no fractures or significant joint space narrowing. - Cardiac: Echocardiogram with ejection fraction of 30 to 35%, diagnostic cardiac catheterization showed patent grafts with no significant progression of ischemic disease. Plan The patient will continue on her current regimen for chronic diastolic heart failure, including Toprol 25 mg once a day, and anticoagulation therapy with Eliquis. Her cholesterol management will be adjusted by increasing atorvastatin to 80 mg to achieve an LDL cholesterol goal of less than 70 mg/dL. For diabetes management, the patient will continue on metformin 500 mg twice a day, aiming for a hemoglobin A1c of less than 7.0%. The patient is advised to maintain hydration and avoid NSAIDs to manage her chronic kidney disease. For arthritis pain, she will use tramadol as needed, and a new prescription will be sent if required. Follow-up blood work will be conducted in three months to monitor electrolytes and cholesterol levels. Patient was informed and verbally consented to the use of an ambient scribe for clinic note documentation during this visit. Discussion Notes I discussed with the patient the importance of managing her chronic conditions, including heart failure, diabetes, and hypercholesterolemia. We reviewed her current medications and the plan to increase atorvastatin to better control her cholesterol levels. I advised her to maintain hydration and avoid NSAIDs to protect her kidney function. We also discussed the use of tramadol for arthritis pain and the need for follow-up blood work in three months. Patient Instructions - Continue taking Toprol 25 mg once a day and Eliquis as prescribed. - Increase atorvastatin to 80 mg to manage cholesterol levels. - Continue metformin 500 mg twice a day for diabetes management. - Stay hydrated and avoid NSAIDs to protect kidney function. - Use tramadol as needed for arthritis pain, and contact the office if a new prescription is required. - Schedule follow-up blood work in three months to monitor electrolytes and cholesterol levels. Orders: Orders Complete Blood Count Auto Diff 3 Months E11.65 - Type 2 diabetes mellitus with hyperglycemia Lipid Panel 3 Months E11. - Type 2 diabetes mellitus with hyperglycemia, E78.00 - Pure hypercholesterolemia, unspecified Comprehensive Met. Panel 3 Months - Type 2 diabetes mellitus with hyperglycemia Hemoglobin A1c 3 Months . - Type 2 diabetes mellitus with hyperglycemia B Type Natriuretic Peptide 3 Months . - Type 2 diabetes mellitus with hyperglycemia Medications: New blood sugar diagnostic ([employer] Ultra Test strips) As directed check the blood sugar once a day 100 ea 3RF - Type 2 diabetes mellitus with hyperglycemia metoprolol succinate ER 25 mg PO DAILY 30 tabs 2RF Changed From atorvastatin 40 mg PO DAILY To atorvastatin 80 mg PO DAILY 30 tabs 4RF Refilled tramadol 50 mg PO BEDTIME 30 tabs 3RF M25.551 - Pain in right hip
--- OUTSIDE RECORDS SUMMARY | 2025-04-25 10:53 | XMS_ITS | Encounter Summary ---
Author Organization [facility], Address [address] [place] [address] Phone Care Team Providers Care Folder And Notcher Name Role Phone Mariana Whitten MD Primary Care Provider [phone] Encounter Details Date Type Department Care Team (Late st Contact Info) Description 03/01/2020 Orders Only [facility] - [address] [facility] [place] [address] Montse Grace MD Chronic kidney disease stage [...] (HCC) documented in this encounter Care Teams Folder And Notcher Relationship Specialty Start Date End Date Mariana Whitten MD [address] [place] [address] PCP - General Internal Medicine 12/11/19 documented as of this encounter
== END 2025-04-25 10:33 | disposition home or self-care (01) ==
LOC: HO.HMCH 09:49
PROVIDERS: PCP Internal Medicine; Visit Provider Internal Medicine
DX: I48.0 Paroxysmal atrial fibrillation (principal); E11.65 Type 2 diabetes mellitus with hyperglycemia; N18.31 Chronic kidney disease, stage 3a; I50.22 Chronic systolic (congestive) heart failure; I25.5 Ischemic cardiomyopathy; Z95.810 Presence of automatic (implantable) cardiac defibrillator; I25.10 Atherosclerotic heart disease of native coronary artery without angina pectoris; E78.00 Pure hypercholesterolemia, unspecified; E03.9 Hypothyroidism, unspecified; I15.0 Renovascular hypertension

== ENCOUNTER → 2025-04-25 09:48 | Outpatient (BNVA) | payer MEDICARE, SELFPAY | PROVIDERS: PCP Internal Medicine; Visit Provider Internal Medicine | DX: I25.10 Atherosclerotic heart disease of native coronary artery without angina pectoris (principal); I25.5 Ischemic cardiomyopathy; I48.0 Paroxysmal atrial fibrillation; E78.00 Pure hypercholesterolemia, unspecified; E03.9 Hypothyroidism, unspecified; E11.65 Type 2 diabetes mellitus with hyperglycemia; I13.0 Hypertensive heart and chronic kidney disease with heart failure and stage 1 through stage 4 chronic kidney disease, or unspecified chronic kidney disease; E11.22 Type 2 diabetes mellitus with diabetic chronic kidney disease; N18.31 Chronic kidney disease, stage 3a; I50.22 Chronic systolic (congestive) heart failure; Z95.810 Presence of automatic (implantable) cardiac defibrillator | CPT/HCPCS: 96127; 99212 ==

== ENCOUNTER 2025-05-02 09:50 | Outpatient (REF) | payer MEDICARE, SELFPAY ==
--- NOTE | ~2025-05-02 | US_ITS ---
EXAMINATION: US ABDOMEN COMPLETE CLINICAL INFORMATION: Abnormal LFTs. COMPARISON: None available. TECHNIQUE: Real-time imaging of the abdominal viscera. FINDINGS: As per technologist note, exam somewhat limited by bowel gas. PANCREAS: Visualized portions are mildly echogenic, which is nonspecific. ABDOMINAL AORTA: The proximal, mid, and distal segments are normal in caliber. There is atherosclerosis present. INFERIOR VENA CAVA: Visualized portions are normal. LIVER: The liver is normal in size. The right hepatic measures 15.7 cm in length. The liver contour is normal. There is diffuse increased liver parenchymal echogenicity, suggestive of hepatic steatosis. No focal hepatic lesion. There is no intrahepatic biliary duct dilatation seen. GALLBLADDER: Gallbladder demonstrates echogenic nonshadowing focus dependently measuring 1.1 x 0.7 x 1.3 cm, most likely echogenic biliary sludge given lack of shadowing. There are echogenic foci noted in the fundus suggestive of adenomyomatosis. No significant wall thickening. Negative sonographic Gray's sign. COMMON BILE DUCT: Normal in caliber measuring 0.5 cm in diameter. RIGHT KIDNEY: No hydronephrosis. No renal calculi or focal parenchymal lesions. The kidney measures 9.9 cm in maximum dimension. LEFT KIDNEY: Atrophic appearance. Poorly visualized. No hydronephrosis. No renal calculi or focal parenchymal lesions. The kidney measures 7.1 cm in maximum dimension. SPLEEN: The spleen measures 11.6 cm in maximum dimension. FREE FLUID: None. US/US abdomen complete IMPRESSION: 1. Echogenic liver suggestive of hepatic steatosis. No suspicious focal lesion. 2. Nonshadowing dependent focus within the gallbladder measuring 1.1 x 0.7 x 1.3 cm, most likely echogenic biliary sludge given lack of shadowing. A nonvascular polyp is also a possibility although considered less likely given the appearance. 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 3. Left renal atrophy. 4. No biliary dilatation. Electronically signed by: Louis Conte MD 05/02/2025 10:47 AM EDT
--- OUTSIDE RECORDS SUMMARY | 2025-05-02 11:15 | XMS_ITS | Encounter Summary ---
Author Organization [facility], Address [address] [place] [address] Phone Care Team Providers Care Database Security Expert Name Role Phone Mariana Whitten MD Primary Care Provider [phone] Encounter Details Date Type Department Care Team (Late st Contact Info) Description 03/01/2020 Orders Only [facility] [address] [facility] [place] [address] Montse Grace MD Chronic kidney disease stage [...] (HCC) documented in this encounter Care Teams Database Security Expert Relationship Specialty Start Date End Date Mariana Whitten MD [address] [place] [address] PCP - General Internal Medicine 12/11/19 documented as of this encounter
== END 2025-05-02 09:51 | disposition home or self-care (01) ==
LOC: HO.HMGCX 09:50
PROVIDERS: PCP Internal Medicine; Visit Provider Internal Medicine
DX: R79.89 Other specified abnormal findings of blood chemistry (principal)
CPT/HCPCS: 76700

== ENCOUNTER → 2025-05-02 09:52 | Outpatient (BNV) | payer MEDICARE, SELFPAY | PROVIDERS: PCP Internal Medicine; Visit Provider Radiology Diagnostic Radiology | DX: K82.8 Other specified diseases of gallbladder (principal) | CPT/HCPCS: 76700 ==

== ENCOUNTER 2025-06-19 13:18 | Outpatient (AMB) | payer MEDICARE, SELFPAY ==
--- OUTSIDE RECORDS SUMMARY | 2025-06-16 10:34 | XMS_ITS | Encounter Summary ---
Author Organization [facility] Address [address] [place] [address] Care Team Providers Care Crane Helper Name Role Phone Jose Roberto Leggett MD Primary Care Provider [phone] Reason for Visit * Reason Comments Back Pain Encounter Details Date Type Department Care Team ([facility] st Contact Info) Description 06/16/2025 10:34 AM EDT - 06/16/2025 3:24 PM EDT Emergency [facility] Emergency [address] [place] [id number] Bunny Rosa MD [address] [address] Acute right-sided low back pain with right-sided sciatica (Primary Dx) Discharge Disposition: Home or Self Care Social [...] AM EST documented as of this encounter Last Filed Vital Signs Vital Sign Reading Time Taken Comments Blood Pressure 135/90 06/16/2025 2:17 PM EDT Pulse 69 06/16/2025 2:17 PM EDT Temperature 36.5 C (97.7 F) 06/16/2025 2:17 PM EDT Respiratory Rate 17 06/16/2025 2:17 PM EDT Oxygen Saturation 100% 06/16/2025 2:17 PM EDT Inhaled Oxygen Concentration - - Weight - - Height - - Body Mass Index - - documented in this encounter Functional Status * Are you deaf or do you have serious difficulty hearing? Answer Date of Assessment Author No 09/23/2024 8:22 AM Fer Roblero RN * Are you blind or do [...] Fer Roblero RN documented in this encounter Discharge Instructions * Discharge Instructions* Bunny Rosa MD - 06/16/2025 2:53 PM EDT The prednisone taper can elevate your blood sugar. You should check your blood sugar regularly and you may need to increase your dose of Glucophage she may take up to 1000 mg twice daily. Please follow-up with your primary physician next few days. Unfortunately we are unable to get an MRI due to the pacemaker wire incompatibility. You should get physical therapy as well * Attachments The following attachments cannot be sent through Care Everywhere. * Back Pain (Telugu) documented in this encounter Medications at Time of Discharge alendronate (FOSAMAX) 70 mg tablet Take 1 tablet (70 mg total) by mouth every 7 (seven) days. Take in the morning with a full glass of water, on an empty stomach, and do not take anything else by mouth or lie down for the next 30 min. apixaban (Eliquis) 5 mg tablet Take 1 tablet (5 mg total) by mouth 2 (two) times a day. 60 each 2 04/05/2025 6 aspirin 81 mg EC tablet Take 81 mg by mouth daily. atorvastatin (LIPITOR) 40 mg tabletIndications: Coronary artery disease involving sokaogon coronary artery without angina pectoris, unspecified whether sokaogon or transplanted heart Take 1 tablet (40 mg total) by mouth 1 (one) time each day. 90 tablet 1 04/05/2025 calcium carbonate-vitamin D3 600 mg-5 mcg (200 unit) capsule Take 1 capsule by mouth 1 (one) time each day. cholecalciferol (VITAMIN D-3) 50 mcg (2,000 unit) tablet Take 1 tablet (2,000 Units total) by mouth 1 (one) time each day. docusate sodium (COLACE) 100 mg tablet Take 1 tablet (100 mg total) by mouth 1 (one) time each day. Entresto 49-51 mg per tablet Take 1 tablet by mouth 2 (two) times a day. 180 tablet 3 12/22/2024 furosemide (LASIX) 20 mg tablet Take 1 tablet (20 mg total) by mouth 1 (one) time each day. levothyroxine (SYNTHROID, LEVOTHROID) 100 mcg tablet Take 100 mcg by mouth daily. 05/17/2013 metoprolol succinate (TOPROL-XL) 25 mg 24 hr tabletIndications: Chronic diastolic heart failure (CMS/HCC V24, CMS/HCC V28) Take 1 tablet (25 mg total) by mouth 1 (one) time each day. Do not crush or chew. 30 each 04/05/2025 6 OneTouch Ultra Test test stripIndications:C hronic diastolic heart failure (CMS/HCC V24, CMS/HCC V28) Use as instructed 100 each 3 04/05/2025 6 predniSONE 10 mg tablets,dose pack Take 6 tablets (60 mg total) by mouth 1 (one) time each day for 3 days, THEN 4 tablets (40 mg total) 1 (one) time each day for 3 days, THEN 2 tablets (20 mg total) 1 (one) time each day for 3 days, THEN 1 tablet (10 mg total) 1 (one) time each day for 3 days. 39 tablet 06/16/2025 5 traMADoL (ULTRAM) 50 mg tablet Take 1 tablet (50 mg total) by mouth every 4 (four) hours if needed for severe pain for up to 3 days. Max Daily Amount: 300 mg 12 tablet 06/16/2025 5 documented as of this encounter Ordered Prescriptions Prescription Sig Dispense Quantity Refills Last Filled Start Date End Date predniSONE 10 mg tablets,dose pack Take 6 tablets (60 mg total) by mouth 1 (one) time each day for 3 days, THEN 4 tablets (40 mg total) 1 (one) time each day for 3 days, THEN 2 tablets (20 mg total) 1 (one) time each day for 3 days, THEN 1 tablet (10 mg total) 1 (one) time each day for 3 days. 39 tablet 06/16/2025 5 traMADoL (ULTRAM) 50 mg tablet Take 1 tablet (50 mg total) by mouth every 4 (four) hours if needed for severe pain for up to 3 days. Max Daily Amount: 300 mg 12 tablet 06/16/2025 5 documented in this encounter Discharge Disposition Disposition Code Departure Means Destination Comment s Home or Self Care documented in this encounter Progress Notes * Halley Rodriguez RN - 06/16/2025 2:36 PM EDT stockroom coordinator ambulated pt with walker, gait steady. Pt denies dizziness, endorses less back pain than previously. * Tia Farris RN - 06/16/2025 10:42 AM EDT BIBA from home c/o right sided back pain. Was seen at [facility] on 06/09, Dc with tramadol, no relief.Pt denies urinary sx/incontinence, CP. Pt endorsing mild dizziness upon ambulating. Aox4. * Bunny Rosa MD - 06/16/2025 10:31 AM EDT Emergency Medicine Note Patient Name: Perlita Leonard Initial Evaluation: 06/16/2025 : 1945 Patient's PCP: Jose Roberto Leggett MD Emergency Physician: Bunny Rosa MD History of Present Illness Chief Complaint: Chief Complaint Patient presents with ??? Back Pain HPI: 80 y.o. female has a past medical history of CAD (coronary artery disease), Chest pain, Chronic ischemic heart disease, CREST syndrome (CMS/HCC V24, CMS/HCC V28) (05/07/2022), Diabetes mellitus, type II (CMS/HCC V24, CMS/HCC V28), Dyspnea, Epigastric pain, Essential hypertension, Family history of cardiovascular disease, Hyperlipidemia, Hypothyroidism, Obesity, Polymyositis (CMS/HCC V24, CMS/HCC V28), Renal artery stenosis (CMS/HCC V24), Scleroderma (CMS/HCC V24, CMS/HCC V28), and Wound infection. She is presenting today for intractable back pain. She has had this for 2 weeks was seen at [facility] and had imaging at the ER was not sent home on anything she today she can barely walk to bear weight with pain rating down her right hip. She denies any motor weakness or incontinence. No fever or chills. No history of falls. ROS: I have performed a ROS with the pertinent positives and negatives documented in the history ofpresent illness. Previous History Past Medical History: Diagnosis Date ??? CAD (coronary artery disease) DX:CAD (coronary artery disease) ??? Chest pain DX:Chest pain ??? Chronic ischemic heart disease DX:Chronic ischemic heart disease ??? CREST syndrome (CMS/HCC V24, CMS/HCC V28) 05/07/2022 DX:CREST syndrome (HCC) ??? Diabetes mellitus, type II (CMS/HCC V24, CMS/HCC V28) DX:Diabetes mellitus, type II (HCC) ??? Dyspnea DX:Dyspnea ??? Epigastric pain DX:Epigastric pain ??? Essential hypertension DX:Essential hypertension ??? Family history of cardiovascular disease DX:Family history of cardiovascular disease ??? Hyperlipidemia DX:Hyperlipidemia ??? Hypothyroidism DX:Hypothyroidism ??? Obesity DX:Obesity ??? Polymyositis (CMS/HCC V24, CMS/HCC V28) DX:Polymyositis (HCC) ??? Renal artery stenosis (CMS/HCC V24) DX:Renal artery stenosis (HCC) ??? Scleroderma (CMS/HCC V24, CMS/HCC V28) DX:Scleroderma (HCC) ??? Wound infection DX:Wound infection Past Surgical History: Procedure Laterality Date ??? ANGIOPLASTY PROCEDURE: HISTORICAL ANGIOPLASTY W/STENT ??? CARDIAC CATHETERIZATION PROCEDURE: HISTORICAL CARDIAC CATH ??? HYSTERECTOMY PROCEDURE: HISTORICAL TOTAL HYSTERECTOMY WITH BSO ??? OTHER SURGICAL HISTORY 2008 PROCEDURE: HISTORY OTHER; COMMENT: DEBBIE LAD, LCX ??? OTHER SURGICAL HISTORY PROCEDURE: MT PATIENT HAS A CORONARY ARTERY STENT Social History Tobacco Use ??? Smoking status: Never ??? Smokeless tobacco: Never Substance Use Topics ??? Alcohol use: No ??? Drug use: No Family History Problem Relation Name Age of Onset ??? Heart attack Father ??? Coronary artery disease Father ??? Hypertension Mother ??? Coronary artery disease Son Rohan ??? Heart attack Son Rohan ??? Hypertension Son Rohan ??? Angioplasty Son Rohan ??? Hyperlipidemia Son Rohan is allergic to azithromycin, celecoxib, ciprofloxacin-hydrocortisone, erythromycin, nitrofurantoin,nsaids (non-steroidal anti-inflammatory drug), oxycodone, and sulfa (sulfonamide antibiotics). No current facility-administered medications on file prior to encounter. Current Outpatient Medications on File Prior to Encounter Medication Sig Dispense Refill ??? alendronate (FOSAMAX) 70 mg tablet Take 1 tablet (70 mg total) by mouth every 7 (seven) days. Take in the morning with a full glass of water, on an empty stomach, and do not take anything else bymouth or lie down for the next 30 min. ??? apixaban (Eliquis) 5 mg tablet Take 1 tablet (5 mg total) by mouth 2 (two) times a day. 60 each2 ??? aspirin 81 mg EC tablet Take 81 mg by mouth daily. ??? atorvastatin (LIPITOR) 40 mg tablet Take 1 tablet (40 mg total) by mouth 1 (one) time each day.90 tablet 1 ??? calcium carbonate-vitamin D3 600 mg-5 mcg (200 unit) capsule Take 1 capsule by mouth 1 (one) time each day. (Patient not taking: Reported on 04/05/2025) ??? cholecalciferol (VITAMIN D-3) 50 mcg (2,000 unit) tablet Take 1 tablet (2,000 Units total) by mouth 1 (one) time each day. ??? docusate sodium (COLACE) 100 mg tablet Take 1 tablet (100 mg total) by mouth 1 (one) time each day. ??? Entresto 49-51 mg per tablet Take 1 tablet by mouth 2 (two) times a day. 180 tablet 3 ??? furosemide (LASIX) 20 mg tablet Take 1 tablet (20 mg total) by mouth 1 (one) time each day. ??? levothyroxine (SYNTHROID, LEVOTHROID) 100 mcg tablet Take 100 mcg by mouth daily. ??? metoprolol succinate (TOPROL-XL) 25 mg 24 hr tablet Take 1 tablet (25 mg total) by mouth 1 (one) time each day. Do not crush or chew. 30 each 11 ??? Crimson HexagonTouch Ultra Test test strip Use as instructed 100 each 3 Physical Exam ED Triage Vitals [06/16/25 1045] Temp Heart Rate Resp BP 36.7 ??C (98 ??F) 74 -- (!) 148/75 SpO2 Temp Source Heart Rate Source Patient Position 99 % Oral Brachial Sitting BP Location FiO2 (%) Right arm;Upper -- General: Well-appearing, well nourished, in distress secondary to pain HEENT: PERRL, EOMI, external ears and nose appear unremarkable, airway is patent Neck: Supple, full range of motion, no meningismus, no JVD Chest: Clear to auscultation; no evidence of respiratory distress Circulatory: The rate and rhythm , no murmurs rubs or gallops Abdomen: Non-distended, Non-Tender Extremities: Normal ROM, No edema, ranging all extremities without difficulty Somewhat limited range of motion of the right hip due to pain Skin: Warm and dry, well-perfused , no rashes Neuro: Alert and oriented x 3. no motor or sensory deficits 5 out of strength lower extremities Psyche: Normal affect Results Labs Reviewed CBC AND DIFFERENTIAL Narrative: The following orders were created for panel order CBC and differential. Procedure Abnormality Status --------- ------ CBC auto differential[[id number]] Please view results for these tests on the individual orders. BASIC METABOLIC PANEL C-REACTIVE PROTEIN CBC WITH AUTO DIFFERENTIAL Abnormal Labs Reviewed - No abnormal labs to display No orders to display I have discussed the incidental/abnormal imaging and/or lab abnormalities with the patient and haveinstructed them the need for further evaluation and workup with their primary care doctor. I have provided the patient with a paper copy of the abnormality. The laboratory results, imaging results and other diagnostic exam results were reviewed in the EMR. EKG Interpretation Critical Care Time None Medical Decision Making Medications HYDROmorphone (PF) (DILAUDID) injection 1 mg (has no administration in time range) ED Course as of 06/16/25 1454 Sat Jun 16, [address] imaging obtained from [facility] records shows normal lumbar spine CT imaging also normal right hip x-ray. She does have a history of spinal fusion hardware. Given her symptoms we will obtain an MRI. She did have a transient hypoxia due to some mild sedation which corrected with 2 L nasal cannula. 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 Will attempt to ambulate her with additional tramadol. Otherwise should remain a subacute. [JL] 1450 Pt is able to ambulate after medication will rx a predisone taper. Advised to increase glucopahage if elevated BG [JL] 1453 There are no neurologic red flags. I reviewed all external imaging which was entirely negative. [JL] ED Course User Index [JL] Bunny Rosa MD Clinical Impressions as of 06/16/25 1454 Acute right-sided low back pain with right-sided sciatica Procedures Procedures Diagnosis No diagnosis found. Disposition Data Unavailable ED Prescriptions None Physician Attestation Bunny Rosa MD 06/16/25 1119 Bunny Rosa MD 06/16/25 1454 documented in this encounter Plan of Treatment Upcoming Encounters Date Type Department Care Team (Late st Contact Info) Description 07/24/2025 7:40 AM EDT Office Visit [facility] Cardiology [facility] [address] [place] [phone] Kamryn Isaac NP [address] [place] [address] [address] [place] [address] 04/24/2026 9:30 AM EDT Ancillary Procedure [facility] [address] [place] [phone] documented as of this encounter Procedures Procedure Name Priority Date/Time Associated Diagnosis Comments CBC WITH AUTO DIFFERENTIAL STAT 06/16/2025 11:46 AM EDT CBC AND DIFFERENTIAL STAT 06/16/2025 11:46 AM EDT C-REACTIVE PROTEIN STAT 06/16/2025 11 :46 AM EDT BASIC METABOLIC PANEL STAT 06/16/2025 11:46 AM EDT documented in this encounter Results * (ABNORMAL) CBC auto differential (06/16/2025 11:46 AM EDT) WBC 7.4 4.8 - 10.8 K/mcL LAB HEMETOLOGY METHOD 06/16/2025 12:35 PM EDT [facility] RBC 4.50 3.80 - 4.80 M/mcL LAB HEMETOLOGY METHOD 06/16/2025 12:35 PM EDT [facility] Hemoglobin 14.1 11.5 - 16.0 g/dL LAB HEMETOLOGY METHOD 06/16/2025 12:35 PM EDT [facility] Hematocrit 42.7 35.0 - 47.0 % LAB HEMETOLOGY METHOD 06/16/2025 12:35 PM EDT [facility] MCV 95.7 79.0 - 98.0 FL LAB HEMETOLOGY METHOD 06/16/2025 12:35 PM EDT [facility] MCH 31.6 27.0 - 32.0 pcg LAB [facility]Y [facility] MCHC 33.0 32.0 - 37.0 g/dL LAB HEMETOLOGY METHOD 06/16/2025 12:35 PM EDT [facility] RDW 13.0 11.0 - 15.0 % LAB HEMETOLOGY METHOD [facility] Platelets 323 130 - 400 K/mcL LAB HEMETOLOGY METHOD [facility] MPV 11.3(H) 7.0 - 11.0 FL LAB HEMETOLOGY METHOD 06/16/2025 12:35 PM EDT [facility] NRBC 0.3 <1.0 % LAB HEMETOLOGY METHOD 06/16/2025 12:35 PM [facility] NRBC Absolute 0.02 <0.10 K/mcL LAB HEMETOLOGY METHOD 06/16/2025 12:35 PM [facility] Neutrophils Relative 62.2 % LAB HEMETOLOGY METHOD 06/16/2025 12:35 PM EDT [facility] Lymphocytes Relative 27.3 % LAB HEMETOLOGY METHOD 06/16/2025 12:35 PM EDT [facility] Monocytes Relative 7.6 % LAB HEMETOLOGY METHOD [facility] Eosinophils Relative 1.8 % LAB HEMETOLOGY METHOD [facility] Basophils Relative 0.8 % LAB HEMETOLOGY METHOD 06/16/2025 12:35 PM EDT [facility] Immature Granulocytes Relative 0.3 % LAB HEMETOLOGY METHOD 06/16/2025 12:35 PM EDT [facility] Neutrophils Absolute 4.60 1.50 - 7.00 K/[facility] LAB HEMETOLOGY METHOD 06/16/2025 12:35 PM EDT [facility] Lymphocytes Absolute 2.02 1.00 - 5.00 K/[facility] LAB HEMETOLOGY METHOD 06/16/2025 12:35 PM EDT [facility] Monocytes Absolute 0.56 0.20 - 1.00 K/mcL LAB HEMETOLOGY METHOD 06/16/2025 12:35 PM EDT [facility] Eosinophils Absolute 0.13 0.00 - 0.50 K/[facility] HEMETOLOGY METHOD 06/16/2025 12:35 PM EDT [facility] Basophils Absolute 0.06 0.00 - 0.20 K/mcL LAB HEMETOLOGY METHOD 06/16/2025 12:35 PM EDT [facility] Immature Granulocytes Absolute 0.02 0.00 - 0.03 K/mcL LAB HEMETOLOGY METHOD 06/16/2025 12:35 PM EDT [facility] Blood Venous blood specimen / Unknown Venipuncture / Unknown 06/16/2025 11:46 AM EDT 06/16/2025 12:14 PM EDT us Bunny Rosa MD LAB BLOOD ORDERABLES Final Result [facility] [address] [place] [address], * C-reactive protein (06/16/2025 11:46 AM EDT) C-Reactive Protein <0.29 <=0.50 mg/dL LAB CHEMISTRY METHOD 06/16/2025 12:43 PM EDT [facility] Blood Venous blood specimen / Unknown Venipuncture / Unknown 06/16/2025 11:46 AM EDT 06/16/2025 12:14 PM EDT Bunny Rosa MD LAB BLOOD ORDERABLES Final Result [facility] [address] [place] [address], * (ABNORMAL) Basic metabolic panel (06/16/2025 11:46 AM EDT) Sodium 141 133 - 145 mmol/L LAB CHEMISTRY METHOD 06/16/2025 12:43 PM [facility] Potassium 4.3 3.5 - 5.5 mmol/L LAB CHEMISTRY METHOD 06/16/2025 12:43 PM [facility] Chloride 110 96 - 110 mmol/L LAB CHEMISTRY METHOD 06/16/2025 12:43 PM [facility] CO2 25 21 - 32 mmol/L LAB CHEMISTRY METHOD 06/16/2025 12:43 PM [facility] Anion Gap 6 3 - 11 LAB CHEMISTRY METHOD 06/16/2025 12:43 PM [facility] Glucose 119(H) 70 - 100 mg/dL LAB CHEMISTRY METHOD 06/16/2025 12:43 PM [facility] BUN 24 5 - 25 mg/dL LAB CHEMISTRY METHOD 06/16/2025 12:43 PM [facility] Creatinine 1.14(H) 0.50 - 1.10 mg/dL LAB CHEMISTRY METHOD 06/16/2025 12:43 PM [facility] eGFR 48(L) >=60 mL/min/1. 73m2 LAB CHEMISTRY METHOD 06/16/2025 12:43 PM [facility] Comment:Calculation based on the Chronic Kidney Disease Epidemiology Collaboration (CKD-EPI) equation refit without adjustment for race. BUN/Creatinine Ratio 21.1 LAB CHEMISTRY METHOD 06/16/2025 12:43 PM EDT [facility] Calcium 9.3 8.5 - 10.5 mg/dL LAB CHEMISTRY METHOD 06/16/2025 12:43 PM EDT [facility] Blood Venous blood specimen / Unknown Venipuncture / Unknown 06/16/2025 11:46 AM EDT 06/16/2025 12:14 PM EDT us Bunny Rosa MD LAB BLOOD ORDERABLES Final Result [facility] [address] [place] [address], [place] [phone] documented in this encounter Visit Diagnoses Diagnosis Acute right-sided low back pain with right-sided sciatica- Primary Encounter for adjustment or management of cardiac device documented in this encounter Administered Medications Inactive Administered Medications - up to 3 most recent administrations Medication Order MAR Action Action Date Dose Rate Site HYDROmorphone (PF) (DILAUDID) injection 1 mg 1 mg, intravenous, Once, On 06/16/25 at 1119, For 1 dose Given 06/16/2025 11:54 AM EDT 1 mg predniSONE (DELTASONE) tablet 60 mg 60 mg, oral, Once, On 06/16/25 at 1400, For 1 dose, Give with food or milk Given 06/16/2025 2:02 PM EDT 60 mg traMADoL (ULTRAM) tablet 50 mg 50 mg, oral, Once, On 06/16/25 at 1356, For 1 dose, Max of 300 mg daily for patients greater than 75 years of age. Given 06/16/2025 2:02 PM EDT 50 mg documented in this encounter Active and Recently Administered Medications Times are shown in EDT. Scheduled Medication Order 06/14/2025 06/15/2025 06/16/2025 HYDROmorphone (PF) (DILAUDID) injection 1 mg (COMPLETED) 1 mg, intravenous, Once, On 06/16/25 at 1119, For 1 dose 1154 (Given - Provid er: Halley Rodriguez, RN) predniSONE (DELTASONE) tablet 60 mg (COMPLETED) 60 mg, oral, Once, On 06/16/25 at 1400, For 1 dose, Give with food or milk 1402 (Given - Provid er: Hlaley Rodriguez RN) traMADoL (ULTRAM) tablet 50 mg (COMPLETED) 50 mg, oral, Once, On 06/16/25 at 1356, For 1 dose, Max of 300 mg daily for patients greater than 75 years of age. 1402 (Given - Provid er: Halley Rodriguez RN) documented in this encounter Orders Nursing Count Last Ordered Date First Orde red Date ACTIVITY 1 06/16/2025 documented in this encounter Care Teams Crane Helper Relationship Specialty Start Date End Date Jose Roberto Leggett MD [address] [place] [address] [address] [facility] [place] [address] PCP - General 11/25/23 documented as of this encounter
--- NOTE | 2025-06-19 13:34 | A.OFFPC_ITS ---
Vital Signs 06/19/25 13:35 Height 5 ft 4 in Weight 175 lb 4.28 oz BMI 30.1 BP 122/70 Blood Pressure Location Lt brachial Position Sitting Pulse 93 Pulse Source Pulse Oximeter Temp 97.1 F Temp Source Temporal Artery Scan Pulse Oximetry (%) 97 Oxygen Delivery Method Room Air Intake Visit Reasons: [facility] 06/10 back pain Intake Note: Patient is here to follow-up after a visit the emergency department at [facility] on 06/10/25 [employer] Meat Required: No Retail Reset Merchandiser: Not Required per policy Accompanied by: Self / Same As Patient Allergies erythromycin base (ERYTHROMYCIN BASE) Allergy (Intermediate, Verified 06/19/25 13:35) HIVES flurbiprofen (From ANSAID) Allergy (Intermediate, Verified 06/19/25 13:35) HIVES azithromycin (AZITHROMYCIN) Allergy (Mild, Verified 06/19/25 13:35) RASHES NSAIDS (Non-Steroidal Anti-Inflamma (NSAIDS (NON-STEROIDAL ANTI-INFLAMMA) Allergy (Mild, Verified 06/19/25 13:35) RASHES ciprofloxacin (Cipro) Allergy (Unknown, Verified 06/19/25 13:35) Upset Stomach nitrofurantoin Allergy (Unknown, Verified 06/19/25 13:35) upset stomach Erythromycin Allergy (Unknown, Uncoded 06/19/25 13:35) Hives Sulfas Allergy (Unknown, Uncoded 06/19/25 13:35) Hives Tobacco use date assessed: 06/19/25 Fall risk assessment: No Falls in past year Last assessed Fall Risk: 06/19/25 Dental Screening Dental Screen Date: 04/25/25 COUNTS INCLUDE 234 BEDS AT THE [facility] Medical History CAD (coronary artery disease) CREST (calcinosis, Raynaud's phenomenon, esophageal dysfunction, sclerodactyly, telangiectasia) Inguinal hernia Type 2 diabetes mellitus with hyperglycemia Hypertension Polymyositis Renal artery stenosis Scleroderma Paroxysmal atrial fibrillation CKD (chronic kidney disease) stage 3, GFR 30-59 ml/min Hypothyroid Hypercholesterolemia Surgical History Hx of tonsillectomy History of lumbar fusion History of appendectomy Hx of total knee arthroplasty Hx of CABG S/P JUDI-BSO (total abdominal hysterectomy and bilateral salpingo-oophorectomy) Family History Mother Heart attack Father Heart attack Brother No problems noted. Son No problems noted. Son No problems noted. Social History Housing: House Alcohol intake: never Patient Tobacco Use Status: Never used Tobacco Tobacco use type: Cigarette e-Cigarette/Vaping Use: Never Used Second Hand Smoke Exposure: No service: No Current occupational status: retired Current occupational exposures/hazards: No Cognitive needs: No Hearing needs: Yes Vision needs: Yes Questionnaire Thrive Questionnaire Date Thrive assessed: 04/25/25 HARRY-7 AMB Questionnaire HARRY-7 Date HARRY - 7 assessed: 04/25/25 Source: Developed by Drs. Yogi Martins, Sahra Howell, Migue Begum and colleagues, with an educational yenny from [employer]. Physical exam (Primary Care) Vital Signs: Last Vital Signs Temp 97.1 F 06/19/25 13:35 Pulse 93 06/19/25 13:35 BP 122/70 06/19/25 13:35 Pulse Ox 97 06/19/25 13:35 Oxygen Delivery Method Room Air 06/19/25 13:35 BMI result Body Mass Index 30.1 Tobacco/Smoking Status: Tobacco use Status Tobacco use date assessed 06/19/25 06/19/25 13:38 Patient Tobacco Use Status Never used Tobacco 06/19/25 13:38 Tobacco use type Cigarette 06/19/25 13:38 e-Cigarette/Vaping Use Never Used 06/19/25 13:38 Thrive Assessment: Date of Thrive Assessment Date Thrive assessed 04/25/25 06/19/25 13:38 Const General: alert; No acute distress Eyes Conjunctivae: conjunctivae normal Resp Auscultation: clear to auscultation bilaterally Cardio Rate: regular rate Rhythm: regular rhythm GI Inspection: Yes normal to inspection Extrem General: Yes normal to inspection and No edema Results AMB Hemoglobin A1c AMB Hemoglobin A1c 6.7 % Last Edit by CAMERON Iqbal on 06/19/25 14:07 Results Reviewed Results Reviewed: Laboratory Last Values Hgb A1c (Clinic) 6.7 % (4.0-6.0) H 06/19/25 14:06 Coding Level of Care Code Est Pt Level 4 (50849) Complex EM visit Add On G2211 Diagnoses Coronary artery disease involving [place] coronary artery of [place] heart without angina pectoris I25.10 Associated angina: without angina Coronary Disease-Associated Artery/Lesion type: [place] artery [place] vs. transplanted heart: [place] heart Paroxysmal atrial fibrillation I48.0 Type 2 diabetes mellitus with hyperglycemia, without long-term current use of insulin E11.65 Diabetes mellitus ad terminal makeup operator insulin use: without prison use Hepatic steatosis K76.0 Hip pain, right M25.551 Right sciatic nerve pain M54.31 Assessment & Plan Assessment & Plan (1) CAD (coronary artery disease): Comment: CABG x4 11/04/2023(Shabazz to LAD, SVG to PDA, SVG to OM, SVG to diag) Code(s): I25.10 - Atherosclerotic heart disease of [place] coronary artery without angina pectoris Category: Medical Qualifiers: Associated angina: without angina Coronary Disease-Associated Artery/Lesion type: [place] artery [place] vs. transplanted heart: [place] heart Qualified Code(s): I25.10 - Atherosclerotic heart disease of [place] coronary artery without angina pectoris Plan: Control the cholesterol, weight, blood pressure, diabetes continue with aspirin 81 mg once a day (2) Paroxysmal atrial fibrillation: Code(s): I48.0 - Paroxysmal atrial fibrillation Category: Medical Plan: Continuing with anticoagulation and metoprolol. (3) Type 2 diabetes mellitus with hyperglycemia: Code(s): E11.65 - Type 2 diabetes mellitus with hyperglycemia Category: Medical Qualifiers: Diabetes mellitus prison insulin use: without ad terminal makeup operator use Qualified Code(s): E11.65 - Type 2 diabetes mellitus with hyperglycemia Plan: Decrease the amount of carbohydrate intake, pasta, bread, rice and potatoes are all sugar and that is aside from all the sweet stuff, remember that fruits are good but they are Sweet also. Hemoglobin A1c goal of less than 7.0 diet controlled (4) Hepatic steatosis: Comment: April 2025 Code(s): K76.0 - Fatty (change of) liver, not elsewhere classified Category: Medical Plan: Low-fat diet and exercise (5) Hip pain, right: Code(s): M25.551 - Pain in right hip Category: Medical Plan: Discussed about treatment (6) Right sciatic nerve pain: Code(s): M54.31 - Sciatica, right side Category: Medical Plan History of Present Illness The patient is an 80-year-old female presenting for a follow-up visit. She has a history of hypothyroidism, chronic kidney disease, and hypercholesterolemia. Additionally, she has atrial fibrillation, scleroderma, and diabetes mellitus. Her medical history also includes hypertension, polymyositis, CREST syndrome, coronary artery disease, and congestive heart failure. She has cardiomyopathy with an implantable cardioverter-defibrillator (ICD) in place. The patient also suffers from depression and hepatic steatosis. She underwent a CT scan of the pelvis in May 2025, which showed no acute abnormalities. A CT scan of the lumbar spine revealed no significant changes in the lumbosacral fusion hardware compared to January 2021, although degenerative disc disease is present throughout the lumbar spine. An X-ray of the hip was negative despite the patient's complaint of acute right hip pain. An ultrasound of the abdomen in April 2025 showed hepatic steatosis with biliary sludge and left renal atrophy. Blood work from March 2025 indicated a creatinine level of 4.12, a GFR of 47, blood sugar of 127, and a hemoglobin A1c of 7.4. Liver function tests showed elevation, and the BNP was 249. Cholesterol was noted to be 81, with a goal of less than 70. Health Maintenance Social History Review of Systems - Musculoskeletal: Reports acute onset right hip pain. Physical Exam - Musculoskeletal: Negative straight leg raise test. - Musculoskeletal: Tenderness in the right hip and buttock area. Results - CT scan of the pelvis (May 2025): No acute abnormality. - CT scan of the lumbar spine: No significant change in lumbosacral fusion hardware; degenerative disc disease present. - X-ray of the hip: Negative. - Ultrasound of the abdomen (April 2025): Hepatic steatosis with biliary sludge, left renal atrophy. - Blood work (March 2025): Creatinine 4.12, GFR 47, blood sugar 127, hemoglobin A1c 7.4, elevated liver function tests, BNP 249, cholesterol 81 (goal <70). Plan Patient was informed and verbally consented to the use of an ambient scribe for clinic note documentation during this visit. Discussion Notes Patient Instructions Orders: Orders PT Evaluation and Treatment Today M54.31 - Sciatica, right side AMB Hemoglobin A1c Today E11.65 - Type 2 diabetes mellitus with hyperglycemia Referrals Orthopedics Referral M25.551 - Pain in right hip
[2025-06-19 13:35] VITALS: BP 122/70; PULSE 93; TEMP 36.2; O2SAT 97; BMI 30.1
--- OUTSIDE RECORDS SUMMARY | 2025-06-19 14:06 | XMS_ITS | Encounter Summary ---
Author Organization [facility], Address [address] [place] [address] Phone Care Team Providers Care Electrical Engineering Manager Name Role Phone Mariana Whitten MD Primary Care Provider [phone] Encounter Details Date Type Department Care Team (Late st Contact Info) Description 03/01/2020 Orders Only [facility] [address] [facility] [address] [place] [address] Montse Grace MD Chronic kidney disease stage [...] (HCC) documented in this encounter Care Teams Electrical Engineering Manager Relationship Specialty Start Date End Date Mariana Whitten MD [address] [place] [address] PCP - General Internal Medicine 12/11/19 documented as of this encounter
--- OUTSIDE RECORDS SUMMARY | 2025-06-19 14:07 | XMS_ITS | Patient Health Record ---
Author Organization [facility] Address [address] [place] [address] Care Team Providers Care Neonatal Doctor Name Role Phone Jose Roberto Leggett Primary Care Provider Vannessa Dai Unavailable [phone] Dawn Roland Unavailable [phone] Allergies Allergen (clinical drug ingredient) Drug/Non Drug [...] Lab: Notes/Report: HEMOGLOBIN A1C % (HH) 6.5 HEMOGLOBIN A1C (GLYCOHEMOGLO BIN) Reviewed date:05/08/2025 11:15:29 AM Interpretation: Performing Lab: Notes/Report: HEMOGLOBIN A1C % (HH) 7.4 Reason For Referral No Information Medications Medication SIG (Take, Route, Frequency, Duration) Notes Start Date End Date Status Levothyroxine Sodium 100 MCG 1 tablet Orally Once a day Active Eliquis Active Chlorthalidone 50 MG 1 tablet in the mor candace Orally Once a day Not-Taking Extra Depth Orthopedic Shoes (1 Pair) with Customized Heat Molded Multidensity Innersoles (3 Pair) as directed Dx: NIDDM/Polyneuropathy (E11.42), Hammertoe Foot Deformity (M20.41,M20.42), Preulcerative Skin Lesion(s) (L85.1 03/16/2017 Active Farxiga 10 MG TAKE 1 TABLET BY JERRI TH EVERY DAY Oral; Duration: 30 Days Not-Taking Olmesartan Medoxomil 20 MG (Prior Auth: Rx Ref#:[id number]) Oral; Duration: 15 Not-Taking hydrALAZINE HCl 100 MG Orally Three time s a day Not-Taking Coumadin 09/08/2019 Not-Takin g Extra Depth Orthopedic Shoes (1 Pair) with Customized Heat Molded Multidensity Innersoles (3 Pair) as directed Dx: NIDDM/Polyneuropathy (E11.42), Hammertoe Foot Deformity (M20.41,M20.42), Preulcerative Skin Lesion(s) (L85.1 12/05/2021 Not-Taking Irbesartan 150 MG 1 tablet Orally Once a day Not-Taking Losartan Potassium 50 MG Orally twice a day Not-Taking Labetalol HCl Not-Ta molly metFORMIN HCl 1000 MG 1 tablet with meal s Orally Twice a day Not-Taking Cephalexin 500 MG 1 tablet Orally Twic e a day; Duration: 7 days Not-Taking Custom Orthotics as directed 08/02/2018 Active Atorvastatin Calcium 40 MG TAKE 1 TABLET BY MOUTH EVERY DAY Oral; Duration: 90 Days Active Extra Depth Orthopedic Shoes (1 Pair) with Customized Heat Molded Multidensity Innersoles (3 Pair) as directed Dx: NIDDM/Polyneuropathy (E11.42), Hammertoe Foot Deformity (M20.41,M20.42), Preulcerative Skin Lesion(s) (L85.1 12/30/2022 Active Extra Depth Orthopedic Shoes (1 Pair) with Customized Heat Molded Multidensity Innersoles (3 Pair) as directed Dx: NIDDM/Polyneuropathy (E11.42), Hammertoe Foot Deformity (M20.41,M20.42), Preulcerative Skin Lesion(s) (L85.1 04/14/2024 Active OneTouch Ultra - USE 1 STRIP DAILY OR DIRECTED TO CHECK BLOOD SUGAR E11.9 In Vitro; Duration: 50 Days Active Metoprolol Succinate Not-Taking Extra Depth Orthopedic Shoes (1 Pair) with Customized Heat Molded Multidensity Innersoles (3 Pair) as directed Dx: NIDDM/Polyneuropathy (E11.42), Hammertoe Foot Deformity (M20.41,M20.42), Preulcerative Skin Lesion(s) (L85.1; excessive wearing lateral heel left shoe 02/09/2025 Active Simvastatin 40 MG 1 tablet in the even ing Orally Once a day Not-Taking Torsemide 10 MG TAKE 1 TABLET (10 MG TOTAL) BY MOUTH IN THE MORNING AND IN THE EVENING Oral; Duration: 90 Days Not-Taking Nystatin 352583 UNIT/GM USE 1 APPLICATIO N TOPICALLY 2 TIMES A DAY,X10 DAYS External; Duration: 10 Days Not-Taking Entresto Active Aspirin 81 MG 1 tablet Orally Once a day Active Vitamin D Active Immunizations Vaccine Route Administration Date Status Comme nts Influenza Unknown 10/09/2016 Administered Influenza Unknown 07/12/2017 Administered Influenza Unknown 09/08/2018 Administered Influenza Unknown 09/13/2018 Administered Influenza Unknown 09/13/2018 Refused Influenza Unknown 09/08/2019 Administered Influenza Unknown 08/15/2021 Administered Influenza Unknown 09/08/2022 Administered Influenza Unknown 09/08/2023 Administered Influenza Unknown 07/09/2024 Administered COVID-19 Pfizer BioNTech Vaccine Unknown 10/07/2021 Administered 1st:12/17/2020 2nd dose: 01/07/21 Social History Tobacco Use: Social History Observation [...] Problem Status W/U Status Risk Notes Problem Polyneuropathy due to type 2 diabetes mellitus (745676503) Type 2 diabetes mellitus with diabetic polyneuropathy (E11.42) Active confirmed Problem Acquired hammer toe of right foot ([id number] ) Hammer toe of right foot (M20.41) Active confirmed Problem Acquired hammer toe of left foot (7208157685448588 ) Hammer toe of left foot (M20.42) Active confirmed Vital Signs Blood pressure diastolic 82 mm Hg 05/08/2025 Height 5 ft 4 in in 05/08/2025 Blood pressure systolic 120 mm Hg 05/08/2025 Weight 175 lbs 05/08/2025 BMI 30.04 kg/m2 05/08/2025 Encounters Encounter Location Date Provider Diagnosis [address] [address] 08/18/2024 Dawn Roland Type 2 diabetes mellitus with diabetic polyneuropathy E11.42 ; Tinea unguium B35.1 ; Other hammer toe(s) (acquired), right foot M20.41 and Other hammer toe(s) (acquired), left foot M20.[address] [address] 11/17/2024 Vannessa Tim Type 2 diabetes mellitus with diabetic polyneuropathy E11.42 ; Acute deep vein thrombosis (DVT) of right lower extremity, unspecified vein I82.401 ; Tinea unguium B35.1 ; Other hammer toe(s) (acquired), right foot M20.41 and Other hammer toe(s) (acquired), left foot M20.[address] [address] 02/09/2025 Vannessa Tim Type 2 diabetes mellitus with diabetic polyneuropathy E11.42 ; Other hammer toe(s) (acquired), right foot M20.41 ; Tinea unguium B35.1 and Other hammer toe(s) (acquired), left foot M20.[address] [address] 05/08/2025 Vannessa Tim Type 2 diabetes mellitus with diabetic polyneuropathy E11.42 and Tinea unguium B35.[address] [address] 07/19/2024 Vannessa Tim [address] [address] 11/17/2024 Vannessa Tim Assessments Encounter Date Diagnosis (ICD Code) Assessment Notes Treatment Notes Treatment Clinical Notes Section Notes 08/18/2024 Tinea unguium (ICD-10 - B35.1) 08/18/2024 Type 2 diabetes mellitus with diabetic polyneuropathy (ICD-10 - E11.42) 11/17/2024 Type 2 diabetes mellitus with diabetic polyneuropathy (ICD-10 - E11.42) 11/17/2024 Acute deep vein thrombosis (DVT) of right lower extremity, unspecified vein (ICD-10 - I82.401) 02/09/2025 Other hammer toe(s) (acquired), right foot (ICD-10 - M20.41) Patient Educated with: DIABETIC FOOT CARE INSTRUCTIONS. pdf (DIABETIC FOOT CARE INSTRUCTIONS. pdf) 02/09/2025 Type 2 diabetes mellitus with diabetic polyneuropathy (ICD-10 - E11.42) 05/08/2025 Tinea unguium (ICD-10 - B35.1) 05/08/2025 Type 2 diabetes mellitus with diabetic polyneuropathy (ICD-10 - E11.42) 02/09/2025 Tinea unguium (ICD-10 - B35.1) 11/17/2024 Tinea unguium (ICD-10 - B35.1) 08/18/2024 Other hammer toe(s) (acquired), right foot (ICD-10 - M20.41) Response to treatment,Impro vement 08/18/2024 Other hammer toe(s) (acquired), left foot (ICD-10 - M20.42) Response to treatment,Impro vement 11/17/2024 Other hammer toe(s) (acquired), right foot (ICD-10 - M20.41) Response to treatment,Impro vement 02/09/2025 Other hammer toe(s) (acquired), left foot (ICD-10 - M20.42) 11/17/2024 Other hammer toe(s) (acquired), left foot (ICD-10 - M20.42) Response to treatment,Impro vement 08/18/2024 Other 05/08/2025 Other Plan Of Treatment Pending Test Test Name Order Date X ray : Foot, left 3V 04/13/2017 X ray : Foot, left 3V 04/12/2018 X ray : Foot, left 3V 08/02/2018 X ray : Foot, left 3V 10/24/2019 X ray : Foot, right 3V 09/13/2018 X ray : Foot, right 3V 10/24/2019 X ray : Foot, right 3V 04/12/2018 94632-RUHUIXD NAIL, 6 OR MORE 04/12/2018 91496-GQPFKCH NAIL, 6 OR MORE 03/16/2017 56592-AOUSCNA NAIL, 6 OR MORE 08/28/2015 69659-DBTWOUY NAIL, 6 OR MORE 11/28/2015 42314-OTSQFZL NAIL, 6 OR MORE 04/07/2016 39513-YXAPWKG NAIL, 6 OR MORE 08/11/2016 89612-KXRABHN NAIL, 6 OR MORE 11/04/2016 07405-EKZGMKC NAIL, 6 OR MORE 09/24/2017 74836-KRUHVSV NAIL, 6 OR MORE 07/05/2018 27893-PNIZDYW NAIL, 6 OR MORE 09/13/2018 26454-Oindoaeh Plate 03/31/2017 33050-ZSAK SKIN LESIONS, OVER 4 09/24/20 17 97943-QKOM SKIN LESIONS, OVER 4 07/05/20 18 86818-RTDM SKIN LESIONS, OVER 4 04/12/20 18 20797-WQIM SKIN LESIONS, OVER 4 11/04/20 16 77234-BXFC SKIN LESIONS, OVER 4 03/16/20 17 83602-YDCR SKIN LESIONS, OVER 4 11/28/19 16 60424-KNFV SKIN LESIONS, OVER 4 08/28/20 15 35283-NFPL SKIN LESIONS, OVER 4 09/13/20 18 01074-VZTN SKIN LESIONS, 2 TO 4 08/11/20 16 HEMOGLOBIN A1C (GLYCOHEMOGLOBIN) 018 Next Appt Details Provider Name:Vannessa benjamin, 08/10/2025 11:00:00 AM, [address] [facility], [place], [address], Insurance Providers Payer Name Payer Address Payer Phone Subscriber Number Group Number Insured Name Patient Relationship to Insured Coverage Start Date Coverage End Date Medicare [employer] [facility] [employer] [address] [place] [address] [id number] Perlita Angulo Self - patient is the insured 2 [employer] [address] [place] [address] [id number] Perlita Agnulo Self - patient is the insured Medical [...]
--- OUTSIDE RECORDS SUMMARY | 2025-06-19 14:07 | XMS_ITS | Clinical Summary ---
Author Organization [facility] Address [address] [place] [address] Phone Care Team Providers Care Dust Mop Maker Name Role Phone Frederick Barnes MD Primary Care Provider Allergies Active Allergy Reactions Criticality Noted Date Comments Ciprofloxacin 09/08/2017 Erythromycin 09/08/2017 Nitrofurantoin 01/04/2018 Nsaids (Non-Steroidal Anti-I nflammatory Drug) 09/08/2017 Oxycodone GI Upset 01/04/2018 Sulfa (Sulfonamide Antibiotics) 11/2016 Medications simvastatin (ZOCOR) 40 MG tablet Active irbesartan (AVAPRO) 300 MG tablet Active dilTIAZem (CARTIA XT) 240 MG 24 hr capsule Act thomas metFORMIN (GLUCOPHAGE) 1000 MG tablet 08/13/2017 Acti ve chlorthalidone (HYGROTON) 50 MG tablet 10/17/2017 Active levothyroxine (SYNTHROID, LEVOTHROID) 100 MCG tablet 10/29/2017 Active cholecalciferol (VITAMIN D3) 2,000 unit tablet Take 1,000 Units by mouth daily. 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 Arita Rotator cuff tear arthropathy of right shoulder 01/20/2018 Family History Medical History Relation Comments Heart attack Father COPD Mother Relation Status Comments Brother Alive Father Mother Social History Tobacco Use Types Packs/Day Years Used Date Smoking Tobacco: Never Smokeless Tobacco: Never Alcohol Use Standard Drinks/Week Comments No 0 (1 standard drink = 0.6 oz pur e alcohol) Education Answer Date Recorded Are you interested in more education? Not on talita e 03/05/2023 Are you concerned about learning? Not on file 03/05/2023 No 03/05/2023 No 03/05/2023 Digital Access Answer Date Recorded No 04/03/2023 No 04/03/2023 Reliable internet access at home? Not on file 04/03/2023 Device with a working camera? Not on file Comments Unknown Sex and Gender Information Value Date Recorded Sex Assigned at Not on file Legal Sex Female 10:10 PM EDT Gender Identity Not on file Sexual Orientation Not on file Last Filed Vital Signs Vital Sign Reading Time Taken Comments Blood Pressure 161/78 01/21/2018 12:51 PM EDT Pulse 62 01/21/2018 12:51 PM EDT Temperature 36.2 C (97.2 F) 01/21/2018 7:48 AM EDT Respiratory Rate 20 01/21/2018 7:48 AM EDT Oxygen Saturation 93% 01/21/2018 12:51 PM EDT Inhaled Oxygen Concentration - - Weight 78.5 kg (173 lb) 02/28/2019 10:21 AM EDT Height 162.6 cm (5' 4.02 ) 08/24/2018 9:50 AM ED T Body Mass Index 29.68 08/24/2018 9:50 AM EDT Plan of Treatment Health Maintenance Due Date Last Done Comments Adult Td,Tdap Booster 1944 TSH LEVEL 1945 DEPRESSION SCREENING 1956 PNEUMOCOCCAL VACCINES (50+ years) (1 of 1 - PCV) 02/07/1994 ZOSTER VACCINES (1 of 2) 02/07/1994 OSTEOPOROSIS SCREENING INITI AL (ONE-TIME) 02/07/2009 CREATININE LEVEL 12/24/2018 12/24/2017 POTASSIUM LEVEL 12/24/2018 12/24/2017 RSV VACCINE (1 - 1-dose 75+ series) 02/07/2019 COVID-19 VACCINE (3 - 2023-2 5 season) 2024 01/07/2021, 12/17/2020 HEPATITIS A VACCINES Aged Out No long er eligible based on patient's age to complete this topic HIB VACCINES Aged Out No longer eligi ble based on patient's age to complete this topic MENINGOCOCCAL VACCINES (ACWY) Aged Out No longer eligible based on patient's age to complete this topic MENINGOCOCCAL VACCINES (B) Aged Out N o longer eligible based on patient's age to complete this topic Medical Devices Implanted Type Area Web Content Director Device Identifier Shelf Expiration Date Model / Serial / Lot 25 Mm Diameter X 15 Mm Length Standard Post Reverse Shoulder 06 - [id number] Implanted:Qty: 1 on 01/20/2018 by Bunny Arita DO at [facility] Right: Shoulder [employer] 07/28/2022 [id number] / / Screw Compression Shoulder Tor# [id number] Reverse Shoulder 08 - [id number] Implanted:Qty: 1 on 01/20/2018 by Bunny Arita DO at [facility] Right: Shoulder [employer] [id number] / / Screw Bone 4.5x32mm Shoulder Locking Multi Directional Aequalis Reversed Ea Reverse Shoulder 08 - [id number] Implanted:Qty: 1 on 01/20/2018 by Bunny Arita DO at [facility] Right: Shoulder [employer] [id number] / / Screw Bone Locking 4.5x26 Reverse Shoulder 08 - [id number] Implanted:Qty: 1 on 01/20/2018 by Bunny Arita DO at [facility] Right: Shoulder [employer] [id number] / / Centered 36 Mm Reverse Shoulder 05 - [id number] Implanted:Qty: 1 on 01/20/2018 by Bunny Arita DO at [facility] Right: Shoulder [employer] 08/30/2022 [id number] / [id number] / Low Offset Reversed Tray+ 0 Shoulder 03 - [id number] Implanted:Qty: 1 on 01/20/2018 by Bunny Arita DO at [facility] Right: Shoulder [employer] 10/04/2022 [id number] / [id number] / 36 Diameter Revision Reversed Insert+ 6/12.5 B Shoulder 04 - [id number] Implanted:Qty: 1 on 01/20/2018 by Bunny Arita DO at [facility] Right: Shoulder [employer] 12/07/2022 [id number] / [id number] / 5b Ascend Flex Standard Ptc Humeral Stem Shoulder 14 - [id number] Implanted:Qty: 1 on 01/20/2018 by Bunny Arita DO at [facility] Right: Shoulder [employer] 11/26/2021 [id number] / [id number] / Screw Bone 4.5x18mm Shoulder Fixation Hemispherical Head Non Locking Aequalis Reverse Shoulder 08 - [id number] Implanted:Qty: 1 on 01/20/2018 by Bunny Arita DO at [facility] Right: Shoulder [employer] [id number] / / Procedures Procedure Name Priority Date/Time Associated Diagnosis Comments BASIC METABOLIC PANEL Routine 12/24/2017 11:21 AM EST Rotator cuff tear arthropathy of right shoulder from Last 3 Months or Most Recently Relevant to Health Maintenance Results * (ABNORMAL) Basic metabolic panel (12/24/2017 11:21 AM EST) SODIUM 132(L) 133 - 146 mmol/L [facility] CHLORIDE 90(L) 96 - 108 mmol/L [facility] POTASSIUM 3.4 3.3 - 5.1 mmol/L [facility] CO2 27 21 - 35 mmol/L [facility] BUN 23(H) 6 - 19 mg/dL [facility] CREATININE 0.80 0.5 - 1.5 mg/dL [facility] GLUCOSE 111(H) 70 - 99 mg/dL [facility] CALCIUM 10.1 8.4 - 10.3 mg/dL [facility] EGFR >60 mL/min/1.7 3m2 [facility] Comment:Abnormal if <60. If patient is -Surinamese, multiply the result by 1.21. ANION GAP 18 10 - 20 mmol/L [facility] Blood 12/24/2017 11:2 1 AM EST 12/24/2017 11:24 AM EST us Bunny Arita DO LAB BLOOD ORDERABLES Final Result [facility] [address] [place] [address] from Last 3 Months or Most Recently Relevant to Health Maintenance Insurance MEDICARE PART A & B [facility] MEDEX SUPPLEMENT MEDICARE PART A & B [employer] MEDEX SUPPLEMENT MEDICARE PART A & B [employer] MEDEX SUPPLEMENT MEDICARE PART A & B [employer] MEDEX SUPPLEMENT MEDICARE PART A & B [employer] MEDEX SUPPLEMENT MEDICARE PART A & B [employer] MEDEX SUPPLEMENT MEDICARE PART A & B [employer] MEDEX SUPPLEMENT MEDICARE PART A & B [employer] MEDEX SUPPLEMENT MEDICARE PART A & B [employer] MEDEX SUPPLEMENT Advance Directives For more information, please contact: [phone] (9AM - 5PM [place], Wednesday-Wednesday) * Full Code (Presumed) (Latest Code Status on File) Date Activated Date Inactivated Comments 01/20/2018 1:19 PM 01/21/2018 4:26 PM * Full Code (Presumed) Date Activated Date Inactivated Comments 01/20/2018 6:27 AM 01/20/2018 1:19 PM Care Teams Dust Mop Maker Relationship Specialty Start Date End Date Frederick Barnes MD [address] [place] [address] [place] [address] PCP - General 08/26/17 Additional Source Comments The information contained in this document represents components of the legal health record. It is not the complete legal health record.[facility]
--- OUTSIDE RECORDS SUMMARY | 2025-06-19 14:07 | XMS_ITS | Continuity of Care Document ---
Author Organization [facility] Address [address] [place] [address] Phone [phone] Social History Type Date Description Comments Sex Female Sex Unknown Medical Devices Description No Information Available Encounters Description No Information Available Assessments Description No Information Available Plan of Treatment No Information Available Functional Status Description No Information Available Mental Status Description No Information Available Referrals Description No Information Available
== END 2025-06-19 14:10 | disposition home or self-care (01) ==
LOC: HO.HMCH 13:19
PROVIDERS: PCP Internal Medicine; Visit Provider Internal Medicine
DX: I25.10 Atherosclerotic heart disease of native coronary artery without angina pectoris (principal); I48.0 Paroxysmal atrial fibrillation; E11.65 Type 2 diabetes mellitus with hyperglycemia; K76.0 Fatty (change of) liver, not elsewhere classified; M25.551 Pain in right hip; M54.31 Sciatica, right side

== ENCOUNTER → 2025-06-19 13:18 | Outpatient (BNVA) | payer MEDICARE, SELFPAY | PROVIDERS: PCP Internal Medicine; Visit Provider Internal Medicine | DX: I25.10 Atherosclerotic heart disease of native coronary artery without angina pectoris (principal); I48.0 Paroxysmal atrial fibrillation; E11.65 Type 2 diabetes mellitus with hyperglycemia; K76.0 Fatty (change of) liver, not elsewhere classified; M25.551 Pain in right hip; M54.31 Sciatica, right side | CPT/HCPCS: 83036; 99212 ==

== ENCOUNTER 2025-07-03 07:52 | Outpatient (REF) | payer MEDICARE, SELFPAY ==
--- OUTSIDE RECORDS SUMMARY | 2025-06-29 09:10 | XMS_ITS | Encounter Summary ---
Author Organization [facility] [place] [address] Care Team Providers Care Leather Skinner Name Role Phone Jose Roberto Leggett MD Primary Care Provider [phone] Encounter Details Date Type Department Care Team ([facility] st Contact Info) Description 06/29/2025 9:10 AM EDT Ancillary Procedure [facility] - [facility] [address] [facility] [address] [place] [address] Social History Tobacco Use Types Packs/Day Years [...] Description 07/24/2025 7:40 AM EDT Office Visit [facility] [address] [place] [address] Kamryn Isaac NP [address] [place] [address] [address] [place] [address] 04/24/2026 9:30 AM EDT Ancillary Procedure [facility] - [address] [place] [phone] documented as of this encounter Procedures Procedure Name Priority Date/Time Associated Diagnosis Comments CARDIAC DEVICE CHECK- REMOTE- MURJ Routine 06/29/2025 9:05 AM EDT documented in this encounter Results * Cardiac device check - Remote- MURJ (06/29/2025 9:05 AM EDT) Date Time Interrogation Session [id number] CV DEVICE CHECK Type Interrogation Session Remote Device Initiated CV DEVICE CHECK Implantable Pulse Generator Zinc Furnace Charger [employer] CV DEVICE CHECK Implantable Pulse Generator Type WOOD CRAFTSMAN-D CV DEVICE CHECK Implantable Pulse Generator Model [id number] [place](TM) HF CV DEVICE CHECK Implantable Pulse Generator Serial Number [id number] CV DEVICE CHECK Implantable Pulse Generator Implant Date 20240922 CV DEVICE CHECK Battery Remaining Percentage 81.00 CV DEVICE CHECK Battery Remaining Longevity 43.0 CV DEVICE CHECK Battery Voltage 2.950 CV D EVICE CHECK Battery NURSE MIDWIFE/CLINICAL INSTRUCTOR Trigger 2.620 CV DEVICE CHECK Battery Status Middle of Service CV DEVICE CHECK Capacitor Charge Time 9.400 CV DEVICE CHECK Francisco Statistic RA Percent Paced 84.00 CV DEVICE CHECK Francisco Statistic RV Percent Paced 89.10 CV DEVICE CHECK WOOD CRAFTSMAN Statistic WOOD CRAFTSMAN Percent Paced 89.00 CV DEVICE CHECK Atrial Tachy Statistic AT/AF [place] Percent 0.00 CV DEVICE CHECK Lead Channel [...] CV DEVICE CHECK Ventricular chambers paced during WOOD CRAFTSMAN pacing. BiV CV DEVICE CHECK Francisco Setting Lower Rate Limit 70 CV DEVICE CHECK Francisco Setting AT Mode Switch Rate 180 CV DEVICE CHECK Francisco Setting Maximum Tracking Rate 120 CV DEVICE CHECK Francisco Setting Maximum Sensor Rate 100 CV DEVICE CHECK Francisco Setting PAV Delay 180 CV DEVICE CHECK Francisco Setting FLO Delay 150 CV DEVICE CHECK WOOD CRAFTSMAN LV-RV Delay 0 CV D EVICE CHECK [...] Status: Stable * No overt HF present us Zack Mayers MD CV IMPLANTABLE CARDIAC DEVICE PROCEDURES Final Result documented in this encounter Visit Diagnoses Not on filedocumented in this encounter Care Teams Leather Skinner Relationship Specialty Start Date End Date Jose Roberto Leggett MD [address] [place] [address] [address] [facility] [place] [address] PCP - General 11/25/23 documented as of this encounter
--- OUTSIDE RECORDS SUMMARY | 2025-07-03 07:57 | XMS_ITS | Encounter Summary ---
Author Organization [facility], Address [address] [place] [address] Phone Care Team Providers Care Wheelabrator Operator Name Role Phone Mariana Whitten MD Primary Care Provider [phone] Encounter Details Date Type Department Care Team (Late st Contact Info) Description 03/01/2020 Orders Only [facility] - [address] [facility] [address] [place] [address] Montse Grace MD Chronic kidney disease stage [...] (HCC) documented in this encounter Care Teams Wheelabrator Operator Relationship Specialty Start Date End Date Mariana Whitten MD [address] [place] [address] PCP - General Internal Medicine 12/11/19 documented as of this encounter
--- OUTSIDE RECORDS SUMMARY | 2025-07-03 07:57 | XMS_ITS | Encounter Summary ---
Author Organization [facility], Address [address] [place] [address] Phone Care Team Providers Care Cloth Tearer Name Role Phone Mariana Whitten MD Primary Care Provider [phone] Encounter Details Date Type Department Care Team (Late st Contact Info) Description 01/22/2023 Documentation Only [facility], - [place] [address] [facility] [address] [place] [phone] Mariana Whitten MD [address] [place] [address] Social History Tobacco Use Types Packs/Day Years [...] on filedocumented in this encounter Care Teams Cloth Tearer Relationship Specialty Start Date End Date Mariana Whitten MD [address] [place] [address] PCP - General Internal Medicine 12/11/19 documented as of this encounter
--- OUTSIDE RECORDS SUMMARY | 2025-07-03 07:57 | XMS_ITS | Clinical Summary ---
Author Organization [facility], Address [address] [place] [address] [place] [phone] Phone Care Team Providers Care Anatomical Embalmer Name Role Phone Mariana Whitten MD Primary Care Provider [phone] Allergies Active Allergy Reactions Criticality Noted Date [...] kidney disease stage 3 12/06/2019 12/16/2020 Immunizations Immunization Administration Dates Next Due Influenza (IM) Preservative Free 021,09/08/2019,09/13/2018,2017,07/12/2017,10/09/2016 Influenza Split High Dose Preservative Free IM 07/13/2017 Influenza Vaccine, Quadrival ent, Adjuvanted 08/26/2020 Pfizer SARS-COV-2 10/07/2021,01/07/2021,12/17/19 21 Family History Medical History Relation Comments Heart disease Father [place] Hypertension Father Brain cancer Father's Sister Hypertension [...] 68 06/22/2023 9:53 AM EDT Temperature 36.7 C (98 F) 12/11/2019 1:15 PM EST Respiratory Rate 14 06/22/2023 9:53 AM EDT Oxygen Saturation - - Inhaled Oxygen Concentration - - Weight 73.5 kg (162 lb) 06/22/2023 9:53 AM EDT Height 162.6 cm (5' 4 ) 06/22/2023 9:53 AM EDT Body Mass Index 27.81 06/22/2023 9:53 AM EDT Plan of Treatment Health Maintenance Due Date Last Done Comments Pneumococcal Vaccine: 50+ Years (1 of 2 - PCV) 02/07/1964 Diabetes: Ophthalmology Exam 12/06/2019 Diabetes: Pedal Pulse Checked 12/06/2019 Diabetes: Sensory Foot Exam 12/06/2019 Diabetes: Visual Foot Exam 12/06/2019 Diabetes: Hemoglobin A1C 09/23/2022 06/23/2022 Influenza Vaccine (#1) 2025 , 08/26/2020, 09/08/2019, Additional history exists Hepatitis B Vaccine Aged Out No longe r eligible based on patient's age to complete this topic Procedures Procedure Name Priority Date/Time Associated Diagnosis Comments HEMOGLOBIN A1C Routine 06/23/2022 7:37 AM EDT from Last 3 Months or Most Recently Relevant to Health Maintenance Results * Hemoglobin A1c (06/23/2022 7:37 AM EDT) Hemoglobin A1C 5.6 (4.0-5.6) % [facility] Comment: MONITORING: In known diabetic patients, hemoglobin A1c targets should be discussed with health care provider. DIAGNOSTIC USE: The [place] Diabetes Association (ADA) and the World Health [...] Supplement 1 Testing performed or reported by [facility], a Service of [facility], [address] [place] [address] Marcy Slaughter MD, Pole Inspector [facility]# [id number] 06/23/2022 7:37 AM EDT 06/23/2022 8:21 AM EDT us Aps External Provider LAB BLOOD ORDERABLES Final Result [facility] from Last 3 Months or Most Recently Relevant to Health Maintenance Insurance Medicare [facility] Care Teams Anatomical Embalmer Relationship Specialty Start Date End Date Mariana Whitten MD [address] PCP - General Internal Medicine 12/11/19
--- OUTSIDE RECORDS SUMMARY | 2025-07-03 07:57 | XMS_ITS | Patient Health Record ---
Author Organization [facility] Address [address] [place] [address] Care Team Providers Care Plastic Technician Name Role Phone Jose Roberto Leggett Primary Care Provider Vannessa Dai Unavailable [phone] Dawn Roland Unavailable [phone] Allergies Allergen (clinical drug ingredient) Drug/Non Drug [...] Olmesartan Medoxomil 20 MG (Prior Auth: Rx Ref#:[id number]) Oral; Duration: 15 Not-Taking hydrALAZINE HCl 100 [...] EVENING Oral; Duration: 90 Days Not-Taking Nystatin 776302 UNIT/GM USE 1 APPLICATIO N TOPICALLY 2 [...] Polyneuropathy due to type 2 diabetes mellitus (847210313) Type 2 diabetes mellitus with diabetic polyneuropathy (E11.42) Active confirmed Problem Acquired hammer toe of right foot (6966222213000726 ) Hammer toe of right foot (M20.41) Active confirmed Problem Acquired hammer toe of left foot (4035342463132853 ) Hammer toe of left foot (M20.42) Active confirmed Vital Signs Blood pressure diastolic 82 mm Hg 05/08/2025 Height 5 ft 4 in in 05/08/2025 Blood pressure systolic 120 mm Hg 05/08/2025 Weight 175 lbs 05/08/2025 BMI 30.04 kg/m2 05/08/2025 Encounters Encounter Location Date Provider Diagnosis [address] [address] 08/18/2024 Dawn Roland Type 2 diabetes mellitus with diabetic polyneuropathy E11.42 ; Tinea unguium B35.1 ; Other hammer toe(s) (acquired), right foot M20.41 and Other hammer toe(s) (acquired), left foot M20.[address] [address] 11/17/2024 Vannessa Tim Type 2 diabetes mellitus with diabetic polyneuropathy E11.42 ; Acute deep vein thrombosis (DVT) of right lower extremity, unspecified vein I82.401 ; Tinea unguium B35.1 ; Other hammer toe(s) (acquired), right foot M20.41 and Other hammer toe(s) (acquired), left foot M20.[address] [address] 02/09/2025 Vannessa Tim Type 2 diabetes mellitus with diabetic polyneuropathy E11.42 ; Other hammer toe(s) (acquired), right foot M20.41 ; Tinea unguium B35.1 and Other hammer toe(s) (acquired), left foot M20.[address] [address] 05/08/2025 Vannessa Tim Type 2 diabetes mellitus with diabetic polyneuropathy E11.42 and Tinea unguium B35.[address] [address] 07/19/2024 Vannessa Tim [address] [address] 11/17/2024 Vannessa Tim Assessments Encounter Date Diagnosis (ICD Code) Assessment Notes Treatment Notes Treatment Clinical Notes Section Notes 05/08/2025 Tinea unguium (ICD-10 - B35.1) 05/08/2025 Type 2 diabetes mellitus with diabetic polyneuropathy (ICD-10 - E11.42) 02/09/2025 Other hammer toe(s) (acquired), right foot (ICD-10 - M20.41) Patient Educated with: DIABETIC FOOT CARE INSTRUCTIONS. pdf (DIABETIC FOOT CARE INSTRUCTIONS. pdf) 02/09/2025 Type 2 diabetes mellitus with diabetic polyneuropathy (ICD-10 - E11.42) 11/17/2024 Type 2 diabetes mellitus with diabetic polyneuropathy (ICD-10 - E11.42) 11/17/2024 Acute deep vein thrombosis (DVT) of right lower extremity, unspecified vein (ICD-10 - I82.401) 08/18/2024 Type 2 diabetes mellitus with diabetic polyneuropathy (ICD-10 - E11.42) 08/18/2024 Tinea unguium (ICD-10 - B35.1) 08/18/2024 Other hammer toe(s) (acquired), right foot (ICD-10 - M20.41) Response to treatment,Impro vement 11/17/2024 Tinea unguium (ICD-10 - B35.1) 02/09/2025 Tinea unguium (ICD-10 - B35.1) 02/09/2025 Other hammer toe(s) (acquired), left foot (ICD-10 - M20.42) 11/17/2024 Other hammer toe(s) (acquired), right foot (ICD-10 - M20.41) Response to treatment,Impro vement 08/18/2024 Other hammer toe(s) (acquired), left foot (ICD-10 - M20.42) Response to treatment,Impro vement 11/17/2024 Other hammer toe(s) (acquired), left foot (ICD-10 - M20.42) Response to treatment,Impro vement 08/18/2024 Other 05/08/2025 Other Plan Of Treatment Pending Test Test Name Order Date X ray : Foot, left 3V 04/12/2018 X ray : Foot, left 3V 10/24/2019 X ray : Foot, left 3V 08/02/2018 X ray : Foot, left 3V 04/13/2017 X ray : Foot, right 3V 10/24/2019 X ray : Foot, right 3V 09/13/2018 X ray : Foot, right 3V 04/12/2018 29895-HYPRNTL NAIL, 6 OR MORE 11/04/2016 75269-ETHVJQH NAIL, 6 OR MORE 08/28/2015 99603-DDJUNRW NAIL, 6 OR MORE 08/11/2016 52010-NCWVMZV NAIL, 6 OR MORE 09/13/2018 23491-RUHMFUF NAIL, 6 OR MORE 04/12/2018 53517-AZYXHID NAIL, 6 OR MORE 09/24/2017 49615-DZBZXFT NAIL, 6 OR MORE 07/05/2018 12015-JHDPULU NAIL, 6 OR MORE 03/16/2017 58871-EQANDWB NAIL, 6 OR MORE 04/07/2016 65751-RUJPDXD NAIL, 6 OR MORE 11/28/2015 60636-Mffawodr Plate 03/31/2017 38936-CPBU SKIN LESIONS, OVER 4 09/13/20 18 13108-ZPZG SKIN LESIONS, OVER 4 08/28/20 15 28473-ZQVN SKIN LESIONS, OVER 4 11/04/20 16 88497-TCES SKIN LESIONS, OVER 4 04/12/20 18 35611-DYZM SKIN LESIONS, OVER 4 11/28/19 16 89217-SHWE SKIN LESIONS, OVER 4 09/24/20 17 03463-KBWZ SKIN LESIONS, OVER 4 07/05/20 18 37142-GIRE SKIN LESIONS, OVER 4 03/16/20 17 59230-IZUZ SKIN LESIONS, 2 TO 4 08/11/20 16 HEMOGLOBIN A1C (GLYCOHEMOGLOBIN) 018 Next Appt Details Provider Name:Vannessa benjamin, 08/10/2025 11:00:00 AM, [address] [facility], [place], [address], Insurance Providers Payer Name Payer Address Payer Phone Subscriber Number Group Number Insured Name Patient Relationship to Insured Coverage Start Date Coverage End Date Medicare [employer] [facility] [employer] [address] [place] [address] [id number] Perlita Angulo Self - patient is the insured 2 [employer] [address] [place] [address] [id number] Perlita Angulo Self - patient is the [...]
--- OUTSIDE RECORDS SUMMARY | 2025-07-03 07:57 | XMS_ITS | Clinical Summary ---
Author Organization [facility] Address [address] [place] [address] Phone Care Team Providers Care Railroad Track Mechanic Name Role Phone Jose Roberto Leggett MD Primary Care Provider [phone] Allergies Active Allergy Reactions Criticality Noted Date [...] 1 (one) time each day. Active calcium carbonate-vitami n D3 600 mg-5 mcg (200 unit) capsule [...] tablet Take 100 mcg by mouth daily. 07/10/201 3 Active Entresto 49-51 mg per tablet Take 1 tablet by mouth 2 (two) times a day. 180 tablet 3 5 Active alendronate (FOSAMAX) 70 mg tablet Take 1 tablet (70 mg total) by mouth every 7 (seven) days. Take in the morning with a full glass of water, on an empty stomach, and do not take anything else by mouth or lie down for the next 30 min. Active OneTouch Ultra Test test stripIndications :Chronic diastolic heart failure (CMS/HCC V24, CMS/HCC V28) Use as instructed 100 each 3 5 04/05/20 26 Active metoprolol succinate (TOPROL-XL) 25 mg 24 hr tabletIndication s:Chronic diastolic heart failure (CMS/HCC V24, CMS/[facility] V28) Take 1 tablet (25 mg total) by mouth 1 (one) time each day. Do not crush or chew. 30 each 11 5 04/05/20 26 Active apixaban (Eliquis) 5 mg tablet Take 1 tablet (5 mg total) by mouth 2 (two) times a day. 60 each 2 5 04/05/20 26 Active atorvastatin (LIPITOR) 40 mg tabletIndication s:Coronary artery disease involving jena coronary artery without angina pectoris, unspecified whether jena or transplanted heart Take 1 tablet (40 mg total) by mouth 1 (one) time each day. 90 tablet 1 5 Active traMADoL (ULTRAM) 50 mg tablet Take 1 tablet (50 mg total) by mouth every 4 (four) hours if needed for severe pain for up to 3 days. Max Daily Amount: 300 mg 12 tablet 5 06/19/20 25 predniSONE 10 mg tablets,dose pack Take 6 [...] each day for 3 days. 39 tablet 5 06/28/20 25 Active Problems Problem Noted Date Diagnosed Date Localized edema 11/24/2024 Assessment & Plan (11/24/2024 2:28 PM EST): Patient has localized edema to the right leg. This most likely is due to venous insufficiency or loss of plumbing due to bypasses. Patient is quite worried about it is minimal she has support socks have recommended that she buy a pair with a little clin application specialist elastic in them to try to get him on easier and even support nylons would be helpful SSS (sick sinus syndrome) ([facility] V24, [facility] V28) 09/15/2024 Ischemic cardiomyopathy 09/15/2024 Assessment & Plan [...] removing that coronary sinus lead. Atrial flutter ([facility] V24, [facility] V28) 2023 Overview (09/19/2024): Last Assessment & Plan: This [...] given her symptoms and worsening LV function. Assessment & Plan (04/05/2025 1:04 PM EDT): History of A-fib flutter. Status post flutter ablation. Remains chronically anticoagulated without bleeding issues Premature ventricular beats 04/07/2024 Overview (09/19/2024): Last [...] another Holter monitor HFrEF (heart failure with re duced ejection fraction) ([facility] V24, CMS/[facility] V28) 05/07/2022 Overview (09/19/2024): Last Assessment & Plan: [...] function prior to moving ahead with a DIESEL MACHINIST device. Her QRS width is just under [...] in regards to whether she needs a DIESEL MACHINIST-D.She will continue with Eliquis. I do think would be reasonable to consider discontinuation of aspirin although she does have peripheral vascular disease as well as coronary disease. Urinary tract infection 05/07/2022 Coronary artery disease invo lving jena coronary artery without angina pectoris 10/10/2020 Overview [...] with routine medical care. Assessment & Plan (04/05/2025 1:04 PM EDT): Patient has lost 2 of her vein grafts. She is having no angina risk factor modifications in place Orders: atorvastatin (LIPITOR) 40 mg tablet; Take 1 tablet (40 mg total) by mouth 1 (one) time each day. Assessment & Plan (11/24/2024 2:28 PM EST): Orders: Transthoracic echocardiogram (TTE) complete with PRN contrast, bubble, strain, and 3D order panel; Future perflutren lipid microsphere (DEFINITY) 1.3 mL in sodium chloride 0.9% 8.7 mL injection Diastolic heart failure ([facility] V24, [facility] V2 8) 10/10/2020 Overview (09/19/2024): Last Assessment & Plan: [...] day or 4 pounds in one week. Assessment & Plan (04/05/2025 1:04 PM EDT): Patient with HFrEF. Adding back Toprol 25 mg a day of metoprolol succinate continue other medical management. Patient seems to be euvolemic at this time no changes in therapy. Orders: OneTouch Ultra Test test strip; Use as instructed metoprolol succinate (TOPROL-XL) 25 mg 24 hr tablet; Take 1 tablet (25 mg total) by mouth 1 (one) time each day. Do not crush or chew. Assessment & Plan (04/05/2025 1:03 PM EDT): Stable from a cardiovascular standpoint on medical management. No significant evidence of weight gain and volume appears to be well-managed Hyperlipidemia 10/10/2020 Overview (09/19/2024): Last Assessment & [...] have not increasing it Paroxysmal atrial fibrillation ([facility] V24, CMS /[facility] V28) 10/10/2020 Overview (09/19/2024): W/ slow rate in [...] that may have occurred Renal artery stenosis ([facility] V24) 10/10/2020 Overview (09/19/2024): Last Assessment & Plan: I believe the patient has moderate unilateral renal artery stenosis followed by nephrology Encounters Date Type Department Care Team Description 06/29/2025 9:10 AM EDT Ancillary Procedure [facility] [address] [place] [address] 06/16/2025 10:34 AM EDT - 06/16/2025 3:24 PM EDT Emergency [facility] Emergency [address] [place] [address] Bunny Rosa MD Acute right-sided low back pain with right-sided sciatica (Primary Dx) Discharge Disposition: Home or Self Care 05/13/2025 5:40 PM EDT Ancillary Procedure [facility] [address] [place] [address] 05/07/2025 7:40 AM EDT Ancillary Procedure [facility] [address] [place] [address] 04/24/2025 10:00 AM EDT Ancillary Procedure [facility] [address] [place] [address] Encounter for adjustment or management of cardiac device 04/05/2025 11:20 AM EDT Office Visit [facility] [address] [place] [address] Derick Medina MD Chronic diastolic heart failure (CMS/HCC V24, CMS/HCC V28) (Primary Dx); Coronary artery disease involving jena coronary artery without angina pectoris, unspecified whether jena or transplanted heart; Atrial flutter, unspecified type (CMS/HCC V24, CMS/HCC V28) from Last 3 Months Immunizations Name Administration Dates Next Due Pfizer SARS-CoV-2 COVID-19, mRNA, LNP-S, preservative free 01/07/2021,12/17/2020 Surgical History Surgery Date Site/Laterality Comments ANGIOPLASTY PROCEDURE: HISTORICAL ANGIOPLASTY W/STENT CARDIAC CATHETERIZATION PROCEDURE: HISTORICAL CARDIAC CATH OTHER SURGICAL HISTORY 2008 PROCEDURE: HISTORY OTHER; COMMENT: DEBBIE LAD, LCX OTHER SURGICAL HISTORY PROCEDURE: MD PATIENT HAS A CORONARY ARTERY STENT HYSTERECTOMY [...] DX :CAD (coronary artery disease) CREST syndrome (CMS/HCC V24, CMS/HCC V28) 05/07/2022 DX:CREST syndrome (HCC) Hypothyroidism DX:Hypothyroidis m Diabetes mellitus, type II ( CMS/HCC V24, CMS/HCC V28) DX:Diabetes mellitus, type I I (HCC) Dyspnea DX:Dyspnea Obesity DX:Obesity Polymyositis (CMS/HCC V24, C MS/HCC V28) DX:Polymyositis (HCC) Renal artery stenosis (CMS/HCC V24) DX:Renal artery stenosis (HCC) Scleroderma (CMS/HCC V24, CM S/HCC V28) DX:Scleroderma (HCC) Wound infection DX:Wound infecti on Family [...] EDT Inhaled Oxygen Concentration - - Weight 81.5 kg (179 lb 9.6 oz) 04/05/2025 11:15 AM EDT Height 162.6 cm (5' 4 ) 04/05/2025 11:15 AM EDT Body Mass Index 30.83 04/05/2025 11:15 AM EDT Plan of Treatment Upcoming Encounters Date Type Department Care Team (Late st Contact Info) Description 07/24/2025 7:40 AM EDT Office Visit [facility] [address] [place] [address] Kamryn Isaac NP [address] [place] [address] [address] [place] [address] 04/24/2026 9:30 AM EDT Ancillary Procedure [facility] [address] [facility] [address] [place] [id number] Health Maintenance Due Date Last Done Comments Diabetes: Annual Foot Exam 02[birth year]07/1955 Diabetes: Annual Retina Eye Exam 02/07/1955 DTaP,Tdap,and Td Vaccines (1 - Tdap) 02/07/1963 Zoster Vaccines (1 of 2) 02/07/1994 RSV Immunization Adult Patients (1 - 1-dose 75+ series) 02/07/2019 Cholesterol Screening (Lipid Panel) 10/17/2022 Falls Risk Assessment 10/17/2022 Osteoporosis Screening (Bone Density Screening) 10/17/2022 Social Influencers of Health Screening 10/17/2022 Medicare Annual Wellness Visit 07/09/2023 07/09/2022 COVID-19 Vaccine ( season) 2024 10/07/2021, 09/02/2021, 01/07/2021, Additional history exists Diabetes: Annual Urine Albumin-Creatinine Ratio (uACR) 09/22/2024 Diabetes: Blood Sugar Control Test (HGBA1C) 09/22/2024 06/23/2022 Depression Screening 11/08/2024 Influenza Vaccine (#1) 2025 , 07/09/2024, 09/16/2023, Additional history exists Diabetes: Annual GFR (Glomerular Filtration Rate) 06/16/2026 06/16/2025, 11/06/2024, 09/23/2024 Hypertension/CHF/CAD Annual BMP Blood Test 06/16/2026 06/16/2025, 11/06/2024, 09/23/2024 Pneumococcal Vaccine: 50+ Years Completed 04/10/2021, 01/15/2020 HIB Vaccines Aged Out No longer eligi [...] age to complete this topic Meningococcal B Vaccine Aged Out No l onger eligible based on patient's age to complete this topic RSV Immunization Patients Under 20 months Aged Out No longer eligible based on patient's age to complete this topic Varicella Vaccines Aged Out No longer eligible based on patient's age to complete this topic Medical Devices Implanted Type Area Shipping Agent Device Identifier Shelf Expiration Date Model / Serial / Lot Defib Icd Bi Vent [place] [employer] Media Reconciliation Specialist D - [id number] - [id number] Implanted:Qty: 1 on 09/22/2024 by Zack Mayers MD at [facility] Cardiac DIESEL MACHINIST-D ICD Left: Heart [facility] [id number] 01/05/2026 [id number] / [id number] / Abbt-Stju [place] Hf [id number] Implanted:09/08 (Quantity not on file) Cardiac DIESEL MACHINIST-D ICD Left: Chest [facility] GALLANT HF [id number] / [id number] / Abbt-Stju [id number] [place](Tm) Hf [id number] Implanted:09/08 (Quantity not on file) Cardiac DIESEL MACHINIST-D ICD [facility] [id number] GALLANT(T M) HF / [id number] / Lead Tachy Durat 58cm 7122q/58 Sj4 - [id number] - [id number] Implanted:Qty: 1 on 09/22/2024 by Zack Mayers MD at [facility] Cardiac Lead N/A: Heart [facility] [id number] 02/05/2027 7122Q/58 / [id number] / Lead Pcmk Tendril Sts [id number] - [id number] - [id number] Implanted:Qty: 1 on 09/22/2024 by Zack Mayers MD at [facility] Cardiac Lead Left: Heart [facility] [id number] 05/07/2027 2088TC/52 / [id number] / Lead Pcmkr Lv Quartet 75cm Quadripolar - [id number] - [id number] Implanted:Qty: 1 on 09/22/2024 by Zack Mayers MD at [facility] Cardiac Lead Left: Heart [facility] [id number] 03/07/2027 1458Q/75 / [id number] / Procedures Procedure Name Priority Date/Time Associated Diagnosis Comments CARDIAC DEVICE CHECK- REMOTE- MURJ Routine 06/29/2025 9:05 AM EDT CBC WITH AUTO DIFFERENTIAL STAT 06/16/2025 11:46 AM EDT C-REACTIVE PROTEIN STAT 06/16/2025 11 :46 AM EDT BASIC METABOLIC PANEL STAT 06/16/2025 11:46 AM EDT CBC AND DIFFERENTIAL STAT 06/16/2025 11:46 AM EDT CARDIAC DEVICE CHECK- REMOTE- MURJ Routine 05/13/2025 5:36 PM EDT CARDIAC DEVICE CHECK- REMOTE- MURJ Routine 05/07/2025 7:39 AM EDT CARDIAC DEVICE CHECK- IN CLINIC- MURJ Routine 04/24/2025 12:06 PM EDT Encounter for adjustment or management of cardiac device from Last 3 Months Results * Cardiac device check - Remote- MURJ (06/29/2025 9:05 AM EDT) Only the most recent of3 resultswithin the time period is included. Date Time Interrogation Session [id number] CV DEVICE CHECK Type Interrogation Session Remote Device Initiated CV DEVICE CHECK Implantable Pulse Generator Shipping Agent [employer] CV DEVICE CHECK Implantable Pulse Generator Type DIESEL MACHINIST-D CV DEVICE CHECK Implantable Pulse Generator Model [id number] [place]() HF CV DEVICE CHECK Implantable Pulse Generator Serial Number [id number] CV DEVICE CHECK Implantable Pulse Generator Implant Date 20240922 CV DEVICE CHECK Battery Remaining Percentage 81.00 CV DEVICE CHECK Battery Remaining Longevity 43.0 CV DEVICE CHECK Battery Voltage 2.950 CV D EVICE CHECK Battery S[employer] CROSSING [employer]ARD SUPERVISOR Trigger 2.620 CV DEVICE CHECK Battery Status Middle of Service CV DEVICE CHECK Capacitor Charge Time 9.400 CV DEVICE CHECK Francisco Statistic RA Percent Paced 84.00 CV DEVICE CHECK Francisco Statistic RV Percent Paced 89.10 CV DEVICE CHECK DIESEL MACHINIST Statistic DIESEL MACHINIST Percent Paced 89.00 CV DEVICE CHECK Atrial Tachy Statistic AT/AF [place] Percent 0.00 CV DEVICE CHECK Lead Channel [...] CV DEVICE CHECK Ventricular chambers paced during DIESEL MACHINIST pacing. BiV CV DEVICE CHECK Francisco Setting Lower Rate Limit 70 CV DEVICE CHECK Francisco Setting AT Mode Switch Rate 180 CV DEVICE CHECK Francisco Setting Maximum Tracking Rate 120 CV DEVICE CHECK Francisco Setting Maximum Sensor Rate 100 CV DEVICE CHECK Francisco Setting PAV Delay 180 CV DEVICE CHECK Francisco Setting FLO Delay 150 CV DEVICE CHECK DIESEL MACHINIST LV-RV Delay 0 CV D EVICE CHECK [...] CARDIAC DEVICE PROCEDURES Final Result * (ABNORMAL) CBC auto differential (06/16/2025 11:46 AM EDT) WBC 7.4 4.8 - 10.8 K/mcL LAB HEMETOLOGY METHOD [facility]/16[facility]2025 12[facility] RBC 4.50 3.80 - 4.80 M/mcL LAB HEMETOLOGY METHOD 06/16/2025 12:35 PM [facility] Hemoglobin 14.1 11.5 - 16.0 g/dL LAB HEMETOLOGY METHOD 06/16/2025 12:35 PM [facility] Hematocrit 42.7 35.0 - 47.0 % LAB HEMETOLOGY METHOD 06/16/2025 12:35 PM [facility] MCV 95.7 79.0 - 98.0 FL LAB HEMETOLOGY METHOD 06/16/2025 12:35 PM [facility] MCH 31.6 27.0 - 32.0 pcg LAB HEMETOLOGY METHOD 06/16/2025 12:35 PM [facility] MCHC 33.0 32.0 - 37.0 g/dL LAB HEMETOLOGY METHOD 06/16/2025 12:35 PM [facility] RDW 13.0 11.0 - 15.0 % LAB HEMETOLOGY METHOD 06/16/2025 12:35 PM [facility] Platelets 323 130 - 400 K/mcL LAB HEMETOLOGY METHOD 06/16/2025 12:35 PM [facility] MPV 11.3(H) 7.0 - 11.0 FL LAB HEMETOLOGY METHOD 06/16/2025 12:35 PM [facility] NRBC 0.3 <1.0 % LAB HEMETOLOGY METHOD 06/16/2025 12:35 PM EDT [facility] NRBC Absolute 0.02 <0.10 K/mcL LAB HEMETOLOGY METHOD 06/16/2025 12:35 PM [facility] Neutrophils Relative 62.2 % LAB HEMETOLOGY METHOD 06/16/2025 12:35 PM EDT [facility] Lymphocytes Relative 27.3 % LAB HEMETOLOGY METHOD 06/16/2025 12:35 PM EDT [facility] Monocytes Relative 7.6 % LAB HEMETOLOGY METHOD 06/16/2025 12:35 PM [facility] Eosinophils Relative 1.8 % LAB HEMETOLOGY METHOD 06/16/2025 12:35 PM EDT [facility] Basophils Relative 0.8 % LAB HEMETOLOGY METHOD 06/16/2025 12:35 PM [facility] Immature Granulocytes Relative 0.3 % LAB HEMETOLOGY METHOD 06/16/2025 12:35 PM EDT [facility] Neutrophils Absolute 4.60 1.50 - 7.00 K/mcL LAB HEMETOLOGY METHOD 06/16/2025 12:35 PM EDT [facility] Lymphocytes Absolute 2.02 1.00 - 5.00 K/mcL LAB HEMETOLOGY METHOD 06/16/2025 12:35 PM EDT [facility] Monocytes Absolute 0.56 0.20 - 1.00 K/mcL LAB HEMETOLOGY METHOD 06/16/2025 12:35 PM EDT [facility] Eosinophils Absolute 0.13 0.00 - 0.50 K/mcL LAB HEMETOLOGY METHOD 06/16/2025 12:35 PM EDT [facility] Basophils Absolute 0.06 0.00 - 0.20 K/mcL LAB HEMETOLOGY METHOD 06/16/2025 12:35 PM EDT [facility] Immature Granulocytes Absolute 0.02 0.00 - 0.03 K/mcL LAB HEMETOLOGY METHOD 06/16/2025 12:35 PM EDT [facility] Blood Venous blood specimen / Unknown Venipuncture / Unknown 06/16/2025 11:46 AM EDT 06/16/2025 12:14 PM EDT Bunny Rosa MD LAB BLOOD ORDERABLES Final Result Performing Organization Address [facility]/ZIP Co de Phone Number [facility] [address] [place] [address], [place] [phone] * C-reactive protein (06/16/2025 11:46 AM EDT) C-Reactive Protein <0.29 <=0.50 mg/dL LAB CHEMISTRY METHOD 06/16/2025 12:43 PM EDT [facility] Blood Venous blood specimen / Unknown Venipuncture / Unknown 06/16/2025 11:46 AM EDT 06/16/2025 12:14 PM EDT Bunny Rosa MD LAB BLOOD ORDERABLES Final Result Performing Organization Address [facility]/ZIP Co de Phone Number [facility] [address] [place] [address], [place] [phone] * (ABNORMAL) Basic metabolic panel (06/16/2025 11:46 AM EDT) Sodium 141 133 - 145 mmol/L LAB CHEMISTRY METHOD 06/16/2025 12:43 PM EDT [facility] Potassium 4.3 3.5 - 5.5 mmol/L LAB CHEMISTRY METHOD 06/16/2025 12:43 PM EDT [facility] Chloride 110 96 - 110 mmol/L LAB CHEMISTRY METHOD 06/16/2025 12:43 PM [facility] CO2 25 21 - 32 mmol/L LAB CHEMISTRY METHOD 06/16/2025 12:43 PM [facility] Anion Gap 6 3 - 11 LAB CHEMISTRY METHOD 06/16/2025 12:43 PM [facility] Glucose 119(H) 70 - 100 mg/dL LAB CHEMISTRY METHOD 06/16/2025 12:43 PM [facility] BUN 24 5 - 25 mg/dL LAB CHEMISTRY METHOD 06/16/2025 12:43 PM [facility] Creatinine 1.14(H) 0.50 - 1.10 mg/dL LAB CHEMISTRY METHOD 06/16/2025 12:43 PM [facility] eGFR 48(L) >=60 mL/min/1. 73m2 LAB CHEMISTRY METHOD 06/16/2025 12:43 PM [facility] Comment:Calculation based on the Chronic Kidney Disease Epidemiology Collaboration (CKD-EPI) equation refit without adjustment for race. BUN/Creatinine Ratio 21.1 LAB CHEMISTRY METHOD 06/16/2025 12:43 PM [facility] Calcium 9.3 8.5 - 10.5 mg/dL LAB CHEMISTRY METHOD 06/16/2025 12:43 PM [facility] Blood Venous blood specimen / Unknown Venipuncture / Unknown 06/16/2025 11:46 AM EDT 06/16/2025 12:14 PM EDT us Bunny Rosa MD LAB BLOOD ORDERABLES Final Result [facility] [address] [place] [address], * CARDIAC DEVICE CHECK- IN CLINIC- MUR (04/24/2025 12:06 PM EDT) Pathologist [facility] Date Time Interrogation Session [id number] CV DEVICE CHECK Implantable Pulse Generator Shipping Agent [employer] CV DEVICE CHECK Implantable Pulse Generator Type DIESEL MACHINIST-D CV DEVICE CHECK Implantable Pulse Generator Model Lisa HF [id number] CV DEVICE CHECK Implantable Pulse Generator Serial Number [id number] CV DEVICE CHECK Implantable Pulse Generator Implant Date 20240922 CV DEVICE CHECK Battery Status Middle of Service CV DEVICE CHECK Francisco Statistic RA Percent Paced 83.00 CV DEVICE CHECK DIESEL MACHINIST Statistic DIESEL MACHINIST Percent Paced 90.00 CV DEVICE CHECK Lead Channel Sensing Intrinsic Amplitude 1.700 CV DEVICE CHECK Lead Channel Impedance Value 438 CV DEVICE CHECK Lead Channel Pacing Threshold Amplitude 0.500 CV DEVICE CHECK Lead Channel Pacing Threshold Pulse Width 0.5 CV DEVICE CHECK Lead Channel RA Pacing Threshold Date 2025-04-24 CV DEVICE CHECK Lead Channel Setting Pacing Amplitude 2.000 CV DEVICE CHECK Lead Channel Setting Pacing Pulse Width 0.5 CV DEVICE CHECK Lead Channel Sensing Intrinsic Amplitude 11.900 CV DEVICE CHECK Lead Channel Setting Sensing Sensitivity 0.30 CV DEVICE CHECK Lead Channel Impedance Value 475 CV DEVICE CHECK Lead Channel Pacing Threshold Amplitude 1.250 CV DEVICE CHECK Lead Channel Pacing Threshold Pulse Width 0.5 CV DEVICE CHECK Lead Channel RV Pacing Threshold Date 2025-04-24 CV DEVICE CHECK Lead Channel Setting Pacing Amplitude 2.130 CV DEVICE CHECK Lead Channel Setting Pacing Pulse Width 0.5 CV DEVICE CHECK Lead Channel Impedance Value 575 CV DEVICE CHECK Lead Channel Pacing Threshold Amplitude 3.500 CV DEVICE CHECK Lead Channel Pacing Threshold Pulse Width 1.5 CV DEVICE CHECK Lead Channel Pacing Threshold Date 2025-04-24 CV DEVICE CHECK Lead Channel Setting Pacing Amplitude 4.500 CV DEVICE CHECK Lead Channel Setting Pacing Pulse Width 1.0 CV DEVICE CHECK Francisco Setting Mode (NBG Code) DDDR CV DEVICE CHECK Ventricular chambers paced during DIESEL MACHINIST pacing. LV+RV (Sim CV DEVICE CHECK Francisco [...] Anatomical Region Laterality Modality Device Interroga tion 04/24/2025 Impressions 05/07/2025 7:37 AM EDT Normal In-Office: No Events * Normal Device Function * Alerts or events: No new alerts since last remote session * Battery: MOS, 3.80 yrs * Sensing, impedance and thresholds reviewed and tested * Presenting Rhythm: AP-BVP 75 bpm * Underlying Rhythm: -VS 30s * Heart Rate Histograms reviewed * Pacing and Detection Parameters were evaluated LV Lead Dislodgement * Known LV lead issues * Patient had PNS at all but Prox 4 to RV coil * High LV output continue, threshold in office today was 4.0V@1.0ms; with the 1V safety margin that Dr. Mayers requested this significantly decreased battery longevity to 1.8-2.2years * LV lead tested with PW of 1.5ms; threshold was 3.50V @ 1.5ms and battery longevity was increased to 3.8 years * Continue to monitor Heart Failure Diagnostic: Stable * Heart failure diagnostics assessed through the device * Status: Stable * No overt HF present Narrative Procedure Note Zack Mayers MD - 05/07/2025 IMPRESSION: Normal In-Office: No Events * Normal Device Function * Alerts or events: No new alerts since last remote session * Battery: MOS, 3.80 yrs * Sensing, impedance and thresholds reviewed and tested * Presenting Rhythm: AP-BVP 75 bpm * Underlying Rhythm: -VS 30s * Heart Rate Histograms reviewed * Pacing and Detection Parameters were evaluated LV Lead Dislodgement * Known LV lead issues * Patient had PNS at all but Prox 4 to RV coil * High LV output continue, threshold in office today was 4.0V@1.0ms; withthe 1V safety margin that Dr. Mayers requested this significantlydecreased battery longevity to 1.8-2.2years * LV lead tested with PW of 1.5ms; threshold was 3.50V @ 1.5ms andbattery longevity was increased to 3.8 years * Continue to monitor Heart Failure Diagnostic: Stable * Heart failure diagnostics assessed through the device * Status: Stable * No overt HF present us Order Referral Cardiovascular CV IMPLANTABLE CAR DIAC DEVICE PROCEDURES Final Result from Last 3 Months Insurance MEDICARE [facility] Advance Directives * Full Code - Default [...] currently active code status orders. Care Teams Railroad Track Mechanic Relationship Specialty Start Date End Date Jose Roberto Leggett MD [address] [place] [address] [address] [facility] [place] [address] PCP - General 11/25/23
--- OUTSIDE RECORDS SUMMARY | 2025-07-03 07:58 | XMS_ITS | Continuity of Care Document ---
Author Organization [facility] Address [address] [place] [address] Phone [phone] Social History Type Date Description Comments Sex Female Sex Unknown Medical Devices Description No Information Available Encounters Description No Information Available Assessments Description No Information Available Plan of Treatment No Information Available Functional Status Description No Information Available Mental Status Description No Information Available Referrals Description No Information Available
--- OUTSIDE RECORDS SUMMARY | 2025-07-03 07:58 | XMS_ITS | Encounter Summary ---
Author Organization [facility], Address [address] [place] [address] Phone Care Team Providers Care Java Security Architect Name Role Phone Mariana Whitten MD Primary Care Provider [phone] Encounter Details Date Type Department Care Team (Late st Contact Info) Description 12/13/2020 Orders Only [facility] - [address] [facility] [place] [address] Montse Grace MD Chronic kidney disease stage [...] M/MM3 [facility] Hgb 12.0 (11.7-15.5 ) GM/DL [facility] Hematocrit 37.3 (35.7-45.8 ) % [facility] MCV 98.7 (80.0-100. 0) FL [facility] MCH 31.7 (27.0-34.0 ) PG [facility] MCHC 32.2(L) (33.0-37.0 ) g/dL [facility] Platelets 281 (150-460) K/MM3 [facility] RDW-SD 46.4 (<47.0) FL [facility] MPV 12.8(H) (9.4-12.4) [place] [facility] nRBC Count 0.0 #/100 WBC'S [facility] NRBC Absolute 0.0 K/MM3 [facility] Comment: Testing performed or reported by [facility], a Service of [facility], [address] [place] [address] Marcy Slaughter MD, Machine Operator [facility]# [id number] Blood specimen (specimen) 06/30/2021 8:58 AM EDT 06/30/2021 9:02 AM EDT us Montse Grace MD LAB BLOOD ORDERABLES Final Resu lt [facility] * (ABNORMAL) Renal function panel (06/30/2021 8:58 AM EDT) Glucose 104(H) (70-99) MG/DL [facility] BUN 48(H) (8-23) MG/DL [facility] Creatinine 1.4(H) (0.5-1.0) MG/DL [facility] Sodium 141 (133-145) MMOL/L [facility] Potassium 4.8 (3.6-5.2) MMOL/L [facility] Chloride 109(H) (98-107) MMOL/L [facility] Bicarbonate (CO2) 20(L) (22-29) MMOL/L [facility] Anion Gap 12 (4-17) [facility] Albumin 4.1 (3.4-4.8) GM/DL [facility] Calcium 9.4 (8.6-10.5) MG/DL [facility] Phosphorus, Serum 3.6 (2.5-4.5) MG/DL [facility] Est GFR Non 37 ML/MIN/1.7 3 M2 [facility] Comment: Creatinine based estimated glomerular filtration rate (eGFR) is calculated using the Chronic Kidney Disease Epidemiology Collaboration (CKD-EPI). The CKD-EPI creatinine equation has not been validated in children (<18 years), women or in some racial or ethnic subgroups other than Caucasians and Americans. EST GFR 43 ML/MIN/1.7 3 M2 [facility] Comment: Creatinine based estimated glomerular filtration rate (eGFR) is calculated using the Chronic Kidney Disease Epidemiology Collaboration (CKD-EPI). The CKD-EPI creatinine equation has not been validated in children (<18 years), women or in some racial or ethnic subgroups other than Caucasians and Americans. Testing performed or reported by [facility], a Service of [facility], [address] [place] [address] Marcy Slaughter MD, Machine Operator [facility]# [id number] Blood specimen (specimen) 06/30/2021 8:58 AM EDT 06/30/2021 9:02 AM EDT us Montse Grace MD LAB BLOOD ORDERABLES Final Resu lt [facility] documented in this encounter Visit Diagnoses Diagnosis Chronic kidney disease stage 3 (HCC) documented in this encounter Care Teams Java Security Architect Relationship Specialty Start Date End Date Mariana Whitten MD [address] [place] [address] PCP - General Internal Medicine 12/11/19 documented as of this encounter
[2025-07-03 10:27] LABS: Anion Gap 14 (12-20); Blood Urea Nitrogen 31 mg/dL (9-16); Carbon Dioxide 23 mmol/L (22-29); Chloride 108 mmol/L (96-108); Estimated Glomerular Filt Rate 38; Potassium 4.2 mmol/L (3.3-5.1); Sodium 141 mmol/L (135-145)
== END 2025-07-03 07:53 | disposition home or self-care (01) ==
LOC: HO.HMGCLDS 07:52
PROVIDERS: PCP Internal Medicine; Visit Provider Internal Medicine Nephrology
DX: I70.1 Atherosclerosis of renal artery (principal); N18.31 Chronic kidney disease, stage 3a
CPT/HCPCS: 36415; 80051; 82565; 84520

== ENCOUNTER 2025-07-04 10:21 | Outpatient (AMB) | payer MEDICARE, SELFPAY ==
--- OUTSIDE RECORDS SUMMARY | 2025-06-29 09:10 | XMS_ITS | Encounter Summary ---
Author Organization [facility] [place] [place] [address] Care Team Providers Care Spindle Tester Name Role Phone Jose Roberto Leggett MD Primary Care Provider [phone] Encounter Details Date Type Department Care Team ([facility] st Contact Info) Description 06/29/2025 9:10 AM EDT Ancillary Procedure [facility] - [facility] [address] [facility] [address] [place] [address] Social History Tobacco Use Types Packs/Day Years [...] Date Author No 09/23/2024 8:22 AM Fer Robelro RN documented in this encounter Plan of Treatment Upcoming Encounters Date Type Department Care Team (Late st Contact Info) Description 07/24/2025 7:40 AM EDT Office Visit [facility] [address] [place] [address] [place] [phone] Kamryn Isaac NP [address] [place] [address] [address] [place] [phone] 04/24/2026 9:30 AM EDT Ancillary Procedure [facility] - [address] [place] [phone] documented as of this encounter Procedures Procedure Name Priority Date/Time Associated Diagnosis Comments CARDIAC DEVICE CHECK- REMOTE- MURJ Routine 06/29/2025 9:05 AM EDT documented in this encounter Results * Cardiac device check - Remote- MURJ (06/29/2025 9:05 AM EDT) Date Time Interrogation Session [id number] CV DEVICE CHECK Type Interrogation Session Remote Device Initiated CV DEVICE CHECK Implantable Pulse Generator Electrician Supervisor Substation [employer] CV DEVICE CHECK Implantable Pulse Generator Type EXTERIOR INTERIOR SPECIALIST-D CV DEVICE CHECK Implantable Pulse Generator Model [id number] Pless[place](TM) HF CV DEVICE CHECK Implantable Pulse Generator Serial Number [id number] CV DEVICE CHECK Implantable Pulse Generator Implant Date 20240922 CV DEVICE CHECK Battery Remaining Percentage 81.00 CV DEVICE CHECK Battery Remaining Longevity 43.0 CV DEVICE CHECK Battery Voltage 2.950 CV D EVICE CHECK Battery ROAD ADVISOR Trigger 2.620 CV DEVICE CHECK Battery Status Middle of Service CV DEVICE CHECK Capacitor Charge Time 9.400 CV DEVICE CHECK Francisco Statistic RA Percent Paced 84.00 CV DEVICE CHECK Francisco Statistic RV Percent Paced 89.10 CV DEVICE CHECK EXTERIOR INTERIOR SPECIALIST Statistic EXTERIOR INTERIOR SPECIALIST Percent Paced 89.00 CV DEVICE CHECK Atrial Tachy Statistic AT/AF [place] Percent 0.00 CV DEVICE CHECK Lead Channel Sensing Intrinsic Amplitude 1.100 CV DEVICE CHECK Lead Channel Setting Sensing Sensitivity 0.30 CV DEVICE CHECK Lead Channel Impedance Value 450 CV DEVICE CHECK Lead Channel Setting Pacing Amplitude 2.000 CV DEVICE CHECK Lead Channel Setting Pacing Pulse Width 0.5 CV DEVICE CHECK Lead Channel Sensing Intrinsic Amplitude 12.000 CV DEVICE CHECK Lead Channel Setting Sensing Sensitivity 0.30 CV DEVICE CHECK Lead Channel Impedance Value 500 CV DEVICE CHECK Lead Channel Pacing Threshold Amplitude 1.125 CV DEVICE CHECK Lead Channel Pacing Threshold Pulse Width 0.5 CV DEVICE CHECK Lead Channel RV Pacing Threshold Date 2025-06-21 CV DEVICE CHECK Lead Channel Setting Pacing Amplitude 2.125 CV DEVICE CHECK Lead Channel Setting Pacing Pulse Width 0.5 CV DEVICE CHECK Lead Channel Impedance Value 560 CV DEVICE CHECK Lead Channel Setting Pacing Amplitude 4.500 CV DEVICE CHECK Lead Channel Setting Pacing Pulse Width 1.0 CV DEVICE CHECK Francisco Setting Mode (NBG Code) DDDR CV DEVICE CHECK Ventricular chambers paced during EXTERIOR INTERIOR SPECIALIST pacing. BiV CV DEVICE CHECK Francisco Setting Lower Rate Limit 70 CV DEVICE CHECK Francisco Setting AT Mode Switch Rate 180 CV DEVICE CHECK Francisco Setting Maximum Tracking Rate 120 CV DEVICE CHECK Francisco Setting Maximum Sensor Rate 100 CV DEVICE CHECK Francisco Setting PAV Delay 180 CV DEVICE CHECK Francisco Setting FLO Delay 150 CV DEVICE CHECK EXTERIOR INTERIOR SPECIALIST LV-RV Delay 0 CV D EVICE CHECK Therapy Statistic Recent Shocks Delivered 0 CV DEVICE CHECK Therapy Statistic Recent Shocks Aborted 0 CV DEVICE CHECK Therapy Statistic Recent ATP Delivered 0 CV DEVICE CHECK Shock Measured Impedance 95 CV DEVICE CHECK Zone Setting Type Category [...] 3 CV DEVICE CHECK Date of Service 2025-07-06 CV DEVICE CHECK Anatomical Region Laterality Modality Device Interroga tion 06/21/2025 2:03 AM EDT Impressions 06/29/2025 8:59 AM EDT Heart Failure Diagnostic: Stable * Heart failure diagnostics assessed through the device * Status: Stable * No overt HF present Narrative Procedure Note Zack Mayers MD - 06/29/2025 IMPRESSION: Heart Failure Diagnostic: Stable * Heart failure diagnostics assessed through the device * Status: Stable * No overt HF present Zack Mayers MD CV IMPLANTABLE CARDIAC DEVICE PROCEDURES Final Result documented in this encounter Visit Diagnoses Not on filedocumented in this encounter Care Teams Spindle Tester Relationship Specialty Start Date End Date Jose Roberto Leggett MD [address] [place] [address] [address] [facility] [place] [address] PCP - General 11/25/23 documented as of this encounter
--- NOTE | 2025-07-04 10:23 | HO.NEPHOV_ITS ---
Vital Signs 07/04/25 10:26 Height 5 ft 4 in Weight 174 lb 8 oz BMI 29.9 BP 140/64 H Blood Pressure Location Rt brachial Position Sitting Pulse 76 Pulse Source Pulse Oximeter Pulse Oximetry (%) 97 Oxygen Delivery Method Room Air Intake Visit Reasons: CKD-Conf Design/Animation Instructor Required: No Accompanied by: Self / Same As Patient Allergies erythromycin base (ERYTHROMYCIN BASE) Allergy (Intermediate, Verified 07/04/25 10:25) HIVES flurbiprofen (From ANSAID) Allergy (Intermediate, Verified 07/04/25 10:25) HIVES azithromycin (AZITHROMYCIN) Allergy (Mild, Verified 07/04/25 10:25) RASHES NSAIDS (Non-Steroidal Anti-Inflamma (NSAIDS (NON-STEROIDAL ANTI-INFLAMMA) Allergy (Mild, Verified 07/04/25 10:25) RASHES ciprofloxacin (Cipro) Allergy (Unknown, Verified 07/04/25 10:25) Upset Stomach nitrofurantoin Allergy (Unknown, Verified 07/04/25 10:25) upset stomach Erythromycin Allergy (Unknown, Uncoded 06/19/25 13:35) Hives Sulfas Allergy (Unknown, Uncoded 06/19/25 13:35) Hives HPI Comments Details: Perlita was seen in follow up for her CKD, hypertension and crest syndrome. She has long history of coronary artery disease needing PCI 15 years ago but recently she underwent coronary artery bypass grafting following which she had sternal wound issues and underwent further surgery. She was thought to have atherosclerotic renovascular disease causing CKD. She denies any shortness of breath, paroxysmal nocturnal dyspnea, orthopnea or worsening pedal edema. She has been tolerating angiotensin receptor marichuy. Her serum creatinine had been fluctuating between 1.3-1.4 at baseline. She does not have any hematuria, dysuria, frequency, orthostatic symptoms. She had a pacemaker Sep 2024 [facility] Medical History CAD (coronary artery disease) CREST (calcinosis, Raynaud's phenomenon, esophageal dysfunction, sclerodactyly, telangiectasia) Inguinal hernia Type 2 diabetes mellitus with hyperglycemia Hypertension Polymyositis Renal artery stenosis Scleroderma Paroxysmal atrial fibrillation CKD (chronic kidney disease) stage 3, GFR 30-59 ml/min Hypothyroid Hypercholesterolemia Surgical History Hx of tonsillectomy History of lumbar fusion History of appendectomy Hx of total knee arthroplasty Hx of CABG S/P JUDI-BSO (total abdominal hysterectomy and bilateral salpingo-oophorectomy) Family History Mother Heart attack Father Heart attack Brother No problems noted. Son No problems noted. Son No problems noted. Social History Housing: House Alcohol intake: never Patient Tobacco Use Status: Never used Tobacco Tobacco use type: Cigarette e-Cigarette/Vaping Use: Never Used Second Hand Smoke Exposure: No service: No Current occupational status: retired Current occupational exposures/hazards: No Cognitive needs: No Hearing needs: Yes Vision needs: Yes Review of Systems Const All systems reviewed & are unremarkable except as noted in HPI and below Physical Exam Const General: comfortable and no acute distress Orientation/consciousness: patient oriented x3 HEENT Head: Yes normocephalic Mouth: Normal oral and palatal mucosa present Eyes EOM: EOMs intact bilaterally Neck Neck: Yes supple Resp Auscultation: clear to auscultation bilaterally Cardio Jugular venous distension: no JVD Rate: regular rate GI Palpation (GI): Soft to palpation Auscultation: normal bowel sounds General: Yes no CVA tenderness Back/Spine/Pelvis Back: no CVA tenderness Skin General skin exam: no rashes or lesions noted Neuro General: patient oriented x3 and moves all extremities Extrem General: Yes no pedal edema Results Reviewed Nephrology Results: Hgb, (12.0-16.0) 13.6 g/dl 03/31/25 WBC, (4.8-10.8) 8.2 X10*3/uL 03/31/25 Plt Count, (160-400) 242 X10*3/uL Δ 03/31/25 Sodium, (135-145) 141 mmol/L 07/03/25 Potassium, (3.3-5.1) 4.2 mmol/L 07/03/25 Chloride, (96-108) 108 mmol/L 07/03/25 Carbon Dioxide, (22-29) 23 mmol/L 08/26/25 BUN, (9-16) 31 mg/dL H 07/03/25 Creatinine, (0.5-1.4) 1.35 mg/dL 07/03/25 Calcium, (8.4-10.2) 9.1 mg/dL Δ 03/31/25 Phosphorus, (2.7-4.5) 2.7 mg/dL 03/31/25 Urine Creatinine 132.51 mg/dL 03/31/25 Assessment & Plan Assessment & Plan (1) Hypertension: Code(s): I10 - Essential (primary) hypertension Category: Medical Qualifiers: Hypertension type: renovascular hypertension Qualified Code(s): I15.0 - Renovascular hypertension (2) Renal artery stenosis: Code(s): I70.1 - Atherosclerosis of renal artery Category: Medical (3) CKD (chronic kidney disease) stage 3, GFR 30-59 ml/min: Code(s): N18.30 - Chronic kidney disease, stage 3 unspecified Category: Medical Qualifiers: Chronic kidney disease stage 3 subtype: stage 3a (GFR 45-59) Qualified Code(s): N18.31 - Chronic kidney disease, stage 3a Plan Perlita has history of vascular disease including coronary artery disease needing CABG as well as renovascular disease. She is tolerating current dose of Enteresto and her blood pressure has been at goal. She avoids nonsteroidal anti-inflammatories and her volume status is optimal. She has not known to have any significant proteinuria. She has not had a follow-up ultrasound of her renal artery which I plan to do it with time. She is on statins. Her renal functions are close to baseline now. She is a great candidate for Jardiance. She maintains good hydration. She is tolerating current dosage of diuretics. I answered all questions Orders: Orders Hemoglobin A1c 6 Months I15.0 - Renovascular hypertension, I70.1 - Atherosclerosis of renal artery, N18.31 - Chronic kidney disease, stage 3a Creatinine 6 Months I15.0 - Renovascular hypertension, I70.1 - Atherosclerosis of renal artery, N18.31 - Chronic kidney disease, stage 3a Blood Urea Nitrogen 6 Months I15.0 - Renovascular hypertension, I70.1 - Atherosclerosis of renal artery, N18.31 - Chronic kidney disease, stage 3a Electrolytes 6 Months I15.0 - Renovascular hypertension, I70.1 - Atherosclerosis of renal artery, N18.31 - Chronic kidney disease, stage 3a Coding Level of Care Code Est Pt Level 4 (16447) Diagnoses Renovascular hypertension I15.0 Hypertension type: renovascular hypertension Renal artery stenosis I70.1 Stage 3a chronic kidney disease N18.31 Chronic kidney disease stage 3 subtype: stage 3a (GFR 45-59)
[2025-07-04 10:26] VITALS: BP 140/64; PULSE 76; O2SAT 97; BMI 29.9
--- OUTSIDE RECORDS SUMMARY | 2025-07-04 11:10 | XMS_ITS | Encounter Summary ---
Author Organization [facility], Address [address] [place] [address] Phone Care Team Providers Care Electromechanical Engineer Name Role Phone Mariana Whitten MD Primary Care Provider [phone] Encounter Details Date Type Department Care Team (Late st Contact Info) Description 03/01/2020 Orders Only [facility] [address] [facility] [place] [address] Montse Grace MD Chronic kidney disease stage [...] (HCC) documented in this encounter Care Teams Electromechanical Engineer Relationship Specialty Start Date End Date Mariana Whitten MD [address] [place] [address] PCP - General Internal Medicine 12/11/19 documented as of this encounter
--- OUTSIDE RECORDS SUMMARY | 2025-07-04 11:10 | XMS_ITS | Clinical Summary ---
Author Organization [facility], Address [address] [place] [address] [place] [address] Phone Care Team Providers Care Locomotive Boilermaker Name Role Phone Mariana Whitten MD Primary Care Provider [phone] Allergies Active Allergy Reactions Criticality Noted Date [...] Medical History Relation Comments Heart disease Father [place] Hypertension Father Brain cancer Father's Sister Hypertension [...] AM EDT) Hemoglobin A1C 5.6 (4.0-5.6) % [facility] Comment: MONITORING: In known diabetic patients, hemoglobin A1c targets should be discussed with health care provider. DIAGNOSTIC USE: The [place] Diabetes Association (ADA) and the World Health [...] Supplement 1 Testing performed or reported by [facility], a Service of [facility], [address] [place] [address] Marcy Slaughter MD, Balancing Machine Operator [facility]# [id number] 06/23/2022 7:37 AM EDT 06/23/2022 8:21 AM EDT us Aps External Provider LAB BLOOD ORDERABLES Final Result [facility] from Last 3 Months or Most Recently Relevant to Health Maintenance Insurance Medicare [facility] Care Teams Locomotive Boilermaker Relationship Specialty Start Date End Date Mariana Whitten MD [address] PCP - General Internal Medicine 12/11/19
--- OUTSIDE RECORDS SUMMARY | 2025-07-04 11:10 | XMS_ITS | Clinical Summary ---
Author Organization [facility] Address [address] [place] [address] Phone Care Team Providers Care Nurse Intern Name Role Phone Frederick Barnes MD Primary Care Provider Allergies Active Allergy Reactions Criticality Noted Date Comments Ciprofloxacin 09/08/2017 Erythromycin 09/08/2017 Nitrofurantoin 01/04/2018 Nsaids (Non-Steroidal Anti-I nflammatory Drug) 09/08/2017 Oxycodone GI Upset 01/04/2018 Sulfa (Sulfonamide Antibiotics) 11/2016 Medications simvastatin (ZOCOR) 40 MG tablet Active irbesartan (AVAPRO) 300 MG tablet Active dilTIAZem (CARTIA XT) 240 MG 24 hr capsule Act thoams metFORMIN (GLUCOPHAGE) 1000 MG tablet 08/13/2017 Acti [...] this topic Medical Devices Implanted Type Area Java Performance Engineer Device Identifier Shelf Expiration Date Model / Serial / Lot 25 Mm Diameter X 15 Mm Length Standard Post Reverse Shoulder 06 - [id number] Implanted:Qty: 1 on 01/20/2018 by Bunny Arita DO at [facility] Right: Shoulder [employer] 07/28/2022 [id number] / / Screw Compression Shoulder Tor# [id number] Reverse Shoulder 08 - [id number] Implanted:Qty: 1 on 01/20/2018 by Bunny Arita DO at [facility] Right: Shoulder [employer] [id number] / / Screw Bone 4.5x32mm Shoulder Locking Multi Directional Aequalis Reversed Ea Reverse Shoulder 08 - [id number] Implanted:Qty: 1 on 01/20/2018 by Bunny Arita DO at [facility] Right: Shoulder [employer] [id number] / / Screw Bone Locking 4.5x26 Reverse Shoulder 08 - [id number] Implanted:Qty: 1 on 01/20/2018 by Bunny Arita DO at [facility] Right: Shoulder [employer] [id number] / / Centered 36 Mm Reverse Shoulder 05 - [id number] Implanted:Qty: 1 on 01/20/2018 by Bunny Arita DO at [facility] Right: Shoulder [employer] 08/30/2022 [id number] / [id number] / Low Offset Reversed Tray+ 0 Shoulder 03 - [id number] Implanted:Qty: 1 on 01/20/2018 by Bunny Arita DO at [facility] Right: Shoulder [employer] 10/04/2022 [id number] / [id number] / 36 Diameter Revision Reversed Insert+ 6/12.5 B Shoulder 04 - [id number] Implanted:Qty: 1 on 01/20/2018 by Bunny Arita DO at [facility] Right: Shoulder [employer] 12/07/2022 [id number] / [id number] / 5b Ascend Flex Standard Ptc Humeral Stem Shoulder 14 - [id number] Implanted:Qty: 1 on 01/20/2018 by Bunny Arita DO at [facility] Right: Shoulder [employer] 11/26/2021 [id number] / [id number] / Screw Bone 4.5x18mm Shoulder Fixation Hemispherical Head Non Locking Aequalis Reverse Shoulder 08 - [id number] Implanted:Qty: 1 on 01/20/2018 by Bunny Arita DO at [facility] Right: Shoulder [employer] [id number] / / Procedures Procedure Name Priority Date/Time Associated Diagnosis Comments BASIC METABOLIC PANEL Routine 12/24/2017 11:21 AM EST Rotator cuff tear arthropathy of right shoulder from Last 3 Months or Most Recently Relevant to Health Maintenance Results * (ABNORMAL) Basic metabolic panel (12/24/2017 11:21 AM EST) SODIUM 132(L) 133 - 146 mmol/L [facility] CHLORIDE 90(L) 96 - 108 mmol/L [facility] POTASSIUM 3.4 3.3 - 5.1 mmol/L [facility] CO2 27 21 - 35 mmol/L [facility] BUN 23(H) 6 - 19 mg/dL [facility] CREATININE 0.80 0.5 - 1.5 mg/dL [facility] GLUCOSE 111(H) 70 - 99 mg/dL [facility] CALCIUM 10.1 8.4 - 10.3 mg/dL [facility] EGFR >60 mL/min/1.7 3m2 [facility] Comment:Abnormal if <60. If patient is -Panamanian, multiply the result by 1.21. ANION GAP 18 10 - 20 mmol/L [facility] Blood 12/24/2017 11:2 1 AM EST 12/24/2017 11:24 AM EST us Bunny Arita DO LAB BLOOD ORDERABLES Final Result [facility] [address] [place] [address] from Last 3 Months or Most Recently Relevant to Health Maintenance Insurance MEDICARE PART A & B [facility] MEDEX SUPPLEMENT MEDICARE PART A & B [employer] MEDEX SUPPLEMENT MEDICARE PART A & B [employer] MEDEX SUPPLEMENT MEDICARE PART A & B [employer] MEDEX SUPPLEMENT MEDICARE PART A & B [employer] MEDEX SUPPLEMENT MEDICARE PART A & B [employer] MEDEX SUPPLEMENT MEDICARE PART A & B [employer] CROSS MEDEX SUPPLEMENT MEDICARE PART A & B [employer] MEDEX SUPPLEMENT MEDICARE PART A & B [employer] MEDEX SUPPLEMENT Advance Directives For more information, please contact: [phone] (9AM - 5PM [place], Wednesday-Wednesday) * Full Code (Presumed) (Latest Code Status on File) Date Activated Date Inactivated Comments 01/20/2018 1:19 PM 01/21/2018 4:26 PM * Full Code (Presumed) Date Activated Date Inactivated Comments 01/20/2018 6:27 AM 01/20/2018 1:19 PM Care Teams Nurse Intern Relationship Specialty Start Date End Date Frederick Barnes MD [address] [place] [address] [place] [address] PCP - General 08/26/17 Additional Source Comments The information contained in this document represents components of the legal health record. It is not the complete legal health record.[facility]
--- OUTSIDE RECORDS SUMMARY | 2025-07-04 11:11 | XMS_ITS | Encounter Summary ---
Author Organization [facility], Address [address] [place] [address] Phone Care Team Providers Care Gauge Maker Apprentice Name Role Phone Mariana Whitten MD Primary Care Provider [phone] Encounter Details Date Type Department Care Team (Late st Contact Info) Description 01/22/2023 Documentation Only [facility], - [place] [address] [facility] [address] [place] [phone] Mariana Whitten MD [address] [place] [address] Social History Tobacco Use Types Packs/Day Years [...] on filedocumented in this encounter Care Teams Gauge Maker Apprentice Relationship Specialty Start Date End Date Mariana Whitten MD [address] [place] [address] PCP - General Internal Medicine 12/11/19 documented as of this encounter
--- OUTSIDE RECORDS SUMMARY | 2025-07-04 11:11 | XMS_ITS | Encounter Summary ---
Author Organization [facility] Address [address] [place] [address] [place] [address] Phone Care Team Providers Care Senior Php Web Developer Name Role Phone Frederick Barnes MD Primary Care Provider [phone] Encounter Details Date Type Department Care Team (Latest Contact Info) Description 08/28/2017 Ancillary Orders [facility] [address] [place] [address] Azalia Hu PA-C [address] [place] [address] Orthopedics & Sports Medicine, [place] [address] [email or web address] History of left shoulder replacement Social History Tobacco Use Types Packs/Day Years Used Date Smoking Tobacco: Never Assessed Comments Unknown Sex and Gender Information Value Date Recorded Sex Assigned at Not on file Legal Sex Female 10:10 PM EDT Gender Identity Not on file Sexual Orientation Not on file documented as of this encounter Plan of Treatment Not on file documented as of this encounter Visit Diagnoses Diagnosis History of left shoulder replacement documented in this encounter Care Teams Senior Php Web Developer Relationship Specialty Start Date End Date Frederick Barnes MD [address] [place] [address] [place] [address] PCP - General 08/26/17 documented as of this encounter Additional Source Comments The information contained in this document represents components of the legal health record. It is not the complete legal health record.[facility]
--- OUTSIDE RECORDS SUMMARY | 2025-07-04 11:11 | XMS_ITS | Encounter Summary ---
Author Organization [facility] Address [address] [place] [address] [place] [address] Phone Care Team Providers Care Kelp Cutter Name Role Phone Frederick Barnes MD Primary Care Provider [phone] Encounter Details Date Type Department Care Team (Late st Contact Info) Description 01/31/2018 Ancillary Orders [facility] Sports Medicine [address] [place] [address] Mary Grace Lockwood PA-C [address] [place] [address] Orthopedics & Sports Medicine, [facility] [place] [address] Social History Tobacco Use Types Packs/Day Years [...] on filedocumented in this encounter Care Teams Kelp Cutter Relationship Specialty Start Date End Date Frederick Barnes MD [address] [place] [address] [place] [address] PCP - General 08/26/17 documented as of this encounter Additional Source Comments The information contained in this document represents components of the legal health record. It is not the complete legal health record.[facility]
--- OUTSIDE RECORDS SUMMARY | 2025-07-04 11:11 | XMS_ITS | Encounter Summary ---
Author Organization [facility] Address [address] [place] [address] [place] [address] Phone Care Team Providers Care Drug Safety Assistant Name Role Phone Frederick Barnes MD Primary Care Provider [phone] Encounter Details Date Type Department Care Team (Late st Contact Info) Description 01/31/2018 Ancillary Orders [address] [address] Mary Grace Lockwood PA-C [address] [place] [address] Orthopedics & Sports Medicine, [facility] [place] [address] [email or web address] Right shoulder pain, unspecified chronicity Social History Tobacco Use Types Packs/Day Years [...] on file documented as of this encounter Results * XR SHOULDER 2 VIEWS (RIGHT) (02/02/2018 11:26 AM EDT) Narrative MilliKelly pandyaberly - 02/02/2018 11:26 AM EDT This image report has been auto-finalized and has not been read by a Radiologist. Interpretation has been included in the provider encounter note for this date of service. us Mary Grace Lockwood PA-C IMG XR UPPER EXTREMI TY Final Result documented in this encounter Visit Diagnoses Diagnosis Right shoulder pain, unspecified chronicity Right shoulder pain, unspecified chronicity documented in this encounter Care Teams Drug Safety Assistant Relationship Specialty Start Date End Date Frederick Barnes MD [address] [place] [address] [address] [place] [address] PCP - General 08/26/17 documented as of this encounter Additional Source Comments The information contained in this document represents components of the legal health record. It is not the complete legal health record.[facility]
--- OUTSIDE RECORDS SUMMARY | 2025-07-04 11:11 | XMS_ITS | Encounter Summary ---
Author Organization [facility] Address [address] [place] [address] [place] [address] Phone Care Team Providers Care Truck Jumper Name Role Phone Frederick Barnes MD Primary Care Provider [phone] Encounter Details Date Type Department Care Team (Late st Contact Info) Description 11/17/2017 Prep for Surgery [facility] Orthopedics & Sports Medicine [address] [place] [address] Bunny Arita DO [address] [place] [address] Orthopedics & Sports Medicine, [facility] [address] [email or web address] Rotator cuff tear arthropathy of right shoulder (Primary Dx) Social History Tobacco Use Types Packs/Day Years [...] documented as of this encounter Results * Type and Screen (ABO,Rh,Antibody Screen) (01/18/2018 8:30 AM EDT) ABO/Rh AB Positive [facility] Antibody Screen Negative [facility] CDH BB Band [id number] [facility] Expiration Date of Sample 01/21/2018 [facility] Resulting Agency [facility] Blood 01/18/2018 8:30 AM EDT 01/18/2018 8:34 AM EDT Bunny Arita DO BLOOD BANK TEST ORDERABLES Final Result Performing Organization Address [facility] Co de Phone Number [address] [address] * (ABNORMAL) Basic metabolic panel (12/24/2017 11:21 AM EST) SODIUM 132(L) 133 - 146 mmol/L [facility] CHLORIDE 90(L) 96 - 108 mmol/L [facility] POTASSIUM 3.4 3.3 - 5.1 mmol/L [facility] CO2 27 21 - 35 mmol/L [facility] BUN 23(H) 6 - 19 mg/dL [facility] CREATININE 0.80 0.5 - 1.5 mg/dL [facility] GLUCOSE 111(H) 70 - 99 mg/dL [facility] CALCIUM 10.1 8.4 - 10.3 mg/dL [facility] EGFR >60 mL/min/1.7 3m2 [facility] Comment:Abnormal if <60. If patient is -Vincentian, multiply the result by 1.21. ANION GAP 18 10 - 20 mmol/L [facility] Blood 12/24/2017 11:2 1 AM EST 12/24/2017 11:24 AM EST Bunny Arita DO LAB BLOOD ORDERABLES Final Result Performing Organization Address [facility] Co de Phone Number [address] [address] * (ABNORMAL) CBC (12/24/2017 11:21 AM EST) WBC 11.72(H) 3.40 - 11.20 K/uL [facility] RBC 4.49 3.80 - 4.80 M/uL [facility] HGB 14.1 12.0 - 15.0 g/dL [facility] HCT 40.5 36.0 - 46.0 % [facility] PLT 465(H) 130 - 400 K/uL [facility] MCV 90.2 79.0 - 98.0 fL [facility] MCH 31.4 27.0 - 34.8 pg [facility] MCHC 34.8 31.5 - 36.0 g/dL [facility] RDW 12.5 10.8 - 14.6 % [facility] MPV 10.8 9.4 - 12.4 fl [facility] NRBC 0.00 /100 WBCs [facility] ABSOLUTE NRBC 0.00 K/uL [facility] Blood 12/24/2017 11:2 1 AM EST 12/24/2017 11:24 AM EST us Bunny Arita DO LAB BLOOD ORDERABLES Final Result Performing Organization Address City/State/[facility] Co de Phone Number [facility] [address] [place] [address] documented in this encounter Visit Diagnoses Diagnosis Rotator cuff tear arthropathy of right shoulder- Primary documented in this encounter Care Teams Truck Jumper Relationship Specialty Start Date End Date Frederick Barnes MD [address] [place] [address] [place] [address] PCP - General 08/26/17 documented as of this encounter Additional Source Comments The information contained in this document represents components of the legal health record. It is not the complete legal health record.[facility]
--- OUTSIDE RECORDS SUMMARY | 2025-07-04 11:11 | XMS_ITS | Encounter Summary ---
Author Organization [facility] Address [address] [facility] [address] [place] [address] Phone Care Team Providers Care Instrument Lens Generator Name Role Phone Frederick Barnes MD Primary Care Provider [phone] Encounter Details Date Type Department Care Team (Late st Contact Info) Description 01/20/2018 Procedure Pass OR Admitting Dept - Virtual Department [address] [place] [address] Social History Tobacco Use Types Packs/Day Years [...] on filedocumented in this encounter Care Teams Instrument Lens Generator Relationship Specialty Start Date End Date Frederick Barnes MD [address] [place] [address] [place] [address] PCP - General 08/26/17 documented as of this encounter Additional Source Comments The information contained in this document represents components of the legal health record. It is not the complete legal health record.[facility]
--- OUTSIDE RECORDS SUMMARY | 2025-07-04 11:11 | XMS_ITS | Patient Health Record ---
Author Organization [facility] Address [address] [place] [address] Care Team Providers Care Fabric Finisher Name Role Phone Jose Roberto Leggett Primary Care Provider Vannessa Dai Unavailable [phone] Dawn Roland Unavailable [phone] Allergies Allergen (clinical drug ingredient) Drug/Non Drug [...] Olmesartan Medoxomil 20 MG (Prior Auth: Rx Ref#:[id number]) Oral; Duration: 15 Not-Taking hydrALAZINE HCl 100 [...] EVENING Oral; Duration: 90 Days Not-Taking Nystatin 332952 UNIT/GM USE 1 APPLICATIO N TOPICALLY 2 [...] Polyneuropathy due to type 2 diabetes mellitus (106238655) Type 2 diabetes mellitus with diabetic polyneuropathy (E11.42) Active confirmed Problem Acquired hammer toe of right foot (6886859946790210 ) Hammer toe of right foot (M20.41) Active confirmed Problem Acquired hammer toe of left foot ([id number] ) Hammer toe of left foot (M20.42) Active confirmed Vital Signs Blood pressure diastolic 82 mm Hg 05/08/2025 Height 5 ft 4 in in 05/08/2025 Blood pressure systolic 120 mm Hg 05/08/2025 Weight 175 lbs 05/08/2025 BMI 30.04 kg/m2 05/08/2025 Encounters Encounter Location Date Provider Diagnosis [address] [address] 08/18/2024 Dawn Roland Type 2 diabetes mellitus with diabetic polyneuropathy E11.42 ; Tinea unguium B35.1 ; Other hammer toe(s) (acquired), right foot M20.41 and Other hammer toe(s) (acquired), left foot M20.[address] [address] 11/17/2024 Vannessa Tim Type 2 diabetes mellitus with diabetic polyneuropathy E11.42 ; Acute deep vein thrombosis (DVT) of right lower extremity, unspecified vein I82.401 ; Tinea unguium B35.1 ; Other hammer toe(s) (acquired), right foot M20.41 and Other hammer toe(s) (acquired), left foot M20.[address] [address] 02/09/2025 Vannessa Tim Type 2 diabetes mellitus with diabetic polyneuropathy E11.42 ; Other hammer toe(s) (acquired), right foot M20.41 ; Tinea unguium B35.1 and Other hammer toe(s) (acquired), left foot M20.[address] [address] 05/08/2025 Vannessa Tim Type 2 diabetes mellitus with diabetic polyneuropathy E11.42 and Tinea unguium B35.[address] [address] 07/19/2024 Vannessa Tim [address] [address] 11/17/2024 Vannessa Tim Assessments Encounter Date Diagnosis [...] X ray : Foot, right 3V 04/12/2018 68298-JYKHBLV NAIL, 6 OR MORE 04/12/2018 34451-TYFTBQA NAIL, 6 OR MORE 03/16/2017 35960-OZSEDZZ NAIL, 6 OR MORE 08/28/2015 15391-ETQPRFS NAIL, 6 OR MORE 11/28/2015 07714-TBESZMC NAIL, 6 OR MORE 04/07/2016 08064-UTWQSHU NAIL, 6 OR MORE 08/11/2016 59245-SPJTVGF NAIL, 6 OR MORE 11/04/2016 06904-ACPFGXR NAIL, 6 OR MORE 09/24/2017 32439-XTQAEPY NAIL, 6 OR MORE 07/05/2018 37756-VBSGJZZ NAIL, 6 OR MORE 09/13/2018 50526-Exwawqjo Plate 03/31/2017 24585-GJWY SKIN LESIONS, OVER 4 09/24/20 17 34210-YSNX SKIN LESIONS, OVER 4 07/05/20 18 46035-SXIC SKIN LESIONS, OVER 4 04/12/20 18 25340-TNWV SKIN LESIONS, OVER 4 11/04/20 16 39026-HIHY SKIN LESIONS, OVER 4 03/16/20 17 68040-RBHV SKIN LESIONS, OVER 4 11/28/19 16 64951-GRNO SKIN LESIONS, OVER 4 08/28/20 15 36781-KWDD SKIN LESIONS, OVER 4 09/13/20 18 84825-ETXX SKIN LESIONS, 2 TO 4 08/11/20 16 HEMOGLOBIN A1C (GLYCOHEMOGLOBIN) 018 Next Appt Details Provider Name:Vannessa benjamin, 08/10/2025 11:00:00 AM, [address] [facility], [place], [address], Insurance Providers Payer Name Payer Address Payer Phone Subscriber Number Group Number Insured Name Patient Relationship to Insured Coverage Start Date Coverage End Date Medicare National [facility] [employer] [address] [place] [address] [id number] Perlita Angulo Self - patient is the insured 2 [employer] [address] [place] [address] [id number] Perlita Angulo Self - patient is the [...]
--- OUTSIDE RECORDS SUMMARY | 2025-07-04 11:11 | XMS_ITS | Clinical Summary ---
Author Organization [facility] Address [address] [place] [address] Phone Care Team Providers Care Freight Trucker Name Role Phone Jose Roberto Leggett MD Primary Care Provider [phone] Allergies Active Allergy Reactions Criticality Noted Date [...] tabletIndication s:Chronic diastolic heart failure (CMS/HCC V24, CMS/[facility] V28) Take 1 tablet (25 mg total) by mouth 1 (one) time each day. Do not crush or chew. 30 each 11 5 04/05/20 26 Active apixaban (Eliquis) 5 mg tablet Take 1 tablet (5 mg total) by mouth 2 (two) times a day. 60 each 2 5 04/05/20 26 Active atorvastatin (LIPITOR) 40 mg tabletIndication s:Coronary artery 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 pectoris, unspecified whether pilot station or transplanted heart Take 1 tablet (40 [...] she buy a pair with a little professional development director elastic in them to try to get him on easier and even support nylons would be helpful SSS (sick sinus syndrome) ([facility] V24, [facility] V28) 09/15/2024 Ischemic cardiomyopathy 09/15/2024 Assessment & [...] removing that coronary sinus lead. Atrial flutter ([facility] V24, [facility] V28) 2023 Overview (09/19/2024): Last Assessment & [...] (heart failure with re duced ejection fraction) ([facility] V24, CMS/[facility] V28) 05/07/2022 Overview (09/19/2024): Last Assessment & [...] function prior to moving ahead with a SUBSTANCE ABUSE COUNSELOR device. Her QRS width is just under [...] in regards to whether she needs a SUBSTANCE ABUSE COUNSELOR-D.She will continue with Eliquis. I do think would be reasonable to consider discontinuation of aspirin although she does have peripheral vascular disease as well as coronary disease. Urinary tract infection 05/07/2022 Coronary artery disease invo lving pilot station coronary artery without angina pectoris 10/10/2020 Overview [...] 0.9% 8.7 mL injection Diastolic heart failure ([facility] V24, [facility] V2 8) 10/10/2020 Overview (09/19/2024): Last Assessment [...] have not increasing it Paroxysmal atrial fibrillation ([facility] V24, CMS /[facility] V28) 10/10/2020 Overview (09/19/2024): W/ slow rate [...] that may have occurred Renal artery stenosis ([facility] V24) 10/10/2020 Overview (09/19/2024): Last Assessment & Plan: I believe the patient has moderate unilateral renal artery stenosis followed by nephrology Encounters Date Type Department Care Team Description 06/29/2025 9:10 AM EDT Ancillary Procedure [facility] Cardiology [facility] [address] [place] [address] 06/16/2025 10:34 AM EDT - 06/16/2025 3:24 PM EDT Emergency [facility] Emergency [address] [place] [address] Bunny Rosa MD Acute right-sided low back pain with right-sided sciatica (Primary Dx) Discharge Disposition: Home or Self Care 05/13/2025 5:40 PM EDT Ancillary Procedure [facility] Cardiology [facility] [address] [place] [address] 05/07/2025 7:40 AM EDT Ancillary Procedure [facility] [address] [place] [address] 04/24/2025 10:00 AM EDT Ancillary Procedure [facility] [address] [place] [address] Encounter for adjustment or management of cardiac device 04/05/2025 11:20 AM EDT Office Visit [facility] [address] [place] [address] Derick Medina MD Chronic diastolic heart failure (CMS/HCC V24, CMS/HCC V28) (Primary Dx); Coronary artery 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 pectoris, unspecified whether pilot station or transplanted heart; Atrial flutter, unspecified type (CMS/HCC V24, CMS/HCC V28) from Last 3 Months Immunizations Name Administration Dates Next Due Pfizer SARS-CoV-2 COVID-19, mRNA, LNP-S, preservative free 01/07/2021,12/17/2020 Surgical History Surgery Date Site/Laterality Comments ANGIOPLASTY PROCEDURE: HISTORICAL ANGIOPLASTY W/STENT CARDIAC CATHETERIZATION PROCEDURE: HISTORICAL CARDIAC CATH OTHER SURGICAL HISTORY 2008 PROCEDURE: HISTORY OTHER; COMMENT: DEBBIE LAD, LCX OTHER SURGICAL HISTORY PROCEDURE: [place] PATIENT HAS A CORONARY ARTERY STENT HYSTERECTOMY [...] Description 07/24/2025 7:40 AM EDT Office Visit [facility] - [facility] [address] [place] [address] Kamryn Isaac NP [address] [place] [address] [address] [place] [address] 04/24/2026 9:30 AM EDT Ancillary Procedure [facility]iology [facility] [address] [facility] [address] [place] [address] Health Maintenance Due Date Last Done Comments [...] this topic Medical Devices Implanted Type Area School Janitor Device Identifier Shelf Expiration Date Model / Serial / Lot Defib Icd Bi Vent [place] Hr Saddle Lining Stitcher D - [id number] - [id number] Implanted:Qty: 1 on 09/22/2024 by Zack Mayers MD at [facility] Cardiac SUBSTANCE ABUSE COUNSELOR-D ICD Left: Heart [facility] [id number] 01/05/2026 [id number] / [id number] / Abbt-Stju [place] Hf [id number] Implanted:09/08 (Quantity not on file) Cardiac SUBSTANCE ABUSE COUNSELOR-D ICD Left: Chest [facility] GALLANT HF [id number] / [id number] / Abbt-Stju [id number] [place](Tm) Hf [id number] Implanted:09/08 (Quantity not on file) Cardiac SUBSTANCE ABUSE COUNSELOR-D ICD [facility] [id number] GALLANT(T M) HF / [id number] / Lead Tachy Durat 58cm 7122q/58 Sj4 - [id number] - [id number] Implanted:Qty: 1 on 09/22/2024 by Zack Mayers MD at [facility] Cardiac Lead N/A: Heart [facility] [id number] 02/05/2027 7122Q/58 / [id number] / Lead Pcmk Tendril Sts 1wow32hj - [id number] - [id number] Implanted:Qty: 1 on 09/22/2024 by Zack Mayers MD at [facility] Cardiac Lead Left: Heart [facility] [id number] 05/07/2027 2088TC/52 / [id number] / Lead Pcmkr Lv Quartet 75cm Quadripolar - [id number] - [id number] Implanted:Qty: 1 on 09/22/2024 by Zack Mayers MD at [facility] Cardiac Lead Left: Heart [facility] [id number] 03/07/2027 1458Q/75 / [id number] / Procedures Procedure Name Priority Date/Time Associated Diagnosis Comments [facility] 06/29/2025 9:05 AM EDT CBC WITH [...] period is included. Date Time Interrogation Session [id number] CV DEVICE CHECK Type Interrogation Session Remote Device Initiated CV DEVICE CHECK Implantable Pulse Generator School Janitor [employer] CV DEVICE CHECK Implantable Pulse Generator Type SUBSTANCE ABUSE COUNSELOR-D CV DEVICE CHECK Implantable Pulse Generator Model [id number] [place](TM) HF CV DEVICE CHECK Implantable Pulse Generator Serial Number [id number] CV DEVICE CHECK Implantable Pulse Generator Implant Date 20240922 CV DEVICE CHECK Battery Remaining Percentage 81.00 CV DEVICE CHECK Battery Remaining Longevity 43.0 CV DEVICE CHECK Battery Voltage 2.950 CV D EVICE CHECK Battery PUBLIC HEALTH ADMINISTRATOR Trigger 2.620 CV DEVICE CHECK Battery Status Middle of Service CV DEVICE CHECK Capacitor Charge Time 9.400 CV DEVICE CHECK Francisco Statistic RA Percent Paced 84.00 CV DEVICE CHECK Francisco Statistic RV Percent Paced 89.10 CV DEVICE CHECK SUBSTANCE ABUSE COUNSELOR Statistic SUBSTANCE ABUSE COUNSELOR Percent Paced 89.00 CV DEVICE CHECK Atrial Tachy Statistic AT/AF Norman Percent 0.00 CV DEVICE CHECK Lead Channel [...] CV DEVICE CHECK Ventricular chambers paced during SUBSTANCE ABUSE COUNSELOR pacing. BiV CV DEVICE CHECK Francisco Setting Lower Rate Limit 70 CV DEVICE CHECK Francisco Setting AT Mode Switch Rate 180 CV DEVICE CHECK Francisco Setting Maximum Tracking Rate 120 CV DEVICE CHECK Francisco Setting Maximum Sensor Rate 100 CV DEVICE CHECK Francisco Setting PAV Delay 180 CV DEVICE CHECK Francisco Setting FLO Delay 150 CV DEVICE CHECK SUBSTANCE ABUSE COUNSELOR LV-RV Delay 0 CV D EVICE CHECK [...] K/mcL LAB [facility] RBC 4.50 3.80 - 4.80 M/mcL LAB HEMETOLOGY METHOD 06/16/2025 12:35 PM [facility] Hemoglobin 14.1 11.5 - 16.0 g/dL LAB HEMETOLOGY METHOD 06/16/2025 12:35 PM [facility] Hematocrit 42.7 35.0 - 47.0 % LAB HEMETOLOGY METHOD 06/16[facility]2025 12[facility] MCV 95.7 79.0 - 98.0 FL LAB HEMETOLOGY METHOD 06/16/2025 12:35 PM [facility] MCH 31.6 27.0 - 32.0 pcg LAB HEMETOLOGY METHOD 06/16/2025 12:35 PM [facility] MCHC 33.0 32.0 - 37.0 g/dL LAB HEMETOLOGY METHOD 06/16/2025 12:35 PM [facility] RDW 13.0 11.0 - 15.0 % LAB HEMETOLOGY METHOD 06/16/2025 12:35 PM [facility] Platelets 323 130 - 400 K/mcL LAB HEMETOLOGY METHOD 06/16/2025 12:35 PM [facility] MPV 11.3(H) 7.0 - 11.0 FL LAB HEMETOLOGY METHOD 06/16/2025 12:35 PM [facility] NRBC 0.3 <1.0 % LAB HEMETOLOGY METHOD 06/16/2025 12:35 PM [facility] NRBC Absolute 0.02 <0.10 K/mcL LAB HEMETOLOGY METHOD 06/16/2025 12:35 PM [facility] Neutrophils Relative 62.2 % LAB HEMETOLOGY METHOD 06/16/2025 12:35 PM [facility] Lymphocytes Relative 27.3 % LAB HEMETOLOGY METHOD 06/16/2025 12:35 PM [facility] Monocytes Relative 7.6 % LAB HEMETOLOGY METHOD 06/16/2025 12:35 PM [facility] Eosinophils Relative 1.8 % LAB HEMETOLOGY METHOD 06/16/2025 12:35 PM [facility] Basophils Relative 0.8 % LAB HEMETOLOGY METHOD 06/16/2025 12:35 PM [facility] Immature Granulocytes Relative 0.3 % LAB HEMETOLOGY METHOD 06/16/2025 12:35 PM [facility] Neutrophils Absolute 4.60 1.50 - 7.00 K/mcL LAB HEMETOLOGY METHOD 06/16/2025 12:35 PM [facility] Lymphocytes Absolute 2.02 1.00 - 5.00 K/mcL LAB HEMETOLOGY METHOD 06/16/2025 12:35 PM [facility] Monocytes Absolute 0.56 0.20 - 1.00 K/mcL LAB HEMETOLOGY METHOD 06/16/2025 12:35 PM [facility] Eosinophils Absolute 0.13 0.00 - 0.50 K/mcL LAB HEMETOLOGY METHOD 06/16/2025 12:35 PM [facility] Basophils Absolute 0.06 0.00 - 0.20 K/mcL LAB HEMETOLOGY METHOD 06/16/2025 12:35 PM EDT [facility] Immature Granulocytes Absolute 0.02 0.00 - 0.03 K/mcL LAB HEMETOLOGY METHOD 06/16/2025 12:35 PM EDT [facility] Blood Venous blood specimen / Unknown Venipuncture / Unknown 06/16/2025 11:46 AM EDT 06/16/2025 12:14 PM EDT Bunny Rosa MD LAB BLOOD ORDERABLES Final Result Performing Organization Address [facility]/ZIP Co de Phone Number [facility] [address] [place] [address], [place] [phone] * C-reactive protein (06/16/2025 11:46 AM EDT) C-Reactive Protein <0.29 <=0.50 mg/dL LAB CHEMISTRY METHOD 06/16/2025 12:43 PM EDT [facility] Blood Venous blood specimen / Unknown Venipuncture / Unknown 06/16/2025 11:46 AM EDT 06/16/2025 12:14 PM EDT Bunny Rosa MD LAB BLOOD ORDERABLES Final Result Performing Organization Address [facility]/ZIP Co de Phone Number [facility] [address] [place] [address], [place] [phone] * (ABNORMAL) Basic metabolic panel (06/16/2025 11:46 AM EDT) Sodium 141 133 - 145 mmol/L LAB CHEMISTRY METHOD 06/16/2025 12:43 PM EDT [facility] Potassium 4.3 3.5 - 5.5 mmol/L LAB CHEMISTRY METHOD 06/16/2025 12:43 PM EDT [facility] Chloride 110 96 - 110 mmol/L LAB CHEMISTRY METHOD 06/16/2025 12:43 PM EDT [facility] CO2 25 21 - 32 mmol/L LAB CHEMISTRY METHOD 06/16/2025 12:43 PM [facility] Anion Gap 6 3 - 11 LAB CHEMISTRY METHOD 06/16/2025 12:43 PM [facility] Glucose 119(H) 70 - 100 mg/dL LAB CHEMISTRY METHOD 06/16/2025 12:43 PM [facility] BUN 24 5 - 25 mg/dL LAB CHEMISTRY METHOD 06/16/2025 12:43 PM [facility] Creatinine 1.14(H) 0.50 - 1.10 mg/dL LAB CHEMISTRY METHOD 06/16/2025 12:43 PM [facility] eGFR 48(L) >=60 mL/min/1. 73m2 LAB CHEMISTRY METHOD 06/16/2025 12:43 PM [facility] Comment:Calculation based on the Chronic Kidney Disease Epidemiology Collaboration (CKD-EPI) equation refit without adjustment for race. BUN/Creatinine Ratio 21.1 LAB CHEMISTRY METHOD 06/16/2025 12:43 PM [facility] Calcium 9.3 8.5 - 10.5 mg/dL LAB CHEMISTRY METHOD 06/16/2025 12:43 PM [facility] Blood Venous blood specimen / Unknown Venipuncture / Unknown 06/16/2025 11:46 AM EDT 06/16/2025 12:14 PM EDT us Bunny Rosa MD LAB BLOOD ORDERABLES Final Result [facility] [address] [place] [address], * CARDIAC DEVICE CHECK- [facility]- [facility] (04/24/2025 12:06 PM EDT) Date Time Interrogation Session [id number] CV DEVICE CHECK Implantable Pulse Generator [employer] CV DEVICE CHECK Implantable Pulse Generator Type SUBSTANCE ABUSE COUNSELOR-D CV DEVICE CHECK Implantable Pulse Generator Model Lisa HF [id number] CV DEVICE CHECK Implantable Pulse Generator Serial Number [id number] CV DEVICE CHECK Implantable Pulse Generator Implant Date 20240922 CV DEVICE CHECK Battery Status Middle of Service CV DEVICE CHECK Francisco Statistic RA Percent Paced 83.00 CV DEVICE CHECK SUBSTANCE ABUSE COUNSELOR Statistic SUBSTANCE ABUSE COUNSELOR Percent Paced 90.00 CV DEVICE CHECK Lead [...] CV DEVICE CHECK Ventricular chambers paced during SUBSTANCE ABUSE COUNSELOR pacing. LV+RV (Sim CV DEVICE CHECK Francisco [...] Result from Last 3 Months Insurance MEDICARE [facility] Advance Directives * Full Code [...] currently active code status orders. Care Teams Freight Trucker Relationship Specialty Start Date End Date Jose Roberto Leggett MD [address] [place] [address] [address] [facility] [place] [address] PCP - General 11/25/23
--- OUTSIDE RECORDS SUMMARY | 2025-07-04 11:11 | XMS_ITS | Continuity of Care Document ---
Author Organization [facility] Address [address] [place] [address] Phone [phone] Social History Type Date Description Comments Sex Female Sex Unknown Medical Devices Description No Information Available Encounters Description No Information Available Assessments Description No Information Available Plan of Treatment No Information Available Functional Status Description No Information Available Mental Status Description No Information Available Referrals Description No Information Available
--- OUTSIDE RECORDS SUMMARY | 2025-07-04 11:11 | XMS_ITS | Encounter Summary ---
Author Organization [facility], Address [address] [place] [address] Phone Care Team Providers Care Mill Operator Helper Name Role Phone Mariana Whitten MD Primary Care Provider [phone] Encounter Details Date Type Department Care Team (Late st Contact Info) Description 12/13/2020 Orders Only [facility] [address] [facility] [address] [place] [address] Montse Grace MD Chronic kidney disease stage [...] M/MM3 [facility] Hgb 12.0 (11.7-15.5 ) GM/DL [facility] Hematocrit 37.3 (35.7-45.8 ) % [facility] MCV 98.7 (80.0-100. 0) [place] [facility] MCH 31.7 (27.0-34.0 ) PG [facility] MCHC 32.2(L) (33.0-37.0 ) g/dL [facility] Platelets 281 (150-460) K/MM3 [facility] RDW-SD 46.4 (<47.0) [place] [facility] MPV 12.8(H) (9.4-12.4) [place] [facility] nRBC Count 0.0 #/100 WBC'S [facility] NRBC Absolute 0.0 K/MM3 [facility] Comment: Testing performed or reported by [facility], a Service of [facility], [address] [place] [id number] Marcy Slaughter MD, Aircraft Stress Analyst [facility]# [id number] Blood specimen (specimen) 06/30/2021 8:58 AM EDT 06/30/2021 9:02 AM EDT us Montse Grace MD LAB BLOOD ORDERABLES Final Resu lt [facility] * (ABNORMAL) Renal function panel (06/30/2021 8:58 AM EDT) Glucose 104(H) (70-99) MG/DL [facility] BUN 48(H) (8-23) MG/DL [facility] Creatinine 1.4(H) (0.5-1.0) MG/DL [facility] Sodium 141 (133-145) MMOL/L [facility] Potassium 4.8 (3.6-5.2) MMOL/L [facility] Chloride 109(H) (98-107) MMOL/L [facility] Bicarbonate (CO2) 20(L) (22-29) MMOL/L [facility] Anion Gap 12 (4-17) [facility] Albumin 4.1 (3.4-4.8) GM/DL [facility] Calcium 9.4 (8.6-10.5) MG/DL [facility] Phosphorus, Serum 3.6 (2.5-4.5) MG/DL [facility] Est GFR Non 37 ML/MIN/1.7 3 M2 [facility] Comment: Creatinine based estimated glomerular filtration rate (eGFR) is calculated using the Chronic Kidney Disease Epidemiology Collaboration (CKD-EPI). The CKD-EPI creatinine equation has not been validated in children (<18 years), women or in some racial or ethnic subgroups other than Caucasians and Americans. EST GFR 43 ML/MIN/1.7 3 M2 [facility] Comment: Creatinine based estimated glomerular filtration rate (eGFR) is calculated using the Chronic Kidney Disease Epidemiology Collaboration (CKD-EPI). The CKD-EPI creatinine equation has not been validated in children (<18 years), women or in some racial or ethnic subgroups other than Caucasians and Americans. Testing performed or reported by [facility], a Service of [facility], [address] [place] [address] Marcy Slaughter MD, Aircraft Stress Analyst [facility]# [id number] Blood specimen (specimen) 06/30/2021 8:58 AM EDT 06/30/2021 9:02 AM EDT us Montse Grace MD LAB BLOOD ORDERABLES Final Resu lt [facility] documented in this encounter Visit Diagnoses Diagnosis Chronic kidney disease stage 3 (HCC) documented in this encounter Care Teams Mill Operator Helper Relationship Specialty Start Date End Date Mariana Whitten MD [address] [place] [address] PCP - General Internal Medicine 12/11/19 documented as of this encounter
== END 2025-07-04 10:39 | disposition home or self-care (01) ==
LOC: HO.HKA 10:21
PROVIDERS: PCP Internal Medicine; Visit Provider Internal Medicine Nephrology
DX: I15.0 Renovascular hypertension (principal); I70.1 Atherosclerosis of renal artery; N18.31 Chronic kidney disease, stage 3a
CPT/HCPCS: 99214

== ENCOUNTER → 2025-07-04 10:21 | Outpatient (BNVA) | payer MEDICARE, SELFPAY | PROVIDERS: PCP Internal Medicine; Visit Provider Internal Medicine Nephrology | DX: E11.22 Type 2 diabetes mellitus with diabetic chronic kidney disease (principal); I15.0 Renovascular hypertension; N18.31 Chronic kidney disease, stage 3a; I70.1 Atherosclerosis of renal artery | CPT/HCPCS: 99212 ==

== ENCOUNTER 2025-09-27 14:44 | Outpatient (AMB) | payer MEDICARE, SELFPAY ==
--- OUTSIDE RECORDS SUMMARY | 2024-07-21 04:15 | XMS_ITS ---
Author Organization [facility] Address [address] [place] [id number] Care Team Providers Care Discharge Coordinator Name Role Phone Jose Roberto Leggett Primary Care Provider Vannessa Dai [phone] Encounters Encounter Location Date Provider Diagnosis [address] [id number] 07/21/2024 Vannessa Tim Plan Of Treatment Next Appt Details Provider Name:Vannessa benjamin, 12/04/2025 02:00:00 PM, [address] [place] [address], [phone], Progress Notes * Perlita LEONARD ADOB:12/1944 (80 yo F)Acc No.[id number]:07/21/2024 Progress Note Patient: Perlita GALARZA Provider: Diann Tim DPM :1945 A ge:79 Y S ex:Female Date:07/21/2024 Address:[address] [place] [id number] Pcp:Jose Roberto Leggett Subjective: * Chief Complaints: * * Medical History: Objective: * Vitals: Assessment: Plan: * Treatment: * Images: * The named appointment provid er may or may not be the originator of this progress note, and it is not deemed complete until electronically signed by the appointment provider. Sign off status: Pending * Provider: Diann Tim DPM Date: 0 07/21/2024 Generated for Mihai pitts/Eric/Radha on: 1 11/27/2024 08:11 PM EST
--- OUTSIDE RECORDS SUMMARY | 2025-08-10 06:00 | XMS_ITS ---
Author Organization [facility] Address [address] [place] [id number] Care Team Providers Care Dumper Mold Cleaner Name Role Phone Jose Roberto Leggett Primary Care Provider Vannessa Dai [phone] Encounters Encounter Location Date Provider Diagnosis [address] [address] 08/10/2025 Vannessa Tim Plan Of Treatment Next Appt Details Provider Name:Vannessa benjamin, 12/04/2025 02:00:00 PM, [address] [place] [address], [phone], Progress Notes * Perlita LEONARD ADOB:12/1944 (80 yo F)Acc No.[id number]:08/10/2025 Progress Note Patient: Perlita GALARZA Provider: Diann Tim DPM :1945 A ge:80 Y S ex:Female Date:08/10/2025 Address:[address] [place] [id number] Pcp:Jose Roberto Leggett Subjective: * Chief Complaints: * * Medical History: Objective: * Vitals: Assessment: Plan: * Treatment: * Images: * The named appointment provid er may or may not be the originator of this progress note, and it is not deemed complete until electronically signed by the appointment provider. Sign off status: Pending * Provider: Diann Tim DPM Date: Generated for Mihai pitts/Eric/Radha on: 11/27/2024 08:11 PM EST
[2025-09-27 15:20] VITALS: BP 138/78; PULSE 68; O2SAT 97; BMI 30.2
--- NOTE | 2025-09-27 15:20 | A.OFFPC_ITS ---
Vital Signs 09/27/25 15:20 Height 5 ft 4 in Weight 176 lb 2.389 oz BMI 30.2 BP 138/78 Blood Pressure Location Lt brachial Position Sitting Pulse 68 Pulse Source Pulse Oximeter Pulse Oximetry (%) 97 Oxygen Delivery Method Room Air Intake Visit Reasons: DM Allergies erythromycin base (ERYTHROMYCIN BASE) Allergy (Intermediate, Verified 09/27/25 15:20) HIVES flurbiprofen (From ANSAID) Allergy (Intermediate, Verified 09/27/25 15:20) HIVES azithromycin (AZITHROMYCIN) Allergy (Mild, Verified 09/27/25 15:20) RASHES NSAIDS (Non-Steroidal Anti-Inflamma (NSAIDS (NON-STEROIDAL ANTI-INFLAMMA) Allergy (Mild, Verified 09/27/25 15:20) RASHES ciprofloxacin (Cipro) Allergy (Unknown, Verified 09/27/25 15:20) Upset Stomach nitrofurantoin Allergy (Unknown, Verified 09/27/25 15:20) upset stomach Erythromycin Allergy (Unknown, Uncoded 09/27/25 15:20) Hives Sulfas Allergy (Unknown, Uncoded 09/27/25 15:20) Hives Tobacco use date assessed: 06/19/25 Fall risk assessment: No Falls in past year Last assessed Fall Risk: 09/27/25 Dental Screening Dental Screen Date: 04/25/25 [facility] Medical History CAD (coronary artery disease) CREST (calcinosis, Raynaud's phenomenon, esophageal dysfunction, sclerodactyly, telangiectasia) Inguinal hernia Type 2 diabetes mellitus with hyperglycemia Hypertension Polymyositis Renal artery stenosis Scleroderma Paroxysmal atrial fibrillation CKD (chronic kidney disease) stage 3, GFR 30-59 ml/min Hypothyroid Hypercholesterolemia Surgical History Hx of tonsillectomy History of lumbar fusion History of appendectomy Hx of total knee arthroplasty Hx of CABG S/P JUDI-BSO (total abdominal hysterectomy and bilateral salpingo-oophorectomy) Family History Mother Heart attack Father Heart attack Brother No problems noted. Son No problems noted. Son No problems noted. Social History (Reviewed 07/04/25 @ 10:23 by HARVEY Baeza Housing: House Alcohol intake: never Patient Tobacco Use Status: Never used Tobacco Tobacco use type: Cigarette e-Cigarette/Vaping Use: Never Used Second Hand Smoke Exposure: No service: No Current occupational status: retired Current occupational exposures/hazards: No Cognitive needs: No Hearing needs: Yes Vision needs: Yes Questionnaire Thrive Questionnaire Date Thrive assessed: 04/25/25 HARRY-7 AMB Questionnaire HARRY-7 Date HARRY - 7 assessed: 04/25/25 Source: Developed by Drs. Yogi Martins, Sahra Howell, Migue Begum and colleagues, with an educational yenny from [employer]. Physical exam (Primary Care) Vital Signs: Last Vital Signs Pulse 68 09/27/25 15:20 BP 138/78 09/27/25 15:20 Pulse Ox 97 09/27/25 15:20 Oxygen Delivery Method Room Air 09/27/25 15:20 BMI result Body Mass Index 30.2 Tobacco/Smoking Status: Tobacco use Status Tobacco use date assessed 06/19/25 09/27/25 15:20 Patient Tobacco Use Status Never used Tobacco 09/27/25 15:20 Tobacco use type Cigarette 09/27/25 15:20 e-Cigarette/Vaping Use Never Used 09/27/25 15:20 Thrive Assessment: Date of Thrive Assessment Date Thrive assessed 04/25/25 09/27/25 15:20 Const General: alert; No acute distress Eyes Conjunctivae: conjunctivae normal Resp Auscultation: clear to auscultation bilaterally Cardio Rate: regular rate Rhythm: regular rhythm GI Inspection: Yes normal to inspection Extrem General: Yes normal to inspection and No edema Coding Level of Care Code Complex visit Add On G2211 Diagnoses Type 2 diabetes mellitus with hyperglycemia, without long-term current use of insulin E11.65 Diabetes mellitus senior living insulin use: without senior living use Coronary artery disease involving [place] coronary artery of [place] heart without angina pectoris I25.10 Associated angina: without angina Coronary Disease-Associated Artery/Lesion type: [place] artery [place] vs. transplanted heart: [place] heart Paroxysmal atrial fibrillation I48.0 ICD (implantable cardioverter-defibrillator) in place Z95.810 Ischemic cardiomyopathy with implantable cardioverter-defibrillator (ICD) I25.5; Z95.810 Renovascular hypertension I15.0 Hypertension type: renovascular hypertension Renal artery stenosis I70.1 Hypercholesterolemia E78.00 Hepatic steatosis K76.0 Stage 3a chronic kidney disease N18.31 Chronic kidney disease stage 3 subtype: stage 3a (GFR 45-59) Assessment & Plan Assessment & Plan (1) Type 2 diabetes mellitus with hyperglycemia: Code(s): E11.65 - Type 2 diabetes mellitus with hyperglycemia Category: Medical Qualifiers: Diabetes mellitus senior living insulin use: without manager intermediate use Qualified Code(s): E11.65 - Type 2 diabetes mellitus with hyperglycemia Plan: Decrease the amount of carbohydrate intake, pasta, bread, rice and potatoes are all sugar and that is aside from all the sweet stuff, remember that fruits are good but they are Sweet also. Hemoglobin A1c goal of less than 7.0 patient on metformin 500 mg twice a day (2) CAD (coronary artery disease): Comment: CABG x4 11/04/2023(Shabazz to LAD, SVG to PDA, SVG to OM, SVG to diag) Code(s): I25.10 - Atherosclerotic heart disease of [place] coronary artery without angina pectoris Category: Medical Qualifiers: Associated angina: without angina Coronary Disease-Associated Artery/[place] type: [place] artery [place] vs. transplanted heart: [place] heart Qualified Code(s): I25.10 - Atherosclerotic heart disease of [place] coronary artery without angina pectoris Plan: Control the cholesterol, weight, blood pressure, diabetes on anticoagulation with Eliquis (3) Paroxysmal atrial fibrillation: Code(s): I48.0 - Paroxysmal atrial fibrillation Category: Medical Plan: Continue with anticoagulation on metoprolol 25 mg once a day (4) ICD (implantable cardioverter-defibrillator) in place: Comment: Dual-chamber biventricular ICD implantation Dr. Mayers September 2024 Code(s): Z95.810 - Presence of automatic (implantable) cardiac defibrillator Category: Medical Plan: Patient is being followed up by Cardiology (5) Ischemic cardiomyopathy with implantable cardioverter-defibrillator (ICD): Code(s): I25.5 - Ischemic cardiomyopathy; Z95.810 - Presence of automatic (implantable) cardiac defibrillator Category: Medical Plan: Continue with Entresto and metoprolol and furosemide (6) Hypertension: Code(s): I10 - Essential (primary) hypertension Category: Medical Qualifiers: Hypertension type: renovascular hypertension Qualified Code(s): I15.0 - Renovascular hypertension Plan: Continue with blood pressure medication. Decrease salt intake and exercise continuing with metoprolol Entresto (7) Renal artery stenosis: Code(s): I70.1 - Atherosclerosis of renal artery Category: Medical Plan: Patient follows up with Nephrology and ultrasound of the renal artery requested (8) Hypercholesterolemia: Code(s): E78.00 - Pure hypercholesterolemia, unspecified Category: Medical Plan: Avoid fried foods, chicken skin, eggs, butter margarine, pastries and meat. Be it pork or beef they have a lot of cholesterol on atorvastatin and adjusted by Cardiology needs blood work follow-up (9) Hepatic steatosis: Comment: April 2025 Code(s): K76.0 - Fatty (change of) liver, not elsewhere classified Category: Medical Plan: Low-fat diet (10) CKD (chronic kidney disease) stage 3, GFR 30-59 ml/min: Code(s): N18.30 - Chronic kidney disease, stage 3 unspecified Category: Medical Qualifiers: Chronic kidney disease stage 3 subtype: stage 3a (GFR 45-59) Qualified Code(s): N18.31 - Chronic kidney disease, stage 3a Plan: Keep well hydrated avoid NSAID Plan History of Present Illness The patient is an 80-year-old individual with a history of obesity presenting for management of multiple chronic conditions. The patient has a significant cardiovascular history including ischemic cardiomyopathy with an ejection fraction of 30-35%, atrial fibrillation, coronary artery disease, congestive heart failure, sick sinus syndrome managed with a pacemaker/ICD, and hypertension. Current medications for cardiovascular conditions include Entresto, metoprolol, and Eliquis for anticoagulation. Endocrine history is positive for type 2 diabetes mellitus, hypothyroidism, and hypercholesterolemia. The HbA1c in June was 6.7, and the patient is on metformin 500 mg twice a day. Regarding hypercholesterolemia, the LDL was 81 in March 2025, above the goal of less than 70, which prompted an increase in the atorvastatin dosage by cardiology. Renal history includes chronic kidney disease and renal artery stenosis. The patient was last seen by nephrology on July 04, and renal function was 1.35 in June. Nephrology recommended a follow-up renal artery ultrasound and noted the patient may be a candidate for Jardiance. Other past medical history includes polymyositis, osteopenia with a bone density scan in August 2024, hepatic stenosis, and venous vascular disease. The patient had an emergency room visit on June 04 for leg and hip pain and was subsequently sent for physical therapy. Blood work from March 2025 showed a normal blood count with no anemia. Health Maintenance The patient received an influenza vaccine today. Plan to follow up in December, by which time repeat fasting labs should be completed. 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 - Social Support: The patient reports having no help at home and states that the patient's does not want assistance. Review of Systems - Musculoskeletal: Reports a recent history of leg and hip pain requiring an ER visit. - General: Denies any other current issues or need for medication refills. Physical Exam - Jzwri-pe-ohgn testing: Fingerstick glucose 6.3. Results - Labs: - Xxjxb-fq-nlcv fingerstick glucose today was 6.3. - In June, HbA1c was 6.7 and renal function was 1.35. - In March 2025, blood work showed a normal blood count with no anemia and an LDL of 81. - Tests and Diagnostics: - A prior echocardiogram showed an ejection fraction of 30-35%. - A CT scan of the abdomen and pelvis in May was negative. - The last bone density scan was in August 2024. Plan Patient was informed and verbally consented to the use of an ambient scribe for clinic note documentation during this visit. 1. Hypercholesterolemia Cardiology has adjusted the patient's regimen to atorvastatin 80 mg daily to achieve an LDL goal of less than 70 mg/dL, as the most recent level was 81 mg/dL. A repeat fasting lipid panel will be ordered to assess the efficacy of the new dosage. Continue adherence to a low-fat diet. 2. Diabetes Mellitus Type 2 The patient's glycemic control has improved, with a xmjxv-tj-vazq glucose of 6.3 today compared to an HbA1c of 6.7 in June, meeting the goal of less than 7.0. Continue metformin 500 mg twice daily. Nephrology has noted that the patient is a good candidate for Jardiance. 3. Cardiovascular Disease (Including Cad, Chf, And Atrial Fibrillation) The patient will continue management under cardiology for ischemic cardiomyopathy (EF 30-35%), coronary artery disease, and atrial fibrillation. Continue current medical therapy, including Eliquis for anticoagulation, Entresto, and metoprolol 25 mg once a day, and furosemide. 4. Hypertension Blood pressure will continue to be managed with the current regimen of metoprolol and Entresto. 5. Chronic Kidney Disease And Renal Artery Stenosis The patient will continue to follow up with nephrology, with the next appointment scheduled for December. An ultrasound of the renal artery has been requested by nephrology for follow-up. Discussion Notes I reviewed the patient's extensive medical history and recent specialist consultations. I explained the adjustment to the atorvastatin dose, now at 80 mg, as recommended by cardiology, with the goal of lowering LDL cholesterol to below 70 mg/dL. I informed the patient that follow-up fasting blood work is necessary to monitor the effects of this change. We discussed the patient's diabetes management, noting that the recent pqmvl-kx-uhdg glucose reading of 6.3 is an improvement and meets the glycemic target. I also reviewed the kidney doctor's recommendation for a follow-up renal artery ultrasound and confirmed the patient has a nephrology appointment in December. The patient received an influenza vaccine during the visit. I emphasized that these interventions are crucial for preventing future cardiovascular events. We scheduled a follow-up appointment for December and advised the patient to complete the blood work before then. Patient Instructions - Continue all your current medications as prescribed, including the new dose of atorvastatin 80 mg once a day. - Get fasting blood work done to check your cholesterol. - Please have the blood work completed before your next appointment in December. - Keep your follow-up appointment with your kidney doctor in December. - Make sure to get the ultrasound of your renal artery as ordered by your kidney doctor. - Continue to follow a low-fat diet and drink plenty of water. - Your next follow-up visit here is scheduled for December. - Please call our office if you have any questions or concerns before your next visit. Orders: Orders Influenza [id number] Immunization Today Z23 - Encounter for immunization Magnesium Today I25.5 - Ischemic cardiomyopathy, Z95.810 - Presence of automatic (implantable) cardiac defibrillator AMB Hemoglobin A1c Today Z13.9 - Encounter for screening, unspecified Medications: New Fluarix [id number] (PF) (flu vac ts 2024-(6mos up)-PF) 0.5 mL IM ONCE 0.5 mL 0RF NS Z23 - Encounter for immunization
--- OUTSIDE RECORDS SUMMARY | 2025-09-27 20:11 | XMS_ITS | Clinical Summary ---
Author Organization [facility] Address [address] [place] [address] Phone Care Team Providers Care Bending Press Operator Name Role Phone Frederick Barnes MD Primary [...] VACCINES (1 of 2) 02/07/1994 OSTEOPOROSIS SCREENING INITIAL (ONE-TIME) 02/07/2009 CREATININE LEVEL 12/24/2018 12/24/2017 POTASSIUM LEVEL 12/24/2018 12/24/2017 RSV VACCINE (1 - 1-dose 75+ series) 02/07/2019 INFLUENZA VACCINE (#1) 2025 9, 07/29/2017, 10/09/2015, Additional history exists COVID-19 VACCINE ( season) 2025 01/07/2021, 12/17/2020 HEPATITIS A VACCINES Aged Out [...] this topic Medical Devices Implanted Type Area Strategic Buyer Device Identifier Shelf Expiration Date Model / Serial / Lot 25 Mm Diameter X 15 Mm Length Standard Post Reverse Shoulder 06 - [id number] Implanted:Qty: 1 on 01/20/2018 by Bunny Arita DO at [facility] Right: Shoulder [employer] 07/28/2022 [id number] / / Screw Compression Shoulder Tor# [id number] Reverse Shoulder 08 - [id number] Implanted:Qty: 1 on 01/20/2018 by Bunny Arita DO at [facility] Right: Shoulder [employer] [id number] / / Screw Bone 4.5x32mm Shoulder Locking Multi Directional Aequalis Reversed Ea Reverse Shoulder 08 - [id number] Implanted:Qty: 1 on 01/20/2018 by Bunny Arita DO at [facility] Right: Shoulder [employer] [id number] / / Screw Bone Locking 4.5x26 Reverse Shoulder 08 - [id number] Implanted:Qty: 1 on 01/20/2018 by Bunny Arita DO at [facility] Right: Shoulder [employer] [id number] / / Centered 36 Mm Reverse Shoulder 05 - [id number] Implanted:Qty: 1 on 01/20/2018 by Bunny Arita DO at [facility] [employer] Right: Shoulder [employer] 08/30/2022 [id number] / [id number] / Low Offset Reversed Tray+ 0 Shoulder 03 - [id number] Implanted:Qty: 1 on 01/20/2018 by Bunny Arita DO at [facility] Right: Shoulder [employer] 10/04/2022 [id number] / [id number] / 36 Diameter Revision Reversed Insert+ 12.5 B Shoulder 04 - [id number] Implanted:Qty: 1 on 01/20/2018 by Bunny Arita, at [facility] Right: Shoulder [employer] 12/07/2022 [id number] / [id number] / 5b Ascend Flex Standard Ptc Humeral Stem Shoulder 14 - [id number] Implanted:Qty: 1 on 01/20/2018 by Bunny Arita, DO at [facility] Right: Shoulder [employer] 11/26/2021 [id number] / [id number] / Screw Bone 4.5x18mm Shoulder Fixation Hemispherical Head Non Locking Aequalis Reverse Shoulder 08 - [id number] Implanted:Qty: 1 on 01/20/2018 by Bunny Arita DO at [facility] Right: Shoulder [employer] [id number] / / Procedures Procedure Name Priority Date/Time Associated Diagnosis Comments BASIC METABOLIC PANEL (BMP) Routine 12/24/2017 11:21 AM EST Rotator cuff tear arthropathy of right shoulder from Last 3 Months or Most Recently Relevant to Health Maintenance Results * (ABNORMAL) Basic metabolic panel (12/24/2017 11:21 AM EST) SODIUM 132(L) 133 - 146 mmol/L [facility] CHLORIDE 90(L) 96 - 108 mmol/L [facility] POTASSIUM 3.4 3.3 - 5.1 mmol/L [facility] CO2 27 21 - 35 mmol/L [facility] BUN 23(H) 6 - 19 mg/dL [facility] CREATININE 0.80 0.5 - 1.5 mg/dL [facility] GLUCOSE 111(H) 70 - 99 mg/dL [facility] CALCIUM 10.1 8.4 - 10.3 mg/dL [facility] EGFR >60 mL/min/1.7 3m2 [facility] Comment:Abnormal if <60. If patient is -[place], multiply the result by 1.21. ANION GAP 18 10 - 20 mmol/L [facility] Blood 12/24/2017 11:2 1 AM EST 12/24/2017 11:24 AM EST us Bunny Arita DO LAB BLOOD BKR ORDERABLES Fi nal Result [facility] [address] [place] [address] from Last 3 Months or Most Recently Relevant to Health Maintenance Insurance MEDIC[place] A [place] [id number] [facility] MEDEX SUPPLEMENT MEDICARE PART A & B Member Subscriber Plan / Payer (Ef fective 2002-Present) Name:Perlita Leonard Member ID:[id number] Relation to Subscriber:Self Name:Perlita Leonard Subscriber ID:[id number] Payer ID:[id number] Group ID:Not on file Type:Medicare Address: [facility] [employer] [address] [place] [phone] [employer] MEDEX SUPPLEMENT MEDICARE PART A & B [employer] MEDEX SUPPLEMENT MEDICARE PART A & B [employer] MEDEX SUPPLEMENT MEDICARE PART A & B [employer] MEDEX SUPPLEMENT MEDICARE PART A & B [employer] MEDEX SUPPLEMENT MEDICARE PART A & B [employer] MEDEX SUPPLEMENT MEDICARE PART A & B [employer] MEDEX SUPPLEMENT MEDICARE PART A & B [employer] MEDEX SUPPLEMENT Advance Directives For more information, please contact: [phone] (9AM - 5PM [facility], Wednesday-Wednesday) * Full Code (Presumed) (Latest Code Status on File) Date Activated Date Inactivated Comments 01/20/2018 1:19 PM 01/21/2018 4:26 PM * Full Code (Presumed) Date Activated Date Inactivated Comments 01/20/2018 6:27 AM 01/20/2018 1:19 PM Care Teams Bending Press Operator Relationship Specialty Start Date End Date Frederick Barnes MD [address] [place] [address] [place] [address] PCP - General 08/26/17 Additional Source Comments The information contained in this document represents components of the legal health record. It is not the complete legal health record.[facility]
--- OUTSIDE RECORDS SUMMARY | 2025-09-27 20:11 | XMS_ITS | Encounter Summary ---
Author Organization [facility] Address [address] [facility] [address] [place] [address] Phone Care Team Providers Care Beer Still Runner Compounder Name Role Phone Frederick Barnes MD Primary Care Provider [phone] Encounter Details Date Type Department Care Team (Late st Contact Info) Description 01/20/2018 Procedure Pass OR Admitting Dept - Virtual Department [address] [place] [address] Social History Tobacco Use Types Packs/Day Years [...] on filedocumented in this encounter Care Teams Beer Still Runner Compounder Relationship Specialty Start Date End Date Frederick Barnes MD [address] [place] [address] [place] [address] PCP - General 08/26/17 documented as of this encounter Additional Source Comments The information contained in this document represents components of the legal health record. It is not the complete legal health record.[facility]
--- OUTSIDE RECORDS SUMMARY | 2025-09-27 20:11 | XMS_ITS | Encounter Summary ---
Author Organization [facility] Address [address] [place] [address] [place] [address] Phone Care Team Providers Care Replenishment Specialist Name Role Phone Frederick Barnes MD Primary Care Provider [phone] Encounter Details Date Type Department Care Team (Late st Contact Info) Description 11/17/2017 Prep for Surgery [facility] Orthopedics & Sports Medicine [address] [place] [address] Bunny Arita DO [address] [place] [address] Orthopedics & Sports Medicine, [facility] [place] [address] [email or web address] Rotator cuff tear arthropathy of right shoulder [...] (01/18/2018 8:30 AM EDT) ABO/Rh AB Positive [facility] Antibody Screen Negative [facility] CDH BB Band [id number] [facility] Expiration Date of Sample 01/21/2018 [facility] Resulting Agency [facility] Blood 01/18/2018 8:30 AM EDT 01/18/2018 8:34 AM EDT Bunny Arita LAB BLOOD BANK TEST ORDERAB LES Final Result Performing Organization Address [facility] Co de Phone Number [address] [address] * (ABNORMAL) Basic metabolic panel (12/24/2017 11:21 AM EST) SODIUM 132(L) 133 - 146 mmol/L [facility] CHLORIDE 90(L) 96 - 108 mmol/L [facility] POTASSIUM 3.4 3.3 - 5.1 mmol/L [facility] CO2 27 21 - 35 mmol/L [facility] BUN 23(H) 6 - 19 mg/dL [facility] CREATININE 0.80 0.5 - 1.5 mg/dL [facility] GLUCOSE 111(H) 70 - 99 mg/dL [facility] CALCIUM 10.1 8.4 - 10.3 mg/dL [facility] EGFR >60 mL/min/1.7 3m2 [facility] Comment:Abnormal if <60. If patient is -[place], multiply the result by 1.21. ANION GAP 18 10 - 20 mmol/L [facility] Blood 12/24/2017 11:2 1 AM EST 12/24/2017 11:24 AM EST Bunny Arita LAB BLOOD BKR ORDERABLES Fi nal Result Performing Organization Address City/[facility] Co de Phone Number [address] [address] * (ABNORMAL) CBC (12/24/2017 11:21 AM EST) WBC 11.72(H) 3.40 - 11.20 K/uL [facility] RBC 4.49 3.80 - 4.80 M/uL [facility] HGB 14.1 12.0 - 15.0 g/dL [facility] HCT 40.5 36.0 - 46.0 % [facility] PLT 465(H) 130 - 400 K/uL [facility] MCV 90.2 79.0 - 98.0 fL [facility] MCH 31.4 27.0 - 34.8 pg [facility] MCHC 34.8 31.5 - 36.0 g/dL [facility] RDW 12.5 10.8 - 14.6 % [facility] MPV 10.8 9.4 - 12.4 fl [facility] NRBC 0.00 /100 WBCs [facility] ABSOLUTE NRBC 0.00 K/uL [facility] Blood 12/24/2017 11:2 1 AM EST 12/24/2017 11:24 AM EST us Bunny Arita DO LAB BLOOD BKR ORDERABLES Fi nal Result Performing Organization Address City/State/[facility] Co de Phone Number [facility] [address] [place] [address] documented in this encounter Visit Diagnoses Diagnosis Rotator cuff tear arthropathy of right shoulder- Primary documented in this encounter Care Teams Replenishment Specialist Relationship Specialty Start Date End Date Frederick Barnes MD [address] [place] [address] Dr [address] [place] [address] PCP - General 08/26/17 documented as of this encounter Additional Source Comments The information contained in this document represents components of the legal health record. It is not the complete legal health record.[facility]
--- OUTSIDE RECORDS SUMMARY | 2025-09-27 20:11 | XMS_ITS | Clinical Summary ---
Author Organization [facility], Address [address] [place] [phone] Phone Care Team Providers Care Marketing Writer Name Role Phone Mariana Whitten MD Primary Care Provider [phone] Allergies Active Allergy Reactions Criticality Noted Date [...] Medical History Relation Comments Heart disease Father [place] Hypertension Father Brain cancer Father's Sister Hypertension [...] AM EDT) Hemoglobin A1C 5.6 (4.0-5.6) % [facility] Comment: MONITORING: In known diabetic patients, hemoglobin A1c targets should be discussed with health care provider. DIAGNOSTIC USE: The [place] Diabetes Association (ADA) and the World Health [...] Supplement 1 Testing performed or reported by [facility], a Service of [facility], [address] [place] [address] Marcy Slaughter MD, Trial Manager [facility]# [id number] 06/23/2022 7:37 AM EDT 06/23/2022 8:21 AM EDT us Aps External Provider LAB BLOOD ORDERABLES Final Result [facility] from Last 3 Months or Most Recently Relevant to Health Maintenance Insurance Medicare [facility] Care Teams Marketing Writer Relationship Specialty Start Date End Date Mariana Whitten MD [address] PCP - General Internal Medicine 12/11/19
--- OUTSIDE RECORDS SUMMARY | 2025-09-27 20:11 | XMS_ITS | Encounter Summary ---
Author Organization [facility] Address [address] [place] [address] [place] [address] Phone Care Team Providers Care Machine Joint Cutter Name Role Phone Frederick Barnes MD Primary Care Provider [phone] Encounter Details Date Type Department Care Team (Late st Contact Info) Description 01/31/2018 Ancillary Orders [facility] Orthopedics & Sports Medicine [address] [place] [address] Mary Grace Lockwood PA-C [address] [place] [address] Orthopedics & Sports Medicine, [facility] [place] [address] Social History Tobacco Use Types Packs/Day Years [...] on filedocumented in this encounter Care Teams Machine Joint Cutter Relationship Specialty Start Date End Date Frederick Barnes MD [address] [place] [address] [place] [address] PCP - General 08/26/17 documented as of this encounter Additional Source Comments The information contained in this document represents components of the legal health record. It is not the complete legal health record.[facility]
--- OUTSIDE RECORDS SUMMARY | 2025-09-27 20:11 | XMS_ITS | Clinical Summary ---
Author Organization [facility] Address [address] [place] [address] Phone Care Team Providers Care Certified Welder Name Role Phone Jose Roberto Leggett MD Primary Care Provider [phone] Allergies Active Allergy Reactions Criticality Noted Date [...] 1 (one) time each day. Active calcium carbonate-vitam in D3 600 mg-5 mcg (200 unit) capsule Take 1 capsule by mouth 1 (one) time each day. Active docusate sodium (COLACE) 100 mg tablet Take 1 tablet (100 mg total) by mouth 1 (one) time each day. Active levothyroxine (SYNTHROID, LEVOTHROID) 100 mcg tablet Take 100 mcg by mouth daily. 3 Active alendronate (FOSAMAX) 70 mg tablet Take 1 tablet (70 mg total) by mouth every 7 (seven) days. Take in the morning with a full glass of water, on an empty stomach, and do not take anything else by mouth or lie down for the next 30 min. Active OneTouch Ultra Test test stripIndication s:Chronic diastolic heart failure ([facility] V24, CMS/[facility] V28) Use as instructed 100 each 3 5 04/05/20 26 Active apixaban (Eliquis) 5 mg tablet Take 1 tablet (5 mg total) by mouth 2 (two) times a day. 180 each 3 5 Active Entresto 49-51 mg per tablet Take 1 tablet by mouth 2 (two) times a day. 180 tablet 3 5 Active furosemide (LASIX) 20 mg tablet Take 1 tablet (20 mg total) by mouth 1 (one) time each day. 90 tablet 3 5 Active metoprolol succinate (TOPROL-XL) 25 mg 24 hr tabletIndicatio ns:Chronic diastolic heart failure (CMS/[facility] V24, CMS/[facility] V28) Take 1 tablet (25 mg total) by mouth 1 (one) time each day. Do not crush or chew. 90 each 3 5 Active atorvastatin (LIPITOR) 40 mg tablet Take 1.5 tablets (60 mg total) by mouth at bedtime. Active Active Problems Problem Noted Date Diagnosed Date Localized edema 11/24/2024 Assessment & Plan (11/24/2024 2:28 PM EST): Patient has localized edema to the right leg. This most likely is due to venous insufficiency or loss of plumbing due to bypasses. Patient is quite worried about it is minimal she has support socks have recommended that she buy a pair with a little soyfreeze operator elastic in them to try to get him on easier and even support nylons would be helpful SSS (sick sinus syndrome) (CMS/[facility] V24, CMS/[facility] V28) 09/15/2024 Assessment & Plan (07/24/2025 8:29 AM EDT): Patient has history of sick sinus syndrome and has a pacemaker in place. We will continue with remote monitoring and routine visits to our device clinic. Ischemic cardiomyopathy 09/15/2024 Assessment & Plan (07/24/2025 8:29 AM EDT): Patient has history of ischemic cardiomyopathy on guideline directed medical therapy with some small improvements in her LVEF after getting a biventricular ICD for EXHIBIT ARTIST therapy. Last echocardiogram showing an LVEF of 30 to 35%. She denies any clinical symptoms of heart failure and appears euvolemic on physical examination. EXHIBIT ARTIST noted at 89% on last device interrogation. She will continue with guideline directed medical therapy with metoprolol, Entresto, furosemide. We will make no changes to her medical therapies at this time. Patient advised to seek emergency medical attention by calling 911 if they were to develop severe dyspnea, chest pain that did not resolve with rest or nitroglycerin, or if they were to faint. I've asked the patient to call if they develop worsening symptoms of heart failure such as increased shortness of breath, new or worsening cough, increased swelling in the legs or ankles, or weight gain of more than 2 pounds in one day or 4 pounds in one week. Assessment & Plan (11/24/2024 2:28 PM EST): [...] removing that coronary sinus lead. Atrial flutter (CMS/HCC V24, CMS/HCC V28) 2023 Overview (09/19/2024): Last Assessment & [...] (heart failure with re duced ejection fraction) (CMS/HCC V24, CMS/HCC V28) 05/07/2022 Urinary tract infection 05/07/2022 Coronary artery disease invo lving [place] coronary artery without angina pectoris 10/10/2020 Overview (07/24/2025): 2009- PCI w/ DEBBIE to mid LAD, distal LAD and distal OM1 Assessment & Plan (07/24/2025 8:29 AM EDT): Patient is history of coronary artery disease status post DEBBIE to the LAD x 2 and circumflex artery years ago. She also underwent three-vessel CABG 10/2023. Patient denies any exertional anginal symptoms. She continues on cardioprotective medical therapy with aspirin, beta-marichuy and statin. I have reviewed with the patient the importance of a heart healthy lifestyle which includes eating a low-fat low-salt diet, getting regular exercise, maintaining a healthy weight, not smoking, and following up with routine medical care. Assessment & Plan (07/24/2025 8:29 AM EDT): Patient is history of coronary artery disease status post DEBBIE to the LAD x 2 and circumflex artery years ago. She also underwent three-vessel CABG 10/2023. Patient denies any exertional anginal symptoms. She continues on cardioprotective medical therapy with aspirin, beta-marichuy and statin. I have reviewed with the [...] 0.9% 8.7 mL injection Diastolic heart failure (CMS/HCC V24, CMS/HCC V2 8) 10/10/2020 Overview (09/19/2024): Last Assessment [...] this time no changes in therapy. Orders: Medicine in PracticeTouch Ultra Test test strip; Use as instructed metoprolol succinate (TOPROL-XL) 25 mg 24 hr tablet; Take 1 tablet (25 mg total) by mouth 1 (one) time each day. Do not crush or chew. Assessment & Plan (04/05/2025 1:03 PM EDT): Stable from a cardiovascular standpoint on medical management. No significant evidence of weight gain and volume appears to be well-managed Hyperlipidemia 10/10/2020 Assessment & Plan (07/24/2025 8:29 AM EDT): Goal LDL cholesterol is less than 70. We will update lipid panel today. Continue with statin as prescribed. Hypertension 10/10/2020 Assessment & Plan (07/24/2025 8:29 AM EDT): Blood pressure is reasonable with a reading today of 140/78. She will continue with Entresto and metoprolol as prescribed. Paroxysmal atrial fibrillation ([facility] V24, [facility] V28) 10/10/2020 Overview (09/19/2024): W/ slow rate [...] that may have occurred Renal artery stenosis (CMS/HCC V24) 10/10/2020 Overview (09/19/2024): Last Assessment & Plan: I believe the patient has moderate unilateral renal artery stenosis followed by nephrology Encounters Date Type Department Care Team Description 08/30/2025 4:20 PM EDT Ancillary Procedure [facility] Cardiology [facility] [address] [place] [address] 08/14/2025 5:30 PM EDT Ancillary Procedure [facility] Cardiology [facility] [address] [place] [address] 07/26/2025 9:30 AM EDT Ancillary Procedure [facility] Cardiology [facility] [address] [place] [address] Encounter for adjustment or management of cardiac device 07/25/[address] [facility] [address] [facility] [address] [place] [address] Kamryn Isaac NP 07/24/2025 7:40 AM EDT Office Visit [facility] [address] [place] [address] Kamryn Isaac NP Coronary artery disease involving [place] coronary artery of [place] heart without angina pectoris (Primary Dx); Ischemic cardiomyopathy; Paroxysmal atrial fibrillation (CMS/HCC V24, CMS/HCC V28); SSS (sick sinus syndrome) (CMS/HCC V24, CMS/HCC V28); Primary hypertension; Mixed hyperlipidemia; Coronary artery disease involving [place] coronary artery without angina pectoris, unspecified whether [place] or transplanted heart; Chronic diastolic heart failure (CMS/HCC V24, CMS/HCC V28); HFrEF (heart failure with reduced ejection fraction) (CMS/HCC V24, CMS/HCC V28) 07/05/2025 12:15 PM EDT Ancillary Procedure [facility] Cardiology [facility] [address] [place] [phone] 07/05/2025 Telephone [facility] Cardiology [facility] [address] [place] [id number] Delmi Stein NP 06/29/2025 9:10 AM EDT Ancillary Procedure [facility] Cardiology [facility] [address] [place] [phone] from Last 3 Months Immunizations Immunization Administration Dates Next Due Pfizer SARS-CoV-2 COVID-19, mRNA, LNP-S, preservative free 01/07/2021,12/17/2020 Surgical History Surgery Date Site/Laterality Comments ANGIOPLASTY PROCEDURE: HISTORICAL ANGIOPLASTY W/STENT CARDIAC CATHETERIZATION PROCEDURE: HISTORICAL CARDIAC CATH OTHER SURGICAL HISTORY 2008 PROCEDURE: HISTORY OTHER; COMMENT: DEBBIE LAD, LCX OTHER SURGICAL HISTORY PROCEDURE: [place] PATIENT HAS A CORONARY ARTERY STENT HYSTERECTOMY [...] Sign Reading Time Taken Comments Blood Pressure 140/78 07/24/2025 7:38 AM EDT Pulse 74 07/24/2025 7:38 AM EDT Temperature 36.5 C (97.7 F) 06/16/2025 2:17 PM EDT Respiratory Rate 17 06/16/2025 2:17 PM EDT Oxygen Saturation 99% 07/24/2025 7:38 AM EDT Inhaled Oxygen Concentration - - Weight 78.9 kg (174 lb) 07/24/2025 7:38 AM EDT Height 162.6 cm (5' 4 ) 07/24/2025 7:38 AM EDT Body Mass Index 29.87 07/24/2025 7:38 AM EDT Plan of Treatment Upcoming Encounters Date Type Department Care Team (Late st Contact Info) Description 04/24/2026 9:30 AM EDT Ancillary Procedure [facility] [address] [facility] [address] [place] [address] Health Maintenance Due Date Last Done Comments Diabetes: Annual Foot Exam 02/07/1955 Diabetes: Annual Retina Eye Exam 02/07/1955 DTaP,Tdap,and Td Vaccines (1 - Tdap) 02/07/1963 Zoster Vaccines (1 of 2) 02/07/1994 RSV Immunization Adult Patients (1 - 1-dose 75+ series) 02/07/2019 Falls Risk Assessment 10/17/2022 Medicare Annual Wellness Visit 10/17/2022 Osteoporosis Screening (Bone Density Screening) 10/17/2022 Social Influencers of Health Screening 10/17/2022 Diabetes: Annual Urine Albumin-Creatinine Ratio (uACR) 09/22/2024 Diabetes: Blood Sugar Control Test (HGBA1C) 09/22/2024 06/23/2022 Depression Screening 11/08/2024 COVID-19 Vaccine ( season) 2025 10/07/2021, 09/02/2021, 01/07/2021, Additional history exists Influenza Vaccine (#1) 2025 , 07/09/2024, 09/16/2023, Additional history exists Diabetes: Annual GFR (Glomerular Filtration Rate) 06/16/2026 06/16/2025, 11/06/2024, 09/23/2024 Hypertension/CHF/CAD Annual BMP Blood Test 06/16/2026 06/16/2025, 11/06/2024, 09/23/2024 Cholesterol Screening (Lipid Panel) 07/24/2030 07/24/2025, 07/24/2025, 07/24/2025 Pneumococcal Vaccine: 50+ Years Completed 04/10/2021, 01/15/2020 [...] this topic Medical Devices Implanted Type Area Project Director Device Identifier Shelf Expiration Date Model / Serial / Lot Defib Icd Bi Vent Phoenix Hr Boring Machine Operator Double End D - [id number] - [id number] Implanted:Qty: 1 on 09/22/2024 by Zack Mayers MD at [facility] Cardiac EXHIBIT ARTIST-D ICD Left: Heart [facility] [id number] 01/05/2026 [id number] / [id number] / Abbt-Stju Phoenix Hf [id number] Implanted:09/08 (Quantity not on file) Cardiac EXHIBIT ARTIST-D ICD Left: Chest [facility] GALLANT HF [id number] / [id number] / Abbt-Stju [id number] Phoenix(Tm) Hf [id number] Implanted:09/08 (Quantity not on file) Cardiac EXHIBIT ARTIST-D ICD [facility] [id number] GALLANT(T M) HF / [id number] / Lead Tachy Durat 58cm 7122q/58 Sj4 - [id number] - [id number] Implanted:Qty: 1 on 09/22/2024 by Zack Mayers MD at [facility] Cardiac Lead N/A: Heart [facility] [id number] 02/05/2027 7122Q/58 / [id number] / Lead Pcmk Tendril Sts [id number] - [id number] - [id number] Implanted:Qty: 1 on 09/22/2024 by Zack Mayers MD at [facility] Cardiac Lead Left: Heart [facility] [id number] 05/07/2027 2088TC/52 / [id number] / Lead Pcmkr Lv Quartet 75cm Quadripolar - [id number] - [id number] Implanted:Qty: 1 on 09/22/2024 by Zack Mayers MD at [facility] Cardiac Lead Left: Heart [facility] [id number] 03/07/2027 1458Q/75 / [id number] / Procedures Procedure Name Priority Date/Time Associated Diagnosis Comments CARDIAC DEVICE CHECK- REMOTE- MURJ Routine 08/30/2025 4:19 PM EDT CARDIAC DEVICE CHECK- REMOTE- MURJ Routine 08/14/2025 5:25 PM EDT CARDIAC DEVICE CHECK- IN CLINIC- MURJ Routine 07/26/2025 3:35 PM EDT Encounter for adjustment or management of cardiac device TRIGLYCERIDES Routine 07/24/2025 8:41 AM EDT Coronary artery disease involving [place] coronary artery of [place] heart without angina pectoris CHOLESTEROL, TOTAL Routine 07/24/2025 8: 41 AM EDT Coronary artery disease involving [place] coronary artery of [place] heart without angina pectoris LDL CHOLESTEROL, DIRECT Routine 07/24/2025 8:41 AM EDT Coronary artery disease involving [place] coronary artery of [place] heart without angina pectoris HDL CHOLESTEROL Routine 07/24/2025 8:41 AM EDT Coronary artery disease involving [place] coronary artery of [place] heart without angina pectoris CARDIAC DEVICE CHECK- REMOTE- MURJ Routine 07/05/2025 12:13 PM EDT CARDIAC DEVICE CHECK- REMOTE- MURJ Routine 06/29/2025 9:05 AM EDT BASIC METABOLIC PANEL STAT 06/16/2025 11:46 AM EDT from Last 3 Months or Most Recently Relevant to Health Maintenance Results * Cardiac device check - Remote- MURJ (08/30/2025 4:19 PM EDT) Only the most recent of4 resultswithin the time period is included. Date Time Interrogation Session [id number] CV DEVICE CHECK Type Interrogation Session Remote Device Initiated CV DEVICE CHECK Implantable Pulse Generator Project Director [facility] CV DEVICE CHECK Implantable Pulse Generator Type EXHIBIT ARTIST-D CV DEVICE CHECK Implantable Pulse Generator Model [id number] Phoenix() HF CV DEVICE CHECK Implantable Pulse Generator Serial Number [id number] CV DEVICE CHECK Implantable Pulse Generator Implant Date 20240922 CV DEVICE CHECK Battery Remaining Percentage 78.00 CV DEVICE CHECK Battery Remaining Longevity 43.0 CV DEVICE CHECK Battery Voltage 2.950 CV D EVICE CHECK Battery GLAZIER STAINED GLASS Trigger 2.620 CV DEVICE CHECK Battery Status Middle of Service CV DEVICE CHECK Capacitor Charge Time 9.400 CV DEVICE CHECK Francisco Statistic RA Percent Paced 83.00 CV DEVICE CHECK Francisco Statistic RV Percent Paced 88.00 CV DEVICE CHECK EXHIBIT ARTIST Statistic EXHIBIT ARTIST Percent Paced 88.00 CV DEVICE CHECK Atrial Tachy Statistic AT/AF [place] Percent 1.00 CV DEVICE CHECK Lead Channel Sensing Intrinsic Amplitude 1.600 CV DEVICE CHECK Lead Channel Setting Sensing Sensitivity 0.30 CV DEVICE CHECK Lead Channel Impedance Value 390 CV DEVICE CHECK Lead Channel Pacing Threshold Amplitude 0.500 CV DEVICE CHECK Lead Channel Pacing Threshold Pulse Width 0.5 CV DEVICE CHECK Lead Channel RA Pacing Threshold Date 2025-08-25 CV DEVICE CHECK Lead Channel Setting Pacing Amplitude 2.000 CV DEVICE CHECK Lead Channel Setting Pacing Pulse Width 0.5 CV DEVICE CHECK Lead Channel Sensing Intrinsic Amplitude 12.000 CV DEVICE CHECK Lead Channel Setting Sensing Sensitivity 0.50 CV DEVICE CHECK Lead Channel Impedance Value 430 CV DEVICE CHECK Lead Channel Pacing Threshold Amplitude 1.000 CV DEVICE CHECK Lead Channel Pacing Threshold Pulse Width 0.5 CV DEVICE CHECK Lead Channel RV Pacing Threshold Date 2025-08-25 CV DEVICE CHECK Lead Channel Setting Pacing Amplitude 2.000 CV DEVICE CHECK Lead Channel Setting Pacing Pulse Width 0.5 CV DEVICE CHECK Lead Channel Impedance Value 530 CV DEVICE CHECK Lead Channel Setting Pacing Amplitude 4.000 CV DEVICE CHECK Lead Channel Setting Pacing Pulse Width 1.0 CV DEVICE CHECK Francisco Setting Mode (NBG Code) DDDR CV DEVICE CHECK Ventricular chambers paced during EXHIBIT ARTIST pacing. BiV CV DEVICE CHECK Francisco Setting Lower Rate Limit 70 CV DEVICE CHECK Francisco Setting AT Mode Switch Rate 180 CV DEVICE CHECK Francisco Setting Maximum Tracking Rate 120 CV DEVICE CHECK Francisco Setting Maximum Sensor Rate 100 CV DEVICE CHECK Francisco Setting PAV Delay 180 CV DEVICE CHECK Francisco Setting FLO Delay 150 CV DEVICE CHECK EXHIBIT ARTIST LV-RV Delay 0 CV D EVICE CHECK Therapy Statistic Recent Shocks Delivered 0 CV DEVICE CHECK Therapy Statistic Recent Shocks Aborted 0 CV DEVICE CHECK Therapy Statistic Recent ATP Delivered 0 CV DEVICE CHECK Shock Measured Impedance 71 CV DEVICE CHECK Zone Setting Type Category [...] 3 CV DEVICE CHECK Date of Service 2025-10-05 CV DEVICE CHECK Anatomical Region Laterality Modality Device Interroga tion 08/25/2025 2:04 AM EDT Impressions 08/30/2025 7:47 AM EDT Heart Failure Diagnostic: Stable * Heart failure diagnostics assessed through the device * Status: Stable * No overt HF present Narrative Procedure Note Zack Mayers MD - 08/30/2025 IMPRESSION: Heart Failure Diagnostic: Stable * Heart failure diagnostics assessed through the device * Status: Stable * No overt HF present Zack Mayers MD CV IMPLANTABLE CARDIAC DEVICE PROCEDURES Final Result * CARDIAC DEVICE CHECK- IN CLINIC- [facility] [place] (07/26/2025 3:35 PM EDT) Date Time Interrogation Session [id number] CV DEVICE CHECK Implantable Pulse Generator Project Director [employer] CV DEVICE CHECK Implantable Pulse Generator Type EXHIBIT ARTIST-D CV DEVICE CHECK Implantable Pulse Generator Model [id number] Phoenix(TM) HF CV DEVICE CHECK Implantable Pulse Generator Serial Number [id number] CV DEVICE CHECK Implantable Pulse Generator Implant Date 20240922 CV DEVICE CHECK Battery Status Middle of Service CV DEVICE CHECK Francisco Statistic RA Percent Paced 87.30 CV DEVICE CHECK Francisco Statistic RV Percent Paced 88.10 CV DEVICE CHECK Lead Channel Setting Sensing Sensitivity 0.30 CV DEVICE CHECK Lead Channel Setting Pacing Amplitude 2.000 CV DEVICE CHECK Lead Channel Setting Pacing Pulse Width 0.5 CV DEVICE CHECK Lead Channel Setting Sensing Sensitivity 0.30 CV DEVICE CHECK Lead Channel RV Pacing Threshold Date 2025-07-26 CV DEVICE CHECK Lead Channel Setting Pacing Amplitude 2.000 CV DEVICE CHECK Lead Channel Setting Pacing Pulse Width 0.5 CV DEVICE CHECK Lead Channel Setting Pacing Amplitude 4.500 CV DEVICE CHECK Lead Channel Setting Pacing Pulse Width 1.0 CV DEVICE CHECK Francisco Setting Mode (NBG Code) DDDR CV DEVICE CHECK Ventricular chambers paced during EXHIBIT ARTIST pacing. BiV CV DEVICE CHECK Francisco Setting Lower Rate Limit 70 CV DEVICE CHECK Francisco Setting AT Mode Switch Rate 180 CV DEVICE CHECK Francisco Setting Maximum Tracking Rate 120 CV DEVICE CHECK Francisco Setting Maximum Sensor Rate 100 CV DEVICE CHECK Francisco Setting PAV Delay 180 CV DEVICE CHECK Francisco Setting FLO Delay 150 CV DEVICE CHECK EXHIBIT ARTIST LV-RV Delay 0 CV D EVICE CHECK Therapy Statistic Recent Shocks Delivered 0 CV DEVICE CHECK Therapy Statistic Recent Shocks Aborted 0 CV DEVICE CHECK Therapy Statistic Recent ATP Delivered 0 CV DEVICE CHECK Shock Measured Impedance 71 CV DEVICE CHECK Zone Setting Type Category VT CV DEVICE CHECK Rate 150 CV DEVICE CHECK Zone Setting Status On CV DEVICE CHECK Zone ID 1 CV DEVICE CHECK Zone Setting Type Category VT CV DEVICE CHECK Zone Setting Status Off CV DEVICE CHECK Zone ID 2 CV DEVICE CHECK Zone Setting Type Category VF CV DEVICE CHECK Rate 214 CV DEVICE CHECK Therapies 36J, 40J, 40J x 4 CV DEVICE CHECK Zone Setting Status On CV DEVICE CHECK Zone ID 3 CV DEVICE CHECK Date of Service 2026-04-24 CV DEVICE CHECK Anatomical Region Laterality Modality Device Interroga tion 07/26/2025 Impressions 08/07/2025 12:25 PM EDT Device Rep Check Device interrogation was performed by Obeo with [employer] due to T wave over sensing * Sensing, impedance and thresholds reviewed and tested * See attached PDF for full interrogation Narrative Procedure Note Zack Mayers MD - 08/08/2025 IMPRESSION: Device Rep Check Device interrogation was performed by Linn with [employer] due to T wave oversensing * Sensing, impedance and thresholds reviewed and tested * See attached PDF for full interrogation us Order Referral Cardiovascular CV IMPLANTABLE CAR DIAC DEVICE PROCEDURES Final Result * Triglycerides (07/24/2025 8:41 AM EDT) Triglycerides 99 0 - 149 mg/dL [facility] 1 Blood Venous blood specimen / Unknown 07/24/2025 8:41 AM EDT 07/24/2025 Narrative [facility] 1 - 07/25/2025 4:06 AM EDT Performed at: 01 - [facility] [id number] [employer] Operator: Shahnaz Story MD, Phone: [phone] us Kamryn Isaac INDUSTRIAL MACHINERY MECHANIC LAB BLOOD ORDERABLES Final R esult [facility] 1 * LDL cholesterol, direct (07/24/2025 8:41 AM EDT) LDL Chol. (Direct) 81 0 - 99 mg/dL [facility] 1 Blood Venous blood specimen / Unknown 07/24/2025 8:41 AM EDT 07/24/2025 Narrative [facility] 1 - 07/25/2025 8:07 AM EDT Performed at: [facility] [id number] [employer] Operator: Shahnaz Story MD, Phone: [phone] Specimen Comment: A courtesy copy of this report has been sent to the patient Kamryn Isaac NP LAB BLOOD ORDERABLES Final R esult Performing Organization Address City/[facility]/ZIP Co de Phone Number [facility] 1 * HDL cholesterol (07/24/2025 8:41 AM EDT) HDL Cholesterol 47 >39 mg/dL [facility] 1 Blood Venous blood specimen / Unknown 07/24/2025 8:41 AM EDT 07/24/2025 Narrative [facility] 1 - 07/25/2025 4:06 AM EDT Performed at: [address] [id number] [employer] Operator: Shahnaz Story MD, Phone: [phone] Kamryn Isaac NP LAB BLOOD ORDERABLES Final R esult [facility] 1 * Cholesterol, total (07/24/2025 8:41 AM EDT) Cholesterol Total 146 100 - 199 mg/dL [facility] 1 Blood Venous blood specimen / Unknown 07/24/2025 8:41 AM EDT 07/24/2025 Narrative [facility] 1 - 07/25/2025 4:06 AM EDT Performed at: [address] [id number] [employer] Operator: Shahnaz Story MD, Phone: [phone] us Kamryn Isaac INDUSTRIAL MACHINERY MECHANIC LAB BLOOD ORDERABLES Final R esult [facility] 1 * (ABNORMAL) Basic metabolic panel (06/16/2025 11:46 AM EDT) Sodium 141 133 - 145 mmol/L LAB CHEMISTRY METHOD 06/16/2025 12:43 PM [facility] Potassium 4.3 3.5 - 5.5 mmol/L LAB CHEMISTRY METHOD 06/16/2025 12:43 PM [facility] Chloride 110 96 - 110 mmol/L LAB CHEMISTRY METHOD 06/16/2025 12:43 PM [facility] CO2 25 21 - 32 mmol/L LAB CHEMISTRY METHOD 06/16/2025 12:43 PM [facility] Anion Gap 6 3 - 11 LAB CHEMISTRY METHOD 06/16/2025 12:43 PM [facility] Glucose 119(H) 70 - 100 mg/dL LAB CHEMISTRY METHOD 06/16/2025 12:43 PM [facility] BUN 24 5 - 25 mg/dL LAB CHEMISTRY METHOD 06/16/2025 12:43 PM [facility] Creatinine 1.14(H) 0.50 - 1.10 mg/dL LAB CHEMISTRY METHOD 06/16/2025 12:43 PM [facility] eGFR 48(L) >=60 mL/min/1. 73m2 LAB CHEMISTRY METHOD 06/16/2025 12:43 PM [facility] Comment:Calculation based on the Chronic Kidney Disease Epidemiology Collaboration (CKD-EPI) equation refit without adjustment for race. BUN/Creatinine Ratio 21.1 LAB CHEMISTRY METHOD 06/16/2025 12:43 PM [facility] Calcium 9.3 8.5 - 10.5 mg/dL LAB CHEMISTRY METHOD 06/16/2025 12:43 PM EDT [facility] Blood Venous blood specimen / Unknown Venipuncture / Unknown 06/16/2025 11:46 AM EDT 06/16/2025 12:14 PM EDT us Bunny Rosa MD LAB BLOOD ORDERABLES Final Result [facility] [address] [place] [address], from Last 3 Months or Most Recently Relevant to Health Maintenance Insurance MEDICARE [facility] Advance Directives * Full Code - Default [...] currently active code status orders. Care Teams Certified Welder Relationship Specialty Start Date End Date Jose Roberto Leggett MD [address] [place] [address] [address] [facility] [place] [address] PCP - General 11/25/23
--- OUTSIDE RECORDS SUMMARY | 2025-09-27 20:11 | XMS_ITS | Encounter Summary ---
Author Organization [facility] Address [address] [place] [address] [place] [address] Phone Care Team Providers Care Elephant Tamer Name Role Phone Frederick Barnes MD Primary Care Provider [phone] Encounter Details Date Type Department Care Team (Latest Contact Info) Description 08/28/2017 Ancillary Orders [facility] Medicine [address] [place] [address] Azalia Hu PA-C [address] [place] [address] Orthopedics & Sports Medicine, [place] [address] [email or web address] History of left shoulder replacement Social [...] replacement documented in this encounter Care Teams Elephant Tamer Relationship Specialty Start Date End Date Frederick Barnes MD [address] [place] [address] [place] [address] PCP - General 08/26/17 documented as of this encounter Additional Source Comments The information contained in this document represents components of the legal health record. It is not the complete legal health record.[facility]
--- OUTSIDE RECORDS SUMMARY | 2025-09-27 20:11 | XMS_ITS | Encounter Summary ---
Author Organization [facility], Address [address] [place] [address] Phone Care Team Providers Care Bath Mix Operator Name Role Phone Mariana Whitten MD Primary Care Provider [phone] Encounter Details Date Type Department Care Team (Late st Contact Info) Description 12/13/2020 Orders Only [facility] [address] [facility] [place] [address] Montse Grace MD Chronic kidney disease stage [...] M/MM3 [facility] Hgb 12.0 (11.7-15.5 ) GM/DL [facility] Hematocrit 37.3 (35.7-45.8 ) % [facility] MCV 98.7 (80.0-100. 0) FL [facility] MCH 31.7 (27.0-34.0 ) PG [facility] MCHC 32.2(L) (33.0-37.0 ) g/dL [facility] Platelets 281 (150-460) K/MM3 [facility] RDW-SD 46.4 (<47.0) FL [facility] MPV 12.8(H) (9.4-12.4) [place] [facility] nRBC Count 0.0 #/100 WBC'S [facility] NRBC Absolute 0.0 K/MM3 [facility] Comment: Testing performed or reported by [facility], a Service of [facility], [address] [place] [address] Marcy Slaughter MD, Numerical Control Machine Operator [facility]# [id number] Blood specimen (specimen) 06/30/2021 8:58 AM EDT 06/30/2021 9:02 AM EDT us Montse Grace MD LAB BLOOD ORDERABLES Final Resu lt [facility] * (ABNORMAL) Renal function panel (06/30/2021 8:58 AM EDT) Glucose 104(H) (70-99) MG/DL [facility] BUN 48(H) (8-23) MG/DL [facility] Creatinine 1.4(H) (0.5-1.0) MG/DL [facility] Sodium 141 (133-145) MMOL/L [facility] Potassium 4.8 (3.6-5.2) MMOL/L [facility] Chloride 109(H) (98-107) MMOL/L [facility] Bicarbonate (CO2) 20(L) (22-29) MMOL/L [facility] Anion Gap 12 (4-17) [facility] Albumin 4.1 (3.4-4.8) GM/DL [facility] Calcium 9.4 (8.6-10.5) MG/DL [facility] Phosphorus, Serum 3.6 (2.5-4.5) MG/DL [facility] Est GFR Non 37 ML/MIN/1.7 3 M2 [facility] Comment: Creatinine based estimated glomerular filtration rate (eGFR) is calculated using the Chronic Kidney Disease Epidemiology Collaboration (CKD-EPI). The CKD-EPI creatinine equation has not been validated in children (<18 years), women or in some racial or ethnic subgroups other than Caucasians and Americans. EST GFR 43 ML/MIN/1.7 3 M2 [facility] Comment: Creatinine based estimated glomerular filtration rate (eGFR) is calculated using the Chronic Kidney Disease Epidemiology Collaboration (CKD-EPI). The CKD-EPI creatinine equation has not been validated in children (<18 years), women or in some racial or ethnic subgroups other than Caucasians and Americans. Testing performed or reported by [facility], a Service of [facility], [address] [place] [address] Marcy Slaughter MD, Numerical Control Machine Operator [facility]# [id number] Blood specimen (specimen) 06/30/2021 8:58 AM EDT 06/30/2021 9:02 AM EDT us Montse Grace MD LAB BLOOD ORDERABLES Final Resu lt [facility] documented in this encounter Visit Diagnoses Diagnosis Chronic kidney disease stage 3 (HCC) documented in this encounter Care Teams Bath Mix Operator Relationship Specialty Start Date End Date Mariana Whitten MD [address] [place] [address] PCP - General Internal Medicine 12/11/19 documented as of this encounter
--- OUTSIDE RECORDS SUMMARY | 2025-09-27 20:11 | XMS_ITS | Patient Health Record ---
Author Organization [facility] Address [address] [place] [address] Care Team Providers Care Spud Driller Name Role Phone Jose Roberto Leggett Primary Care Provider Vannessa Dai Unavailable [phone] Allergies Allergen (clinical drug ingredient) Drug/Non Drug [...] Duration) Notes Start Date End Date Status Losartan Potassium 50 MG Orally twice a day Not-Taking Extra Depth Orthopedic Shoes (1 Pair) with Customized Heat Molded Multidensity Innersoles (3 Pair) as directed Dx: NIDDM/Polyneuropathy (E11.42), Hammertoe Foot Deformity (M20.41,M20.42), Preulcerative Skin Lesion(s) (L85.1 04/14/2024 Active Coumadin 09/08/2019 Not-Takin g metFORMIN HCl 1000 MG 1 tablet with meal s Orally Twice a day Not-Taking Irbesartan 150 MG 1 tablet Orally Once a day Not-Taking Cephalexin 500 MG 1 tablet Orally Twic e a day; Duration: 7 days Not-Taking Labetalol HCl Not-Ta molly Laycareyivelisse Active Aspirin 81 MG 1 tablet Orally Once a day Active Extra Depth Orthopedic Shoes (1 Pair) with Customized Heat Molded Multidensity Innersoles (3 Pair) as directed Dx: NIDDM/Polyneuropathy (E11.42), Hammertoe Foot Deformity (M20.41,M20.42), Preulcerative Skin Lesion(s) (L85.1 03/16/2017 Active Levothyroxine Sodium 100 MCG 1 tablet Orally Once a day Active Extra Depth Orthopedic Shoes (1 Pair) with Customized Heat Molded Multidensity Innersoles (3 Pair) as directed Dx: NIDDM/Polyneuropathy (E11.42), Hammertoe Foot Deformity (M20.41,M20.42), Preulcerative Skin Lesion(s) (L85.1 12/30/2022 Active Custom Orthotics as directed 08/02/2018 Active OneTouch Ultra - USE 1 STRIP DAILY OR DIRECTED TO CHECK BLOOD SUGAR E11.9 In Vitro; Duration: 50 Days Active Atorvastatin Calcium 40 MG TAKE 1 TABLET BY MOUTH EVERY DAY Oral; Duration: 90 Days Active Vitamin D Active Olmesartan Medoxomil 20 MG (Prior Auth: Rx Ref#:[id number]) Oral; Duration: 15 Not-Taking hydrALAZINE HCl 100 MG Orally Three time s a day Not-Taking Extra Depth Orthopedic Shoes (1 Pair) with Customized Heat Molded Multidensity Innersoles (3 Pair) as directed Dx: NIDDM/Polyneuropathy (E11.42), Hammertoe Foot Deformity (M20.41,M20.42), Preulcerative Skin Lesion(s) (L85.1 12/05/2021 Not-Taking Entresto Active Extra Depth Orthopedic Shoes (1 Pair) with Customized Heat Molded Multidensity Innersoles (3 Pair) as directed Dx: NIDDM/Polyneuropathy (E11.42), Hammertoe Foot Deformity (M20.41,M20.42), Preulcerative Skin Lesion(s) (L85.1; excessive wearing lateral heel left shoe 02/09/2025 Active Torsemide 10 MG TAKE 1 TABLET (10 MG TOTAL) BY MOUTH IN THE MORNING AND IN THE EVENING Oral; Duration: 90 Days Not-Taking Metoprolol Succinate Active Nystatin 833164 UNIT/GM USE 1 APPLICATIO N TOPICALLY 2 TIMES A DAY,X10 DAYS External; Duration: 10 Days Not-Taking Simvastatin 40 MG 1 tablet in the even ing Orally Once a day Not-Taking Chlorthalidone 50 MG 1 tablet in the mor candace Orally Once a day Not-Taking Farxiga 10 MG TAKE 1 TABLET BY JERRI TH EVERY DAY Oral; Duration: 30 Days Not-Taking Immunizations Vaccine Route Administration Date Status Comme [...] Polyneuropathy due to type 2 diabetes mellitus (054691254) Type 2 diabetes mellitus with diabetic polyneuropathy (E11.42) Active confirmed Problem Acquired hammer toe of right foot (4301562372018376 ) Hammer toe of right foot (M20.41) Active confirmed Problem Acquired hammer toe of left foot (0429622718006695 ) Hammer toe of left foot (M20.42) Active confirmed Vital Signs Blood pressure diastolic 80 mm Hg 09/04/2025 Height 5 ft 4 in in 09/04/2025 Blood pressure systolic 120 mm Hg 09/04/2025 Weight 173 lbs 09/04/2025 BMI 29.69 kg/m2 09/04/2025 Encounters Encounter Location Date Provider Diagnosis [address] [address] 11/17/2024 Vannessa Tim Type 2 diabetes mellitus with diabetic polyneuropathy E11.42 ; Acute deep vein thrombosis (DVT) of right lower extremity, unspecified vein I82.401 ; Tinea unguium B35.1 ; Other hammer toe(s) (acquired), right foot M20.41 and Other hammer toe(s) (acquired), left foot M20.[address] [address] 02/09/2025 Vannessa Tim Type 2 diabetes mellitus with diabetic polyneuropathy E11.42 ; Other hammer toe(s) (acquired), right foot M20.41 ; Tinea unguium B35.1 and Other hammer toe(s) (acquired), left foot M20.[address] [address] 05/08/2025 Vannessa Burcha Type 2 diabetes mellitus with diabetic polyneuropathy E11.42 and Tinea unguium B35.[address] [address] 09/04/2025 Vannessa Burcha Type 2 diabetes mellitus with diabetic polyneuropathy E11.42 and Tinea unguium B35.[address] [address] 11/17/2024 Vannessa Burcha [address] [address] 11/17/2024 Vannessa Burcha [address] [address] 08/08/2025 Vannessa Tim Assessments Encounter Date Diagnosis (ICD [...] mellitus with diabetic polyneuropathy (ICD-10 - E11.42) 09/04/2025 Type 2 diabetes mellitus with diabetic polyneuropathy (ICD-10 - E11.42) 09/04/2025 Tinea unguium (ICD-10 - B35.1) 02/09/2025 Tinea unguium (ICD-10 - B35.1) 11/17/2024 Tinea unguium (ICD-10 - B35.1) 11/17/2024 Other hammer toe(s) (acquired), right foot (ICD-10 - M20.41) Response to treatment,Impro vement 02/09/2025 Other hammer toe(s) (acquired), left foot (ICD-10 - M20.42) 11/17/2024 Other hammer toe(s) (acquired), left foot (ICD-10 - M20.42) Response to treatment,Impro vement 05/08/2025 Other Plan Of Treatment Pending Test Test Name Order Date X ray : Foot, left 3V 04/13/2017 X ray : Foot, left 3V 04/12/2018 X ray : Foot, left 3V 08/02/2018 X ray : Foot, left 3V 10/24/2019 X ray : Foot, right 3V 09/13/2018 X ray : Foot, right 3V 10/24/2019 X ray : Foot, right 3V 04/12/2018 73728-JUKLMCW NAIL, 6 OR MORE 04/12/2018 93683-DLESTMH NAIL, 6 OR MORE 03/16/2017 68587-OTFLCZC NAIL, 6 OR MORE 08/28/2015 25572-ZCXEKUR NAIL, 6 OR MORE 11/28/2015 20177-RKUCJUL NAIL, 6 OR MORE 04/07/2016 52519-JPFWDMV NAIL, 6 OR MORE 08/11/2016 14898-IQKPVOQ NAIL, 6 OR MORE 11/04/2016 15838-NMDDCQX NAIL, 6 OR MORE 09/24/2017 11000-TLNHTAX NAIL, 6 OR MORE 07/05/2018 02612-DMPNDCP NAIL, 6 OR MORE 09/13/2018 86394-Cxtpwrpt Plate 03/31/2017 95789-QQZP SKIN LESIONS, OVER 4 09/24/20 17 62976-EIVP SKIN LESIONS, OVER 4 07/05/20 18 18033-DIAL SKIN LESIONS, OVER 4 04/12/20 18 51599-INQA SKIN LESIONS, OVER 4 11/04/20 16 59127-RZOH SKIN LESIONS, OVER 4 03/16/20 17 82285-ISEF SKIN LESIONS, OVER 4 11/28/19 16 46927-KJOF SKIN LESIONS, OVER 4 08/28/20 15 66058-BUIS SKIN LESIONS, OVER 4 09/13/20 18 47679-ZHVA SKIN LESIONS, 2 TO 4 08/11/20 16 HEMOGLOBIN A1C (GLYCOHEMOGLOBIN) 018 Next Appt Details Provider Name:Vannessa benjamin, 12/04/2025 02:00:00 PM, [address] [facility], [place], [address], Insurance Providers Payer Name Payer Address Payer Phone Subscriber Number Group Number Insured Name Patient Relationship to Insured Coverage Start Date Coverage End Date Medicare National Govt S[employer] [address] [facility] [place] [address] [id number] Dennys flynnPerlita churchill Self - patient is the insured 2 [employer] [address] [place] [address] [id number] Jonse shaikh Perlita Self - patient is the insured [...]
--- OUTSIDE RECORDS SUMMARY | 2025-09-27 20:11 | XMS_ITS | Encounter Summary ---
Author Organization [facility], Address [address] [place] [address] Phone Care Team Providers Care Carton Stapler Name Role Phone Mariana Whitten MD Primary Care Provider [phone] Encounter Details Date Type Department Care Team (Late st Contact Info) Description 01/22/2023 Documentation Only [facility], - [address] [facility] [address] [place] [id number] Mariana Whitten MD [address] [place] [address] Social History Tobacco Use Types Packs/Day Years [...] on filedocumented in this encounter Care Teams Carton Stapler Relationship Specialty Start Date End Date Mariana Whitten MD [address] [place] [address] PCP - General Internal Medicine 12/11/19 documented as of this encounter
--- OUTSIDE RECORDS SUMMARY | 2025-09-27 20:11 | XMS_ITS | Encounter Summary ---
Author Organization [facility], Address [address] [place] [address] Phone Care Team Providers Care Supervisor Nuclear Medicine Name Role Phone Mariana Whitten MD Primary Care Provider [phone] Encounter Details Date Type Department Care Team (Late st Contact Info) Description 03/01/2020 Orders Only [facility] [address] [facility] [place] [address] Montse Grace MD Chronic kidney disease stage [...] (HCC) documented in this encounter Care Teams Supervisor Nuclear Medicine Relationship Specialty Start Date End Date Mariana Whitten MD [address] [place] [address] PCP - General Internal Medicine 12/11/19 documented as of this encounter
--- OUTSIDE RECORDS SUMMARY | 2025-09-27 20:11 | XMS_ITS | Continuity of Care Document ---
Author Organization [facility] Address [address] [facility] [address] [place] [address] Phone [phone] Social History Type Date Description Comments Sex Female Sex Unknown Medical Devices Description No Information Available Encounters Description No Information Available Assessments Description No Information Available Plan of Treatment No Information Available Functional Status Description No Information Available Mental Status Description No Information Available Referrals Description No Information Available
--- OUTSIDE RECORDS SUMMARY | 2025-09-27 20:11 | XMS_ITS | Encounter Summary ---
Author Organization [facility] Address [address] [place] [address] [place] [address] Phone Care Team Providers Care Felling Machine Operator Name Role Phone Frederick Barnes MD Primary Care Provider [phone] Encounter Details Date Type Department Care Team (Late st Contact Info) Description 01/31/2018 Ancillary Orders [address] [address] Mary Grace Lockwood PA-C [address] [place] [address] Orthopedics & Sports Medicine, [facility] [place] [address] [email or web address] Right shoulder pain, unspecified chronicity Social History [...] chronicity documented in this encounter Care Teams Felling Machine Operator Relationship Specialty Start Date End Date Frederick Barnes MD [address] [place] [address] [address] [place] [address] PCP - General 08/26/17 documented as of this encounter Additional Source Comments The information contained in this document represents components of the legal health record. It is not the complete legal health record.[facility]
== END 2025-09-27 16:29 | disposition home or self-care (01) ==
PROVIDERS: PCP Internal Medicine; Visit Provider Internal Medicine
DX: E11.65 Type 2 diabetes mellitus with hyperglycemia (principal); I25.10 Atherosclerotic heart disease of native coronary artery without angina pectoris; I48.0 Paroxysmal atrial fibrillation; Z95.810 Presence of automatic (implantable) cardiac defibrillator; I25.5 Ischemic cardiomyopathy; I15.0 Renovascular hypertension; I70.1 Atherosclerosis of renal artery; E78.00 Pure hypercholesterolemia, unspecified; K76.0 Fatty (change of) liver, not elsewhere classified; N18.31 Chronic kidney disease, stage 3a

== ENCOUNTER → 2025-09-27 14:44 | Outpatient (BNVA) | payer MEDICARE, SELFPAY | PROVIDERS: PCP Internal Medicine; Visit Provider Internal Medicine | DX: E11.65 Type 2 diabetes mellitus with hyperglycemia (principal); I25.10 Atherosclerotic heart disease of native coronary artery without angina pectoris; I48.0 Paroxysmal atrial fibrillation; I12.9 Hypertensive chronic kidney disease with stage 1 through stage 4 chronic kidney disease, or unspecified chronic kidney disease; E11.22 Type 2 diabetes mellitus with diabetic chronic kidney disease; N18.31 Chronic kidney disease, stage 3a; I70.1 Atherosclerosis of renal artery; E78.00 Pure hypercholesterolemia, unspecified; K76.0 Fatty (change of) liver, not elsewhere classified; I25.5 Ischemic cardiomyopathy; Z95.810 Presence of automatic (implantable) cardiac defibrillator | CPT/HCPCS: 99212 ==